=== PATIENT | male | born 1945 | race African-American/Black ===

== ENCOUNTER → 2016-08-13 | Outpatient (CLI) | payer OTHER, MEDICARE ==
[2016-08-13 12:10] LABS: HEMATOCRIT 42.8 % (37.9-51.0); HEMOGLOBIN 14.2 g/dL (13.5-17.0); HGB HCT DIFFERENCE -0.2; MEAN CORPUSCULAR HEMOGLOBIN 29.3 pg (27.0-33.4); MEAN CORPUSCULAR HGB CONC 33.2 g/dL (32.0-36.0); MEAN CORPUSCULAR VOLUME 88 fl (80-97); RED BLOOD COUNT 4.85 10^6/uL (4.35-5.55); RED CELL DISTRIBUTION WIDTH 14.3 % (11.5-14.0); WHITE BLOOD COUNT 7.8 10^3/uL (4.0-10.5)
[2016-08-13 12:21] LABS: APPEARANCE,URINE SLIGHTLY-CLOUDY; BILIRUBIN,URINE NEGATIVE (NEGATIVE); GLUCOSE, URINE NEGATIVE (NEGATIVE); KETONES,URINE NEGATIVE (NEGATIVE); LEUKOCYTE ESTERASE,URINE NEGATIVE (NEGATIVE); NITRITE,URINE NEGATIVE (NEGATIVE); PROTEIN,URINE NEGATIVE (NEGATIVE); URINE SPECIFIC GRAVITY 1.019; UROBILINOGEN,URINE NEGATIVE mg/dL (<2.0)
[2016-08-13 12:32] LABS: ANION GAP 13 (5-19); BLOOD UREA NITROGEN 16 mg/dL (7-20); CALCIUM 9.7 mg/dL (8.4-10.2); CARBON DIOXIDE 22 mmol/L (22-30); CHLORIDE 104 mmol/L (98-107); CREATININE RESULT 0.92 mg/dL (0.52-1.25); GLUCOSE 109 mg/dL (75-110); POTASSIUM 4.4 mmol/L (3.6-5.0); SODIUM 138.5 mmol/L (137-145)
--- NOTE | 2016-08-13 20:33 | EKG REPORT ---
SEVERITY:- ABNORMAL ECG - A-FLUTTER W/ VARIED AV BLOCK, A-RATE 283 : Confirmed by: Neal Sue MD 13-Aug-2016 20:32:18
== END ==
LOC: OD 10:31
PROVIDERS: ATTEND Orthopaedic Surgery
DX: Z01.810 Encounter for preprocedural cardiovascular examination (principal); Z01.811 Encounter for preprocedural respiratory examination; Z01.818 Encounter for other preprocedural examination; Z79.899 Other long term (current) drug therapy; E11.9 Type 2 diabetes mellitus without complications
CPT/HCPCS: 36415; 71020; 80048; 81001; 83036; 85027; 93005; 93010

== ENCOUNTER 2016-09-22 07:30 | Inpatient (IN) | payer OTHER, MEDICARE ==
[2016-09-09 09:13] LABS: HEMATOCRIT 41.7 % (37.9-51.0); HEMOGLOBIN 13.7 g/dL (13.5-17.0); HGB HCT DIFFERENCE -0.6; MEAN CORPUSCULAR HEMOGLOBIN 29.2 pg (27.0-33.4); MEAN CORPUSCULAR VOLUME 89 fl (80-97); RED BLOOD COUNT 4.71 10^6/uL (4.35-5.55); RED CELL DISTRIBUTION WIDTH 14.5 % (11.5-14.0); WHITE BLOOD COUNT 8.4 10^3/uL (4.0-10.5)
[2016-09-09 09:16] LABS: APPEARANCE,URINE CLEAR; BILIRUBIN,URINE NEGATIVE (NEGATIVE); GLUCOSE, URINE NEGATIVE (NEGATIVE); KETONES,URINE NEGATIVE (NEGATIVE); LEUKOCYTE ESTERASE,URINE NEGATIVE (NEGATIVE); NITRITE,URINE NEGATIVE (NEGATIVE); PROTEIN,URINE NEGATIVE (NEGATIVE); URINE SPECIFIC GRAVITY 1.024; UROBILINOGEN,URINE NEGATIVE mg/dL (<2.0)
[2016-09-09 09:17] LABS: ANION GAP 14 (5-19); BLOOD UREA NITROGEN 16 mg/dL (7-20); CALCIUM 9.8 mg/dL (8.4-10.2); CARBON DIOXIDE 25 mmol/L (22-30); CHLORIDE 106 mmol/L (98-107); CREATININE RESULT 0.91 mg/dL (0.52-1.25); GLUCOSE 115 mg/dL (75-110); POTASSIUM 4.3 mmol/L (3.6-5.0); SODIUM 144.8 mmol/L (137-145)
[~2016-09-22 07:30] MED LIST: BUPIVACAINE INJ/PF LIPOSOME/PF 266 MG/20 ML SDV IJ PRN; LACTATED RINGERS 1000 ML IV PRN; LANSOPRAZOLE 15 MG TAB.RAP.DR PO PRN; LIDOCAINE 0.5% INJ-PF (5 MG/ML) 50 ML SDV SUBCUT PRN; OXYCODONE HCL SR 10 MG TABLET PO PRN; SCOPOLAMINE HYDROBROMIDE 1.5 MG PATCH.TD72 TOP PRN
[2016-09-22] MEDS ORDERED: VANCOMYCIN HCL 1,000 MG in DEXTROSE 5%-WATER 250 ML IV PRN (07:40)
[2016-09-22] MEDS ORDERED: CEFAZOLIN INJ 1 GM VIAL IV PRN (07:41)
[2016-09-22] MEDS ORDERED: IBUPROFEN 800 MG/NS 250 ML IV PRN ×2 (07:44)
[2016-09-22] MEDS ORDERED: MIDAZOLAM 2 MG/2 ML INJ ONE ×2 (08:59→09:39)
[2016-09-22] MEDS ORDERED: ONDANSETRON HCL INJ/PF 4 MG/2 ML SDV ONE (08:59)
[2016-09-22] MEDS ORDERED: FENTANYL CITRATE INJ/PF 100 MCG/2 ML AMPUL ONE (08:59)
[2016-09-22] MEDS ORDERED: DEXAMETHASONE SOD PHOSPHATE INJ 4 MG/1 ML VIAL ONE (08:59)
[2016-09-22] MEDS ORDERED: MORPHINE SULFATE 10 MG/ML INJ ONE (09:00)
[2016-09-22] MEDS ORDERED: TRANEXAMIC ACID INJ/PF 1,000 MG/10 ML SDV IV ONE ×2 (09:00→13:00)
[2016-09-22] MEDS ORDERED: PROPOFOL INJ 200 MG/20 ML VIAL IV ONE (09:00)
[2016-09-22] MEDS ORDERED: THROMBIN (BOVINE) 5000 UNIT EPITAXIS KIT ONE (09:04)
[2016-09-22] MEDS ORDERED: THROMBIN (BOVINE) TOPICAL 20000 UNIT VIAL ONE (09:04)
[2016-09-22] MEDS ORDERED: BUPIVACAINE INJ/PF LIPOSOME/PF 266 MG/20 ML SDV ONE (09:04)
[2016-09-22] MEDS ORDERED: DIPHENHYDRAMINE HCL 50 MG/ML VIAL IV PRN ×2 (10:18→11:28)
[2016-09-22] MEDS ORDERED: PROMETHAZINE HCL INJ 25 MG/1 ML VIAL IV PRN ×2 (10:18)
[2016-09-22] MEDS ORDERED: MEPERIDINE HCL/PF INJ 25 MG/1 ML DISP.SYRIN IV PRN (10:18)
[2016-09-22] MEDS ORDERED: FENTANYL CITRATE INJ/PF 100 MCG/2 ML AMPUL IV PRN ×3 (10:18)
[2016-09-22] MEDS ORDERED: MORPHINE SULFATE 10 MG/ML INJ IV PRN ×4 (10:18→11:28)
--- NOTE | 2016-09-22 11:25 | Operative Report ---
Operative Report DATE OF SURGERY: 09/22/16 PREOPERATIVE DIAGNOSIS: Left hip arthritis OPERATION: Left hip arthroplasty SURGEON: MAGNUS AVINA ANESTHESIA: Spinal TISSUE REMOVED OR ALTERED: Bone to pathology ESTIMATED BLOOD LOSS: 200 PROCEDURE: Implants used: Femur: Striker accolade to #6 stem Acetabular shell:, 60 mm hemispherical shell Liner:, 36 mm flat cross-link polyethylene liner Head: 6 mm chrome cobalt head -5 The patient is placed in a right lateral decubitus position on the operating table. The. Left lower extremity and hindquarter is prepped and draped in a sterile fashion. A curvilinear incision was made over the greater trochanter a posterior approach the hip was taken. I'm unable to dislocate the femoral head and an in situ femoral neck osteotomy is performed. The existing femoral head which is severely deformed is taken out piecemeal . Attention was next turned to the acetabulum. Soft tissues cleared off the acetabulum using electrocautery. The acetabulum was then prepared using a series of hemispherical reamers until a 59 millimeters reamer is seated. Subsequently a 60 millimeters Adelso titanium hemispherical shell is impacted into position and secured with one screw. A standard flat 36 millimeters cross- link liner is impacted into the shell. Attention was next turned to the femur. Access is gained to the femoral canal using a box osteotome to the piriformis fossa. The femur is then prepared using a series of broaches until a number 6 broach is seated. A trial reduction was now performed using a 36 millimeters head with and minus 5 neck. Preoperative leg length was recreated and is excellent anterior posterior stability. A decision was made to proceed with the above construct. All trial implants were removed. The wound is irrigated with pulsed lavage. A number 6 stem is impacted into the femoral canal. A trial reduction was again performed with a 36 mm head and a -5 neck. Findings as previously. The hip was dislocated one last time and the final chrome-cobalt head is impacted onto the trunnion. The hip was reduced. Wound is copiously irrigated with pulsed lavage. Sent closed in layers using interrupted Vicryl followed by dima. A sterile dressing is applied and the patient's returned to recovery room in satisfactory patient.
[2016-09-22] MEDS ORDERED: AMITRIPTYLINE HCL 10 MG TABLET PO PRN (11:27)
[2016-09-22] MEDS ORDERED: (PENDING PHARMACY ID) (Magnesium Oxide [Magnesium] 400 MG) PO PRN (11:27)
[2016-09-22] MEDS ORDERED: ONDANSETRON HCL INJ/PF 4 MG/2 ML SDV IV PRN (11:28)
[2016-09-22] MEDS ORDERED: ONDANSETRON 4 MG TAB.RAPDIS PO PRN (11:28)
[2016-09-22] MEDS ORDERED: MORPHINE SULFATE 10 MG/ML INJ IM PRN (11:28)
[2016-09-22] MEDS ORDERED: MAG HYDROX/AL HYDROX/SIMETH SUSP 30 ML UDCUP PO PRN (11:28)
[2016-09-22] MEDS ORDERED: ACETAMINOPHEN 325 MG TABLET PO PRN (11:28)
[2016-09-22] MEDS ORDERED: RINGERS SOLUTION,LACTATED 1,000 ML IV PRN (11:28)
[2016-09-22] MEDS ORDERED: OXYCODONE HCL IR 5 MG TABLET PO PRN (11:28)
[2016-09-22] MEDS ORDERED: ZOLPIDEM TARTRATE 5 MG TABLET PO PRN (11:28)
[2016-09-22] MEDS ORDERED: MAGNESIUM OXIDE 400 MG TABLET PO PRN (11:50)
[2016-09-22] MEDS: SENNOSIDES/DOCUSATE 8.6-50 MG 1 EACH TABLET PO SCH (18:05)
[2016-09-22] MEDS: IBUPROFEN 800 MG in NORMAL SALINE 250 ML IV SCH (18:09)
[2016-09-22] MEDS: OXYCODONE HCL SR 10 MG TABLET PO SCH (21:17)
[2016-09-22] MEDS ORDERED: RIVAROXABAN 10 MG TABLET PO SCH (22:00)
[2016-09-22] MEDS ORDERED: VANCOMYCIN HCL 1,000 MG in DEXTROSE 5%-WATER 250 ML IV ONE (23:30)
[2016-09-23] MEDS: IBUPROFEN 800 MG in NORMAL SALINE 250 ML IV SCH ×2 (01:09→09:06)
[2016-09-23 05:50] LABS: HEMATOCRIT 38.4 % (37.9-51.0); HEMOGLOBIN 12.5 g/dL (13.5-17.0); HGB HCT DIFFERENCE -0.9; MEAN CORPUSCULAR HEMOGLOBIN 28.7 pg (27.0-33.4); MEAN CORPUSCULAR HGB CONC 32.6 g/dL (32.0-36.0); MEAN CORPUSCULAR VOLUME 88 fl (80-97); RED BLOOD COUNT 4.36 10^6/uL (4.35-5.55); RED CELL DISTRIBUTION WIDTH 14.3 % (11.5-14.0); WHITE BLOOD COUNT 13.8 10^3/uL (4.0-10.5)
[2016-09-23] MEDS ORDERED: LANSOPRAZOLE 30 MG TAB.RAP.DR PO SCH (06:00)
[2016-09-23 06:10] LABS: ANION GAP 12 (5-19); BLOOD UREA NITROGEN 16 mg/dL (7-20); CALCIUM 9.2 mg/dL (8.4-10.2); CARBON DIOXIDE 22 mmol/L (22-30); CHLORIDE 104 mmol/L (98-107); GLUCOSE 156 mg/dL (75-110); POTASSIUM 4.7 mmol/L (3.6-5.0); SODIUM 137.9 mmol/L (137-145)
--- NOTE | 2016-09-23 06:51 | PDOC DISCHARGE SUMMARY ---
General - Admit/Disc Date/PCP Admission Date/Primary Care Provider: 09/22/16 08:39 Discharge Date: 09/23/16 - Discharge Diagnosis (1) Arthritis of left hip Is this a current diagnosis for this admission?: YesSummary: The patient's a 71-year-old black male who presents with progressive pain and functional disability associated with left hip arthritis. Is admitted for elective left hip arthroplasty. - Additional Information Resuscitation Status: Full Code Discharge Diet: As Tolerated, Regular Discharge Activity: Balance Activity w/Rest, No Driving Home Medications: Amitriptyline HCl [Elavil 10 mg Tablet] 10 mg PO QAM PRN 09/08/16 Aspirin [Aspirin EC] 81 mg PO QAM 09/08/16 Diltiazem HCl 480 mg PO QAM 09/08/16 Ferrous Sulfate 324 mg PO QAM 09/08/16 Hydrochlorothiazide 25 mg PO QAM 09/08/16 Ibuprofen 600 mg PO TID 09/08/16 Lisinopril 40 mg PO QAM 09/08/16 Magnesium Oxide [Magnesium] 400 mg PO QHS PRN 09/08/16 Pravastatin Sodium 40 mg PO QAM 09/08/16 Ranitidine HCl 150 mg PO QAM 09/08/16 Oxycodone HCl [Oxy-Ir 5 mg Tablet] 5 mg PO Q6HP PRN #0 tablet 09/23/16 Rivaroxaban [Xarelto 10 mg Tablet] 10 mg PO QHS #0 tablet 09/23/16 History of Present Illness History of Present Illness: PAULETTE SCALES is a 71 year old male Hospital Course Hospital Course: Patient submitted through the operating room where he undergoes a fairly complicated left hip arthroplasty. He's returned to floor in satisfactory condition. He denies any pain. He makes excellent progress with physical therapy, ambulating 440 feet on the operative day. Hematocrit remains above 38% . Physical Exam Vital Signs: Temp Pulse Resp BP Pulse Ox 36.8 C 116 H 18 112/61 100 09/23/16 03:08 09/23/16 03:08 09/23/16 03:08 09/23/16 03:08 09/23/16 03:08 Intake & Output 09/21/16 09/22/16 09/23/16 06:59 06:59 06:59 Intake Total 6008 Output Total 4540 Balance 1468 Weight 124.7 kg General appearance: PRESENT: no acute distress Head exam: PRESENT: normocephalic Eye exam: PRESENT: EOMI Respiratory exam: PRESENT: unlabored Cardiovascular exam: PRESENT: RRR Pulses: PRESENT: +1 pedal pulses bilateral GI/Abdominal exam: PRESENT: soft Rectal exam: PRESENT: deferred Extremities exam: PRESENT: other - Left lower extremity balaji dressing clean dry and intact. Leg lengths are equal. Distal neurovascular examinations intact. Neurological exam: PRESENT: alert, awake, oriented to person, oriented to place , oriented to time, oriented to situation. ABSENT: motor sensory deficit Psychiatric exam: PRESENT: appropriate affect, normal mood. ABSENT: homicidal ideation, suicidal ideation Skin exam: PRESENT: dry, intact, warm. ABSENT: cyanosis, rash Results Laboratory Results: 09/23/16 05:05 09/23/16 05:05 09/22/16 09/22/16 09/22/16 09:00 09:00 11:49 WBC RBC Hgb Hct MCV MCH MCHC RDW Plt Count Sodium Potassium Cancelled Chloride Carbon Dioxide Anion Gap BUN Creatinine Est GFR ( Amer) Est GFR (Non-Af Amer) Glucose 139 H Calcium Blood Type Cancelled Antibody Screen Cancelled 09/22/16 09/22/16 09/23/16 11:49 11:49 05:05 WBC 13.8 H RBC 4.36 Hgb 12.5 L Hct 38.4 MCV 88 MCH 28.7 MCHC 32.6 RDW 14.3 H Plt Count 148 L Sodium Potassium 4.9 Chloride Carbon Dioxide Anion Gap BUN Creatinine Est GFR ( Amer) Est GFR (Non-Af Amer) Glucose Calcium Blood Type O POSITIVE Antibody Screen NEGATIVE 09/23/16 05:05 WBC RBC Hgb Hct MCV MCH MCHC RDW Plt Count Sodium 137.9 Potassium 4.7 Chloride 104 Carbon Dioxide 22 Anion Gap 12 BUN 16 Creatinine 0.90 Est GFR ( Amer) > 60 Est GFR (Non-Af Amer) > 60 Glucose 156 H Calcium 9.2 Blood Type Antibody Screen Impressions: Pelvis X-Ray 09/22/16 11:29 IMPRESSION: SATISFACTORY POSTOPERATIVE PELVIS. Status: Imported from PACS Plan Discharge Plan: Patient be discharged home with home health nursing, home health physical therapy, we'll Walker, bedside commode. Home health nursing can change the left hip balaji dressing on postop day 7 replace it with an Acticoat dressing. Follow-up will be with Dr. Schulz in the [facility] for surgery in approximately 2 weeks for staple removal. Time Spent: Less than 30 Minutes
[2016-09-23] MEDS ORDERED: DILTIAZEM HCL 60 MG TABLET PO SCH (08:00)
[2016-09-23] MEDS ORDERED: (PENDING PHARMACY ID) (Lisinopril [Lisinopril] 40 MG) PO SCH (08:00)
[2016-09-23] MEDS ORDERED: (PENDING PHARMACY ID) (Ferrous Sulfate [Ferrous Sulfate] 324 MG) PO SCH (08:00)
[2016-09-23] MEDS ORDERED: (PENDING PHARMACY ID) (Ranitidine Hcl [Ranitidine Hcl] 150 MG) PO SCH (08:00)
[2016-09-23] MEDS ORDERED: (PENDING PHARMACY ID) (Pravastatin Sodium [Pravastatin Sodium] 40 MG) PO SCH (08:00)
[2016-09-23 08:26] VITALS: BP 131/74
[2016-09-23] MEDS: OXYCODONE HCL SR 10 MG TABLET PO SCH (09:00)
[2016-09-23] MEDS: SENNOSIDES/DOCUSATE 8.6-50 MG 1 EACH TABLET PO SCH (09:01)
[2016-09-23] MEDS ORDERED: HYDROCHLOROTHIAZIDE 25 MG TABLET PO SCH (10:00)
[2016-09-23] MEDS ORDERED: PRENATAL VITAMIN W-O CA NO5/FE FUMARATE/FA CAPSULE PO SCH (10:00)
[2016-09-23] MEDS ORDERED: LISINOPRIL 10 MG TABLET PO SCH (10:00)
[2016-09-23] MEDS ORDERED: FERROUS SULFATE 325 MG TABLET PO SCH (10:00)
--- NOTE | 2016-09-23 10:46 | EKG REPORT ---
SEVERITY:- ABNORMAL ECG - SINUS TACHYCARDIA NONSPECIFIC T ABNORMALITIES, LATERAL LEADS : Confirmed by: Neal Sue MD 23-Sep-2016 10:45:08
[2016-09-23] MEDS ORDERED: ATORVASTATIN CALCIUM 10 MG TABLET PO SCH (22:00)
== END 2016-09-23 10:49 | disposition home health service (06) | DRG 470 ==
LOC: INOR 08:39 → 4S 12:46
PROVIDERS: ADMIT Orthopaedic Surgery; ATTEND Orthopaedic Surgery
PROC: 0SRB02A Replacement of Left Hip Joint with Metal on Polyethylene Synthetic Substitute, Uncemented, Open Approach (ICD-10-PCS; principal; 2016-09-22 10:00)
DX: M16.12 Unilateral primary osteoarthritis, left hip (principal); I10 Essential (primary) hypertension; E11.9 Type 2 diabetes mellitus without complications; F43.10 Post-traumatic stress disorder, unspecified; K21.9 Gastro-esophageal reflux disease without esophagitis; E66.9 Obesity, unspecified; Z68.39 Body mass index [BMI] 39.0-39.9, adult; Z79.899 Other long term (current) drug therapy; Z83.3 Family history of diabetes mellitus; Z82.49 Family history of ischemic heart disease and other diseases of the circulatory system
CPT/HCPCS: 01214; 36415; 72170; 80048; 81001; 82947; 84132; 85027; 86850; 86900; 86901; 88304; 88311; 93005; 93010; 94799; C1713; C9290; G8978-GP; G8979-GP; G8987-GO; G8988-GO; J0690; J1100; J1741; J2250; J2270; J2405; J2704; J3010; J3370; J3490; J7050; J7060; J7120

== ENCOUNTER 2017-01-20 02:04 | Inpatient (IN) | payer OTHER, MEDICARE ==
[2017-01-20] MEDS ORDERED: METHYLPREDNISOLONE INJ 125 MG/2 ML SDV ONE (02:09)
[2017-01-20] MEDS ORDERED: ALBUTEROL SULFATE 0.083% NEB 2.5 MG/3 ML AMPUL NEB ONE (02:09)
[2017-01-20] MEDS ORDERED: IPRATROPIUM/ALBUTEROL 0.5-2.5 MG/3 ML AMPUL NEB ONE ×3 (02:09→07:46)
[2017-01-20] MEDS: MAGNESIUM SULFATE/D5W 100 ML IV SCH ×2 (02:12→02:20)
[2017-01-20] MEDS ORDERED: MAGNESIUM SULFATE/D5W 2 GM/200 ML RTUPB IV ONE (02:12)
[2017-01-20 02:28] LABS: VENOUS BLOOD BASE EXCESS -5.4 mmol/L; VENOUS BLOOD HCO3 21.1 mmol/L (20-32); VENOUS BLOOD PCO2 44.4 mmHg (35-63); VENOUS BLOOD PH 7.29 (7.30-7.42)
--- NOTE | 2017-01-20 02:36 | ER Document Report ---
ED General - General Chief Complaint: Respiratory Distress Stated Complaint: RESPIRATORY DISTRESS Time Seen by Provider: 01/20/17 02:07 Notes: This 71-year-old male who woke up in respiratory distress. He has no history of asthma. No history of COPD or emphysema. Does not smoke. He feels last night he was having worsening acid reflux symptoms and he woke up with wheezing and difficulty breathing. When paramedics arrived his O2 saturation was 74%. Most recent surgery is hip surgery and September of this year. He denies any leg pain or leg swelling that is new. He denies history of DVT or PE. No chest pain. He never had symptoms like this in the past. Paramedics said when he first arrived his lung wood are extremely tight he was not moving air. Did do give him Solu-Medrol as well as breathing treatments which has allowed him to have some air exchange at this time. TRAVEL OUTSIDE OF THE [place] IN LAST 30 DAYS: No - Related Data Allergies/Adverse Reactions: No Known Allergies Allergy (Verified 01/20/17 02:33) Past Medical History - Social History Smoking Status: Never Smoker Frequency of alcohol use: None Drug Abuse: None Family History: Reviewed & Not Pertinent - Past Medical History Cardiac Medical History: Reports: Hx Atrial Fibrillation, Hx Hypercholesterolemia, Hx Hypertension Denies: Hx Congestive Heart Failure, Hx Coronary Artery Disease, Hx Heart Attack, Hx Peripheral Vascular Disease, Hx Heart Murmur Endocrine Medical History: Denies: Hx Graves' Disease, Hx Hyperthyroidism, Hx Hypothyroidism Malignancy Medical History: Denies Hx Leukemia GI Medical History: Reports: Hx Gastroesophageal Reflux Disease. Denies: Hx Crohn's Disease, Hx Hiatal Hernia, Hx Irritable Bowel, Hx Liver Failure, Hx Ulcer Musculoskeltal Medical History: Reports Hx Arthritis, Denies Hx Fibromyalgia, Denies Hx Muscular Dystrophy Psychiatric Medical History: Reports: Hx Post Traumatic Stress Disorder Denies: Hx Bipolar Disorder, Hx Depression, Hx Schizophrenia Traumatic Medical History: Denies: Hx Fractures Infectious Medical History: Denies: Hx HIV Past Surgical History: Denies: Hx Appendectomy, Hx Bowel Surgery, Hx Cholecystectomy, Hx Colostomy, Hx Coronary Artery Bypass Graft, Hx Gastric Bypass Surgery, Hx Herniorrhaphy, Hx Pacemaker, Hx Tonsillectomy - Immunizations Hx Pneumococcal Vaccination: 03/15/16 Review of Systems - Review of Systems Notes: My Normal Review Basic REVIEW OF SYSTEMS: CONSTITUTIONAL : Denies fever, chills, or sweats. Denies recent illness. EENT: Denies eye, ear, throat, or mouth pain or symptoms. Denies nasal or sinus congestion. CARDIOVASCULAR: Denies chest pain. RESPIRATORY: Difficulty breathing and wheezing. GASTROINTESTINAL: Denies abdominal pain. Denies nausea, vomiting, or diarrhea. MUSCULOSKELETAL: Denies neck or back pain or joint pain or swelling. SKIN: Denies rash or skin lesions. NEUROLOGICAL: Denies altered mental status or loss of consciousness. Denies headache. Denies weakness or paralysis or loss of use of either side. Denies problems with gait or speech. Denies sensory or motor loss. ALL OTHER SYSTEMS REVIEWED AND NEGATIVE. Physical Exam - Vital signs Vitals: Resp Pulse Ox 24 H 97 01/20/17 02:16 01/20/17 02:16 - Notes Notes: General Appearance: Well nourished, alert, cooperative, moderate acute distress , no obvious discomfort. Speaking in 3 word sentences Vitals: reviewed, See vital signs table. Head: no swelling or tenderness to the head Eyes: PERRL, EOMI, Conjuctiva clear Mouth: No decreasd moisture Neck: Supple, no neck tenderness, No thyromegaly Lungs: Diffuse wheezing, No rales, No rhonci, No accessory muscle use, poor air exchange bilaterally. Heart: Normal rate, Regular rythm, No murmur, no rub Abdomen: Normal BS, soft, No rigidity, No abdominal tenderness, No guarding, no rebound, no abdominal masses, no organomegaly Extremities: strength 5/5 in all extremities, good pulses in all extremities, no swelling or tenderness in the extremities, 2+ bilateral lower extremity edema. Skin: warm, dry, appropriate color, no rash Neuro: speech clear, oriented x 3, normal affect, responds appropriately to questions. Course - Re-evaluation Re-evalutation: 01/20/17 02:55 Patient suddenly became much worse. Patient was sweating and had severe respiratory distress despite being on BiPAP and receiving breathing treatments. I discussed with him the option of intubation and told him that I recommended this being that he was only worsening on the BiPAP. Patient agreed to intubation. Patient was intubated. Patient's pulse ox is 100% after being intubated. I will place the patient on a propofol drip. - Vital Signs Vital signs: Temp Pulse Resp BP Pulse Ox 24 H 95 01/20/17 02:16 01/20/17 03:05 - Laboratory Result Diagrams: 01/20/17 02:08 01/20/17 02:08 Laboratory results interpreted by me: 01/20/17 01/20/17 01/20/17 02:08 02:08 02:08 WBC 12.0 H Hgb 13.1 L MCHC 31.9 L RDW 15.6 H VBG pH 7.29 L Chloride 108 H Glucose 174 H Alkaline Phosphatase 189 H NT-Pro-B Natriuret Pep 01/20/17 02:08 WBC Hgb MCHC RDW VBG pH Chloride Glucose Alkaline Phosphatase NT-Pro-B Natriuret Pep 986 H - EKG Interpretation by Me Additional EKG results interpreted by me: 01/20/17 02:34 2 [id number] EKG is performed the same time. First EKG will be discarded. First EKG was performed at 216. I will discard this 1 because of some motion artifact it is difficult to interpret. Second EKG was performed at a.m. This EKG shows sinus tachycardia with a rate of 103 bpm. Patient still some baseline artifact however I do not see evidence of any ST segment elevation or depression. LA interval, QRS duration, QTc intervals are within normal range. No old EKG available for comparison. Procedures - Intubation Orotracheal Airway evaluation: Obese Mallampati Classification: Class 2 Medications: Etomidate, Succinylcholine Intubation method: Orotracheal Blade type: Tran Blade size: 4 Equipment used: Glidescope ETT size: 7.5 ETT secured at: Gums ETT secured at (cm): 25 Breath Sounds after Intubation: Equal Post Intubation Xray: Yes Intubation Complications: No complications Critical Care Note - Critical Care Note Total time excluding time spent on procedures (mins): 50 Comments: Critical Care time for this patient not including time spent on procedures approximately 50 minutes due to frequent re-evaluations, management of respiratory failure, adjustments of the ventilator, adjustment of sedation. Discharge - Discharge Clinical Impression: Respiratory failure Qualifiers: Chronicity: acute Respiratory failure complication: hypoxia Qualified Code(s): J96.01 - Acute respiratory failure with hypoxia Pulmonary edema Qualifiers: Chronicity: acute Qualified Code(s): J81.0 - Acute pulmonary edema Disposition: ADMITTED INPATIENT Admitting Provider: Hospitalist Unit Admitted: ICU
[2017-01-20 02:39] LABS: ALANINE AMINOTRANSFERASE 46 U/L (21-72); ALBUMIN 3.9 g/dL (3.5-5.0); ALKALINE PHOSPHATASE 189 U/L (38-126); ANION GAP 13 (5-19); ASPARTATE AMINO TRANSFERASE 35 U/L (17-59); BILIRUBIN,DIRECT 0.4 mg/dL (0.0-0.4); BILIRUBIN,TOTAL 0.7 mg/dL (0.2-1.3); BLOOD UREA NITROGEN 19 mg/dL (7-20); CALCIUM 9.6 mg/dL (8.4-10.2); CARBON DIOXIDE 22 mmol/L (22-30); CHLORIDE 108 mmol/L (98-107); CREATININE RESULT 1.05 mg/dL (0.52-1.25); GLUCOSE 174 mg/dL (75-110); POTASSIUM 4.1 mmol/L (3.6-5.0); SODIUM 142.7 mmol/L (137-145); TOTAL PROTEIN 6.8 g/dL (6.3-8.2)
[2017-01-20] MEDS ORDERED: SUCCINYLCHOLINE CHLORIDE INJ 200 MG/10 ML VIAL IV ONE (02:39)
[2017-01-20] MEDS ORDERED: ETOMIDATE INJ/PF 20 MG/10 ML SDV IV ONE (02:39)
[2017-01-20 02:40] LABS: ABSOLUTE BASOPHILS # (AUTO) 0.1 10^3/uL (0.0-0.2); ABSOLUTE EOSINOPHILS # (AUTO) 0.2 10^3/uL (0.0-0.6); ABSOLUTE LYMPHOCYTES (AUTO) 3.7 10^3/uL (0.5-4.7); ABSOLUTE MONOCYTES (AUTO) 0.9 10^3/uL (0.1-1.4); ABSOLUTE NEUT (AUTO) 7.2 10^3/uL (1.7-8.2); BASOPHILS % (AUTO) 0.5 % (0-2); EOSINOPHILS % (AUTO) 1.6 % (0-6); HEMOGLOBIN 13.1 g/dL (13.5-17.0); HGB HCT DIFFERENCE -1.7; LYMPHOCYTES % (AUTO) 30.6 % (13-45); MEAN CORPUSCULAR HEMOGLOBIN 28.6 pg (27.0-33.4); MEAN CORPUSCULAR HGB CONC 31.9 g/dL (32.0-36.0); MEAN CORPUSCULAR VOLUME 89 fl (80-97); MONOCYTES % (AUTO) 7.6 % (3-13); RED BLOOD COUNT 4.59 10^6/uL (4.35-5.55); RED CELL DISTRIBUTION WIDTH 15.6 % (11.5-14.0); SEGMENTED NEUTROPHILS % (AUTO) 59.7 % (42-78)
--- NOTE | 2017-01-20 02:53 | RADIOLOGY REPORT (SQ) ---
EXAM DESCRIPTION: CHEST SINGLE VIEW COMPLETED DATE/TIME: 01/20/2017 2:39 am REASON FOR STUDY: dyspnea COMPARISON: 08/13/2016. EXAM PARAMETERS: NUMBER OF VIEWS: One view. TECHNIQUE: Single frontal radiographic view of the chest acquired. RADIATION DOSE: NA LIMITATIONS: None. FINDINGS: LUNGS AND PLEURA: Moderate mixed interstitial and airspace opacity worsened bilateral lowe r lung wood. Moderate lung volumes. Small costophrenic haziness -layered effusion bilaterally. MEDIASTINUM AND HILAR STRUCTURES: No masses. Contour normal. HEART AND VASCULAR STRUCTURES: Borderline cardiac silhouette size. BONES: Advanced osteoarthritis of bilateral shoulders. HARDWARE: None in the chest. OTHER: No other significant finding. IMPRESSION: Moderate bilateral pulmonary edema pattern with lower lobe predominance; differential di agnosis includes CHF and multifocal pneumonia. TECHNICAL DOCUMENTATION: JOB ID: [id number]
[2017-01-20] MEDS ORDERED: PROPOFOL 100 ML IV ONE ×3 (02:55→08:08)
[2017-01-20] MEDS ORDERED: PROPOFOL INJ 200 MG/20 ML VIAL IV ONE (02:57)
[2017-01-20] MEDS ORDERED: FUROSEMIDE INJ/PF 40 MG/4 ML SDV IV ONE (02:57)
[2017-01-20] MEDS ORDERED: PROPOFOL 100 ML IV PRN (02:57)
[2017-01-20] MEDS ORDERED: FENTANYL CITRATE INJ/PF 100 MCG/2 ML AMPUL IV ONE (03:05)
[2017-01-20] MEDS ORDERED: FENTANYL CITRATE INJ/PF 100 MCG/2 ML AMPUL ONE (03:08)
[2017-01-20] MEDS ORDERED: MIDAZOLAM 2 MG/2 ML INJ IV ONE (03:09)
[2017-01-20] MEDS ORDERED: MIDAZOLAM HCL 100 ML IV PRN ×2 (03:09→08:53)
[2017-01-20] MEDS ORDERED: MIDAZOLAM 2 MG/2 ML INJ ONE (03:13)
[2017-01-20] MEDS ORDERED: MIDAZOLAM HCL 100 ML IV ONE ×2 (03:14→06:18)
[2017-01-20 03:31] LABS: CREATINE KINASE MB 1.09 ng/mL (<4.55)
[2017-01-20 03:33] LABS: TROPONIN I < 0.012 ng/mL
--- NOTE | 2017-01-20 03:49 | RADIOLOGY REPORT (SQ) ---
EXAM DESCRIPTION: CHEST SINGLE VIEW COMPLETED DATE/TIME: 01/20/2017 3:25 am REASON FOR STUDY: post intubation COMPARISON: 01/20/2017. EXAM PARAMETERS: NUMBER OF VIEWS: One view. TECHNIQUE: Single frontal radiographic view of the chest acquired. RADIATION DOSE: NA LIMITATIONS: None. FINDINGS: LUNGS AND PLEURA: Moderate mixed interstitial and airspace opacities, moderate haziness -l ayered effusion of bilateral lower hemithoraces. Moderate lung volumes. MEDIASTINUM AND HILAR STRUCTURES: No masses. Contour normal. HEART AND VASCULAR STRUCTURES: Heart normal in size. Normal vasculature. BONES: No acute findings. HARDWARE: Adequate appearing endotracheal tube. Likely adequate NG tube obscured distally. OTHER: No other significant finding. IMPRESSION: Moderate pulmonary edema-layered effusion pattern, somewhat worsened. Lines and tubes. TECHNICAL DOCUMENTATION: JOB ID: [id number]
[2017-01-20] MEDS ORDERED: ACETAMINOPHEN 325 MG TABLET NG PRN ×2 (04:09→08:51)
[2017-01-20 04:10] LABS: ARTERIAL BLOOD BASE EXCESS -5.9 mmol/L; ARTERIAL BLOOD O2 SATURATION 94.2 % (94-98)
[2017-01-20] MEDS ORDERED: AMITRIPTYLINE HCL 10 MG TABLET NG PRN ×2 (04:14→08:51)
[2017-01-20 04:28] LABS: URINE BARBITURATES SCREEN NEGATIVE; URINE METHADONE SCREEN NEGATIVE; URINE OPIATES LOW NEGATIVE; URINE PHENCYCLIDINE SCREEN NEGATIVE
--- NOTE | 2017-01-20 05:15 | PDOC H&P ---
History of Present Illness Admission Date/PCP: 01/20/17 04:13 Patient complains of: Shortness of breath History of Present Illness: PAULETTE SCALES is a 71 year old male with a past medical history of hypertension, dyslipidemia, GERD, morbid obesity, anxiety and A. fib on Xarelto who presents after approximately 6 hours of severe shortness of breath nonproductive cough and wheezing. He is found by EMS with an oxygen saturation of 74% on room air. In the emergency room he was given IV Solu-Medrol, albuterol and Atrovent with a trial of BiPAP. He rapidly decompensated with belly breathing diaphoresis requiring emergent intubation. His workup is remarkable for a chest x-ray with marketed pulmonary edema, despite intubation with deep sedation he continues to have copious clear secretions, ventilator asynchrony with elevated peak pressures and belly breathing. He is referred to the hospitalist for admission. Past Medical History Cardiac Medical History: Reports: Atrial Fibrillation, Hyperlipidema, Hypertension Denies: Congestive Heart Failure, Coronary Artery Disease, Myocardial Infarction, Peripheral Vascular Disease, Heart Murmur Endocrine Medical History: Reports: Obesity Denies: Hyperthyroidism, Hypothyroidism Malignancy Medical History: Denies: Leukemia GI Medical History: Reports: Gastroesophageal Reflux Disease Denies: Crohn's Disease, Hiatal Hernia Musculoskeltal Medical History: Reports: Arthritis Denies: Fibromyalgia Psychiatric Medical History: Reports: Post Traumatic Stress Disorder Denies: Bipolar Disorder, Depression Hematology: Reports: Anemia Denies: Hemophilia, Sickle Cell Disease Infectious Medical History: Denies: HIV Past Surgical History Past Surgical History: Denies: Appendectomy, Cholecystectomy, Colostomy, Coronary Artery Bypass Graft, Gastric Bypass Surgery, Herniorrhaphy, Pacemaker, Tonsillectomy Social History Information Source: [facility] Records Smoking Status: Never Smoker Hx Recreational Drug Use: No Hx Prescription Drug Abuse: No - Advance Directive Resuscitation Status: Full Code Family History Family History: Other - Unobtainable Parental Family History Reviewed: Yes - Unobtainable Children Family History Reviewed: Yes - Unobtainable Sibling(s) Family History Reviewed.: Yes - Unobtainable Medication/Allergy Home Medications: Amitriptyline HCl [Elavil 10 mg Tablet] 10 mg PO QAM PRN 09/08/16 Aspirin [Aspirin EC] 81 mg PO QAM 09/08/16 Diltiazem HCl 480 mg PO QAM 09/08/16 Ferrous Sulfate 324 mg PO QAM 09/08/16 Hydrochlorothiazide 25 mg PO QAM 09/08/16 Ibuprofen 600 mg PO TID 09/08/16 Lisinopril 40 mg PO QAM 09/08/16 Magnesium Oxide [Magnesium] 400 mg PO QHS PRN 09/08/16 Pravastatin Sodium 40 mg PO QAM 09/08/16 Ranitidine HCl 150 mg PO QAM 09/08/16 Oxycodone HCl [Oxy-Ir 5 mg Tablet] 5 mg PO Q6HP PRN #0 tablet 09/23/16 Rivaroxaban [Xarelto 10 mg Tablet] 10 mg PO QHS #0 tablet 09/23/16 Allergies/Adverse Reactions: No Known Allergies Allergy (Verified 01/20/17 02:33) Review of Systems ROS unobtainable: Due to mental status - Unobtainable Physical Exam Vital Signs: Temp Pulse Resp BP Pulse Ox 97.6 F 19 114/69 95 01/20/17 04:06 01/20/17 04:06 01/20/17 04:06 01/20/17 04:06 General appearance: PRESENT: obese, severe distress - Ventilator asynchrony, chest wall retraction, peak pressure alarms Head exam: PRESENT: atraumatic, normocephalic Eye exam: PRESENT: conjunctiva pink, EOMI, PERRLA - Pupils 1.5 mm symmetric and sluggishly reactive. ABSENT: scleral icterus Ear exam: PRESENT: normal external ear exam Mouth exam: PRESENT: moist, tongue midline, other - Excessive clear secretions Neck exam: ABSENT: carotid bruit, JVD, lymphadenopathy, thyromegaly Respiratory exam: PRESENT: accessory muscle use, crackles, decreased breath sounds, retraction, tachypnea. ABSENT: chest wall tenderness, rhonchi, wheezes Cardiovascular exam: PRESENT: RRR, tachycardia. ABSENT: diastolic murmur, rubs , systolic murmur Pulses: PRESENT: normal dorsalis pedis pul Vascular exam: PRESENT: normal capillary refill GI/Abdominal exam: PRESENT: normal bowel sounds, soft. ABSENT: distended, guarding, mass, organolmegaly, rebound, tenderness Rectal exam: PRESENT: deferred Extremities exam: PRESENT: +1 edema Neurological exam: PRESENT: other - Intubated and sedated Skin exam: PRESENT: dry, intact, warm. ABSENT: cyanosis, rash Results Impressions: Chest X-Ray 01/20/17 02:55 IMPRESSION: Moderate pulmonary edema-layered effusion pattern, somewhat worsened. Lines and tubes. Assessment & Plan - Diagnosis (1) Respiratory failure Qualifiers: Chronicity: acute Respiratory failure complication: hypoxia Qualified Code(s): J96.01 - Acute respiratory failure with hypoxia Is this a current diagnosis for this admission?: YesPlan: History suggests flash pulmonary edema unclear cause, intubated sedated, pulmonology consultation, albuterol and Atrovent trial diuretic, follow-up ABG for ventilator setting optimization. (2) Pulmonary edema Qualifiers: Chronicity: acute Qualified Code(s): J81.0 - Acute pulmonary edema Is this a current diagnosis for this admission?: YesPlan: Possibly cardiogenic cause serial cardiac enzymes ordered, BNP less than 1000, trial Lasix diuretic, supportive measures (3) Paroxysmal atrial fibrillation Is this a current diagnosis for this admission?: YesPlan: Currently sinus tachycardia continue Xarelto and diltiazem. (4) Chronic pain Is this a current diagnosis for this admission?: YesPlan: History of chronic low back pain, opiate dependent possibly related to pulmonary edema, continue as needed. - Time Time Spent: 50 to 70 Minutes - Inpatient Certification Medical Necessity: Need Close Monitoring Due to Risk of Patient Decompensation
[2017-01-20] MEDS ORDERED: DILTIAZEM HCL 90 MG TABLET PO SCH (06:00)
[2017-01-20 06:47] LABS: ARTERIAL BLOOD BASE EXCESS -1.8 mmol/L; ARTERIAL BLOOD O2 SATURATION 86.1 % (94-98)
[2017-01-20] MEDS: IPRATROPIUM/ALBUTEROL 0.5-2.5 MG/3 ML AMPUL NEB SCH ×3 (07:50→20:03)
[2017-01-20] MEDS ORDERED: (PENDING PHARMACY ID) (Pravastatin Sodium [Pravastatin Sodium] 40 MG) NG SCH (08:00)
[2017-01-20] MEDS ORDERED: ASPIRIN 81 MG TABLET, ENT COATED PO SCH (08:00)
[2017-01-20 08:27] LABS: CREATINE KINASE MB 1.23 ng/mL (<4.55); TROPONIN I 0.041 ng/mL
--- NOTE | 2017-01-20 08:34 | EKG REPORT ---
SEVERITY:- ABNORMAL ECG - SINUS TACHYCARDIA ATRIAL PREMATURE COMPLEX PROBABLE POSTERIOR INFARCT : Confirmed by: Pascual Dallas 20-Jan-2017 08:33:59
--- NOTE | 2017-01-20 08:35 | EKG REPORT ---
SEVERITY:- ABNORMAL ECG - SINUS TACHYCARDIA PROBABLE POSTERIOR INFARCT NONSPECIFIC T ABNORMALITIES, LATERAL LEADS : Confirmed by: Pascual Dallas 20-Jan-2017 08:34:19
[2017-01-20] MEDS ORDERED: LANSOPRAZOLE 15 MG TAB.RAP.DR NG ONE (09:15)
[2017-01-20] MEDS: ASPIRIN 81 MG TABLET, CHEWABLE NG SCH (09:18)
[2017-01-20] MEDS: LANSOPRAZOLE 15 MG TAB.RAP.DR NG SCH (09:19)
[2017-01-20] MEDS ORDERED: DILTIAZEM HCL 90 MG TABLET NG ONE (10:00)
[2017-01-20] MEDS ORDERED: DOCUSATE SODIUM 100 MG/10 ML UDC NG SCH (10:00)
[2017-01-20] MEDS: CEFEPIME 2 GM/D5W RTU 50 ML IV SCH ×2 (10:57→21:03)
[2017-01-20] MEDS: LEVOFLOXACIN 750 MG/D5W RTU 150 ML IV SCH (10:57)
[2017-01-20 11:06] LABS: ARTERIAL BLOOD BASE EXCESS -1.1 mmol/L; ARTERIAL BLOOD O2 SATURATION 98.1 % (94-98)
--- NOTE | 2017-01-20 11:29 | PDOC CONSULTATION ---
Consultation Consult Date: 01/20/17 Attending physician:: LAINEY RIVAS Consult reason:: resp failure History of Present Illness Admission Date/PCP: 01/20/17 05:34 MAGNUS AVINA MD History of Present Illness: PAULETTE SCALES is a 71 year old male with a past medical history of hypertension, dyslipidemia, GERD, morbid obesity, He is found by EMS with an oxygen saturation of 74% on room air. In the emergency room he was given IV Solu-Medrol, albuterol and Atrovent with a trial of BiPAP. He rapidly decompensated with belly breathing diaphoresis requiring emergent intubation. His workup is remarkable for a chest x-ray with marketed pulmonary edema, despite intubation with deep sedation he continues to have copious clear secretions, ventilator asynchrony with elevated peak pressures and belly breathing. Past Medical History Cardiac Medical History: Reports: Atrial Fibrillation, Hyperlipidema, Hypertension Denies: Congestive Heart Failure, Coronary Artery Disease, Myocardial Infarction, Peripheral Vascular Disease, Heart Murmur Endocrine Medical History: Reports: Obesity Denies: Hyperthyroidism, Hypothyroidism Malignancy Medical History: Denies: Leukemia GI Medical History: Reports: Gastroesophageal Reflux Disease Denies: Crohn's Disease, Hiatal Hernia Musculoskeltal Medical History: Reports: Arthritis Denies: Fibromyalgia Psychiatric Medical History: Reports: Post Traumatic Stress Disorder Denies: Bipolar Disorder, Depression Hematology: Reports: Anemia Denies: Hemophilia, Sickle Cell Disease Infectious Medical History: Denies: HIV Past Surgical History Past Surgical History: Denies: Appendectomy, Cholecystectomy, Colostomy, Coronary Artery Bypass Graft, Gastric Bypass Surgery, Herniorrhaphy, Pacemaker, Tonsillectomy Social History Information Source: [facility] Records Smoking Status: Unknown if Ever Smoked Passive smoke exposure as: Both Hx Recreational Drug Use: No Hx Prescription Drug Abuse: No - Advance Directive Resuscitation Status: Full Code Family History Family History: Other - Unobtainable Parental Family History Reviewed: No Children Family History Reviewed: No Sibling(s) Family History Reviewed.: No Medication/Allergy Home Medications: Amitriptyline HCl [Elavil 10 mg Tablet] 10 mg PO QHS 09/08/16 Aspirin [Aspirin EC] 81 mg PO QAM 09/08/16 Ferrous Sulfate 324 mg PO QAM 09/08/16 Hydrochlorothiazide 25 mg PO QAM 09/08/16 Ibuprofen 600 mg PO Q8HP PRN 09/08/16 Magnesium Oxide [Magnesium] 400 mg PO QHS 09/08/16 Pravastatin Sodium 40 mg PO QHS 09/08/16 Ranitidine HCl 150 mg PO QAMP PRN 09/08/16 Diltiazem HCl [Diltiazem ER] 480 mg PO DAILY 01/20/17 Ergocalciferol (Vitamin D2) [Drisdol 50,000 unit (1.25MG) Capsule] 50,000 unit PO Q7D 01/20/17 Lisinopril [Prinivil] 20 mg PO DAILY 01/20/17 Methyl Salicylate/Menthol [Icy Hot Cream] 1 applic TOP BIDP PRN 01/20/17 Sildenafil Citrate [Viagra] 100 mg PO ASDIR PRN 01/20/17 Allergies/Adverse Reactions: No Known Allergies Allergy (Verified 01/20/17 02:33) Review of Systems ROS unobtainable: Due to endotracheal tube Physical Exam Vital Signs: Temp Pulse Resp BP Pulse Ox 97.7 F 82 22 H 104/63 98 01/20/17 07:32 01/20/17 10:22 01/20/17 10:00 01/20/17 09:33 01/20/17 10:00 Intake & Output 01/19/17 01/20/17 01/21/17 06:59 06:59 06:59 Output Total 1000 Balance -1000 Weight 122.7 kg General appearance: PRESENT: no acute distress, disheveled, morbidly obese, well -developed Head exam: PRESENT: atraumatic, normocephalic Eye exam: PRESENT: conjunctiva pale Mouth exam: PRESENT: dry mucosa, neck supple, tongue midline, other - ET tube in place Neck exam: ABSENT: carotid bruit, JVD, lymphadenopathy, thyromegaly Respiratory exam: PRESENT: decreased breath sounds, prolonged expiratory phas, tachypnea, unlabored Cardiovascular exam: PRESENT: RRR, +S1, +S2 Pulses: PRESENT: normal radial pulses GI/Abdominal exam: PRESENT: normal bowel sounds, soft. ABSENT: distended, guarding, mass, organolmegaly, rebound, tenderness Rectal exam: PRESENT: deferred Gentrourinary exam: PRESENT: indwelling catheter Musculoskeletal exam: PRESENT: normal inspection Skin exam: PRESENT: dry, warm Results Laboratory Results: 01/20/17 01/20/17 06:35 10:50 Carbonic Acid 1.41 H 1.01 L HCO3/H2CO3 Ratio 17:1 22:1 ABG pH 7.33 L 7.44 ABG pCO2 46.7 H 33.4 L ABG pO2 54.4 L 106.1 H ABG HCO3 24.3 22.3 ABG O2 Saturation 86.1 L 98.1 H ABG Base Excess -1.8 -1.1 FiO2 60% 45% 01/20/17 01/20/17 07:46 07:46 Creatine Kinase 160 CK-MB (CK-2) 1.23 Troponin I 0.041 Impressions: Chest X-Ray 01/20/17 02:55 IMPRESSION: Moderate pulmonary edema-layered effusion pattern, somewhat worsened. Lines and tubes. Assessment & Plan - Diagnosis (1) Paroxysmal atrial fibrillation Is this a current diagnosis for this admission?: Yes (2) Pulmonary edema Qualifiers: Chronicity: acute Qualified Code(s): J81.0 - Acute pulmonary edema Is this a current diagnosis for this admission?: Yes (3) Respiratory failure Qualifiers: Chronicity: acute Respiratory failure complication: hypoxia and hypercapnia Qualified Code(s): J96.01 - Acute respiratory failure with hypoxia; J96.02 - Acute respiratory failure with hypercapnia Is this a current diagnosis for this admission?: YesPlan: Support with appropriate ventilation and oxygenation per mechanical ventilator - Time Critical Time spent with patient: 35 or more minutes - 50 minutes discussed withRN,RT,PCP
[2017-01-20] MEDS: PROPOFOL 100 ML IV PRN ×4 (11:57→20:54)
--- NOTE | 2017-01-20 12:27 | XCELERA REPORT ---
[address] [address] Transthoracic Echocardiogram Report Name: PAULETTE SCALES Age: 71 yrs Gender: Male : 1945 Patient Status: Inpatient Patient Location: ICU\S\611\S\A Study Date: 01/20/2017 10:01 AM Height: 70 in Weight: 272 lb BSA: 2.4 m2 Procedure: A two-dimensional transthoracic echocardiogram with color flow and Doppler was performed. Study Quality: Technically suboptimal. The study was technically limited with all images being suboptimal in quality. Reason For Study: plumonary edema Ordering Physician: LAINEY RIVAS Performed By: Sravani Paez Interpretation Summary The left ventricle is grossly normal size. There is borderline asymmetric left ventricular hypertrophy. LV EF is > than 60% Left ventricular systolic function is normal. Probably normal LV diastolic function , and no defenite wall motion abnormality, in spite of being a poor echo. Probaly normal RA size. The left atrium is mildly dilated. There is no evidence of mitral valve prolapse. There is no vegetation seen on the mitral valve. There is no mitral valve stenosis. There is a trace to mild amount of mitral regurgitation There is no aortic valve stenosis There is no LVOT obstruction. No aortic regurgitation is present. There is no tricuspid stenosis. There is a mild amount of tricuspid regurgitation Right ventricular systolic pressure is normal. RVSP is 24 to 29 mm of Hg ,with RA mean of 5 to 10. There is no pericardial effusion. MMode/2D Measurements \T\ Calculations RVDd: 4.2 cm LVIDd: 5.2 cmFS: 33.5 % Ao root diam: 3.3 cm IVSd: 1.2 cm LVIDs: 3.5 cmEDV(Teich): 129.0 ml LVPWd: 1.1 cmESV(Teich): 49.3 ml Ao root area: 8.3 cm2 EF(Teich): 61.8 % LA dimension: 4.6 cm LVOT diam: 2.1 cm LVOT area: 3.4 cm2 Doppler Measurements \T\ Calculations MV E max rashaun: MV P1/2t max rashaun: Ao V2 max: LV V1 max P.7 cm/sec 65.2 cm/sec 111.8 cm/sec 5.4 mmHg MV A max rashaun: MV P1/2t: 96.6 msec Ao max PG: LV V1 max: 60.2 cm/sec MVA(P1/2t): 2.3 cm2 5.0 mmHg 116.0 cm/sec MV E/A: 1.1 MV dec slope: VIVI(V,D): 3.5 cm2 197.6 cm/sec2 PA V2 max: TR max rashaun: 98.7 cm/sec 218.3 cm/sec PA max PG: TR max P.1 mmHg 3.9 mmHg Left Ventricle The left ventricle is grossly normal size. There is borderline asymmetric left ventricular hypertrophy. LV EF is > than 60%. Left ventricular systolic function is normal. Probably normal LV diastolic function , and no defenite wall motion abnormality, in spite of being a poor echo. Right Ventricle The right ventricle is not well visualized secondary to technical limitations. Atria Probaly normal RA size. The left atrium is mildly dilated. The interatrial septum is intact with no evidence for an atrial septal defect. Mitral Valve There is no evidence of mitral valve prolapse. There is no vegetation seen on the mitral valve. There is no mitral valve stenosis. There is a trace to mild amount of mitral regurgitation. Aortic Valve There is no aortic valve stenosis. There is no LVOT obstruction. No aortic regurgitation is present. Tricuspid Valve There is no tricuspid stenosis. There is a mild amount of tricuspid regurgitation. Right ventricular systolic pressure is normal. RVSP is 24 to 29 mm of Hg ,with RA mean of 5 to 10. Pulmonic Valve The pulmonic valve is not well visualized. Great Vessels The aortic root is not well visualized. Effusions There is no pericardial effusion. : LAINEY RIVAS > Azucena Lehman
[2017-01-20] MEDS ORDERED: DILTIAZEM HCL 90 MG TABLET NG SCH ×2 (14:00→22:00)
[2017-01-20 14:22] LABS: ANION GAP 8 (5-19); BLOOD UREA NITROGEN 18 mg/dL (7-20); CALCIUM 8.9 mg/dL (8.4-10.2); CARBON DIOXIDE 21 mmol/L (22-30); CHLORIDE 108 mmol/L (98-107); CREATININE RESULT 0.84 mg/dL (0.52-1.25); GLUCOSE 199 mg/dL (75-110); POTASSIUM 4.2 mmol/L (3.6-5.0); SODIUM 136.8 mmol/L (137-145)
[2017-01-20 14:35] LABS: CREATINE KINASE MB 1.49 ng/mL (<4.55); TROPONIN I 0.051 ng/mL
[2017-01-20] MEDS ORDERED: SUCCINYLCHOLINE CHLORIDE INJ 200 MG/10 ML VIAL ONE (14:38)
[2017-01-20] MEDS: DILTIAZEM HCL/D5W 125 MG/125 ML RTUINJ IV PRN (20:43)
[2017-01-20] MEDS: RIVAROXABAN 10 MG TABLET NG SCH (21:00)
[2017-01-20] MEDS: ATORVASTATIN CALCIUM 10 MG TABLET NG SCH (21:01)
[2017-01-20 21:19] LABS: ANION GAP 9 (5-19); BLOOD UREA NITROGEN 17 mg/dL (7-20); CALCIUM 9.1 mg/dL (8.4-10.2); CARBON DIOXIDE 21 mmol/L (22-30); CHLORIDE 108 mmol/L (98-107); CREATININE RESULT 0.87 mg/dL (0.52-1.25); GLUCOSE 145 mg/dL (75-110); POTASSIUM 4.3 mmol/L (3.6-5.0); SODIUM 138.4 mmol/L (137-145)
[2017-01-20 21:31] LABS: CREATINE KINASE MB 1.55 ng/mL (<4.55); TROPONIN I 0.035 ng/mL
[2017-01-21] MEDS: IPRATROPIUM/ALBUTEROL 0.5-2.5 MG/3 ML AMPUL NEB SCH ×4 (01:40→20:33)
[2017-01-21] MEDS: DILTIAZEM HCL/D5W 125 MG/125 ML RTUINJ IV PRN ×3 (03:05→23:47)
[2017-01-21] MEDS: PROPOFOL 100 ML IV PRN ×6 (03:06→23:16)
[2017-01-21 04:18] LABS: ANION GAP 10 (5-19); BLOOD UREA NITROGEN 17 mg/dL (7-20); CARBON DIOXIDE 20 mmol/L (22-30); CHLORIDE 108 mmol/L (98-107); CREATININE RESULT 0.88 mg/dL (0.52-1.25); GLUCOSE 178 mg/dL (75-110); HEMATOCRIT 38.4 % (37.9-51.0); HEMOGLOBIN 12.4 g/dL (13.5-17.0); HGB HCT DIFFERENCE -1.2; MAGNESIUM 2.2 mg/dL (1.6-2.3); MEAN CORPUSCULAR HEMOGLOBIN 28.3 pg (27.0-33.4); MEAN CORPUSCULAR HGB CONC 32.3 g/dL (32.0-36.0); MEAN CORPUSCULAR VOLUME 88 fl (80-97); POTASSIUM 4.3 mmol/L (3.6-5.0); RED BLOOD COUNT 4.37 10^6/uL (4.35-5.55); RED CELL DISTRIBUTION WIDTH 15.9 % (11.5-14.0); SODIUM 137.8 mmol/L (137-145); WHITE BLOOD COUNT 18.1 10^3/uL (4.0-10.5)
[2017-01-21 04:31] LABS: BAND NEUTROPHILS % (MANUAL) 1 % (3-5); BASOPHILS % (MANUAL) 0 % (0-2); EOSINOPHILS % (MANUAL) 0 % (0-6); LYMPHOCYTES % (MANUAL) 5 % (13-45); TOTAL CELLS COUNTED 100
[2017-01-21 04:34] LABS: ANISOCYTOSIS SLIGHT; BURR CELLS SLIGHT; OVALOCYTES SLIGHT; POIKILOCYTOSIS SLIGHT; ROULEAUX SLIGHT; TEAR DROP CELLS SLIGHT; TOXIC GRANULATION SLIGHT; TOXIC VACUOLATION PRESENT
[2017-01-21] MEDS: LANSOPRAZOLE 15 MG TAB.RAP.DR NG SCH (05:19)
[2017-01-21 05:26] LABS: ARTERIAL BLOOD BASE EXCESS -1.7 mmol/L
--- NOTE | 2017-01-21 07:29 | RADIOLOGY REPORT (SQ) ---
EXAM DESCRIPTION: CHEST SINGLE VIEW COMPLETED DATE/TIME: 01/21/2017 6:45 am REASON FOR STUDY: acute resp failure COMPARISON: 01/20/2017. EXAM PARAMETERS: NUMBER OF VIEWS: One view. TECHNIQUE: Single frontal radiographic view of the chest acquired. RADIATION DOSE: NA LIMITATIONS: None. FINDINGS: LUNGS AND PLEURA: Small to moderate mixed airspace and interstitial opacities -effusion of bilateral lower and mid hemithoraces. Moderate lung volume. MEDIASTINUM AND HILAR STRUCTURES: No masses. Contour normal. HEART AND VASCULAR STRUCTURES: Heart normal in size. Normal vasculature. BONES: No acute findings. HARDWARE: Adequate appearing endotracheal tube and NG tube. OTHER: No other significant finding. IMPRESSION: Moderate mixed airspace and interstitial opacities and/or layered effusion. Some interv al improvement. Lines and tubes. TECHNICAL DOCUMENTATION: JOB ID: [id number]
[2017-01-21] MEDS: ASPIRIN 81 MG TABLET, CHEWABLE NG SCH (08:15)
[2017-01-21] MEDS ORDERED: NORMAL SALINE 1000 ML 1,000 ML IV PRN (09:24)
--- NOTE | 2017-01-21 09:33 | PDOC PROGRESS REPORT ---
Subjective Progress Note for:: 01/21/17 Subjective:: Patient remains on the ventilator. Cardiology thinks pneumonia. Echocardiogram showed a normal ejection fraction. No reported temperature spikes. Patient coming on and off atrial fibrillation as reported. On Cardizem drip. No reported respiratory distress, temperature spikes, nor diarrhea. Patient placed a nasogastric tube. Physical Exam Vital Signs: Temp Pulse Resp BP Pulse Ox 97.2 F 81 22 H 105/64 97 01/21/17 08:00 01/21/17 08:00 01/21/17 08:00 01/21/17 08:00 01/21/17 08:00 Intake & Output 01/20/17 01/21/17 01/22/17 06:59 06:59 06:59 Intake Total 1203 Output Total 2715 250 Balance -1512 -250 Weight 122.7 kg 124.2 kg General appearance: PRESENT: no acute distress, other - Intubated and sedated Head exam: PRESENT: normocephalic Eye exam: PRESENT: conjunctiva pink Mouth exam: PRESENT: moist, neck supple Neck exam: ABSENT: JVD Respiratory exam: PRESENT: clear to auscultation char - Anteriorly. ABSENT: rhonchi, wheezes Cardiovascular exam: PRESENT: irregular rhythm. ABSENT: gallop GI/Abdominal exam: PRESENT: normal bowel sounds, soft. ABSENT: tenderness Extremities exam: PRESENT: other - Trace pretibial edema Psychiatric exam: ABSENT: agitated Focused psych exam: ABSENT: restlessness Skin exam: PRESENT: dry, warm. ABSENT: cyanosis Results Laboratory Results: 01/21/17 03:54 01/21/17 03:54 01/20/17 01/20/17 01/20/17 10:50 13:52 13:52 WBC RBC Hgb Hct MCV MCH MCHC RDW Plt Count Seg Neutrophils % Lymphocytes % Monocytes % Eosinophils % Basophils % Absolute Neutrophils Absolute Lymphocytes Absolute Monocytes Absolute Eosinophils Absolute Basophils Carbonic Acid 1.01 L HCO3/H2CO3 Ratio 22:1 ABG pH 7.44 ABG pCO2 33.4 L ABG pO2 106.1 H ABG HCO3 22.3 ABG O2 Saturation 98.1 H ABG Base Excess -1.1 FiO2 45% Sodium 136.8 L Potassium 4.2 Chloride 108 H Carbon Dioxide 21 L Anion Gap 8 BUN 18 Creatinine 0.84 Est GFR ( Amer) > 60 Est GFR (Non-Af Amer) > 60 Glucose 199 H Calcium 8.9 Magnesium 2.2 01/20/17 01/21/17 01/21/17 20:50 03:54 03:54 WBC 18.1 H RBC 4.37 Hgb 12.4 L Hct 38.4 MCV 88 MCH 28.3 MCHC 32.3 RDW 15.9 H Plt Count 139 L Seg Neutrophils % Not Reportable Lymphocytes % Not Reportable Monocytes % Not Reportable Eosinophils % Not Reportable Basophils % Not Reportable Absolute Neutrophils Not Reportable Absolute Lymphocytes Not Reportable Absolute Monocytes Not Reportable Absolute Eosinophils Not Reportable Absolute Basophils Not Reportable Carbonic Acid HCO3/H2CO3 Ratio ABG pH ABG pCO2 ABG pO2 ABG HCO3 ABG O2 Saturation ABG Base Excess FiO2 Sodium 138.4 137.8 Potassium 4.3 4.3 Chloride 108 H 108 H Carbon Dioxide 21 L 20 L Anion Gap 9 10 BUN 17 17 Creatinine 0.87 0.88 Est GFR ( Amer) > 60 > 60 Est GFR (Non-Af Amer) > 60 > 60 Glucose 145 H 178 H Calcium 9.1 9.0 Magnesium 2.2 01/21/17 05:03 WBC RBC Hgb Hct MCV MCH MCHC RDW Plt Count Seg Neutrophils % Lymphocytes % Monocytes % Eosinophils % Basophils % Absolute Neutrophils Absolute Lymphocytes Absolute Monocytes Absolute Eosinophils Absolute Basophils Carbonic Acid 0.87 L HCO3/H2CO3 Ratio 23:1 ABG pH 7.47 H ABG pCO2 28.9 L ABG pO2 99.4 ABG HCO3 20.8 ABG O2 Saturation 98.0 ABG Base Excess -1.7 FiO2 35% Sodium Potassium Chloride Carbon Dioxide Anion Gap BUN Creatinine Est GFR ( Amer) Est GFR (Non-Af Amer) Glucose Calcium Magnesium 01/20/17 01/20/17 01/20/17 07:46 07:46 13:52 Creatine Kinase 160 191 H CK-MB (CK-2) 1.23 Troponin I 0.041 NT-Pro-B Natriuret Pep 01/20/17 01/20/17 01/20/17 13:52 20:50 20:50 Creatine Kinase 207 H CK-MB (CK-2) 1.49 1.55 Troponin I 0.051 0.035 NT-Pro-B Natriuret Pep 01/21/17 03:54 Creatine Kinase CK-MB (CK-2) Troponin I NT-Pro-B Natriuret Pep 1170 H Impressions: Chest X-Ray 01/21/17 06:00 IMPRESSION: Moderate mixed airspace and interstitial opacities and/or layered effusion. Some interval improvement. Lines and tubes. Assessment & Plan - Diagnosis (1) Respiratory failure Qualifiers: Chronicity: acute Respiratory failure complication: hypoxia and hypercapnia Qualified Code(s): J96.01 - Acute respiratory failure with hypoxia Is this a current diagnosis for this admission?: Yes (2) Community acquired pneumonia Qualifiers: Lung location: unspecified part of lung Is this a current diagnosis for this admission?: Yes (3) Pulmonary edema Qualifiers: Chronicity: acute Qualified Code(s): J81.0 - Acute pulmonary edema Is this a current diagnosis for this admission?: Yes (4) Paroxysmal atrial fibrillation Is this a current diagnosis for this admission?: Yes (5) Essential hypertension Is this a current diagnosis for this admission?: Yes (6) Hyperlipidemia Qualifiers: Hyperlipidemia type: unspecified Qualified Code(s): E78.5 - Hyperlipidemia, unspecified Is this a current diagnosis for this admission?: Yes (7) PTSD (post-traumatic stress disorder) Is this a current diagnosis for this admission?: Yes (8) Morbid obesity Is this a current diagnosis for this admission?: Yes (9) GERD (gastroesophageal reflux disease) Qualifiers: Esophagitis presence: without esophagitis Qualified Code(s): K21.9 - Gastro-esophageal reflux disease without esophagitis Is this a current diagnosis for this admission?: Yes (10) Anemia, chronic disease Is this a current diagnosis for this admission?: Yes (11) Chronic pain syndrome Is this a current diagnosis for this admission?: Yes (12) Anxiety Is this a current diagnosis for this admission?: Yes - Time Time Spent with patient: 25-34 minutes - Plan Summary Plan Summary: Cefepime and Levaquin started. Continue Cardizem drip. We will begin nasogastric tube feedings. Ventilator weaning per pulmonary protocol. Monitor electrolytes and replace accordingly. Continue supportive care. Follow sputum culture. Continue chronic anticoagulation for now.
[2017-01-21] MEDS: LEVOFLOXACIN 750 MG/D5W RTU 150 ML IV SCH (09:52)
[2017-01-21] MEDS: CEFEPIME 2 GM/D5W RTU 50 ML IV SCH ×2 (09:53→21:38)
[2017-01-21] MEDS ORDERED: DIGOXIN INJ 0.5 MG/2 ML AMPULE IV ONE ×3 (10:15→15:15)
--- NOTE | 2017-01-21 10:51 | EKG REPORT ---
SEVERITY:- ABNORMAL ECG - ATRIAL FLUTTER/FIBRILLATION, A-RATE 246 : Confirmed by: Pascual Dallas 21-Jan-2017 10:51:15
--- NOTE | 2017-01-21 10:51 | EKG REPORT ---
SEVERITY:- ABNORMAL ECG - A-FLUTTER W/ PREDOM 3:1 AV BLOCK, A-RATE [address] DEPRESSION, INFERIOR LEADS : Confirmed by: Pascual Dallas 21-Jan-2017 10:51:05
--- NOTE | 2017-01-21 10:52 | EKG REPORT ---
SEVERITY:- ABNORMAL ECG - A-FLUTTER W/ PREDOM 3:1 AV BLOCK, A-RATE [address] DEPRESSION, INFERIOR LEADS BORDERLINE PROLONGED QT INTERVAL : Confirmed by: Pascual Dallas 21-Jan-2017 10:51:47
--- NOTE | 2017-01-21 10:52 | EKG REPORT ---
SEVERITY:- BORDERLINE ECG - ATRIAL FLUTTER : Confirmed by: Pascual Dallas 21-Jan-2017 10:51:39
--- NOTE | 2017-01-21 11:11 | PDOC PROGRESS REPORT ---
Subjective Progress Note for:: 01/21/17 Subjective:: Intubated and sedated Physical Exam Vital Signs: Temp Pulse Resp BP Pulse Ox 97.2 F 98 18 119/81 97 01/21/17 08:00 01/21/17 10:00 01/21/17 10:00 01/21/17 10:00 01/21/17 10:00 Intake & Output 01/20/17 01/21/17 01/22/17 06:59 06:59 06:59 Intake Total 1203 Output Total 2715 525 Balance -1512 -525 Weight 122.7 kg 124.2 kg General appearance: PRESENT: no acute distress, disheveled, morbidly obese, well -developed Head exam: PRESENT: atraumatic, normocephalic Eye exam: PRESENT: conjunctiva pale Mouth exam: PRESENT: dry mucosa, neck supple, tongue midline, other - ET tube in place Neck exam: ABSENT: carotid bruit, JVD, lymphadenopathy, thyromegaly Respiratory exam: PRESENT: decreased breath sounds, prolonged expiratory phas, rhonchi, symmetrical, unlabored Cardiovascular exam: PRESENT: irregular rhythm, +S1, +S2 Pulses: PRESENT: normal radial pulses GI/Abdominal exam: PRESENT: normal bowel sounds, soft. ABSENT: distended, guarding, mass, organolmegaly, rebound, tenderness Rectal exam: PRESENT: deferred Gentrourinary exam: PRESENT: indwelling catheter Extremities exam: PRESENT: +1 edema Skin exam: PRESENT: dry, warm Results Laboratory Results: 01/21/17 03:54 01/21/17 03:54 01/20/17 01/20/17 01/20/17 13:52 13:52 20:50 WBC RBC Hgb Hct MCV MCH MCHC RDW Plt Count Seg Neutrophils % Lymphocytes % Monocytes % Eosinophils % Basophils % Absolute Neutrophils Absolute Lymphocytes Absolute Monocytes Absolute Eosinophils Absolute Basophils Carbonic Acid HCO3/H2CO3 Ratio ABG pH ABG pCO2 ABG pO2 ABG HCO3 ABG O2 Saturation ABG Base Excess FiO2 Sodium 136.8 L 138.4 Potassium 4.2 4.3 Chloride 108 H 108 H Carbon Dioxide 21 L 21 L Anion Gap 8 9 BUN 18 17 Creatinine 0.84 0.87 Est GFR ( Amer) > 60 > 60 Est GFR (Non-Af Amer) > 60 > 60 Glucose 199 H 145 H Calcium 8.9 9.1 Magnesium 2.2 01/21/17 01/21/17 01/21/17 03:54 03:54 05:03 WBC 18.1 H RBC 4.37 Hgb 12.4 L Hct 38.4 MCV 88 MCH 28.3 MCHC 32.3 RDW 15.9 H Plt Count 139 L Seg Neutrophils % Not Reportable Lymphocytes % Not Reportable Monocytes % Not Reportable Eosinophils % Not Reportable Basophils % Not Reportable Absolute Neutrophils Not Reportable Absolute Lymphocytes Not Reportable Absolute Monocytes Not Reportable Absolute Eosinophils Not Reportable Absolute Basophils Not Reportable Carbonic Acid 0.87 L HCO3/H2CO3 Ratio 23:1 ABG pH 7.47 H ABG pCO2 28.9 L ABG pO2 99.4 ABG HCO3 20.8 ABG O2 Saturation 98.0 ABG Base Excess -1.7 FiO2 35% Sodium 137.8 Potassium 4.3 Chloride 108 H Carbon Dioxide 20 L Anion Gap 10 BUN 17 Creatinine 0.88 Est GFR ( Amer) > 60 Est GFR (Non-Af Amer) > 60 Glucose 178 H Calcium 9.0 Magnesium 2.2 01/20/17 01/20/17 01/20/17 07:46 07:46 13:52 Creatine Kinase 160 191 H CK-MB (CK-2) 1.23 Troponin I 0.041 NT-Pro-B Natriuret Pep 01/20/17 01/20/17 01/20/17 13:52 20:50 20:50 Creatine Kinase 207 H CK-MB (CK-2) 1.49 1.55 Troponin I 0.051 0.035 NT-Pro-B Natriuret Pep 01/21/17 03:54 Creatine Kinase CK-MB (CK-2) Troponin I NT-Pro-B Natriuret Pep 1170 H Impressions: Chest X-Ray 01/21/17 06:00 IMPRESSION: Moderate mixed airspace and interstitial opacities and/or layered effusion. Some interval improvement. Lines and tubes. Assessment & Plan - Diagnosis (1) Paroxysmal atrial fibrillation Is this a current diagnosis for this admission?: Yes (2) Pulmonary edema Qualifiers: Chronicity: acute Qualified Code(s): J81.0 - Acute pulmonary edema Is this a current diagnosis for this admission?: Yes (3) Respiratory failure Qualifiers: Chronicity: acute Respiratory failure complication: hypoxia and hypercapnia Qualified Code(s): J96.01 - Acute respiratory failure with hypoxia Is this a current diagnosis for this admission?: YesPlan: Improving - Time Critical Time spent with patient: 25-34 minutes
--- NOTE | 2017-01-21 15:04 | Physician Advisory Note ---
Physician Advisor ProgressNote .: Pursuant to the plan for [facility], I have reviewed the medical record for this patient. Physician Advisor Statement: Attending, please consider documentin. most likely cause of the pneumonia -[ gram + bacteria? gram neg bacteria? ...] Thanks! CK
[2017-01-21 15:55] LABS: ANION GAP 9 (5-19); BLOOD UREA NITROGEN 17 mg/dL (7-20); CALCIUM 9.2 mg/dL (8.4-10.2); CARBON DIOXIDE 23 mmol/L (22-30); CHLORIDE 110 mmol/L (98-107); GLUCOSE 117 mg/dL (75-110); POTASSIUM 4.2 mmol/L (3.6-5.0); SODIUM 142.4 mmol/L (137-145)
[2017-01-21] MEDS: FENTANYL CITRATE INJ/PF 100 MCG/2 ML AMPUL IV PRN (16:05)
[2017-01-21] MEDS: RIVAROXABAN 10 MG TABLET NG SCH (21:37)
[2017-01-21] MEDS: ATORVASTATIN CALCIUM 10 MG TABLET NG SCH (21:38)
--- NOTE | 2017-01-21 23:07 | PROGRESS NOTE E ---
Progress Note NAME: PAULETTE SCALES : 1945 AGE: 71Y DATE: 01/21/2017 ROOM: 611 SUBJECTIVE: Note that the patient last night went into tachycardic rhythm initially. It was felt that the patient had ectopic atrial tachycardia but subsequently it was felt that the patient had atrial flutter. He had to be started on a Cardizem drip and initially he had 5 mg per hour infusion which was overnight increased to 15 mg per hour. The patient still at present is slightly tachycardic with a heart rate of 111 beats per minute. There are no ventricular arrhythmia seen. The patient is intubated and sedated. OBJECTIVE: GENERAL: He is moderately obese. He is not fighting the ventilator since he is well sedated. VITAL SIGNS: He is afebrile with a temperature of 97.5 degrees Fahrenheit. His pulse was 111 beats per minute. Blood pressure is 126/65, respirations 11 per minute. O2 sats are 97% on a mechanical ventilator with an FiO2 of 35%. HEAD: Atraumatic, normocephalic. EYES: Pupils are equal, round, and reactive to light. Extraocular movements could not be tested since the patient is intubated and sedated. ENT: Negative. SKIN: There are no skin rashes. There are no petechiae or ecchymosis. There are no skin lesions. NECK: Supple. There is no JVD. Carotids are equal. There are no bruits. There is no lymphadenopathy. There is no goiter. Trachea is central. LUNGS: There are bibasilar dry crackles. There are no fine rales or CHF. There is no wheezing. There are a few scattered rhonchi. HEART: S1, S2 heard. There is no S3 gallop. There is no S4 gallop. There is a systolic murmur at left sternal border and the apex. There is no rub. ABDOMEN: Soft. Bowel sounds are well heard. There is no hepatosplenomegaly. EXTREMITIES: Femorals are slightly diminished. There are no femoral bruits. Leg pulses are well felt. There is no DVT or cellulitis. There is no pedal edema. CENTRAL NERVOUS SYSTEM: Not tested. PSYCHIATRIC: Not tested. The patient's 24-hour intake is 1203 mL. Output is 2750 mL. The patient's chest x-ray shows moderate mixed air space and interstitial opacities and/or air effusion, some improvement. The patient's EKG shows atrial flutter with a heart rate of 83 beats per minute. There is nonspecific ST-T changes related to the patient's atrial flutter. The patient's white count is 8100, hemoglobin is 12.4, hematocrit 38.4. The platelet count is 139,000. The patient's sodium is 142.4, potassium 4.2, chloride 110, CO2 is 23. The patient's BUN is 17, creatinine is 0.90. The patient's GFR is greater than 60. Glucose is 117. The patient's calcium is 9.2. The patient's NT-proBNP is 1170. The patient's ABG shows a pH of 7.47, pCO2 is 28.9, pO2 is 99.4 and O2 sats are 98% on an FiO2 of 35%. IMPRESSION: 1. ATRIAL FLUTTER WITH A SLIGHTLY FAST VENTRICULAR RESPONSE. 2. MOST LIKELY THE PATIENT HAS CHEMICAL PNEUMONITIS SECONDARY TO SEVERE GERD BUT CANNOT EXCLUDE ASPIRATION PNEUMONITIS/ARDS. THERE IS SOME IMPROVEMENT IN THE CHEST X-RAY FINDINGS. 3. CONGESTIVE HEART FAILURE MOST LIKELY SECONDARY TO ACUTE SYSTOLIC HEART FAILURE DUE TO MYOCARDIAL DEPRESSION DUE TO PATIENT'S O2 SATURATION GOING DOWN TO 74% NOW SEEMS TO HAVE RESOLVED. 4. HISTORY OF HYPERTENSION. BLOOD PRESSURE STABLE. 5. HISTORY OF GERD. 6. PAST HISTORY OF ATRIAL FIBRILLATION. 7. PTSD. RECOMMENDATIONS: Continue ventilatory support and oxygen therapy. Continue antibiotics and respiratory treatments. Continue Proton pump inhibitor. Would not give any more Lasix. Continue the patient on Cardizem IV at 15 mg/hour. Continue Xarelto at 10 mg by NG tube daily. Will use this lower dose as as the patient is on Cardizem. Also will give the patient a dose of digoxin 0.25 mg IV push. If the patient's heart rate goes up, will give a low dose of digoxin. Note is it mentioned in the chart in the history that the patient was on Xarelto at home but review of his home medications list shows that he is not on Xarelto. Also, it is not clear and we cannot confirm whether the patient had paroxysmal atrial fibrillation. In view of this, would not like to cardiovert the patient clinically with sotalol or amiodarone. I would not use amiodarone in view of the patient's lung condition. Will follow with you. Note 30 minutes spent on this patient with more than 50% of the time spent on direct patient care. I discussed the patient's care and the patient's medications have been reviewed. Discussed with other physicians on the case. If the patient's heart rate continues to be up, will try the patient on IV beta erma or a beta erma by the NG tube. Discussed with other caregiving providers on the case. Note, still continues to be a high complexity decision making. In view of the patient's new onset of atrial flutter and the patient's slow improvement in fact not much history is obtained because of the patient's condition. Will follow with you. DICTATING PHYSICIAN: LINH MIKE M.D. [id number] MERRITT#: [id number] ID: [id number] JOB#: [id number] ACCT: [id number] cc: >
[2017-01-22] MEDS: PROPOFOL 100 ML IV PRN ×9 (01:51→22:53)
[2017-01-22] MEDS: IPRATROPIUM/ALBUTEROL 0.5-2.5 MG/3 ML AMPUL NEB SCH ×4 (02:14→20:34)
[2017-01-22 04:20] LABS: ABSOLUTE BASOPHILS # (AUTO) 0.1 10^3/uL (0.0-0.2); ABSOLUTE EOSINOPHILS # (AUTO) 0.1 10^3/uL (0.0-0.6); ABSOLUTE LYMPHOCYTES (AUTO) 1.5 10^3/uL (0.5-4.7); ABSOLUTE MONOCYTES (AUTO) 0.8 10^3/uL (0.1-1.4); BASOPHILS % (AUTO) 0.7 % (0-2); EOSINOPHILS % (AUTO) 0.6 % (0-6); HEMATOCRIT 35.1 % (37.9-51.0); HEMOGLOBIN 11.5 g/dL (13.5-17.0); HGB HCT DIFFERENCE -0.6; MEAN CORPUSCULAR HEMOGLOBIN 28.2 pg (27.0-33.4); MEAN CORPUSCULAR HGB CONC 32.8 g/dL (32.0-36.0); MEAN CORPUSCULAR VOLUME 86 fl (80-97); MONOCYTES % (AUTO) 6.3 % (3-13); RED BLOOD COUNT 4.09 10^6/uL (4.35-5.55); RED CELL DISTRIBUTION WIDTH 15.5 % (11.5-14.0); SEGMENTED NEUTROPHILS % (AUTO) 80.4 % (42-78); WHITE BLOOD COUNT 12.4 10^3/uL (4.0-10.5)
[2017-01-22 04:36] LABS: ANION GAP 5 (5-19); BLOOD UREA NITROGEN 17 mg/dL (7-20); CALCIUM 8.3 mg/dL (8.4-10.2); CARBON DIOXIDE 24 mmol/L (22-30); CHLORIDE 111 mmol/L (98-107); CREATININE RESULT 0.87 mg/dL (0.52-1.25); GLUCOSE 119 mg/dL (75-110); MAGNESIUM 2.4 mg/dL (1.6-2.3); PHOSPHORUS 4.1 mg/dL (2.5-4.5); POTASSIUM 4.2 mmol/L (3.6-5.0); SODIUM 140.4 mmol/L (137-145)
[2017-01-22] MEDS: LANSOPRAZOLE 15 MG TAB.RAP.DR NG SCH (05:42)
--- NOTE | 2017-01-22 07:12 | RADIOLOGY REPORT (SQ) ---
EXAM DESCRIPTION: CHEST SINGLE VIEW COMPLETED DATE/TIME: 01/22/2017 6:37 am REASON FOR STUDY: resp failure COMPARISON: 01/21/2017. EXAM PARAMETERS: NUMBER OF VIEWS: One view. TECHNIQUE: Single frontal radiographic view of the chest acquired. RADIATION DOSE: NA LIMITATIONS: None. FINDINGS: LUNGS AND PLEURA: Moderate opacity -layered effusion of bilateral lower hemithoraces. Mod erate bilateral lung volumes. MEDIASTINUM AND HILAR STRUCTURES: No masses. Contour normal. HEART AND VASCULAR STRUCTURES: Moderate enlargement of the cardiac silhouette. BONES: No acute findings. Advanced bilateral glenohumeral osteoarthritis. HARDWARE: Adequate appearing endotracheal tube and likely adequate NG tube not imaged distally. OTHER: No other significant finding. IMPRESSION: No significant interval change. TECHNICAL DOCUMENTATION: JOB ID: [id number]
[2017-01-22] MEDS: ASPIRIN 81 MG TABLET, CHEWABLE NG SCH (08:29)
--- NOTE | 2017-01-22 09:22 | PDOC PROGRESS REPORT ---
Subjective Progress Note for:: 01/22/17 Subjective:: Patient remained on the ventilator, being weaned by pulmonary service. On Cardizem drip for rapid atrial fibrillation. Patient gets digoxin intermittently. No further diuretics recommended by cardiology service. Cultures so far remain negative. No reported temperature spikes respiratory distress or diarrhea. Patient started on tube feedings seems to be tolerating. Remains to have negative urine output balance. Physical Exam Vital Signs: Temp Pulse Resp BP Pulse Ox 98.1 F 91 15 126/80 H 98 01/22/17 08:00 01/22/17 08:36 01/22/17 08:36 01/22/17 08:00 01/22/17 08:36 Intake & Output 01/21/17 01/22/17 01/23/17 06:59 06:59 06:59 Intake Total 1203 1979 Output Total 2715 3825 225 Balance -1512 -1846 -225 Weight 124.2 kg 119.4 kg General appearance: PRESENT: no acute distress, morbidly obese Head exam: PRESENT: normocephalic Eye exam: PRESENT: conjunctiva pink Mouth exam: PRESENT: moist, neck supple Neck exam: ABSENT: JVD Respiratory exam: PRESENT: clear to auscultation char, decreased breath sounds. ABSENT: rhonchi, wheezes Cardiovascular exam: PRESENT: irregular rhythm. ABSENT: gallop GI/Abdominal exam: PRESENT: distended - Mildly with slight tympany, normal bowel sounds, soft Extremities exam: PRESENT: other - Trace to +1 edema Neurological exam: PRESENT: altered - Sedated on diprivan Skin exam: PRESENT: dry, warm. ABSENT: cyanosis Results Laboratory Results: 01/22/17 04:06 01/22/17 04:06 01/21/17 01/22/17 01/22/17 15:29 04:06 04:06 WBC 12.4 H RBC 4.09 L Hgb 11.5 L Hct 35.1 L MCV 86 MCH 28.2 MCHC 32.8 RDW 15.5 H Plt Count 142 L Seg Neutrophils % 80.4 H Lymphocytes % 12.0 L Monocytes % 6.3 Eosinophils % 0.6 Basophils % 0.7 Absolute Neutrophils 10.0 H Absolute Lymphocytes 1.5 Absolute Monocytes 0.8 Absolute Eosinophils 0.1 Absolute Basophils 0.1 Sodium 142.4 140.4 Potassium 4.2 4.2 Chloride 110 H 111 H Carbon Dioxide 23 24 Anion Gap 9 5 BUN 17 Creatinine 0.90 0.87 Est GFR ( Amer) > 60 > 60 Est GFR (Non-Af Amer) > 60 > 60 Glucose 117 H 119 H Calcium 9.2 8.3 L Phosphorus 4.1 Magnesium 2.4 H 01/20/17 08:20 Tracheal Aspirate Gram Stain - Final 01/20/17 08:20 Tracheal Aspirate Sputum Culture - Final NORMAL MAXI 01/20/17 01/20/17 01/20/17 07:46 07:46 13:52 Creatine Kinase 160 191 H CK-MB (CK-2) 1.23 Troponin I 0.041 NT-Pro-B Natriuret Pep 01/20/17 01/20/17 01/20/17 13:52 20:50 20:50 Creatine Kinase 207 H CK-MB (CK-2) 1.49 1.55 Troponin I 0.051 0.035 NT-Pro-B Natriuret Pep 01/21/17 01/22/17 03:54 04:06 Creatine Kinase CK-MB (CK-2) Troponin I NT-Pro-B Natriuret Pep 1170 H 1270 H Impressions: Chest X-Ray 01/22/17 06:00 IMPRESSION: No significant interval change. Assessment & Plan - Diagnosis (1) Respiratory failure Qualifiers: Chronicity: acute Respiratory failure complication: hypoxia and hypercapnia Qualified Code(s): J96.01 - Acute respiratory failure with hypoxia Is this a current diagnosis for this admission?: Yes (2) Community acquired pneumonia Qualifiers: Lung location: unspecified part of lung Is this a current diagnosis for this admission?: Yes (3) Pulmonary edema Qualifiers: Chronicity: acute Qualified Code(s): J81.0 - Acute pulmonary edema Is this a current diagnosis for this admission?: Yes (4) Paroxysmal atrial fibrillation Is this a current diagnosis for this admission?: Yes (5) Essential hypertension Is this a current diagnosis for this admission?: Yes (6) Hyperlipidemia Qualifiers: Hyperlipidemia type: unspecified Qualified Code(s): E78.5 - Hyperlipidemia, unspecified Is this a current diagnosis for this admission?: Yes (7) PTSD (post-traumatic stress disorder) Is this a current diagnosis for this admission?: Yes (8) Morbid obesity Is this a current diagnosis for this admission?: Yes (9) GERD (gastroesophageal reflux disease) Qualifiers: Esophagitis presence: without esophagitis Qualified Code(s): K21.9 - Gastro-esophageal reflux disease without esophagitis Is this a current diagnosis for this admission?: Yes (10) Anemia, chronic disease Is this a current diagnosis for this admission?: Yes (11) Chronic pain syndrome Is this a current diagnosis for this admission?: Yes (12) Anxiety Is this a current diagnosis for this admission?: Yes - Time Time Spent with patient: 25-34 minutes - Plan Summary Plan Summary: Change tube feedings as per dietary recommendation. Goal is at 45 mL/h. Continue to monitor electrolytes. Continue current antibiotic at this time. Ventilator weaning as per pulmonary protocol. Follow-up serial x-rays for maintenance of endotracheal tube position. Continue supportive care.
[2017-01-22] MEDS ORDERED: NORMAL SALINE 1000 ML 1,000 ML IV PRN (09:32)
[2017-01-22] MEDS ORDERED: FUROSEMIDE INJ/PF 20 MG/2 ML SDV IV ONE (09:50)
[2017-01-22] MEDS: NORMAL SALINE 250 ML with FUROSEMIDE 250 MG IV PRN ×2 (10:57)
[2017-01-22] MEDS: CEFEPIME 2 GM/D5W RTU 50 ML IV SCH ×2 (10:58→21:11)
[2017-01-22] MEDS: LEVOFLOXACIN 750 MG/D5W RTU 150 ML IV SCH (10:58)
--- NOTE | 2017-01-22 11:00 | PDOC PROGRESS REPORT ---
Subjective Progress Note for:: 01/22/17 Subjective:: Intubated and sedated Physical Exam Vital Signs: Temp Pulse Resp BP Pulse Ox 98.1 F 87 18 126/80 H 97 01/22/17 08:00 01/22/17 08:00 01/22/17 08:00 01/22/17 08:00 01/22/17 08:00 Intake & Output 01/21/17 01/22/17 01/23/17 06:59 06:59 06:59 Intake Total 1203 1979 Output Total 0342 9130 225 Balance -1512 -1846 -225 Weight 124.2 kg 119.4 kg General appearance: ABSENT: no acute distress, disheveled, morbidly obese, well- developed Head exam: ABSENT: atraumatic, normocephalic Eye exam: ABSENT: conjunctiva pale Mouth exam: PRESENT: dry mucosa, neck supple, tongue midline, other - ET tube in place Neck exam: ABSENT: carotid bruit, JVD, lymphadenopathy, thyromegaly Respiratory exam: PRESENT: decreased breath sounds, prolonged expiratory phas, rhonchi, symmetrical, unlabored, wheezes Cardiovascular exam: PRESENT: irregular rhythm Pulses: PRESENT: normal radial pulses GI/Abdominal exam: PRESENT: normal bowel sounds, soft. ABSENT: distended, guarding, mass, organolmegaly, rebound, tenderness Rectal exam: PRESENT: deferred Gentrourinary exam: PRESENT: indwelling catheter Extremities exam: PRESENT: +1 edema Skin exam: PRESENT: dry, warm Results Laboratory Results: 01/22/17 04:06 01/22/17 04:06 01/21/17 01/22/17 01/22/17 15:29 04:06 04:06 WBC 12.4 H RBC 4.09 L Hgb 11.5 L Hct 35.1 L MCV 86 MCH 28.2 MCHC 32.8 RDW 15.5 H Plt Count 142 L Seg Neutrophils % 80.4 H Lymphocytes % 12.0 L Monocytes % 6.3 Eosinophils % 0.6 Basophils % 0.7 Absolute Neutrophils 10.0 H Absolute Lymphocytes 1.5 Absolute Monocytes 0.8 Absolute Eosinophils 0.1 Absolute Basophils 0.1 Sodium 142.4 140.4 Potassium 4.2 4.2 Chloride 110 H 111 H Carbon Dioxide 23 24 Anion Gap 9 5 BUN 17 17 Creatinine 0.90 0.87 Est GFR ( Amer) > 60 > 60 Est GFR (Non-Af Amer) > 60 > 60 Glucose 117 H 119 H Calcium 9.2 8.3 L Phosphorus 4.1 Magnesium 2.4 H 01/20/17 01/20/17 01/20/17 07:46 07:46 13:52 Creatine Kinase 160 191 H CK-MB (CK-2) 1.23 Troponin I 0.041 NT-Pro-B Natriuret Pep 01/20/17 01/20/17 01/20/17 13:52 20:50 20:50 Creatine Kinase 207 H CK-MB (CK-2) 1.49 1.55 Troponin I 0.051 0.035 NT-Pro-B Natriuret Pep 01/21/17 01/22/17 03:54 04:06 Creatine Kinase CK-MB (CK-2) Troponin I NT-Pro-B Natriuret Pep 1170 H 1270 H Impressions: Chest X-Ray 01/22/17 06:00 IMPRESSION: No significant interval change. Assessment & Plan - Diagnosis (1) Paroxysmal atrial fibrillation Is this a current diagnosis for this admission?: Yes (2) Pulmonary edema Qualifiers: Chronicity: acute Qualified Code(s): J81.0 - Acute pulmonary edema Is this a current diagnosis for this admission?: Yes (3) Respiratory failure Qualifiers: Chronicity: acute Respiratory failure complication: hypoxia and hypercapnia Qualified Code(s): J96.01 - Acute respiratory failure with hypoxia Is this a current diagnosis for this admission?: YesPlan: Labs- All tests 24 hr 01/21/17 01/21/17 01/22/17 03:54 05:03 04:06 WBC 12.4 H Seg Neutrophils % 80.4 H Band Neutrophils % 1 L ABG pH 7.47 H ABG pCO2 28.9 L ABG pO2 99.4 ABG O2 Saturation 98.0 FiO2 35% Carbon Dioxide 01/22/17 04:06 WBC Seg Neutrophils % Band Neutrophils % ABG pH ABG pCO2 ABG pO2 ABG O2 Saturation FiO2 Carbon Dioxide 24 Decreased respiratory rate initiate trials of pressure support and CPAP - Time Critical Time spent with patient: 35 or more minutes - With RN RT 45 minutes
[2017-01-22] MEDS: FENTANYL CITRATE INJ/PF 100 MCG/2 ML AMPUL IV PRN ×2 (12:20→21:12)
--- NOTE | 2017-01-22 12:29 | CONSULTATION REPORT E ---
Consultation Report NAME: PAULETTE SCALES : 1945 AGE: 71Y DATE: 01/20/2017 ROOM: 611 A TO: LINH MIKE M.D. FROM: LAINEY RIVAS M.D. Requesting Physician TIME OF VISIT: The patient was seen at 11:00 a.m. REASON FOR CONSULTATION: Assess for atrial fibrillation and congestive heart failure. HISTORY OF PRESENT ILLNESS: Note that the patient is intubated and sedated and hence, no history available from the patient. History obtained from the patient's chart, including the ER physician's note and the admitting physician's note. The patient is a 71-year-old -Citizen Of [place] male who has a history of severe GERD, however, had told the emergency physician that last night he had severe acid reflux and is having symptoms and he woke up with wheezing and difficulty breathing. When the paramedics arrived, his O2 saturation was 74%. He has no history of asthma or COPD, but does have significant GERD. As per the records, the patient was initially treated with BiPAP, but continued to deteriorate and hence, the patient was intubated after sedation. As per the records, reviewed by me, the patient was supposed to have a history of atrial fibrillation, but I am not sure if this is really true since I cannot confirm it with the patient, since the patient is on only Xarelto 10 mg p.o. daily. A review of his old chart showed that the patient had left hip arthroplasty in September and at that time was placed on Xarelto 10 mg p.o. daily, and I am not sure if this was just continued. I am not able to get the records of the patient since he goes to the [place]. His chest x-ray does show a pattern of aspiration pneumonitis/ARDS and also congestive heart failure. Review of his EKGs and rhythm strips show that the patient has had sinus tachycardia and some episodes of multifocal atrial tachycardia. The chest x-ray review also suggests that there might be an element of congestive heart failure. PAST MEDICAL HISTORY: 1. He has a history of hypertension. 2. history of severe GERD. 3. Questionable history of atrial fibrillation, on Xarelto. 4. History of PTSD. He also has a history of hypertension. PAST SURGICAL HISTORY: 1. He has had 3 colonoscopies. 2. A left hip surgery in the form of arthroplasty. SOCIAL HISTORY: The patient does not smoke. FAMILY HISTORY: Not obtainable. REVIEW OF SYSTEMS: CONSTITUTIONAL: Review of symptoms not possible since the patient is intubated and sedated, but as per the chart, there is no fever, chills, sweats. GASTROINTESTINAL/RESPIRATORY: History of severe acid reflux followed by the patient waking up in severe respiratory distress with wheezing and had to be intubated. NEUROLOGIC: He has no history of TIA or CVA. ENDOCRINE: There is no history of diabetes mellitus or thyroid disease. He has a history of hyperlipidemia. PSYCHIATRIC: He has a history of posttraumatic stress disorder. DISPOSITION: The patient is a FULL CODE. As per the chart, Yael Montez, is his surrogate healthcare decision maker. MEDICATIONS: 1. He is on Tylenol 650 mg via the NG tube q. 4 hours p.r.n. 2. He is on albuterol 2.5 mg nebulizer treatment. 3. He is on amitriptyline 10 mg via the NG tube q. morning p.r.n. 4. Aspirin 81 mg via the NG tube q. morning. 5. He is on atorvastatin 10 mg via the NG every bedtime. 6. He is on diltiazem 90 mg x1 and 90 mg via the NG tube q. 8 hours. 7. He did get Amidate and fentanyl prior to being intubated. 8. He got 1 dose of Lasix. 9. Cefepime 2 grams 50 mL IV q. 12 hours. 10. He is on Levaquin 750 mg IV daily. 11. Propofol 100 mL IV continuous. 12. He is on ipratropium/albuterol nebulizer treatments x1 and q. 6 hours. 13. He is on Prilosec 15 mg via the NG tube x1 and 15 mg via the NG tube q. . 14. He is getting magnesium sulfate mL IV. 15. He is on methylprednisolone 125 mg IV. 16. He did get midazolam for sedation and now he is on a midazolam drip. 17. He is also on Diprivan drip. 18. He is on Xarelto 10 mg via the NG tube every bedtime. PHYSICAL EXAMINATION: GENERAL: On examination, the patient is moderately obese. He is intubated and sedated. There is no atrial fibrillation or flutter. There is no ventricular arrhythmia seen on the monitor. VITAL SIGNS: His temperature is 98 degrees Fahrenheit, his pulse is 79 beats per minute, his blood pressure is 106/62, his respirations are 22 on mechanical ventilator with an FIO2 of 45%, O2 sats are 98%. HEAD: Atraumatic, normocephalic. EYES: Pupils are equal, round, and reactive to light. Extraocular movements could not be tested. EARS: Tympanic membranes are intact. There are no lesions on the pinna. NOSE: Not examined. THROAT: Not examined. SKIN: There are no skin rashes. There are no petechiae or ecchymosis. There are no skin lesions. NECK: Supple. There is no JVD at present. Carotids are equal. There is no carotid bruit. There is no lymphadenopathy. There is no goiter. LUNGS: Bibasilar dry crackles and also a few fine bibasilar rales, which are very minimal. At present, there is no wheezing. HEART: S1, S2 heard. There is no S3 gallop. There is no S4 gallop. There is a systolic murmur at left sternal border and the apex. There is no rub. ABDOMEN: Soft. Bowel sounds are well heard. There is no hepatosplenomegaly. EXTREMITIES: Femorals are slightly diminished. There are no femoral bruits. Leg pulses are well felt. There is no DVT or cellulitis. There is no pedal edema. CENTRAL NERVOUS SYSTEM: Not tested. PSYCHIATRIC: Not tested. DIAGNOSTIC DATA: The patient's white count is 12,000; his hemoglobin is 13.1; his hematocrit is 41; and the patient's platelet count is 153,000. The patient's urine opioid screen, urine methadone screen, urine barbiturate screen, urine phencyclidine screen, urine amphetamine screen, urine benzodiazepine screen, urine cocaine screen, urine marijuana screen are all negative. His initial ABG showed a pH of 7.20, a pCO2 of 61, and a PO2 of 86.9, and an FIO2 of 60%. The patient's O2 saturation was 94.2%. Subsequently, his ABG showed a pH of 7.44, pCO2 was 33.4, PO2 was 106.1, O2 sats are 98.1% on an FIO2 of 45%. The patient's CPK-MB and CPK are negative x2. His initial troponin was negative at 0.012. His subsequent Troponin-I was negative/indeterminate at 0.041. His TSH is 3.42. His magnesium was 1.8. His sodium was 142.7, potassium of 4.1, chloride is 108, CO2 is 22. The patient's BUN is 19 with creatinine of 1.05, GFR was greater than 60, glucose is 174, calcium is 9.6. His liver function tests are normal except for alk phos, which is 189. His total protein is 6.8 and his albumin is 3.9. The patient's chest x-ray: The differential diagnosis is confirmed bilateral multifocal pneumonia versus ARDS versus some element of congestive heart failure. The patient's EKG shows sinus tachycardia, and subsequently another EKG showed . in spite of being a poor echo. Probably normal right atrial size. The left atrium is mildly dilated. There is no evidence of mitral valve prolapse. There is no vegetation seen in the mitral valve. There is no mitral valve stenosis. There is trace to mild amount of mitral regurgitation. There is no aortic valve stenosis. There is no LAD obstruction. There is no aortic regurgitation present. There is no tricuspid stenosis with mild amount of tricuspid regurgitation. Right ventricular systolic pressure is normal. There is no pericardial effusion. The right ventricular systolic pressure is 24-29 mmHg with a of 5-10. IMPRESSION: 1. No definite evidence of atrial fibrillation this admission. 2. There is sinus tachycardia. 3. Episodes of multifocal atrial tachycardia. 4. Most likely, the patient has clinical pneumonitis secondary to severe GERD, but cannot exclude aspiration pneumonitis/ARDS. 5. Congestive heart failure, most likely acute systolic heart failure due to myocardial depression due to the patient's O2 saturation going down to 74%. 6. History of hypertension. 7. History of GERD. 8. History of atrial fibrillation or is the patient still on Xarelto status post hip surgery? Will question the patient when he is off the ventilator. 9. PTSD. RECOMMENDATIONS: Continue antibiotics. Continue ventilatory support. Continue respiratory treatments. Would recommend giving the patient intravenous proton-pump inhibitor and would recheck the patient's chest x-ray in the morning to see if the patient needs more Lasix. I would not dry out the patient at present. Note, 40 minutes were spent on this patient with more than 50% of the time spent on direct patient care. His medications on the medication admission record have been reviewed. Note, this is a case that required highly complex medical decision making. Will discuss with the other providers on the case and coordination of care for management needed. Thanking you. DICTATING PHYSICIAN: LINH MIKE M.D. [id number] PHY#: [id number] ID: [id number] JOB#: [id number] ACCT: [id number] cc:LINH MIKE M.D. >
[2017-01-22] MEDS ORDERED: AMIODARONE HCL 150 MG in DEXTROSE 5%-WATER 100 ML IV ONE (16:00)
[2017-01-22] MEDS: DEXTROSE 5%-WATER 500 ML with AMIODARONE HCL 900 MG IV PRN ×2 (16:07)
[2017-01-22] MEDS: PHARMACY COMMUNICATION ORDER MC SCH (17:21)
[2017-01-22] MEDS ORDERED: METOPROLOL TARTRATE PF/INJ 5 MG/5 ML SDV IV ONE ×2 (18:03→18:45)
[2017-01-22] MEDS: ATORVASTATIN CALCIUM 10 MG TABLET NG SCH (21:12)
[2017-01-22] MEDS: RIVAROXABAN 10 MG TABLET NG SCH (21:13)
[2017-01-22] MEDS: METOPROLOL TARTRATE PF/INJ 5 MG/5 ML SDV IV PRN (22:16)
--- NOTE | 2017-01-22 23:37 | PROGRESS NOTE E ---
Progress Note NAME: PAULETTE SCALES : 1945 AGE: 71Y DATE: 01/22/2017 ROOM: 611 SUBJECTIVE: The patient continues to be in atrial flutter in spite of the patient being on a Cardizem drip. He continues to be on the ventilator and he is fully sedated after intubation. The patient is developing a temperature but at present is low grade. There is no ventricular arrhythmia seen on the monitor, there is no AV blocks. The patient is still heart rate is fast at 118 beats per minute. Note it is still under 48 hours *------* decision was made to start the patient on amiodarone drip. The patient is moderately obese. He is not fighting the ventilator since he is well-sedated. OBJECTIVE: VITAL SIGNS: His temperature is 99.1 degrees Fahrenheit, pulse is 118 beats per minute, blood pressure is 152/90, respirations are 13 per minute on the mechanical ventilator with an oxygen saturation of 97% on FiO2 of 30%. HEENT: Head is atraumatic, normocephalic. EYES: Pupils are equal, round, and reactive to light. ENT is negative. SKIN: There are no skin rashes, petechiae, or ecchymosis. NECK: Supple. There is no JVD. Carotids are equal. There are no bruits. There is no lymphadenopathy. There is no goiter. Trachea is central. LUNGS: Show bibasilar dry crackles. There are no fine rales of CHF. There is no wheezing. There are a few scattered rhonchi. HEART: S1, S2 is heard. There is no S3 gallop. There is no S4 gallop. S1 is of variable intensity. There is a systolic murmur in the left sternal border and the apex. There is no rub. ABDOMEN: Soft. Bowel sounds are well-heard. There is no tender areas or masses. EXTREMITIES: Femorals are slightly diminished. There are no femoral bruits. Leg pulses are well felt. There is no DVT or cellulitis. There is no pedal edema. CENTRAL NERVOUS SYSTEM: Not tested. PSYCHIATRIC: Not tested. INTAKE/OUTPUT: The patient's intake is 1979 mL, output is 3825 mL. DIAGNOSTIC STUDIES: The patient's white count has come down to 12,400; hemoglobin is 11.5, hematocrit is 35.1, platelet count is 142,000. The patient's sodium is 140.4, potassium 4.2, chloride is 111, CO2 is 24. The patient's BUN is 17, creatinine 0.87, GFR is greater than 60. His glucose is 119, calcium is 8.3, and magnesium is 2.4. His NT-proBNP is 1270. The patient's chest x-ray shows moderate opacity, layering effusion bilateral lower hemithoraces, moderate bilateral lung volumes. There is no evidence of congestive heart failure. IMPRESSION: 1. ATRIAL FLUTTER WITH A SLIGHTLY FAST VENTRICULAR RESPONSE. STILL PATIENT UNDER 72 HOURS. Hence will start the patient on IV amiodarone, we will stop the patient's IV Cardizem. Continue antibiotics. Continue ventilator support and oxygen supplementation. Would also increase the patient's Xarelto to 20 mg via NG tube. 2. MOST LIKELY THE PATIENT HAS CHEMICAL PNEUMONITIS SECONDARY TO SEVERE GERD BUT CANNOT EXCLUDE ASPIRATION PNEUMONITIS/ARDS. NOW THERE ARE BILATERAL PLEURAL EFFUSIONS. 3. CONGESTIVE HEART FAILURE MOST LIKELY SECONDARY TO ACUTE SYSTOLIC HEART FAILURE DUE TO MYOCARDIAL DEPRESSION DUE TO PATIENT'S O2 SATURATION. 4. BILATERAL PLEURAL EFFUSIONS ? ETIOLOGY. 5. HISTORY OF HYPERTENSION. BLOOD PRESSURE IS STABLE. 6. HISTORY OF GERD. 7. QUESTIONABLE PAST HISTORY OF ATRIAL FIBRILLATION, BUT NOTE THAT THE PATIENT WAS NOT ON XARELTO PER HIS HOME MEDICATION LIST. 8. PTSD. 9. ACUTE ON CHRONIC RESPIRATORY FAILURE. RECOMMENDATIONS: As mentioned, continue the current medications. We will switch the patient to IV amiodarone since it is still just about 48 hours since the patient's onset of atrial flutter. We will check the patient's dig level in the a.m. and also check labs in the a.m. TIME SPENT: Note 35 minutes spent on the patient, more than 50% of the time spent on direct patient care and also reviewing the medication and adjustment of the medications. Also discussed with other care giving providers on the case. We will follow with you. Still unable to reach any relatives to get permission to cardiovert the patient since the patient is hemodynamically stable and it is not an emergency. We will follow with you, thanking you. DICTATING PHYSICIAN: LINH MIKE M.D. [id number] PHY#: [id number] ID: [id number] JOB#: [id number] ACCT: [id number] cc: >
[2017-01-23] MEDS: PROPOFOL 100 ML IV PRN ×6 (00:57→22:39)
[2017-01-23] MEDS: IPRATROPIUM/ALBUTEROL 0.5-2.5 MG/3 ML AMPUL NEB SCH ×4 (02:26→19:56)
[2017-01-23 04:06] LABS: ABSOLUTE BASOPHILS # (AUTO) 0.1 10^3/uL (0.0-0.2); ABSOLUTE LYMPHOCYTES (AUTO) 1.4 10^3/uL (0.5-4.7); ABSOLUTE MONOCYTES (AUTO) 1.2 10^3/uL (0.1-1.4); ABSOLUTE NEUT (AUTO) 8.4 10^3/uL (1.7-8.2); BASOPHILS % (AUTO) 0.8 % (0-2); EOSINOPHILS % (AUTO) 0.4 % (0-6); HEMATOCRIT 40.7 % (37.9-51.0); HEMOGLOBIN 13.2 g/dL (13.5-17.0); HGB HCT DIFFERENCE -1.1; LYMPHOCYTES % (AUTO) 12.3 % (13-45); MEAN CORPUSCULAR HEMOGLOBIN 28.4 pg (27.0-33.4); MEAN CORPUSCULAR HGB CONC 32.5 g/dL (32.0-36.0); MEAN CORPUSCULAR VOLUME 87 fl (80-97); MONOCYTES % (AUTO) 11.2 % (3-13); RED BLOOD COUNT 4.67 10^6/uL (4.35-5.55); RED CELL DISTRIBUTION WIDTH 15.4 % (11.5-14.0); SEGMENTED NEUTROPHILS % (AUTO) 75.3 % (42-78); WHITE BLOOD COUNT 11.1 10^3/uL (4.0-10.5)
[2017-01-23 04:22] LABS: ALANINE AMINOTRANSFERASE 61 U/L (21-72); ALBUMIN 3.5 g/dL (3.5-5.0); ALKALINE PHOSPHATASE 129 U/L (38-126); ANION GAP 10 (5-19); ASPARTATE AMINO TRANSFERASE 38 U/L (17-59); BILIRUBIN,DIRECT 0.5 mg/dL (0.0-0.4); BILIRUBIN,TOTAL 0.7 mg/dL (0.2-1.3); BLOOD UREA NITROGEN 19 mg/dL (7-20); CALCIUM 8.7 mg/dL (8.4-10.2); CARBON DIOXIDE 28 mmol/L (22-30); CHLORIDE 102 mmol/L (98-107); CREATININE RESULT 0.92 mg/dL (0.52-1.25); GLUCOSE 142 mg/dL (75-110); MAGNESIUM 2.1 mg/dL (1.6-2.3); POTASSIUM 3.9 mmol/L (3.6-5.0); SODIUM 140.3 mmol/L (137-145); TOTAL PROTEIN 6.3 g/dL (6.3-8.2)
[2017-01-23 04:37] LABS: FREE T3 3.13 pg/mL (2.77-5.27)
[2017-01-23 04:50] LABS: THYROID STIMULATING HORMONE 1.53 uIU/mL (0.47-4.68)
[2017-01-23 05:05] LABS: ARTERIAL BLOOD BASE EXCESS 3.1 mmol/L; ARTERIAL BLOOD O2 SATURATION 97.1 % (94-98)
[2017-01-23] MEDS: LANSOPRAZOLE 15 MG TAB.RAP.DR NG SCH (05:25)
[2017-01-23] MEDS: METOPROLOL TARTRATE PF/INJ 5 MG/5 ML SDV IV PRN (05:25)
--- NOTE | 2017-01-23 08:02 | RADIOLOGY REPORT (SQ) ---
EXAM DESCRIPTION: CHEST SINGLE VIEW COMPLETED DATE/TIME: 01/23/2017 6:28 am REASON FOR STUDY: resp failure COMPARISON: 01/22/2017. EXAM PARAMETERS: NUMBER OF VIEWS: One view. TECHNIQUE: Single frontal radiographic view of the chest acquired. RADIATION DOSE: NA LIMITATIONS: None. FINDINGS: LUNGS AND PLEURA: Moderate haziness -layered effusion of bilateral lower lung wood, mode rate lung volumes. MEDIASTINUM AND HILAR STRUCTURES: No masses. Contour normal. HEART AND VASCULAR STRUCTURES: Mild enlargement of the cardiac silhouette. BONES: No acute findings. HARDWARE: Adequate appearing endotracheal tube. Likely adequate NG tube obscured distally. OTHER: No other significant finding. IMPRESSION: No significant interval change. TECHNICAL DOCUMENTATION: JOB ID: [id number]
[2017-01-23] MEDS ORDERED: DIGOXIN INJ 0.5 MG/2 ML AMPULE IV ONE (08:15)
[2017-01-23] MEDS: ASPIRIN 81 MG TABLET, CHEWABLE NG SCH (08:17)
--- NOTE | 2017-01-23 08:31 | PDOC PROGRESS REPORT ---
Subjective Progress Note for:: 01/23/17 Subjective:: The patient is placed on amiodarone drip. Patient started on Lasix drip as well. Patient remains with negative urine output balance. Sputum culture was negative. No bowel movement at this time as reported. No temperature spikes no respiratory distress. Intermittently will remain tachycardic. Physical Exam Vital Signs: Temp Pulse Resp BP Pulse Ox 101.3 F H 98 18 123/71 99 01/22/17 18:00 01/23/17 02:30 01/23/17 02:30 01/23/17 06:06 01/23/17 06:06 Intake & Output 01/22/17 01/23/17 01/24/17 06:59 06:59 06:59 Intake Total 1979 2370 Output Total 3822 7808 Balance -3626 -5383 Weight 119.4 kg 114.7 kg General appearance: PRESENT: no acute distress, morbidly obese, other - Intubated and sedated Head exam: PRESENT: normocephalic Mouth exam: PRESENT: moist, neck supple Neck exam: ABSENT: JVD Respiratory exam: PRESENT: rhonchi - Few scattered bilateral, unlabored. ABSENT : wheezes Cardiovascular exam: PRESENT: irregular rhythm. ABSENT: gallop GI/Abdominal exam: PRESENT: hypoactive bowel sounds, soft. ABSENT: distended, tenderness Extremities exam: PRESENT: other - Trace lower extremity edema Neurological exam: PRESENT: altered Skin exam: PRESENT: dry, warm. ABSENT: cyanosis Results Laboratory Results: 01/23/17 03:57 01/23/17 03:57 01/23/17 01/23/17 01/23/17 03:57 03:57 03:57 WBC 11.1 H RBC 4.67 Hgb 13.2 L Hct 40.7 MCV 87 MCH 28.4 MCHC 32.5 RDW 15.4 H Plt Count 143 L Seg Neutrophils % 75.3 Lymphocytes % 12.3 L Monocytes % 11.2 Eosinophils % 0.4 Basophils % 0.8 Absolute Neutrophils 8.4 H Absolute Lymphocytes 1.4 Absolute Monocytes 1.2 Absolute Eosinophils 0.0 Absolute Basophils 0.1 Carbonic Acid HCO3/H2CO3 Ratio ABG pH ABG pCO2 ABG pO2 ABG HCO3 ABG O2 Saturation ABG Base Excess FiO2 Sodium 140.3 Potassium 3.9 Chloride 102 Carbon Dioxide 28 Anion Gap 10 BUN 19 Creatinine 0.92 Est GFR ( Amer) > 60 Est GFR (Non-Af Amer) > 60 Glucose 142 H Calcium 8.7 Magnesium 2.1 Total Bilirubin 0.7 AST 38 ALT 61 Alkaline Phosphatase 129 H Total Protein 6.3 Albumin 3.5 TSH 1.53 Free T4 1.39 Free T3 pg/mL 3.13 01/23/17 05:00 WBC RBC Hgb Hct MCV MCH MCHC RDW Plt Count Seg Neutrophils % Lymphocytes % Monocytes % Eosinophils % Basophils % Absolute Neutrophils Absolute Lymphocytes Absolute Monocytes Absolute Eosinophils Absolute Basophils Carbonic Acid 1.16 HCO3/H2CO3 Ratio 23:1 ABG pH 7.46 H ABG pCO2 38.6 ABG pO2 87.1 ABG HCO3 27.0 H ABG O2 Saturation 97.1 ABG Base Excess 3.1 FiO2 30% Sodium Potassium Chloride Carbon Dioxide Anion Gap BUN Creatinine Est GFR ( Amer) Est GFR (Non-Af Amer) Glucose Calcium Magnesium Total Bilirubin AST ALT Alkaline Phosphatase Total Protein Albumin TSH Free T4 Free T3 pg/mL 01/20/17 08:20 Tracheal Aspirate Gram Stain - Final 01/20/17 08:20 Tracheal Aspirate Sputum Culture - Final NORMAL MAXI 01/20/17 01/20/17 01/20/17 07:46 07:46 13:52 Creatine Kinase 160 191 H CK-MB (CK-2) 1.23 Troponin I 0.041 NT-Pro-B Natriuret Pep 01/20/17 01/20/17 01/20/17 13:52 20:50 20:50 Creatine Kinase 207 H CK-MB (CK-2) 1.49 1.55 Troponin I 0.051 0.035 NT-Pro-B Natriuret Pep 01/21/17 01/22/17 03:54 04:06 Creatine Kinase CK-MB (CK-2) Troponin I NT-Pro-B Natriuret Pep 1170 H 1270 H Impressions: Chest X-Ray 01/23/17 06:00 IMPRESSION: No significant interval change. Assessment & Plan - Diagnosis (1) Respiratory failure Qualifiers: Chronicity: acute Respiratory failure complication: hypoxia and hypercapnia Qualified Code(s): J96.01 - Acute respiratory failure with hypoxia Is this a current diagnosis for this admission?: Yes (2) Community acquired pneumonia Qualifiers: Lung location: unspecified part of lung Is this a current diagnosis for this admission?: Yes (3) Pulmonary edema Qualifiers: Chronicity: acute Qualified Code(s): J81.0 - Acute pulmonary edema Is this a current diagnosis for this admission?: Yes (4) Paroxysmal atrial fibrillation Is this a current diagnosis for this admission?: Yes (5) Essential hypertension Is this a current diagnosis for this admission?: Yes (6) Hyperlipidemia Qualifiers: Hyperlipidemia type: unspecified Qualified Code(s): E78.5 - Hyperlipidemia, unspecified Is this a current diagnosis for this admission?: Yes (7) PTSD (post-traumatic stress disorder) Is this a current diagnosis for this admission?: Yes (8) Morbid obesity Is this a current diagnosis for this admission?: Yes (9) GERD (gastroesophageal reflux disease) Qualifiers: Esophagitis presence: without esophagitis Qualified Code(s): K21.9 - Gastro-esophageal reflux disease without esophagitis Is this a current diagnosis for this admission?: Yes (10) Anemia, chronic disease Is this a current diagnosis for this admission?: Yes (11) Chronic pain syndrome Is this a current diagnosis for this admission?: Yes (12) Anxiety Is this a current diagnosis for this admission?: Yes - Time Time Spent with patient: 25-34 minutes - Plan Summary Plan Summary: Patient sputum culture has been negative. I will discontinue the Levaquin but keep the cefepime. Renew her restraints. Follow-up chest x-ray in the morning. Monitor electrolytes and WBC. Seems to be trending down. Ventilator weaning per pulmonary service. Continue supportive care and tube feedings.
[2017-01-23] MEDS ORDERED: BISACODYL 10 MG SUPP.RECT PR ONE (09:30)
[2017-01-23] MEDS ORDERED: DEXAMETHASONE SOD PHOSPHATE INJ 4 MG/1 ML VIAL IV ONE (09:45)
[2017-01-23] MEDS ORDERED: METOPROLOL TARTRATE PF/INJ 5 MG/5 ML SDV IV ONE (11:00)
[2017-01-23] MEDS: CEFEPIME 2 GM/D5W RTU 50 ML IV SCH ×2 (11:51→22:16)
--- NOTE | 2017-01-23 12:56 | EKG REPORT ---
SEVERITY:- ABNORMAL ECG - SINUS OR ECTOPIC ATRIAL RHYTHM BORDERLINE LEFT AXIS DEVIATION NONSPECIFIC REPOL ABNORMALITY, DIFFUSE LEADS BORDERLINE PROLONGED QT INTERVAL : Confirmed by: Pascual Dallas 23-Jan-2017 12:55:18
[2017-01-23] MEDS ORDERED: MIDAZOLAM 2 MG/2 ML INJ IV PRN (14:00)
[2017-01-23] MEDS: FENTANYL CITRATE INJ/PF 100 MCG/2 ML AMPUL IV PRN (14:34)
[2017-01-23] MEDS: NORMAL SALINE 250 ML with FUROSEMIDE 250 MG IV PRN ×2 (16:02)
[2017-01-23] MEDS: PHARMACY COMMUNICATION ORDER MC SCH (16:03)
[2017-01-23] MEDS: DILTIAZEM HCL/D5W 125 MG/125 ML RTUINJ IV PRN ×2 (16:03→22:44)
[2017-01-23] MEDS: DEXTROSE 5%-WATER 500 ML with AMIODARONE HCL 900 MG IV PRN ×2 (16:06)
[2017-01-23] MEDS: RIVAROXABAN 10 MG TABLET NG SCH (22:17)
[2017-01-23] MEDS: ATORVASTATIN CALCIUM 10 MG TABLET NG SCH (22:17)
--- NOTE | 2017-01-24 00:17 | PROGRESS NOTE E ---
Progress Note NAME: PAULETTE SCALES : 1945 AGE: 71Y DATE: 01/23/2017 ROOM: 611 SUBJECTIVE: The patient continues to be intubated and sedated and if the patient is taken off the ventilator he becomes apneic but every now and then wakes up for pain medication as per the nurses. The patient continues to be in atrial flutter with fast ventricular response. He continues to be on amiodarone. There is no ventricular arrhythmia seen. Unfortunately, there is no healthcare surrogate power of litigation attorney associate to get permission for electrocardioversion. Hence, we will continue the patient on amiodarone. The patient is on a Lasix drip with good dialysis. OBJECTIVE: GENERAL: On examination, the patient is moderately obese. He is not fighting the ventilator. He is well sedated. VITAL SIGNS: His temperature is 100 degrees Fahrenheit. Pulse is 115 beats per minute. Blood pressure is 132/88, respirations are 10 per minute. O2 sats are 99% on a mechanical ventilator with an FiO2 of 30%. HEAD: Atraumatic, normocephalic. EYES: Pupils are equal, round, and reactive to light. ENT: Negative. NECK: Supple. There is no JVD. Carotids are equal. There are no bruits. There is no lymphadenopathy. There is no goiter. Trachea is central. LUNGS: Show bibasilar dry crackles. There are no fine rales of CHF. There is no wheezing. There are a few scattered rhonchi. HEART: S1, S2 heard. There is no S3 gallop. There is no S4 gallop. S1 is of variable intensity. There is a systolic murmur at left sternal border and the apex. There is no rub. ABDOMEN: Soft. Bowel sounds are well heard. There are no masses. There is no hepatosplenomegaly. EXTREMITIES: Femorals are slightly diminished. There are no femoral bruits. Leg pulses are well felt. There is no DVT or cellulitis. There is no pedal edema. CENTRAL NERVOUS SYSTEM: Not examined. PSYCHIATRIC: Not examined. The patient's 24-hour intake is 2370 mL. Output is 7805 mL. LABORATORY DATA: The patient's white count is 11,100; hemoglobin is 30.2, hematocrit is 40.7. The platelet count is 143,000. The patient's sodium is 140.3, potassium 3.9, chloride is 102, CO2 is 28. The patient's BUN is 19, creatinine is 0.92, GFR is greater than 60. Glucose is 142. His calcium is 8.7. His liver function tests normal except for slightly elevated direct bilirubin of 0.5 and a mildly elevated alkaline phosphatase of 129. The patient's TSH is normal at 1.53, free T4 is 1.39, free T3 is 3.13. The ABG shows pH of 7.46, pCO2 of 38.6, pO2 is 87.1 and his O2 saturation is 97.1% on FiO2 of 30%. ASSESSMENT: 1. ATRIAL FLUTTER WITH SLIGHTLY FAST VENTRICULAR RESPONSE. PATIENT IS STILL ON IV AMIODARONE. IF THE PATIENT CONTINUES TO BE TACHYCARDIC IN ATRIAL FLUTTER OR IF THE HEART RATE GOES UP THEN WILL ADD CARDIZEM ALONG WITH IV METOPROLOL AND STOP AMIODARONE OR CONTINUE THE AMIODARONE DEPENDING ON SCENARIO. CONTINUE THE PATIENT'S XARELTO. 2. NOTE MOST LIKELY THE PATIENT HAS CHEMICAL PNEUMONITIS SECONDARY TO SEVERE GERD BUT CANNOT EXCLUDE ASPIRATION PNEUMONITIS. THE PATIENT'S CHEST X-RAY CONTINUES TO SHOW MODERATE ILLNESS. THERE IS PLEURAL EFFUSION OF BILATERAL LOWER LUNG ROBLES, MODERATE LUNG VOLUMES. The patient's EKG shows atrial flutter with a ventricular response of 89, borderline left axis deviation, nonspecific repolarization abnormalities, diffuse *------*, borderline prolonged QT interval. PLAN: Continue ventilator support. Continue antibiotics. Continue IV Lasix. Continue the patient on amiodarone for now. Note that the thyroid function tests and the liver function tests are normal. Note 30 minutes spent on the patient. More than 50% of the time spent on direct patient care. As mentioned earlier, this is a highly complicated decision making case for the reason that the patient continues to be in atrial flutter with a rapid ventricular response and unable to get any healthcare surrogate decision maker to give us permission to electrically cardiovert the patient. Since this is not an emergency, will continue the patient on Xarelto. Note, unable to get a CT scan of his chest since the patient would not fit into the CT scan machine as per the emergency medicine specialist. Discussed with other caregiving providers. His medications have been reviewed. Thirty minutes spent on this patient with more than 50% of the time spent on direct patient care. Will follow with you. DICTATING PHYSICIAN: LINH MIKE M.D. [id number] Y#: [id number] ID: [id number] JOB#: [id number] ACCT: [id number] cc: >
[2017-01-24] MEDS: IPRATROPIUM/ALBUTEROL 0.5-2.5 MG/3 ML AMPUL NEB SCH ×4 (02:19→20:19)
[2017-01-24 04:07] LABS: HEMOGLOBIN 13.4 g/dL (13.5-17.0); HGB HCT DIFFERENCE -0.8; MEAN CORPUSCULAR HEMOGLOBIN 28.3 pg (27.0-33.4); MEAN CORPUSCULAR HGB CONC 32.7 g/dL (32.0-36.0); MEAN CORPUSCULAR VOLUME 87 fl (80-97); RED BLOOD COUNT 4.73 10^6/uL (4.35-5.55); RED CELL DISTRIBUTION WIDTH 15.6 % (11.5-14.0); WHITE BLOOD COUNT 16.4 10^3/uL (4.0-10.5)
[2017-01-24 04:47] LABS: ANION GAP 12 (5-19); BLOOD UREA NITROGEN 33 mg/dL (7-20); CALCIUM 8.8 mg/dL (8.4-10.2); CARBON DIOXIDE 25 mmol/L (22-30); CHLORIDE 102 mmol/L (98-107); CREATININE RESULT 0.99 mg/dL (0.52-1.25); GLUCOSE 189 mg/dL (75-110); MAGNESIUM 2.6 mg/dL (1.6-2.3); POTASSIUM 4.1 mmol/L (3.6-5.0); SODIUM 138.9 mmol/L (137-145)
[2017-01-24 05:22] LABS: ARTERIAL BLOOD BASE EXCESS 4.8 mmol/L; ARTERIAL BLOOD O2 SATURATION 95.1 % (94-98)
[2017-01-24] MEDS: LANSOPRAZOLE 15 MG TAB.RAP.DR NG SCH (06:25)
[2017-01-24] MEDS: DILTIAZEM HCL/D5W 125 MG/125 ML RTUINJ IV PRN (06:51)
[2017-01-24] MEDS: PROPOFOL 100 ML IV PRN (06:52)
--- NOTE | 2017-01-24 07:45 | RADIOLOGY REPORT (SQ) ---
EXAM DESCRIPTION: CHEST SINGLE VIEW COMPLETED DATE/TIME: 01/24/2017 7:11 am REASON FOR STUDY: Resp failure COMPARISON: 01/23/2017. EXAM PARAMETERS: NUMBER OF VIEWS: One view. TECHNIQUE: Single frontal radiographic view of the chest acquired. RADIATION DOSE: NA LIMITATIONS: None. FINDINGS: LUNGS AND PLEURA: Moderate lung volumes. Pulmonary vascular congestion. Mild bibasilar o pacity-effusion. MEDIASTINUM AND HILAR STRUCTURES: No masses. Contour normal. HEART AND VASCULAR STRUCTURES: Heart normal in size. Normal vasculature. BONES: No acute findings. HARDWARE: Adequate appearing endotracheal tube and likely adequate NG tube obscured distally. OTHER: No other significant finding. IMPRESSION: No significant interval change. TECHNICAL DOCUMENTATION: JOB ID: [id number]
[2017-01-24] MEDS: ASPIRIN 81 MG TABLET, CHEWABLE NG SCH (08:25)
[2017-01-24] MEDS: CEFEPIME 2 GM/D5W RTU 50 ML IV SCH ×2 (09:20→21:51)
--- NOTE | 2017-01-24 10:09 | PDOC PROGRESS REPORT ---
Subjective Progress Note for:: 01/24/17 Subjective:: Patient remains intubated on ventilator. Reported apneic episodes when off sedation. Patient remains on amiodarone drip as well as Lasix drip and Cardizem drip. No reported temperature spikes, nausea or vomiting, nor diarrhea. Cardiology wants to perform elective cardioversion but family unavailable at this time. Physical Exam Vital Signs: Temp Pulse Resp BP Pulse Ox 99.0 F 84 18 115/61 96 01/24/17 08:00 01/24/17 08:00 01/24/17 08:00 01/24/17 08:00 01/24/17 08:00 Intake & Output 01/23/17 01/24/17 01/25/17 06:59 06:59 06:59 Intake Total 2370 2070 Output Total 780 3310 350 Balance -5435 -1240 -350 Weight 114.7 kg 113.2 kg General appearance: PRESENT: no acute distress, morbidly obese Head exam: PRESENT: normocephalic Eye exam: PRESENT: conjunctiva pale Mouth exam: PRESENT: moist, neck supple Neck exam: ABSENT: JVD Respiratory exam: PRESENT: rhonchi - minimal B/L Cardiovascular exam: PRESENT: irregular rhythm, RRR. ABSENT: gallop GI/Abdominal exam: PRESENT: hypoactive bowel sounds. ABSENT: distended - Obese Extremities exam: PRESENT: other - Trace lower extremity edema Skin exam: PRESENT: dry, warm. ABSENT: cyanosis Results Laboratory Results: 01/24/17 03:54 01/24/17 03:54 01/24/17 01/24/17 01/24/17 03:54 03:54 05:10 WBC 16.4 H RBC 4.73 Hgb 13.4 L Hct 41.0 MCV 87 MCH 28.3 MCHC 32.7 RDW 15.6 H Plt Count 160 Carbonic Acid 1.25 HCO3/H2CO3 Ratio 23:1 ABG pH 7.46 H ABG pCO2 41.4 ABG pO2 71.3 L ABG HCO3 29.0 H ABG O2 Saturation 95.1 ABG Base Excess 4.8 FiO2 21% Sodium 138.9 Potassium 4.1 Chloride 102 Carbon Dioxide 25 Anion Gap 12 BUN 33 H Creatinine 0.99 Est GFR ( Amer) > 60 Est GFR (Non-Af Amer) > 60 Glucose 189 H Calcium 8.8 Magnesium 2.6 H 01/20/17 01/20/17 01/20/17 07:46 07:46 13:52 Creatine Kinase 160 191 H CK-MB (CK-2) 1.23 Troponin I 0.041 NT-Pro-B Natriuret Pep 01/20/17 01/20/17 01/20/17 13:52 20:50 20:50 Creatine Kinase 207 H CK-MB (CK-2) 1.49 1.55 Troponin I 0.051 0.035 NT-Pro-B Natriuret Pep 01/21/17 01/22/17 03:54 04:06 Creatine Kinase CK-MB (CK-2) Troponin I NT-Pro-B Natriuret Pep 1170 H 1270 H Impressions: Chest X-Ray 01/24/17 06:00 IMPRESSION: No significant interval change. Assessment & Plan - Diagnosis (1) Respiratory failure Qualifiers: Chronicity: acute Respiratory failure complication: hypoxia and hypercapnia Qualified Code(s): J96.01 - Acute respiratory failure with hypoxia Is this a current diagnosis for this admission?: Yes (2) Community acquired pneumonia Qualifiers: Lung location: unspecified part of lung Is this a current diagnosis for this admission?: Yes (3) Pulmonary edema Qualifiers: Chronicity: acute Qualified Code(s): J81.0 - Acute pulmonary edema Is this a current diagnosis for this admission?: Yes (4) Paroxysmal atrial fibrillation Is this a current diagnosis for this admission?: Yes (5) Essential hypertension Is this a current diagnosis for this admission?: Yes (6) Hyperlipidemia Qualifiers: Hyperlipidemia type: unspecified Qualified Code(s): E78.5 - Hyperlipidemia, unspecified Is this a current diagnosis for this admission?: Yes (7) PTSD (post-traumatic stress disorder) Is this a current diagnosis for this admission?: Yes (8) Morbid obesity Is this a current diagnosis for this admission?: Yes (9) GERD (gastroesophageal reflux disease) Qualifiers: Esophagitis presence: without esophagitis Qualified Code(s): K21.9 - Gastro-esophageal reflux disease without esophagitis Is this a current diagnosis for this admission?: Yes (10) Anemia, chronic disease Is this a current diagnosis for this admission?: Yes (11) Chronic pain syndrome Is this a current diagnosis for this admission?: Yes (12) Anxiety Is this a current diagnosis for this admission?: Yes - Time Time Spent with patient: 25-34 minutes - Plan Summary Plan Summary: Patient's heart rate improved. Transition to oral Cardizem. Wean IV Cardizem. Ventilator management per pulmonary service. Amiodarone to continue, continue supportive care as well. Monitor electrolytes and replace accordingly. Patient remained on negative balance. Culture was negative on the sputum. Continue current antibiotic.
[2017-01-24] MEDS ORDERED: DEXAMETHASONE SOD PHOSPHATE INJ 4 MG/1 ML VIAL ONE (10:17)
[2017-01-24] MEDS ORDERED: ESMOLOL HCL/SOD CL 250 ML IV PRN (10:29)
[2017-01-24] MEDS ORDERED: DEXAMETHASONE SOD PHOSPHATE INJ 4 MG/1 ML VIAL IV ONE (11:00)
[2017-01-24] MEDS ORDERED: DILTIAZEM HCL 30 MG TABLET NG SCH (12:00)
--- NOTE | 2017-01-24 14:46 | PDOC PROGRESS REPORT ---
Subjective Progress Note for:: 01/23/17 Subjective:: Intubated and sedated Physical Exam Vital Signs: Temp Pulse Resp BP Pulse Ox 101.3 F H 98 18 123/71 99 01/22/17 18:00 01/23/17 02:30 01/23/17 02:30 01/23/17 06:06 01/23/17 06:06 Intake & Output 01/22/17 01/23/17 01/24/17 06:59 06:59 06:59 Intake Total 1979 2370 Output Total 1314 1175 Balance -8522 -3902 Weight 119.4 kg 114.7 kg General appearance: PRESENT: no acute distress, disheveled, morbidly obese Head exam: PRESENT: atraumatic, normocephalic Eye exam: PRESENT: conjunctiva pale Mouth exam: PRESENT: dry mucosa, neck supple, tongue midline, other - ET tube Neck exam: ABSENT: carotid bruit, JVD, lymphadenopathy, thyromegaly Respiratory exam: PRESENT: decreased breath sounds, prolonged expiratory phas, rales, rhonchi, symmetrical Cardiovascular exam: PRESENT: irregular rhythm Pulses: PRESENT: normal radial pulses GI/Abdominal exam: PRESENT: normal bowel sounds, soft. ABSENT: distended, guarding, mass, organolmegaly, rebound, tenderness Rectal exam: PRESENT: deferred Gentrourinary exam: PRESENT: indwelling catheter Extremities exam: PRESENT: +1 edema Neurological exam: PRESENT: awake Psychiatric exam: PRESENT: flat affect Results Laboratory Results: 01/23/17 03:57 01/23/17 03:57 01/23/17 01/23/17 01/23/17 03:57 03:57 03:57 WBC 11.1 H RBC 4.67 Hgb 13.2 L Hct 40.7 MCV 87 MCH 28.4 MCHC 32.5 RDW 15.4 H Plt Count 143 L Seg Neutrophils % 75.3 Lymphocytes % 12.3 L Monocytes % 11.2 Eosinophils % 0.4 Basophils % 0.8 Absolute Neutrophils 8.4 H Absolute Lymphocytes 1.4 Absolute Monocytes 1.2 Absolute Eosinophils 0.0 Absolute Basophils 0.1 Carbonic Acid HCO3/H2CO3 Ratio ABG pH ABG pCO2 ABG pO2 ABG HCO3 ABG O2 Saturation ABG Base Excess FiO2 Sodium 140.3 Potassium 3.9 Chloride 102 Carbon Dioxide 28 Anion Gap 10 BUN 19 Creatinine 0.92 Est GFR ( Amer) > 60 Est GFR (Non-Af Amer) > 60 Glucose 142 H Calcium 8.7 Magnesium 2.1 Total Bilirubin 0.7 AST 38 ALT 61 Alkaline Phosphatase 129 H Total Protein 6.3 Albumin 3.5 TSH 1.53 Free T4 1.39 Free T3 pg/mL 3.13 01/23/17 05:00 WBC RBC Hgb Hct MCV MCH MCHC RDW Plt Count Seg Neutrophils % Lymphocytes % Monocytes % Eosinophils % Basophils % Absolute Neutrophils Absolute Lymphocytes Absolute Monocytes Absolute Eosinophils Absolute Basophils Carbonic Acid 1.16 HCO3/H2CO3 Ratio 23:1 ABG pH 7.46 H ABG pCO2 38.6 ABG pO2 87.1 ABG HCO3 27.0 H ABG O2 Saturation 97.1 ABG Base Excess 3.1 FiO2 30% Sodium Potassium Chloride Carbon Dioxide Anion Gap BUN Creatinine Est GFR ( Amer) Est GFR (Non-Af Amer) Glucose Calcium Magnesium Total Bilirubin AST ALT Alkaline Phosphatase Total Protein Albumin TSH Free T4 Free T3 pg/mL 01/20/17 08:20 Tracheal Aspirate Gram Stain - Final 01/20/17 08:20 Tracheal Aspirate Sputum Culture - Final NORMAL MAXI 01/20/17 01/20/17 01/20/17 07:46 07:46 13:52 Creatine Kinase 160 191 H CK-MB (CK-2) 1.23 Troponin I 0.041 NT-Pro-B Natriuret Pep 01/20/17 01/20/17 01/20/17 13:52 20:50 20:50 Creatine Kinase 207 H CK-MB (CK-2) 1.49 1.55 Troponin I 0.051 0.035 NT-Pro-B Natriuret Pep 01/21/17 01/22/17 03:54 04:06 Creatine Kinase CK-MB (CK-2) Troponin I NT-Pro-B Natriuret Pep 1170 H 1270 H Impressions: Chest X-Ray 01/23/17 06:00 IMPRESSION: No significant interval change. Assessment & Plan - Diagnosis (1) Paroxysmal atrial fibrillation Is this a current diagnosis for this admission?: Yes (2) Pulmonary edema Qualifiers: Chronicity: acute Qualified Code(s): J81.0 - Acute pulmonary edema Is this a current diagnosis for this admission?: Yes (3) Respiratory failure Qualifiers: Chronicity: acute Respiratory failure complication: hypoxia and hypercapnia Qualified Code(s): J96.01 - Acute respiratory failure with hypoxia Is this a current diagnosis for this admission?: YesPlan: Labs- All tests 24 hr 01/21/17 01/21/17 01/22/17 03:54 05:03 04:06 WBC 12.4 H Seg Neutrophils % 80.4 H Band Neutrophils % 1 L ABG pH 7.47 H ABG pCO2 28.9 L ABG pO2 99.4 ABG O2 Saturation 98.0 FiO2 35% Carbon Dioxide 01/22/17 04:06 WBC Seg Neutrophils % Band Neutrophils % ABG pH ABG pCO2 ABG pO2 ABG O2 Saturation FiO2 Carbon Dioxide 24 slowly improving - Time Critical Time spent with patient: 25-34 minutes
--- NOTE | 2017-01-24 14:51 | PDOC PROGRESS REPORT ---
Subjective Progress Note for:: 01/24/17 Subjective:: Intubated and responsive to commands Physical Exam Vital Signs: Temp Pulse Resp BP Pulse Ox 99.0 F 84 18 115/61 96 01/24/17 08:00 01/24/17 08:00 01/24/17 08:00 01/24/17 08:00 01/24/17 08:00 Intake & Output 01/23/17 01/24/17 01/25/17 06:59 06:59 06:59 Intake Total 2370 2070 Output Total 7805 3310 350 Balance -5435 -1240 -350 Weight 114.7 kg 113.2 kg General appearance: PRESENT: no acute distress, cooperative, disheveled, morbidly obese Head exam: PRESENT: atraumatic, normocephalic Eye exam: PRESENT: conjunctiva pale, EOMI Mouth exam: PRESENT: dry mucosa, neck supple, tongue midline. ABSENT: other - ET tube Neck exam: ABSENT: carotid bruit, JVD, lymphadenopathy, thyromegaly Respiratory exam: PRESENT: decreased breath sounds, prolonged expiratory phas, rhonchi, symmetrical, unlabored Cardiovascular exam: PRESENT: irregular rhythm Pulses: PRESENT: normal radial pulses GI/Abdominal exam: PRESENT: normal bowel sounds, soft. ABSENT: distended, guarding, mass, organolmegaly, rebound, tenderness Rectal exam: PRESENT: deferred Neurological exam: PRESENT: alert, awake Skin exam: PRESENT: dry, warm Results Laboratory Results: 01/24/17 03:54 01/24/17 03:54 01/24/17 01/24/17 01/24/17 03:54 03:54 05:10 WBC 16.4 H RBC 4.73 Hgb 13.4 L Hct 41.0 MCV 87 MCH 28.3 MCHC 32.7 RDW 15.6 H Plt Count 160 Carbonic Acid 1.25 HCO3/H2CO3 Ratio 23:1 ABG pH 7.46 H ABG pCO2 41.4 ABG pO2 71.3 L ABG HCO3 29.0 H ABG O2 Saturation 95.1 ABG Base Excess 4.8 FiO2 21% Sodium 138.9 Potassium 4.1 Chloride 102 Carbon Dioxide 25 Anion Gap 12 BUN 33 H Creatinine 0.99 Est GFR ( Amer) > 60 Est GFR (Non-Af Amer) > 60 Glucose 189 H Calcium 8.8 Magnesium 2.6 H 08/08/17 08/08/17 08/08/17 07:46 07:46 13:52 Creatine Kinase 160 191 H CK-MB (CK-2) 1.23 Troponin I 0.041 NT-Pro-B Natriuret Pep 01/20/17 01/20/17 01/20/17 13:52 20:50 20:50 Creatine Kinase 207 H CK-MB (CK-2) 1.49 1.55 Troponin I 0.051 0.035 NT-Pro-B Natriuret Pep 01/21/17 01/22/17 03:54 04:06 Creatine Kinase CK-MB (CK-2) Troponin I NT-Pro-B Natriuret Pep 1170 H 1270 H Impressions: Chest X-Ray 01/24/17 06:00 IMPRESSION: No significant interval change. Assessment & Plan - Diagnosis (1) Paroxysmal atrial fibrillation Is this a current diagnosis for this admission?: Yes (2) Pulmonary edema Qualifiers: Chronicity: acute Qualified Code(s): J81.0 - Acute pulmonary edema Is this a current diagnosis for this admission?: Yes (3) Respiratory failure Qualifiers: Chronicity: acute Respiratory failure complication: hypoxia and hypercapnia Qualified Code(s): J96.01 - Acute respiratory failure with hypoxia Is this a current diagnosis for this admission?: YesPlan: rr,min vent ,fio2 airway pressures mental status suggest sucessful extubation will extubate - Time Critical Time spent with patient: 35 or more minutes - patient,rn,rt extubate 55 min
[2017-01-24] MEDS ORDERED: ACETAMINOPHEN 325 MG TABLET PO PRN (16:09)
[2017-01-24] MEDS ORDERED: DOCUSATE SODIUM 100 MG CAPSULE ONE (17:21)
[2017-01-24] MEDS: NORMAL SALINE 250 ML with FUROSEMIDE 250 MG IV PRN ×2 (17:31)
[2017-01-24] MEDS: PHARMACY COMMUNICATION ORDER MC SCH (17:32)
[2017-01-24] MEDS ORDERED: DOCUSATE SODIUM 100 MG/10 ML UDC PO SCH (18:00)
[2017-01-24] MEDS: ESMOLOL HCL/SOD CL 2,500 MG/250 ML RTUINJ IV PRN (20:21)
[2017-01-24] MEDS: RIVAROXABAN 10 MG TABLET PO SCH (21:51)
[2017-01-24] MEDS: ATORVASTATIN CALCIUM 10 MG TABLET PO SCH (21:52)
[2017-01-25] MEDS: ESMOLOL HCL/SOD CL 2,500 MG/250 ML RTUINJ IV PRN ×3 (00:45→08:35)
[2017-01-25] MEDS: IPRATROPIUM/ALBUTEROL 0.5-2.5 MG/3 ML AMPUL NEB SCH (02:20)
[2017-01-25 03:53] LABS: ABSOLUTE BASOPHILS # (AUTO) 0.1 10^3/uL (0.0-0.2); ABSOLUTE EOSINOPHILS # (AUTO) 0.1 10^3/uL (0.0-0.6); ABSOLUTE LYMPHOCYTES (AUTO) 1.2 10^3/uL (0.5-4.7); ABSOLUTE NEUT (AUTO) 13.4 10^3/uL (1.7-8.2); BASOPHILS % (AUTO) 0.5 % (0-2); EOSINOPHILS % (AUTO) 0.5 % (0-6); HEMATOCRIT 40.5 % (37.9-51.0); HEMOGLOBIN 13.3 g/dL (13.5-17.0); HGB HCT DIFFERENCE -0.6; LYMPHOCYTES % (AUTO) 7.5 % (13-45); MEAN CORPUSCULAR HEMOGLOBIN 28.6 pg (27.0-33.4); MEAN CORPUSCULAR HGB CONC 32.8 g/dL (32.0-36.0); MEAN CORPUSCULAR VOLUME 87 fl (80-97); MONOCYTES % (AUTO) 6.4 % (3-13); RED BLOOD COUNT 4.64 10^6/uL (4.35-5.55); RED CELL DISTRIBUTION WIDTH 15.8 % (11.5-14.0); SEGMENTED NEUTROPHILS % (AUTO) 85.1 % (42-78); WHITE BLOOD COUNT 15.8 10^3/uL (4.0-10.5)
[2017-01-25 04:10] LABS: ALANINE AMINOTRANSFERASE 93 U/L (21-72); ALBUMIN 3.3 g/dL (3.5-5.0); ALKALINE PHOSPHATASE 120 U/L (38-126); ANION GAP 10 (5-19); ASPARTATE AMINO TRANSFERASE 48 U/L (17-59); BILIRUBIN,DIRECT 0.4 mg/dL (0.0-0.4); BILIRUBIN,TOTAL 0.8 mg/dL (0.2-1.3); BLOOD UREA NITROGEN 31 mg/dL (7-20); CALCIUM 8.8 mg/dL (8.4-10.2); CARBON DIOXIDE 26 mmol/L (22-30); CHLORIDE 104 mmol/L (98-107); CREATININE RESULT 0.88 mg/dL (0.52-1.25); GLUCOSE 156 mg/dL (75-110); MAGNESIUM 2.5 mg/dL (1.6-2.3); POTASSIUM 4.2 mmol/L (3.6-5.0); SODIUM 140.2 mmol/L (137-145); TOTAL PROTEIN 6.2 g/dL (6.3-8.2)
[2017-01-25 05:01] LABS: ARTERIAL BLOOD O2 SATURATION 94.8 % (94-98)
--- NOTE | 2017-01-25 05:32 | PROGRESS NOTE E ---
Progress Note NAME: PAULETTE SCALES : 1945 AGE: 71Y DATE: 01/24/2017 ROOM: 611 SUBJECTIVE: The patient continues to be in atrial flutter with a ventricular response in the 80s. The patient is awake and alert and has been extubated and is on a bare stent. He denies any chest pain or discomfort. There is no shortness of breath. There is no PND, orthopnea or leg edema. There are no TIA or CVA symptoms. OBJECTIVE: GENERAL: The patient is awake, alert and oriented x3 with no focal deficit. The patient is moderately obese. VITAL SIGNS: His temperature is 99.1 degrees Fahrenheit. Pulse is 84 beats per minute. Blood pressure is 129/77, 02 sats are 100% on a bare stent with FiO2 of 30%. HEENT: Head is atraumatic, normocephalic. EYES: Pupils are equal, round, regular, and reactive to light and accommodation. ENT is negative. NECK: Supple. There is no JVD. Carotids are equal. There are no bruits. There is no lymphadenopathy. There is no goiter. Trachea is central. LUNGS: Show few dry crackles in the bases and a few scattered rhonchi. There are no rales of CHF. HEART: S1, S2 heard. There is no S3 gallop. There is no S4 gallop. There is a systolic murmur at left sternal border and the apex. There is no rub. S1 is of variable intensity. ABDOMEN: Soft. There are no masses. There is no hepatosplenomegaly. Bowel sounds are well heard. EXTREMITIES: Femorals are slightly diminished. There are no femoral bruits. Leg pulses are well felt. There is no DVT or cellulitis. There is no pedal edema. CENTRAL NERVOUS SYSTEM: The patient is conscious, awake, alert and oriented x3 with no focal deficits. PSYCHIATRIC: The patient's judgment and insight are intact. His affect is normal. The patient recognizes his friends. The patient's 24-hour intake is 2070 mL. Output is 3310 mL. LABORATORY DATA: The patient's white count is 16,400, hemoglobin is 30.4, hematocrit is 41, platelet count is 160,000. The patient's sodium is 138.9, potassium 4.1, chloride is 102, CO2 is 25. The patient's BUN is 33, creatinine is 0.99, GFR is greater than 60. Glucose is 189. His calcium is 8.8. His magnesium is 2.6. The patient's ABG shows pH of 7.46, pCO2 41.4, pO2 is 71.3, 02 sats are 95.1% on FiO2 of 21%. The patient's chest x-ray shows there is bibasilar opacity/effusion, no definite evidence of congestive heart failure. IMPRESSION: 1. ATRIAL FLUTTER WITH VENTRICULAR RESPONSE NOW CONTROLLED. Note, patient is outside the window of cardioversion chemically or electrically, even though now the patient is awake, alert and oriented and can give consent. In view of this we will stop the patient's amiodarone and start the patient on Brevibloc infusion. Will continue the patient's Cardizem. 2. CHEMICAL PNEUMONITIS VERSUS *------* SEVERE GERD VERSUS ASPIRATION PNEUMONITIS. There is no definite evidence of ARDS. 3. BILATERAL PLEURAL EFFUSIONS. 4. CONGESTIVE HEART FAILURE ON ADMISSION SECONDARY TO ACUTE SYSTOLIC HEART FAILURE DUE TO MYOCARDIAL DEPRESSION DUE TO THE PATIENT'S O2 SATURATIONS BEING LOW. At present no evidence of congestive heart failure. 5. HISTORY OF HYPERTENSION. 6. HISTORY OF GERD. 7. THE PATIENT STATES NOW THAT HE HAS A HISTORY OF ATRIAL FLUTTER/FIBRILLATION AND WAS ON XARELTO EVEN THOUGH IT IS NOT LISTED IN HIS HOME MEDICATIONS. 8. PTSD. RECOMMENDATIONS: As mentioned earlier, in view of the patient being in atrial flutter for more than 72 hours and also the patient being on Xarelto 10 mg which is subtherapeutic, would stop the patient's amiodarone and switch to Brevibloc as mentioned earlier. We will continue the Cardizem. Later we will start the patient on p.o. beta-erma. Continue the patient's Xarelto at 20 mg p.o. at bedtime. Continue antibiotics. Continue to watch the patient's respiratory status. Tomorrow we will stop the patient's Lasix drip. Continue respiratory treatments. The patient did receive dexamethasone 80 mg IV x1 today. Note: Thirty minutes spent on the patient with more than 50% of the time spent on direct patient care and also taking history from the patient since now the patient is awake and alert and oriented x3 and extubated. His medications have been reviewed and adjusted as mentioned earlier. Note, continues to be a highly complicated decision need for this case. Later we will see once the patient stabilizes if the patient can be sent out as an outpatient for either a SOLO guided cardioversion or SOLO guided ablation. Discussed with the other caregiving providers on the case including the tool machine set up operator and the hospitalist who is the attending physician. Thanking you. DICTATING PHYSICIAN: LINH MIKE M.D. [id number] PHY#: [id number] ID: [id number] JOB#: [id number] ACCT: [id number] cc: >
[2017-01-25] MEDS: LANSOPRAZOLE 15 MG TAB.RAP.DR PO SCH (06:14)
[2017-01-25] MEDS: ASPIRIN 81 MG TABLET, CHEWABLE PO SCH (08:14)
[2017-01-25] MEDS ORDERED: IPRATROPIUM/ALBUTEROL 0.5-2.5 MG/3 ML AMPUL NEB PRN (08:20)
--- NOTE | 2017-01-25 08:26 | PDOC PROGRESS REPORT ---
Subjective Progress Note for:: 01/25/17 Subjective:: Patient denies any shortness of breath, PND orthopnea, chest pain, chills or fever, nor diarrhea. Patient successfully extubated and passed the swallowing screen. Denies any choking sensation. However patient remained tachycardic and now started on esmolol drip. Patient has been off Cardizem drip. Patient was on Lasix drip and urine output has been negative balance for the last several days of about 10 L. No reported diarrhea. Physical Exam Vital Signs: Temp Pulse Resp BP Pulse Ox 98.2 F 88 12 109/72 96 01/25/17 06:00 01/25/17 04:00 01/25/17 06:07 01/25/17 06:07 01/25/17 06:07 Intake & Output 01/24/17 01/25/17 01/26/17 06:59 06:59 06:59 Intake Total 2070 2282 Output Total 3310 3645 Balance -1240 -1363 Weight 113.2 kg 112.9 kg General appearance: PRESENT: no acute distress, morbidly obese Head exam: PRESENT: normocephalic Eye exam: PRESENT: EOMI Mouth exam: PRESENT: moist, neck supple Neck exam: ABSENT: JVD Respiratory exam: PRESENT: clear to auscultation char. ABSENT: rhonchi, wheezes Cardiovascular exam: PRESENT: irregular rhythm. ABSENT: gallop GI/Abdominal exam: PRESENT: soft. ABSENT: distended - Obese, tenderness Extremities exam: ABSENT: pedal edema Neurological exam: PRESENT: alert, awake, oriented to situation Skin exam: PRESENT: dry, warm. ABSENT: cyanosis Results Laboratory Results: 01/25/17 03:44 01/25/17 03:44 01/25/17 01/25/17 01/25/17 03:44 03:44 04:50 WBC 15.8 H RBC 4.64 Hgb 13.3 L Hct 40.5 MCV 87 MCH 28.6 MCHC 32.8 RDW 15.8 H Plt Count 187 Seg Neutrophils % 85.1 H Lymphocytes % 7.5 L Monocytes % 6.4 Eosinophils % 0.5 Basophils % 0.5 Absolute Neutrophils 13.4 H Absolute Lymphocytes 1.2 Absolute Monocytes 1.0 Absolute Eosinophils 0.1 Absolute Basophils 0.1 Carbonic Acid 1.26 HCO3/H2CO3 Ratio 22:1 ABG pH 7.45 ABG pCO2 41.9 ABG pO2 70.5 L ABG HCO3 28.4 H ABG O2 Saturation 94.8 ABG Base Excess 4.0 FiO2 ROOM AIR Sodium 140.2 Potassium 4.2 Chloride 104 Carbon Dioxide 26 Anion Gap 10 BUN 31 H Creatinine 0.88 Est GFR ( Amer) > 60 Est GFR (Non-Af Amer) > 60 Glucose 156 H Calcium 8.8 Magnesium 2.5 H Total Bilirubin 0.8 AST 48 ALT 93 H Alkaline Phosphatase 120 Total Protein 6.2 L Albumin 3.3 L 01/20/17 01/20/17 01/20/17 07:46 07:46 13:52 Creatine Kinase 160 191 H CK-MB (CK-2) 1.23 Troponin I 0.041 NT-Pro-B Natriuret Pep 01/20/17 01/20/17 01/20/17 13:52 20:50 20:50 Creatine Kinase 207 H CK-MB (CK-2) 1.49 1.55 Troponin I 0.051 0.035 NT-Pro-B Natriuret Pep 01/21/17 01/22/17 03:54 04:06 Creatine Kinase CK-MB (CK-2) Troponin I NT-Pro-B Natriuret Pep 1170 H 1270 H Assessment & Plan - Diagnosis (1) Respiratory failure Qualifiers: Chronicity: acute Respiratory failure complication: hypoxia and hypercapnia Qualified Code(s): J96.01 - Acute respiratory failure with hypoxia Is this a current diagnosis for this admission?: Yes (2) Community acquired pneumonia Qualifiers: Lung location: unspecified part of lung Is this a current diagnosis for this admission?: Yes (3) Pulmonary edema Qualifiers: Chronicity: acute Qualified Code(s): J81.0 - Acute pulmonary edema Is this a current diagnosis for this admission?: Yes (4) Paroxysmal atrial fibrillation Is this a current diagnosis for this admission?: Yes (5) Essential hypertension Is this a current diagnosis for this admission?: Yes (6) Hyperlipidemia Qualifiers: Hyperlipidemia type: unspecified Qualified Code(s): E78.5 - Hyperlipidemia, unspecified Is this a current diagnosis for this admission?: Yes (7) PTSD (post-traumatic stress disorder) Is this a current diagnosis for this admission?: Yes (8) Morbid obesity Is this a current diagnosis for this admission?: Yes (9) GERD (gastroesophageal reflux disease) Qualifiers: Esophagitis presence: without esophagitis Qualified Code(s): K21.9 - Gastro-esophageal reflux disease without esophagitis Is this a current diagnosis for this admission?: Yes (10) Anemia, chronic disease Is this a current diagnosis for this admission?: Yes (11) Chronic pain syndrome Is this a current diagnosis for this admission?: Yes (12) Anxiety Is this a current diagnosis for this admission?: Yes - Time Time Spent with patient: 25-34 minutes - Plan Summary Plan Summary: Patient's ejection fraction is normal, we will therefore discontinue Lasix drip. We will transition to oral antibiotics. Continue supportive care. Trial of soft diet. Discontinue Cardizem drip on MAR as well as Versed. We will transfer to [facility] and begin therapy when off the esmolol drip.
--- NOTE | 2017-01-25 08:42 | RADIOLOGY REPORT (SQ) ---
EXAM DESCRIPTION: CHEST SINGLE VIEW COMPLETED DATE/TIME: 01/25/2017 6:38 am REASON FOR STUDY: resp fail COMPARISON: 01/24/2017 EXAM PARAMETERS: NUMBER OF VIEWS: One view. TECHNIQUE: Single frontal radiographic view of the chest acquired. RADIATION DOSE: NA LIMITATIONS: Patient has made a shallow inspiration. FINDINGS: LUNGS AND PLEURA: The previously described mi basilar densities have almost completely res olved. Remaining lung wood are clear. MEDIASTINUM AND HILAR STRUCTURES: No masses. Contour normal. HEART AND VASCULAR STRUCTURES: The configuration of the heart and mediastinal structures is unchanged . BONES: No acute findings. HARDWARE: None in the chest. OTHER: No other significant finding. IMPRESSION: Interval improvement as noted above. TECHNICAL DOCUMENTATION: JOB ID: [id number]
[2017-01-25] MEDS: DOCUSATE SODIUM 100 MG CAPSULE PO SCH ×2 (10:37→22:34)
[2017-01-25] MEDS: LEVOFLOXACIN 750 MG TABLET PO SCH (10:37)
[2017-01-25] MEDS: METOPROLOL TARTRATE 50 MG TABLET PO SCH ×2 (10:37→22:34)
[2017-01-25] MEDS ORDERED: FAMOTIDINE 20 MG TABLET PO PRN (13:19)
--- NOTE | 2017-01-25 17:07 | PDOC PROGRESS REPORT ---
Subjective Progress Note for:: 01/25/17 Subjective:: 24 h s/p extubation awake and alert Physical Exam Vital Signs: Temp Pulse Resp BP Pulse Ox 98.4 F 88 10 L 100/85 97 01/25/17 08:00 01/25/17 08:00 01/25/17 08:00 01/25/17 08:00 01/25/17 08:00 Intake & Output 01/24/17 01/25/17 01/26/17 06:59 06:59 06:59 Intake Total 2070 2282 237 Output Total 3313 3645 275 Balance -1240 -1363 -38 Weight 113.2 kg 112.9 kg General appearance: PRESENT: no acute distress, cooperative, disheveled, morbidly obese, well-developed Head exam: PRESENT: atraumatic, normocephalic Eye exam: PRESENT: conjunctiva pale, EOMI Mouth exam: PRESENT: neck supple, tongue midline Neck exam: ABSENT: carotid bruit, JVD, lymphadenopathy, thyromegaly Respiratory exam: PRESENT: decreased breath sounds, prolonged expiratory phas, rhonchi, symmetrical, unlabored Cardiovascular exam: PRESENT: irregular rhythm Pulses: PRESENT: normal radial pulses GI/Abdominal exam: PRESENT: normal bowel sounds, soft. ABSENT: distended, guarding, mass, organolmegaly, rebound, tenderness Rectal exam: PRESENT: deferred Gentrourinary exam: PRESENT: indwelling catheter Neurological exam: PRESENT: alert, awake Psychiatric exam: PRESENT: normal mood Skin exam: PRESENT: dry, warm Results Laboratory Results: 01/25/17 03:44 01/25/17 03:44 01/25/17 01/25/17 01/25/17 03:44 03:44 04:50 WBC 15.8 H RBC 4.64 Hgb 13.3 L Hct 40.5 MCV 87 MCH 28.6 MCHC 32.8 RDW 15.8 H Plt Count 187 Seg Neutrophils % 85.1 H Lymphocytes % 7.5 L Monocytes % 6.4 Eosinophils % 0.5 Basophils % 0.5 Absolute Neutrophils 13.4 H Absolute Lymphocytes 1.2 Absolute Monocytes 1.0 Absolute Eosinophils 0.1 Absolute Basophils 0.1 Carbonic Acid 1.26 HCO3/H2CO3 Ratio 22:1 ABG pH 7.45 ABG pCO2 41.9 ABG pO2 70.5 L ABG HCO3 28.4 H ABG O2 Saturation 94.8 ABG Base Excess 4.0 FiO2 ROOM AIR Sodium 140.2 Potassium 4.2 Chloride 104 Carbon Dioxide 26 Anion Gap 10 BUN 31 H Creatinine 0.88 Est GFR ( Amer) > 60 Est GFR (Non-Af Amer) > 60 Glucose 156 H Calcium 8.8 Magnesium 2.5 H Total Bilirubin 0.8 AST 48 ALT 93 H Alkaline Phosphatase 120 Total Protein 6.2 L Albumin 3.3 L 01/20/17 01/20/17 01/20/17 07:46 07:46 13:52 Creatine Kinase 160 191 H CK-MB (CK-2) 1.23 Troponin I 0.041 NT-Pro-B Natriuret Pep 01/20/17 01/20/17 01/20/17 13:52 20:50 20:50 Creatine Kinase 207 H CK-MB (CK-2) 1.49 1.55 Troponin I 0.051 0.035 NT-Pro-B Natriuret Pep 01/21/17 01/22/17 03:54 04:06 Creatine Kinase CK-MB (CK-2) Troponin I NT-Pro-B Natriuret Pep 1170 H 1270 H Impressions: Chest X-Ray 01/25/17 06:00 IMPRESSION: Interval improvement as noted above. Assessment & Plan - Diagnosis (1) Paroxysmal atrial fibrillation Is this a current diagnosis for this admission?: Yes (2) Pulmonary edema Qualifiers: Chronicity: acute Qualified Code(s): J81.0 - Acute pulmonary edema Is this a current diagnosis for this admission?: No (3) Respiratory failure Qualifiers: Chronicity: acute Respiratory failure complication: hypoxia and hypercapnia Qualified Code(s): J96.01 - Acute respiratory failure with hypoxia Is this a current diagnosis for this admission?: YesPlan: needs a sleep study post discharge - Time Critical Time spent with patient: 25-34 minutes
[2017-01-25] MEDS: PHARMACY COMMUNICATION ORDER MC SCH (18:27)
--- NOTE | 2017-01-25 19:52 | PROGRESS NOTE E ---
Progress Note NAME: PAULETTE SCALES : 1945 AGE: 71Y DATE: 01/25/2017 ROOM: 611 SUBJECTIVE: The patient is intubated and denies any chest pain or discomfort. The patient continues to be in atrial flutter with a controlled ventricular response. Cardizem drip has been shut off. He is still on esmolol. He There is no PND, orthopnea or leg edema. There are no palpitations. There is no chest pain or discomfort. There are no TIA or CVA symptoms. There is no bleeding on Xeralto. OBJECTIVE: GENERAL: The patient is *------* in no acute distress. He is well groomed. VITAL SIGNS: He is afebrile with a temperature is 98.6 degrees Fahrenheit. Pulse is 87 beats per minute. Blood pressure is 112/77, respirations are 18 per minute, 02 sats are 96% on room air. HEENT: Head is atraumatic, normocephalic. EYES: Pupils are equal, round, regular, and reactive to light and accommodation. ENT is negative. NECK: Supple. There is no JVD. Carotids are equal. There are no bruits. There is no lymphadenopathy. There is no goiter. Trachea is central. LUNGS: Clear to auscultation and percussion. There are no rales of CHF. HEART: S1, S2 heard. There is no S3 gallop. There is no S4 gallop. There is a systolic murmur at left sternal border and the apex. There is no rub. S1 is of variable intensity. ABDOMEN: Soft. There are no masses. There is no hepatosplenomegaly. Bowel sounds are well heard. EXTREMITIES: Femorals are slightly diminished. There are no femoral bruits. Leg pulses are well felt. There is no DVT or cellulitis. There is no pedal edema. There is no calf tenderness. CENTRAL NERVOUS SYSTEM: The patient is conscious, awake, alert and oriented x3 with no focal deficits. PSYCHIATRIC: The patient's judgment and insight are intact. His affect is normal. The patient's 24-hour intake is 2285 mL. Output is 3645 mL. LABORATORY DATA: The patient's EKG shows atrial flutter with controlled ventricular response. The chest x-ray shows interval improvement of basilar densities and have almost completely resolved. The patient's white count is 15,800, hemoglobin is 13.3, hematocrit is 45.5, platelet count is 187,000. The sodium is 140.2, potassium 4.2, chloride is 104, CO2 is 26, BUN is 31, creatinine is 0.88, GFR is greater than 60, glucose 156, calcium is 8.8, the patient's magnesium is 2.5. The patient's ALT is slightly elevated at 93, and the rest of the liver function tests are normal. The patient's albumin is 3.3, total protein is 6.2. The patient's ABG shows pH of 7.45, pCO2 41.9, pO2 is 70.5, and his 02 sats are 94.8% on room air. IMPRESSION: 1. ATRIAL FLUTTER WITH CONTROLLED VENTRICULAR RESPONSE. Note that the patient is on Xeralto. He is also on a Cardizem drip. He was on amiodarone which has been stopped yesterday. He is esmolol. We will stop the patient's esmolol and start the patient on metoprolol 50 mg p.o. q.12 h. and increased as tolerated. 2. CHEMICAL PNEUMONITIS VERSUS ASPIRATION PNEUMONITIS. Much improved. 3. BILATERAL PLEURAL EFFUSIONS. Resolved. 4. CONGESTIVE HEART FAILURE ON ADMISSION SECONDARY TO ACUTE SYSTOLIC HEART FAILURE DUE TO MYOCARDIAL DEPRESSION DUE TO THE PATIENT'S O2 SATURATIONS BEING LOW. At present no evidence of congestive heart failure. LV ejection fraction is normal by echocardiogram. 5. HISTORY OF HYPERTENSION. Blood pressure well controlled. 6. HISTORY OF GERD. Would recommend later to get a barium swallow and esophageal follow-through to see the extent of patient's reflux. 7. PTSD. At present the patient is stable without any symptoms. Note: Thirty minutes spent on the patient with more than 50% of the time spent on direct patient care. The patient's medications have been reviewed and medications adjusted. His IV beta-erma has been stopped and the patient will be started on p.o. beta-erma. Note, later the patient would be referred to a flight engineer instructor for ablation. Note, continues to be a highly complex medical decision making involved in this case in view of the patient still being in atrial flutter and in view of the changes of medications made. Discussed with the other caregiving providers on the case. Will follow with you. Thanking you. DICTATING PHYSICIAN: LINH MIKE M.D. [id number] PHY#: [id number] ID: [id number] JOB#: [id number] ACCT: [id number] cc: >
[2017-01-25] MEDS: RIVAROXABAN 10 MG TABLET PO SCH (22:33)
[2017-01-25] MEDS: ATORVASTATIN CALCIUM 10 MG TABLET PO SCH (22:34)
--- NOTE | 2017-01-25 23:08 | EKG REPORT ---
SEVERITY:- OTHERWISE NORMAL ECG - ATRIAL FLUTTER : Confirmed by: Pascual Dallas 25-Jan-2017 23:08:00
[2017-01-26] MEDS: LANSOPRAZOLE 15 MG TAB.RAP.DR PO SCH (06:33)
[2017-01-26 07:33] LABS: HEMATOCRIT 44.4 % (37.9-51.0); HEMOGLOBIN 14.5 g/dL (13.5-17.0); HGB HCT DIFFERENCE -0.9; MEAN CORPUSCULAR HEMOGLOBIN 28.2 pg (27.0-33.4); MEAN CORPUSCULAR HGB CONC 32.6 g/dL (32.0-36.0); MEAN CORPUSCULAR VOLUME 87 fl (80-97); RED BLOOD COUNT 5.13 10^6/uL (4.35-5.55); RED CELL DISTRIBUTION WIDTH 15.1 % (11.5-14.0); WHITE BLOOD COUNT 11.9 10^3/uL (4.0-10.5)
--- NOTE | 2017-01-26 09:49 | PDOC PROGRESS REPORT ---
Subjective Progress Note for:: 01/26/17 Subjective:: Patient is feeling better. Denies PND orthopnea. No chills or fever. No chest pain or shortness of breath. There is no diarrhea as well. Patient reports able to go to the bathroom but unsteady. Denies any dizziness or syncope. Physical Exam Vital Signs: Temp Pulse Resp BP Pulse Ox 97.2 F 82 16 135/73 H 96 01/26/17 07:03 01/26/17 08:00 01/26/17 08:00 01/26/17 07:03 01/26/17 08:00 Intake & Output 01/25/17 01/26/17 01/27/17 06:59 06:59 06:59 Intake Total 2282 2386 Output Total 3640 1990 Balance -1363 -664 Weight 112.9 kg 113 kg General appearance: PRESENT: no acute distress, cooperative, morbidly obese Head exam: PRESENT: normocephalic Eye exam: PRESENT: EOMI Mouth exam: PRESENT: moist, neck supple Neck exam: ABSENT: JVD Respiratory exam: PRESENT: clear to auscultation char - Anteriorly bilateral, unlabored Cardiovascular exam: PRESENT: irregular rhythm. ABSENT: gallop GI/Abdominal exam: PRESENT: normal bowel sounds, soft. ABSENT: distended - Obese Extremities exam: PRESENT: other - Trace lower extremity edema Neurological exam: PRESENT: alert, awake, oriented to situation Skin exam: PRESENT: dry, warm. ABSENT: cyanosis Results Laboratory Results: 01/26/17 06:57 01/25/17 03:44 01/26/17 01/26/17 06:57 06:57 WBC 11.9 H RBC 5.13 Hgb 14.5 Hct 44.4 MCV 87 MCH 28.2 MCHC 32.6 RDW 15.1 H Plt Count 223 Magnesium 2.5 H 01/20/17 01/20/17 01/20/17 07:46 07:46 13:52 Creatine Kinase 160 191 H CK-MB (CK-2) 1.23 Troponin I 0.041 NT-Pro-B Natriuret Pep 01/20/17 01/20/17 01/20/17 13:52 20:50 20:50 Creatine Kinase 207 H CK-MB (CK-2) 1.49 1.55 Troponin I 0.051 0.035 NT-Pro-B Natriuret Pep 01/21/17 01/22/17 03:54 04:06 Creatine Kinase CK-MB (CK-2) Troponin I NT-Pro-B Natriuret Pep 1170 H 1270 H Impressions: Chest X-Ray 01/25/17 06:00 IMPRESSION: Interval improvement as noted above. Assessment & Plan - Diagnosis (1) Respiratory failure Qualifiers: Chronicity: acute Respiratory failure complication: hypoxia and hypercapnia Qualified Code(s): J96.01 - Acute respiratory failure with hypoxia Is this a current diagnosis for this admission?: Yes (2) Community acquired pneumonia Qualifiers: Lung location: unspecified part of lung Is this a current diagnosis for this admission?: Yes (3) Pulmonary edema Qualifiers: Chronicity: acute Qualified Code(s): J81.0 - Acute pulmonary edema Is this a current diagnosis for this admission?: No (4) Paroxysmal atrial fibrillation Is this a current diagnosis for this admission?: Yes (5) Essential hypertension Is this a current diagnosis for this admission?: Yes (6) Hyperlipidemia Qualifiers: Hyperlipidemia type: unspecified Qualified Code(s): E78.5 - Hyperlipidemia, unspecified Is this a current diagnosis for this admission?: Yes (7) PTSD (post-traumatic stress disorder) Is this a current diagnosis for this admission?: Yes (8) Morbid obesity Is this a current diagnosis for this admission?: Yes (9) GERD (gastroesophageal reflux disease) Qualifiers: Esophagitis presence: without esophagitis Qualified Code(s): K21.9 - Gastro-esophageal reflux disease without esophagitis Is this a current diagnosis for this admission?: Yes (10) Anemia, chronic disease Is this a current diagnosis for this admission?: Yes (11) Chronic pain syndrome Is this a current diagnosis for this admission?: Yes (12) Anxiety Is this a current diagnosis for this admission?: Yes - Time Time Spent with patient: 25-34 minutes - Plan Summary Plan Summary: Patient was extubated this weekend. He is off esmolol drip yesterday and transferred to [facility]. We will continue current medications and oral antibiotic. Discontinue intravenous fluid. Physical therapy and try to increase activity. We will consult raw material planner for subacute rehabilitation. Discussed with the patient and is agreeable with the plan.
--- NOTE | 2017-01-26 10:38 | PDOC PROGRESS REPORT ---
Subjective Progress Note for:: 01/26/17 Subjective:: awake and alert Physical Exam Vital Signs: Temp Pulse Resp BP Pulse Ox 97.2 F 82 16 135/73 H 96 01/26/17 07:03 01/26/17 08:00 01/26/17 08:00 01/26/17 07:03 01/26/17 08:00 Intake & Output 01/25/17 01/26/17 01/27/17 06:59 06:59 06:59 Intake Total 2282 9496 Output Total 0867 7542 Balance -1363 -664 Weight 112.9 kg 113 kg General appearance: PRESENT: no acute distress, cooperative, disheveled, obese, well-developed Head exam: PRESENT: atraumatic, normocephalic Eye exam: PRESENT: conjunctiva pale Mouth exam: PRESENT: moist, neck supple, tongue midline Neck exam: ABSENT: carotid bruit, JVD, lymphadenopathy, thyromegaly Respiratory exam: PRESENT: decreased breath sounds, prolonged expiratory phas, rhonchi, symmetrical, unlabored Cardiovascular exam: PRESENT: RRR, +S1, +S2 Pulses: PRESENT: normal radial pulses GI/Abdominal exam: PRESENT: normal bowel sounds, soft. ABSENT: distended, guarding, mass, organolmegaly, rebound, tenderness Rectal exam: PRESENT: deferred Musculoskeletal exam: PRESENT: normal inspection Neurological exam: PRESENT: alert, awake Psychiatric exam: PRESENT: normal mood Skin exam: PRESENT: dry, warm Results Laboratory Results: 01/26/17 06:57 01/25/17 03:44 01/26/17 01/26/17 06:57 06:57 WBC 11.9 H RBC 5.13 Hgb 14.5 Hct 44.4 MCV 87 MCH 28.2 MCHC 32.6 RDW 15.1 H Plt Count 223 Magnesium 2.5 H 01/20/17 01/20/17 01/20/17 07:46 07:46 13:52 Creatine Kinase 160 191 H CK-MB (CK-2) 1.23 Troponin I 0.041 NT-Pro-B Natriuret Pep 01/20/17 01/20/17 01/20/17 13:52 20:50 20:50 Creatine Kinase 207 H CK-MB (CK-2) 1.49 1.55 Troponin I 0.051 0.035 NT-Pro-B Natriuret Pep 01/21/17 01/22/17 03:54 04:06 Creatine Kinase CK-MB (CK-2) Troponin I NT-Pro-B Natriuret Pep 1170 H 1270 H Impressions: Chest X-Ray 01/25/17 06:00 IMPRESSION: Interval improvement as noted above. Assessment & Plan - Diagnosis (1) Paroxysmal atrial fibrillation Is this a current diagnosis for this admission?: Yes (2) Pulmonary edema Qualifiers: Chronicity: acute Qualified Code(s): J81.0 - Acute pulmonary edema Is this a current diagnosis for this admission?: No (3) Respiratory failure Qualifiers: Chronicity: acute Respiratory failure complication: hypoxia and hypercapnia Qualified Code(s): J96.01 - Acute respiratory failure with hypoxia Is this a current diagnosis for this admission?: No
[2017-01-26] MEDS: LEVOFLOXACIN 750 MG TABLET PO SCH (11:00)
[2017-01-26] MEDS: ASPIRIN 81 MG TABLET, CHEWABLE PO SCH (11:01)
[2017-01-26] MEDS: METOPROLOL TARTRATE 50 MG TABLET PO SCH ×2 (11:01→21:44)
[2017-01-26] MEDS: DOCUSATE SODIUM 100 MG CAPSULE PO SCH ×2 (11:02→21:45)
--- NOTE | 2017-01-26 13:42 | PROGRESS NOTE E ---
Progress Note NAME: PAULETTE SCALES : 1945 AGE: 71Y DATE: 01/26/2017 ROOM: 331 SUBJECTIVE: The patient is awake, alert. He was extubated yesterday. He denies any chest pain or discomfort. He continues to be in atrial flutter with a controlled ventricular response. There are no anginal symptoms. There is no PND, orthopnea, or leg edema. There are no TIA or CVA symptoms. There is no bleeding on Xarelto. OBJECTIVE: GENERAL: On examination, the patient's is mildly obese, in no acute distress. He is well groomed. VITAL SIGNS: He is afebrile with a temperature is 97.2 degrees Fahrenheit, his pulse is 89 beats per minute, blood pressure is 135/73, respirations are 18 per minute, O2 sats are 93% on room air. HEENT: Head is atraumatic, normocephalic. Eyes: Pupils are equal, round, regular, and reactive to light and accommodation. Extraocular movements are normal. NECK: Supple. There is no JVD. Carotids are equal. There are no bruits. There is no lymphadenopathy. There is no goiter. Trachea is central. LUNGS: Clear to auscultation and percussion. There are no rales of CHF. HEART: S1, S2 heard. There is no S3 gallop. There is no S4 gallop. S1 is of variable intensity. There is a systolic murmur at left sternal border and the apex. There is no rub. ABDOMEN: Soft. There are no masses. There is no hepatosplenomegaly. Bowel sounds are well heard. EXTREMITIES: Femorals are slightly diminished. There are no femoral bruits. Leg pulses are well felt. There is no DVT or cellulitis. There is no pedal edema. There is no calf tenderness. CENTRAL NERVOUS SYSTEM: The patient is conscious, awake, alert and oriented x3 with no focal deficits. PSYCHIATRIC: The patient's judgment and insight are intact. His affect is normal. INTAKE/OUTPUT: The patient's 24-hour intake is 2,386 mL; output is 3,050 mL. DIAGNOSTIC DATA: The patient's white count is 11,900; hemoglobin is 14.5; hematocrit is 44.4; platelet count is 223,000. The patient's sodium is 140.2, potassium 4.2, chloride is 104, CO2 is 26. The patient's BUN is 31, creatinine is 0.88, GFR is greater than 60, his is glucose 156, calcium is 8.8, his magnesium is 2.5. His liver function tests are normal with a slightly elevated ALT of 93. His albumin is 3.3 and his total protein is 6.2. His magnesium today is 2.5. The earlier labs were from yesterday. IMPRESSION: 1. ATRIAL FLUTTER WITH CONTROLLED VENTRICULAR RESPONSE. Note that the patient is on Xarelto. He is also on a metoprolol 50 mg p.o. q. 12 hours. 2. CHEMICAL PNEUMONITIS VERSUS ASPIRATION PNEUMONITIS. MOST LIKELY CLINICALLY RESOLVED. 3. BILATERAL PLEURAL EFFUSIONS. RESOLVED. 4. CONGESTIVE HEART FAILURE ON ADMISSION SECONDARY TO ACUTE HEART FAILURE DUE TO MYOCARDIAL DEPRESSION DUE TO THE PATIENT'S O2 SATURATIONS BEING LOW. AT PRESENT NO EVIDENCE OF CONGESTIVE HEART FAILURE. LV EJECTION FRACTION IS NORMAL BY ECHOCARDIOGRAM AND ALSO NORMAL LEFT VENTRICULAR DIASTOLIC FUNCTION. 5. HISTORY OF HYPERTENSION. BLOOD PRESSURE WELL CONTROLLED. 6. HISTORY OF GERD. Would recommend, later, to get a barium swallow as an outpatient. 7. PTSD. RECOMMENDATION: Continue antibiotics. Continue proton-pump inhibitors. Continue metoprolol and Xarelto. Continue atorvastatin, although the patient denies a history of hyperlipidemia. Note, 25 minutes were spent on this patient with more than 50% of that time spent in direct patient care and his medications have been reviewed and discussed with the patient. Also note that the patient has been given the choice to follow up with one of the 3 cardiologists here, including me. I have given him my cell number. If the patient desires to follow up with me, he can do so. Also, I have told him that he needs to be referred to an EP security director for electrocardioversion versus atrial flutter ablation. Note, moderately complex medical decision making involved with this case. Discussed with the other caregiving providers on the case. Will sign off the case. Thanking you. DICTATING PHYSICIAN: LINH MIKE M.D. [id number] PHY#: [id number] ID: [id number] JOB#: [id number] ACCT: [id number] cc: >
[2017-01-26] MEDS: PHARMACY COMMUNICATION ORDER MC SCH (17:33)
[2017-01-26] MEDS: RIVAROXABAN 10 MG TABLET PO SCH (21:43)
[2017-01-26] MEDS: ATORVASTATIN CALCIUM 10 MG TABLET PO SCH (21:44)
[2017-01-27] MEDS: LANSOPRAZOLE 15 MG TAB.RAP.DR PO SCH (05:10)
--- NOTE | 2017-01-27 07:13 | PDOC PROGRESS REPORT ---
Subjective Progress Note for:: 01/27/17 Physical Exam Vital Signs: Temp Pulse Resp BP Pulse Ox 36.7 C 88 16 121/77 98 01/27/17 03:41 01/27/17 03:41 01/27/17 03:41 01/27/17 03:41 01/27/17 03:41 Intake & Output 01/26/17 01/27/17 01/28/17 06:59 06:59 06:59 Intake Total 2386 145 Output Total 3050 Balance -664 145 Weight 113 kg General appearance: PRESENT: no acute distress Respiratory exam: PRESENT: unlabored Extremities exam: PRESENT: other - The incision is well-healed. Results Laboratory Results: 01/26/17 06:57 01/25/17 03:44 01/26/17 01/26/17 06:57 06:57 WBC 11.9 H RBC 5.13 Hgb 14.5 Hct 44.4 MCV 87 MCH 28.2 MCHC 32.6 RDW 15.1 H Plt Count 223 Magnesium 2.5 H 01/20/17 01/20/17 01/20/17 07:46 07:46 13:52 Creatine Kinase 160 191 H CK-MB (CK-2) 1.23 Troponin I 0.041 NT-Pro-B Natriuret Pep 01/20/17 01/20/17 01/20/17 13:52 20:50 20:50 Creatine Kinase 207 H CK-MB (CK-2) 1.49 1.55 Troponin I 0.051 0.035 NT-Pro-B Natriuret Pep 01/21/17 01/22/17 03:54 04:06 Creatine Kinase CK-MB (CK-2) Troponin I NT-Pro-B Natriuret Pep 1170 H 1270 H Impressions: Chest X-Ray 01/25/17 06:00 IMPRESSION: Interval improvement as noted above. Status: Imported from PACS Assessment & Plan - Diagnosis (1) Arthritis of left hip Is this a current diagnosis for this admission?: YesPlan: 71-year-old black male status post left hip arthroplasty now with readmission secondary to pulmonary issues. Physical therapy is ongoing. - Time Time Spent with patient: 15-24 minutes Anticipated discharge: Other Within: Other
[2017-01-27] MEDS: ASPIRIN 81 MG TABLET, CHEWABLE PO SCH (08:34)
[2017-01-27] MEDS: LEVOFLOXACIN 750 MG TABLET PO SCH (09:54)
[2017-01-27] MEDS: METOPROLOL TARTRATE 50 MG TABLET PO SCH ×2 (09:54→22:14)
[2017-01-27] MEDS: DOCUSATE SODIUM 100 MG CAPSULE PO SCH ×2 (09:54→22:14)
--- NOTE | 2017-01-27 10:44 | PDOC PROGRESS REPORT ---
Subjective Progress Note for:: 01/27/17 Subjective:: Denies any complaints. Physical Exam Vital Signs: Temp Pulse Resp BP Pulse Ox 98.8 F 99 16 133/77 H 94 01/27/17 08:16 01/27/17 09:25 01/27/17 09:25 01/27/17 08:16 01/27/17 09:25 Intake & Output 01/26/17 01/27/17 01/28/17 06:59 06:59 06:59 Intake Total 2386 145 1600 Output Total 3050 Balance -153 510 6855 Weight 113 kg 112 kg General appearance: PRESENT: no acute distress Eye exam: PRESENT: conjunctiva pink. ABSENT: scleral icterus Mouth exam: PRESENT: moist, tongue midline Neck exam: ABSENT: carotid bruit, JVD, lymphadenopathy, thyromegaly Respiratory exam: ABSENT: rales, rhonchi, wheezes Cardiovascular exam: PRESENT: RRR. ABSENT: diastolic murmur, rubs, systolic murmur GI/Abdominal exam: PRESENT: normal bowel sounds, soft. ABSENT: distended, guarding, mass, organolmegaly, rebound, tenderness Extremities exam: ABSENT: calf tenderness, clubbing, pedal edema Neurological exam: PRESENT: alert, awake, oriented to person, oriented to place , oriented to time, oriented to situation, CN II-XII grossly intact. ABSENT: motor sensory deficit Psychiatric exam: PRESENT: appropriate affect Skin exam: PRESENT: dry, intact, warm. ABSENT: cyanosis, rash Results Laboratory Results: 01/26/17 06:57 01/25/17 03:44 01/20/17 01/20/17 01/20/17 07:46 07:46 13:52 Creatine Kinase 160 191 H CK-MB (CK-2) 1.23 Troponin I 0.041 NT-Pro-B Natriuret Pep 01/20/17 01/20/17 01/20/17 13:52 20:50 20:50 Creatine Kinase 207 H CK-MB (CK-2) 1.49 1.55 Troponin I 0.051 0.035 NT-Pro-B Natriuret Pep 01/21/17 01/22/17 03:54 04:06 Creatine Kinase CK-MB (CK-2) Troponin I NT-Pro-B Natriuret Pep 1170 H 1270 H Impressions: Chest X-Ray 01/25/17 06:00 IMPRESSION: Interval improvement as noted above. Assessment & Plan - Diagnosis (1) Respiratory failure Qualifiers: Chronicity: acute Respiratory failure complication: hypoxia and hypercapnia Qualified Code(s): J96.01 - Acute respiratory failure with hypoxia Is this a current diagnosis for this admission?: YesPlan: Secondary to pneumonia. Patient is improving. (2) Community acquired pneumonia Qualifiers: Lung location: unspecified part of lung Is this a current diagnosis for this admission?: YesPlan: Continue with Levaquin. (3) Pulmonary edema Qualifiers: Chronicity: acute Qualified Code(s): J81.0 - Acute pulmonary edema Is this a current diagnosis for this admission?: YesPlan: Patient appears to be euvolemic at this time. (4) Anemia, chronic disease Is this a current diagnosis for this admission?: YesPlan: Stable (5) Anxiety Is this a current diagnosis for this admission?: Yes (6) Chronic pain Is this a current diagnosis for this admission?: Yes (7) Essential hypertension Is this a current diagnosis for this admission?: YesPlan: Stable (8) GERD (gastroesophageal reflux disease) Qualifiers: Esophagitis presence: without esophagitis Qualified Code(s): K21.9 - Gastro-esophageal reflux disease without esophagitis Is this a current diagnosis for this admission?: Yes (9) Hyperlipidemia Qualifiers: Hyperlipidemia type: unspecified Qualified Code(s): E78.5 - Hyperlipidemia, unspecified Is this a current diagnosis for this admission?: YesPlan: Continue with Lipitor. (10) Morbid obesity Is this a current diagnosis for this admission?: Yes (11) Paroxysmal atrial fibrillation Is this a current diagnosis for this admission?: YesPlan: Continue with metoprolol and Xarelto - Time Time Spent with patient: 25-34 minutes - Inpatient Certification Medical Necessity: Need Close Monitoring Due to Risk of Patient Decompensation, Need for IV Antibiotics
--- NOTE | 2017-01-27 10:52 | PDOC PROGRESS REPORT ---
Subjective Progress Note for:: 01/27/17 Subjective:: Good mood awaiting discharge Physical Exam Vital Signs: Temp Pulse Resp BP Pulse Ox 98.8 F 99 16 133/77 H 94 01/27/17 08:16 01/27/17 09:25 01/27/17 09:25 01/27/17 08:16 01/27/17 09:25 Intake & Output 01/26/17 01/27/17 01/28/17 06:59 06:59 06:59 Intake Total 2386 145 1600 Output Total 3050 Balance -011 143 1376 Weight 113 kg 112 kg General appearance: PRESENT: no acute distress, cooperative, disheveled, morbidly obese Head exam: PRESENT: atraumatic, normocephalic Eye exam: PRESENT: conjunctiva pale, EOMI Mouth exam: PRESENT: moist, neck supple, tongue midline Neck exam: ABSENT: carotid bruit, JVD, lymphadenopathy, thyromegaly Respiratory exam: PRESENT: decreased breath sounds, prolonged expiratory phas, rhonchi, symmetrical, tachypnea, unlabored. ABSENT: accessory muscle use, chest wall tenderness, crackles, retraction, stridor Cardiovascular exam: PRESENT: irregular rhythm Pulses: PRESENT: normal radial pulses GI/Abdominal exam: PRESENT: normal bowel sounds, soft. ABSENT: distended, guarding, mass, organolmegaly, rebound, tenderness Rectal exam: PRESENT: deferred Musculoskeletal exam: PRESENT: normal inspection Neurological exam: PRESENT: alert, awake Psychiatric exam: PRESENT: normal mood Skin exam: PRESENT: dry, warm Results Laboratory Results: 01/26/17 06:57 01/25/17 03:44 01/20/17 01/20/17 01/20/17 07:46 07:46 13:52 Creatine Kinase 160 191 H CK-MB (CK-2) 1.23 Troponin I 0.041 NT-Pro-B Natriuret Pep 01/20/17 01/20/17 01/20/17 13:52 20:50 20:50 Creatine Kinase 207 H CK-MB (CK-2) 1.49 1.55 Troponin I 0.051 0.035 NT-Pro-B Natriuret Pep 01/21/17 01/22/17 03:54 04:06 Creatine Kinase CK-MB (CK-2) Troponin I NT-Pro-B Natriuret Pep 1170 H 1270 H Impressions: Chest X-Ray 01/25/17 06:00 IMPRESSION: Interval improvement as noted above. Assessment & Plan - Diagnosis (1) Paroxysmal atrial fibrillation Is this a current diagnosis for this admission?: Yes (2) Pulmonary edema Qualifiers: Chronicity: acute Qualified Code(s): J81.0 - Acute pulmonary edema Is this a current diagnosis for this admission?: Yes (3) Respiratory failure Qualifiers: Chronicity: acute Respiratory failure complication: hypoxia and hypercapnia Qualified Code(s): J96.01 - Acute respiratory failure with hypoxia Is this a current diagnosis for this admission?: YesPlan: Resolved we will sign off for now schedule patient for sleep study after discharge thank you very much for allowing me to see Mr. Dao and help participate in his care - Time Critical Time spent with patient: 15-24 minutes
[2017-01-27] MEDS: PHARMACY COMMUNICATION ORDER MC SCH (19:38)
[2017-01-27] MEDS: RIVAROXABAN 10 MG TABLET PO SCH (22:14)
[2017-01-27] MEDS: ATORVASTATIN CALCIUM 10 MG TABLET PO SCH (22:15)
[2017-01-28] MEDS: LANSOPRAZOLE 15 MG TAB.RAP.DR PO SCH (05:46)
[2017-01-28 07:49] LABS: ABSOLUTE BASOPHILS # (AUTO) 0.1 10^3/uL (0.0-0.2); ABSOLUTE EOSINOPHILS # (AUTO) 0.1 10^3/uL (0.0-0.6); ABSOLUTE LYMPHOCYTES (AUTO) 1.9 10^3/uL (0.5-4.7); ABSOLUTE MONOCYTES (AUTO) 0.8 10^3/uL (0.1-1.4); ABSOLUTE NEUT (AUTO) 7.2 10^3/uL (1.7-8.2); BASOPHILS % (AUTO) 1.2 % (0-2); EOSINOPHILS % (AUTO) 1.1 % (0-6); HEMATOCRIT 42.1 % (37.9-51.0); HEMOGLOBIN 13.8 g/dL (13.5-17.0); HGB HCT DIFFERENCE -0.7; LYMPHOCYTES % (AUTO) 18.9 % (13-45); MEAN CORPUSCULAR HEMOGLOBIN 28.5 pg (27.0-33.4); MEAN CORPUSCULAR HGB CONC 32.7 g/dL (32.0-36.0); MEAN CORPUSCULAR VOLUME 87 fl (80-97); MONOCYTES % (AUTO) 8.2 % (3-13); RED BLOOD COUNT 4.82 10^6/uL (4.35-5.55); RED CELL DISTRIBUTION WIDTH 15.4 % (11.5-14.0); SEGMENTED NEUTROPHILS % (AUTO) 70.6 % (42-78); WHITE BLOOD COUNT 10.2 10^3/uL (4.0-10.5)
[2017-01-28 07:55] LABS: ANION GAP 7 (5-19); BLOOD UREA NITROGEN 27 mg/dL (7-20); CALCIUM 9.7 mg/dL (8.4-10.2); CARBON DIOXIDE 25 mmol/L (22-30); CHLORIDE 106 mmol/L (98-107); CREATININE RESULT 0.88 mg/dL (0.52-1.25); GLUCOSE 126 mg/dL (75-110)
[2017-01-28] MEDS: LEVOFLOXACIN 750 MG TABLET PO SCH (09:28)
[2017-01-28] MEDS: DOCUSATE SODIUM 100 MG CAPSULE PO SCH (09:28)
[2017-01-28] MEDS: METOPROLOL TARTRATE 50 MG TABLET PO SCH (09:29)
[2017-01-28] MEDS: ASPIRIN 81 MG TABLET, CHEWABLE PO SCH (09:29)
[2017-01-28 10:49] VITALS: BP 126/73
== END 2017-01-28 11:47 | disposition home or self-care (01) | DRG 208 ==
LOC: ER 02:04 → UNDOADMIN 04:10 → EH 04:10 → UNDOADMIN 04:13 → EH 05:34 → ICU 05:50 → 3S 01-25 23:48 → 3W 01-26 17:55
PROVIDERS: ADMIT Internal Medicine; ATTEND Internal Medicine
PROC: 0BH17EZ Insertion of Endotracheal Airway into Trachea, Via Natural or Artificial Opening (ICD-10-PCS; principal; 2017-01-20)
PROC: 5A1945Z Respiratory Ventilation, 24-96 Consecutive Hours (ICD-10-PCS; 2017-01-20)
DX: J96.01 Acute respiratory failure with hypoxia (principal); J18.9 Pneumonia, unspecified organism; I50.21 Acute systolic (congestive) heart failure; I48.92 Unspecified atrial flutter; I11.0 Hypertensive heart disease with heart failure; I48.0 Paroxysmal atrial fibrillation; E78.5 Hyperlipidemia, unspecified; K21.9 Gastro-esophageal reflux disease without esophagitis; F41.9 Anxiety disorder, unspecified; Z79.82 Long term (current) use of aspirin; Z79.02 Long term (current) use of antithrombotics/antiplatelets; Z79.899 Other long term (current) drug therapy; E66.01 Morbid (severe) obesity due to excess calories; Z68.35 Body mass index [BMI] 35.0-35.9, adult; F43.10 Post-traumatic stress disorder, unspecified; M54.5 Low back pain; G89.29 Other chronic pain
CPT/HCPCS: 36415; 51702; 71010; 80048; 80053; 80076; 80307; 82550; 82553; 82803; 83735; 83880; 84100; 84439; 84443; 84481; 84484; 85025; 85027; 87070; 87205; 93005; 93010; 93306; 94002; 94003; 94640; 94660; 94799; 96365; 96375; 99291; G8978-GP; G8979-GP; J0282; J0330; J0692; J1100; J1160; J1940; J1956; J2250; J2704; J3010; J3475; J3490; J7050; J7060; J7620

== ENCOUNTER 2017-02-24 22:58 | Emergency (ER) | payer OTHER ==
[2017-02-24] MEDS ORDERED: ASPIRIN 81 MG TABLET, CHEWABLE PO ONE (23:17)
[2017-02-25 00:18] LABS: ABSOLUTE EOSINOPHILS # (AUTO) 0.1 10^3/uL (0.0-0.6); ABSOLUTE LYMPHOCYTES (AUTO) 1.4 10^3/uL (0.5-4.7); ABSOLUTE MONOCYTES (AUTO) 0.5 10^3/uL (0.1-1.4); BASOPHILS % (AUTO) 0.3 % (0-2); EOSINOPHILS % (AUTO) 1.1 % (0-6); HEMATOCRIT 42.2 % (37.9-51.0); HEMOGLOBIN 13.8 g/dL (13.5-17.0); HGB HCT DIFFERENCE -0.8; MEAN CORPUSCULAR HEMOGLOBIN 28.8 pg (27.0-33.4); MEAN CORPUSCULAR HGB CONC 32.7 g/dL (32.0-36.0); MEAN CORPUSCULAR VOLUME 88 fl (80-97); MONOCYTES % (AUTO) 7.1 % (3-13); RED BLOOD COUNT 4.79 10^6/uL (4.35-5.55); RED CELL DISTRIBUTION WIDTH 15.8 % (11.5-14.0); SEGMENTED NEUTROPHILS % (AUTO) 71.5 % (42-78); WHITE BLOOD COUNT 7.1 10^3/uL (4.0-10.5)
--- NOTE | 2017-02-25 00:38 | ER Document Report ---
ED General - General Chief Complaint: Chest Congestion Stated Complaint: COUGH Time Seen by Provider: 02/25/17 00:24 Mode of Arrival: Ambulatory Information source: Patient Notes: 71-year-old man with a history of atrial fibrillation (rivaroxaban), CHF (Lasix) , GERD who presents to the emergency room with cough and congestion. Patient denies any chest pain or shortness of breath. TRAVEL OUTSIDE OF THE [place] IN LAST 30 DAYS: No - HPI Onset: Last week Onset/Duration: Gradual Quality of pain: No pain Severity: None Pain Level: Denies Associated symptoms: Other - Cough and congestion. denies: Fever Exacerbated by: Denies Relieved by: Denies Similar symptoms previously: No Recently seen / treated by doctor: No - Related Data Allergies/Adverse Reactions: No Known Allergies Allergy (Verified 02/24/17 23:15) Past Medical History - General Information source: Patient - Social History Smoking Status: Never Smoker Cigarette use (# per day): No Chew tobacco use (# tins/day): No Frequency of alcohol use: None Drug Abuse: None Lives with: Family Family History: Reviewed & Not Pertinent, Other - Unobtainable Patient has suicidal ideation: No Patient has homicidal ideation: No - Past Medical History Cardiac Medical History: Reports: Hx Atrial Fibrillation, Hx Congestive Heart Failure, Hx Hypercholesterolemia, Hx Hypertension Denies: Hx Coronary Artery Disease, Hx Heart Attack, Hx Peripheral Vascular Disease, Hx Heart Murmur Endocrine Medical History: Denies: Hx Graves' Disease, Hx Hyperthyroidism, Hx Hypothyroidism Renal/ Medical History: Denies: Hx Peritoneal Dialysis Malignancy Medical History: Denies Hx Leukemia GI Medical History: Reports: Hx Gastroesophageal Reflux Disease. Denies: Hx Crohn's Disease, Hx Hiatal Hernia, Hx Irritable Bowel, Hx Liver Failure, Hx Ulcer Musculoskeltal Medical History: Reports Hx Arthritis, Denies Hx Fibromyalgia, Denies Hx Muscular Dystrophy Psychiatric Medical History: Reports: Hx Post Traumatic Stress Disorder Denies: Hx Bipolar Disorder, Hx Depression, Hx Schizophrenia Traumatic Medical History: Denies: Hx Fractures Infectious Medical History: Denies: Hx HIV Past Surgical History: Reports: Hx Orthopedic Surgery - L hip replacement. Denies: Hx Appendectomy, Hx Bowel Surgery, Hx Cholecystectomy, Hx Colostomy, Hx Coronary Artery Bypass Graft, Hx Gastric Bypass Surgery, Hx Herniorrhaphy, Hx Pacemaker, Hx Tonsillectomy - Immunizations Hx Diphtheria, Pertussis, Tetanus Vaccination: Yes Hx Pneumococcal Vaccination: 03/15/16 Review of Systems - Review of Systems Constitutional: denies: Chills, Fever EENT: No symptoms reported Cardiovascular: See HPI Respiratory: See HPI Gastrointestinal: No symptoms reported Genitourinary: No symptoms reported Male Genitourinary: No symptoms reported Musculoskeletal: No symptoms reported Skin: No symptoms reported Hematologic/Lymphatic: No symptoms reported Neurological/Psychological: No symptoms reported Physical Exam - Vital signs Notes: Physical exam: GENERAL: 71-year-old man, alert and oriented 3, no acute distress HEAD: Atraumatic, normocephalic. EYES: Pupils equal round and reactive to light, extraocular movements intact, sclera anicteric, conjunctiva are normal. ENT: TMs normal, nares patent, oropharynx clear without exudates. Moist mucous membranes. NECK: Normal range of motion, supple without obvious mass or JVD. LUNGS: Breath sounds clear to auscultation bilaterally and equal. No wheezes rales or rhonchi. HEART: Regular rate and rhythm without murmurs, rubs or gallops. ABDOMEN: Soft, normoactive bowel sounds. No tenderness to palpation. No guarding, no rebound. No masses appreciated. EXTREMITIES: Normal range of motion, no pitting or edema. No clubbing or cyanosis. NEUROLOGICAL: Cranial nerves II through XII grossly intact. Normal speech, moving all extremities. PSYCH: Normal mood, normal affect. SKIN: Warm, Dry, normal turgor, no rashes or lesions noted. Course - Laboratory Result Diagrams: 02/24/17 23:58 02/25/17 00:31 Laboratory results interpreted by me: 02/24/17 02/25/17 02/25/17 23:58 00:31 00:31 RDW 15.8 H Chloride 108 H Glucose 118 H Direct Bilirubin 0.5 H Alkaline Phosphatase 187 H NT-Pro-B Natriuret Pep 1330 H Total Protein 6.2 L - Diagnostic Test Radiology reviewed: Image reviewed, Reports reviewed - Cardiomegaly, mild pulmonary congestion - EKG Interpretation by Me Rate: Normal Rhythm: NSR - EKG shows normal sinus rhythm with a ventricle rate of 80, no acute ST-T wave changes Discharge - Discharge Clinical Impression: Mild CHF, Bronchitis Condition: Stable Disposition: HOME, SELF-CARE Instructions: Bronchitis ([facility]), Congestive Heart Failure ([facility]) Additional Instructions: Thank you for choosing [facility] for your care. The examination and treatment you have received in the Emergency Department today has been rendered on an emergency basis only and is not intended to be a substitute for complete medical care. You should contact your follow-up physician as it is important that he or she examine you for any new or remaining problems. If given a copy of any lab tests or radiology reports, please bring them with you when you see your physician. If your problem worsens or new symptoms appear and you are unable to arrange prompt follow-up care, return to the Emergency Department. Specific signs to look out for: Worsening shortness of breath, chest pain or any concerns or getting worse. Any other instructions: Take the antibiotics as prescribed. Increase your Lasix to twice daily: You can take 1 pill in the morning, 1 pill in the afternoon. Do this for the next week. Follow-up with your primary care doctor. Bring a copy of today's labs with you when you go. Primary Care Doctor's affiliated with [facility]: If you do not have a primary care doctor or you are unable to get an apointment during that time, you can try one of the doctor's below. These are internal medicine doctor's that have admitting priveledges to the hospital ( they will see you both in the office as well as in this hospital if you are ever hospitalized here). Dr. Jacob Gil [address], [place] [address] [phone] Dr Diop Address: [address] [facility] [place] [address] Dr Rawls Address: [address] [facility] [place] [address] Prescriptions: Azithromycin [Zithromax 250 mg Tablet] 250 mg PO ASDIR PRN #6 tablet PRN Reason:
--- NOTE | 2017-02-25 00:50 | RADIOLOGY REPORT (SQ) ---
EXAM DESCRIPTION: CHEST SINGLE VIEW COMPLETED DATE/TIME: 02/25/2017 12:26 am REASON FOR STUDY: chest congestion COMPARISON: 02/13/2017. EXAM PARAMETERS: NUMBER OF VIEWS: One view. TECHNIQUE: Single frontal radiographic view of the chest acquired. RADIATION DOSE: NA LIMITATIONS: None. FINDINGS: LUNGS AND PLEURA: Moderate lung volume. Pulmonary vascular congestion. MEDIASTINUM AND HILAR STRUCTURES: No masses. Contour normal. HEART AND VASCULAR STRUCTURES: Heart normal in size. Normal vasculature. BONES: Moderate osteoarthritis of bilateral shoulders. Moderate chronic deformity of bilateral a hum eral heads. HARDWARE: None in the chest. OTHER: No other significant finding. IMPRESSION: Pulmonary vascular congestion. TECHNICAL DOCUMENTATION: JOB ID: [id number]
[2017-02-25 00:51] LABS: ALANINE AMINOTRANSFERASE 32 U/L (21-72); ALBUMIN 3.7 g/dL (3.5-5.0); ALKALINE PHOSPHATASE 187 U/L (38-126); ANION GAP 9 (5-19); ASPARTATE AMINO TRANSFERASE 30 U/L (17-59); BILIRUBIN,DIRECT 0.5 mg/dL (0.0-0.4); BILIRUBIN,TOTAL 0.8 mg/dL (0.2-1.3); BLOOD UREA NITROGEN 17 mg/dL (7-20); CALCIUM 9.5 mg/dL (8.4-10.2); CARBON DIOXIDE 25 mmol/L (22-30); CHLORIDE 108 mmol/L (98-107); CREATINE KINASE 74 U/L (55-170); CREATININE RESULT 0.95 mg/dL (0.52-1.25); GLUCOSE 118 mg/dL (75-110); POTASSIUM 4.1 mmol/L (3.6-5.0); SODIUM 141.6 mmol/L (137-145); TOTAL PROTEIN 6.2 g/dL (6.3-8.2)
[2017-02-25 01:03] LABS: CREATINE KINASE MB 0.64 ng/mL (<4.55)
[2017-02-25 01:04] LABS: TROPONIN I < 0.012 ng/mL
[2017-02-25] MEDS ORDERED: FUROSEMIDE INJ/PF 40 MG/4 ML SDV IV ONE (01:49)
[2017-02-25] MEDS ORDERED: AZITHROMYCIN 250 MG TABLET PO ONE (02:24)
[2017-02-25 02:51] VITALS: BP 133/78
--- NOTE | 2017-02-25 08:35 | EKG REPORT ---
SEVERITY:- BORDERLINE ECG - SINUS RHYTHM PROBABLE LEFT ATRIAL ABNORMALITY BORDERLINE PROLONGED QT INTERVAL : Confirmed by: Pascual Dallas 25-Feb-2017 08:34:37
== END 2017-02-25 02:49 | disposition home or self-care (01) ==
LOC: ER 22:58
DX: J40 Bronchitis, not specified as acute or chronic (principal); I50.9 Heart failure, unspecified; I48.91 Unspecified atrial fibrillation; K21.9 Gastro-esophageal reflux disease without esophagitis; E78.00 Pure hypercholesterolemia, unspecified; I11.0 Hypertensive heart disease with heart failure; F43.10 Post-traumatic stress disorder, unspecified; Z96.642 Presence of left artificial hip joint
CPT/HCPCS: 93005; 99284; 96374; 36415; 82553; 82550; 85025; 80053; 84484; 83880; 71010; 93010; J1940

== ENCOUNTER 2020-02-05 03:23 | Emergency (ER) | payer OTHER, MEDICARE ==
--- NOTE | 2020-02-05 08:28 | RADIOLOGY REPORT (SQ) ---
EXAM DESCRIPTION: ACUTE ABDOMEN SERIES IMAGES COMPLETED DATE/TIME: 02/05/2020 7:03 am REASON FOR STUDY: nausea/vomiting/constipation COMPARISON: Chest radiograph, 02/13/2017 NUMBER OF VIEWS: Three views. TECHNIQUE: Frontal chest, supine abdomen and upright/decubitus abdomen radiographic images acquired. LIMITATIONS: None. FINDINGS: CHEST: Lungs clear of infiltrates. FREE AIR: None. No abnormal gas collections. BOWEL GAS PATTERN: Nonobstructive pattern. No dilated loops or air fluid levels. CALCIFICATIONS: No suspicious calcifications. HARDWARE: None in the abdomen. SOFT TISSUES: No gross mass or suggestion of organomegaly. BONES: No acute fracture. No worrisome bone lesions. OTHER: No other significant finding. IMPRESSION: No acute cardiopulmonary disease. Nonobstructive bowel-gas 5. TECHNICAL DOCUMENTATION: JOB ID: [id number] 2010 [email or web address]- All Rights Reserved Reading location - IP/workstation name: [email or web address]
[2020-02-05 09:14] LABS: ALBUMIN 3.5 g/dL (3.5-5.0); ALKALINE PHOSPHATASE 148 U/L (38-126); ANION GAP 11 (5-19); ASPARTATE AMINO TRANSFERASE 34 U/L (17-59); BILIRUBIN,DIRECT 0.4 mg/dL (0.0-0.4); BLOOD UREA NITROGEN 38 mg/dL (7-20); CALCIUM 9.1 mg/dL (8.4-10.2); CARBON DIOXIDE 24 mmol/L (22-30); CHLORIDE 97 mmol/L (98-107); GLUCOSE 126 mg/dL (75-110); POTASSIUM 4.4 mmol/L (3.6-5.0); TOTAL PROTEIN 6.9 g/dL (6.3-8.2)
[2020-02-05 09:18] LABS: HEMATOCRIT 46.9 % (37.9-51.0); HEMOGLOBIN 15.6 g/dL (13.5-17.0); MEAN CORPUSCULAR HEMOGLOBIN 30.1 pg (27.0-33.4); MEAN CORPUSCULAR HGB CONC 33.3 g/dL (32.0-36.0); MEAN CORPUSCULAR VOLUME 91 fl (80-97); PLATELET COUNT 193 10^3/uL (150-450); RED BLOOD COUNT 5.18 10^6/uL (4.35-5.55); RED CELL DISTRIBUTION WIDTH 15.6 % (11.5-14.0); WHITE BLOOD COUNT 8.1 10^3/uL (4.0-10.5)
[2020-02-05 09:40] LABS: ABSOLUTE LYMPHOCYTES# (MANUAL) 0.1 10^3/uL (0.5-4.7); ABSOLUTE MONOCYTES # (MANUAL) 0.4 10^3/uL (0.1-1.4); BASOPHILS % (MANUAL) 0 % (0-2); EOSINOPHILS % (MANUAL) 0 % (0-6); LYMPHOCYTES % (MANUAL) 1 % (13-45); MONOCYTES % (MANUAL) 5 % (3-13); SEGMENTED NEUTROPHILS % (MAN) 94 % (42-78); TOTAL CELLS COUNTED 100
[2020-02-05 09:42] LABS: ANISOCYTOSIS SLIGHT; OVALOCYTES SLIGHT; PLATELET COMMENT ADEQUATE
[2020-02-05 10:14] LABS: APPEARANCE,URINE CLOUDY; BILIRUBIN,URINE NEGATIVE (NEGATIVE); COLOR,URINE YELLOW; GLUCOSE, URINE NEGATIVE (NEGATIVE); KETONES,URINE NEGATIVE (NEGATIVE); LEUKOCYTE ESTERASE,URINE NEGATIVE (NEGATIVE); NITRITE,URINE NEGATIVE (NEGATIVE); PROTEIN,URINE NEGATIVE (NEGATIVE); URINE SPECIFIC GRAVITY 1.017
[2020-02-05 12:01] VITALS: BP 122/63
--- NOTE | 2020-02-05 12:01 | ER Document Report ---
Entered by COOPER VARELA SCRIBE 02/05/20 0753 Acting as scribe for:GLADIS SCHMITT MD ED General - General Chief Complaint: Skin Problem Stated Complaint: UNABLE TO VOID, LEG PAIN Time Seen by Provider: 02/05/20 07:04 Primary Care Provider: EDVIN TANG DO [Primary Care Provider] - Follow up as needed Information source: Patient Notes: This 74 year old male patient presents to the emergency department today with complaints of constipation for the past x5 days. Patient states his last bowel movement was x5 days ago and has not been able to drink water the past x1 week. Patient states whenever he drinks water it comes back up. Patient states he is not able to eat and has lost weight the past x2 weeks. Denies any fever. Patient reports sores on bilateral lower extremities for the past x1.5 months and is visiting the wound clinic next week. TRAVEL OUTSIDE OF THE [place] IN LAST 30 DAYS: No - Related Data Allergies/Adverse Reactions: No Known Allergies Allergy (Verified 02/24/17 23:15) Home Medications: eliquis, antibiotic, lasix, amilodipine, carvediol, iron, vit d, ceterzine, colace, atorvastatin, Past Medical History - General Information source: Patient - Social History Smoking Status: Never Smoker Cigarette use (# per day): No Frequency of alcohol use: None Drug Abuse: None Family History: Reviewed & Not Pertinent, Other - Unobtainable Patient has homicidal ideation: No - Past Medical History Cardiac Medical History: Reports: Hx Atrial Fibrillation, Hx Congestive Heart Failure, Hx Hypercholesterolemia, Hx Hypertension GI Medical History: Reports: Hx Gastroesophageal Reflux Disease Musculoskeletal Medical History: Reports Hx Arthritis Psychiatric Medical History: Reports: Hx Post Traumatic Stress Disorder Past Surgical History: Reports: Hx Orthopedic Surgery - L hip replacement - Immunizations Hx Diphtheria, Pertussis, Tetanus Vaccination: Yes Hx Pneumococcal Vaccination: 03/15/16 Review of Systems - Review of Systems Constitutional: See HPI. denies: Fever EENT: No symptoms reported Cardiovascular: No symptoms reported Respiratory: No symptoms reported Gastrointestinal: See HPI, Poor appetite, Poor fluid intake, Last bowel movement - x5 days ago Genitourinary: No symptoms reported Male Genitourinary: No symptoms reported Musculoskeletal: No symptoms reported Skin: See HPI, Other - Sores bilateral LE Hematologic/Lymphatic: No symptoms reported Neurological/Psychological: No symptoms reported -: Yes All other systems reviewed and negative Physical Exam - Vital signs Vitals: Temp Pulse Resp BP Pulse Ox 98.7 F 94 16 120/71 97 02/05/20 03:33 02/05/20 03:33 02/05/20 03:33 02/05/20 03:33 02/05/20 03:33 - General General appearance: Appears well, Alert - HEENT Head: Normocephalic, Atraumatic Eyes: Normal Pupils: PERRL Mucous membranes: Moist Pharynx: Normal Notes: Gag reflex present - Respiratory Respiratory status: No respiratory distress Chest status: Nontender Breath sounds: Normal Chest palpation: Normal - Cardiovascular Rhythm: Regular Heart sounds: Normal auscultation, S1 appreciated, S2 appreciated Murmur: No - Abdominal Inspection: Normal, Other - Soft Distension: No distension Bowel sounds: Normal Tenderness: Nontender. No: Rebound - Extremities General upper extremity: Normal inspection. No: Edema Notes: Multiple chronic open sores on bilateral lower extremities with weeping. - Neurological Neuro grossly intact: Yes Cognition: Normal Orientation: AAOx4 Speech: Normal - Psychological Associated symptoms: Normal affect, Normal mood - Skin Skin Temperature: Warm Skin Moisture: Dry Skin Color: Normal Course - Re-evaluation Re-evalutation: 02/05/20 11:51 Patient resting comfortably tolerating p.o. water without any nausea or vomiting. Patient states he feels better in his abdomen and has no trouble or difficulty swallowing and maintaining intake of p.o. fluids at this time. - Vital Signs Vital signs: Temp Pulse Resp BP Pulse Ox 98.3 F 100 20 77/43 L 95 02/05/20 04:37 02/05/20 04:37 02/05/20 04:37 02/05/20 04:37 02/05/20 04:37 02/05/20 12:01 Patient's vital signs currently are stable see notation of recent vital signs in chart patient's blood pressure is 122 systolic. - Laboratory Result Diagrams: 02/05/20 08:44 02/05/20 08:44 Laboratory results interpreted by me: 02/05/20 02/05/20 02/05/20 08:44 08:44 09:50 RDW 15.6 H Seg Neuts % (Manual) 94 H Lymphocytes % (Manual) 1 L Abs Lymphs (Manual) 0.1 L Sodium 132.1 L Chloride 97 L BUN 38 H Creatinine 1.71 H Est GFR ( Amer) 48 L Est GFR (MDRD) Non-Af 39 L Glucose 126 H Alkaline Phosphatase 148 H Urine Urobilinogen 4.0 H Laboratories show that there is increased BUN 38 and creatinine 1.7 due to dehydration. Patient is now taking p.o. fluids well and is able to be discharged home on p.o. fluids I expect an improvement in his BUN and creatinine. - Diagnostic Test Radiology reviewed: Image reviewed, Reports reviewed Radiology results interpreted by me: 02/05/20 11:54 Acute abdominal series shows no cardiopulmonary disease and abdominal series did not show any obstruction pattern. No other acute process. Discharge - Discharge Clinical Impression: Nausea & vomiting, Dehydration, Constipation by delayed colonic transit, GERD (gastroesophageal reflux disease), Bilateral leg ulcer Condition: Stable Disposition: HOME, SELF-CARE Instructions: Antinausea Medication ([facility]) Additional Instructions: Constipation Constipation is a common problem. It is especially likely as you get older. Constipation is a common cause of abdominal pain, but sometimes causes no symptoms at all. Causes of constipation include certain medications, dehydration, diets, inactivity, and low-fiber intake. Rarely, it can be a sympt om of underlying disease. The physician has evaluated you for this. Avoid constipation by eating a diet high in fiber, fruits, and vegetables. Drink plenty of liquids. Get regular exercise. If possible, avoid constipating medicines like narcotic pain medication. Some vitamin tablets can cause constipation. Stool softeners may be needed for difficult cases. An excellent stool softener is Konsyl which is available at [employer], and [employer]. Just add a teaspoon to a glass of pineapple or orange juice daily or twice a day if needed. Laxatives are useful for occasional constipation. You should use them only when necessary. Too-frequent use can make your bowels dependent on them. Some over the counter laxatives available without prescription are: Milk of Magnesia, 1-2 tablespoons twice a day Dulcolax, 5 mg pill or 10 mg suppository. Citrate of Magnesia, 4-5 ounces a day for a day or two For acute constipation, Fleet's Enemas and Dulcolax suppositories are helpful. Chronic, long chain beamer use of laxatives or enemas is not a good idea. Your bowel may become dependant on them. You do not need to have a bowel movement every day. Many people do fine with a bowel movement every three or four days. You should call your doctor or return for re-evaluation if you pass blood in the stool, or if you develop fever or increasing abdominal pain.Dehydration Dehydration can result from vomiting or diarrhea, fever, or decreased intake of fluids. If severe, hospitalization and intravenous fluids may be required. Most cases are treated at home with fluids by mouth. For the next 24 hours, drink lots of clear fluids. In mild cases, this can be soda pop or sports drinks. For more severe dehydration, the doctor may recommend special fluids such as Pedialyte or Lytren. Try to get three liters (3 quarts) of fluid per day. If vomiting occurs, continue to drink the fluids frequently (every 15 to 20 minutes), but in small amounts (one or two ounces). Depending on the type of dehydration, the doctor may prescribe antinausea medicine or potassium replacements. Call the doctor or return for re-examination if you become progressively weak, vomit repeatedly, or have other new symptoms. Reflux Disease (GERD) Gastro-Esophageal Reflux Disease (GERD) is caused by stomach acid refluxing back up into the esophagus. The valve at the end of the esophagus may be weak. This is common in persons with a hiatal hernia. GERD symptoms can include indigestion, chest pain, heartburn, or food "sticking." Certain foods, alcohol, and aspirin can make GERD worse. Treatment depends on the severity. Usually, antacids or acid-suppressing medicines are used. When the esophagus is acutely inflamed, the physician will often prescribe membrane-protective drugs such as Carafate. Some patients benefit from medication such as Reglan that tightens the valve at the top of the stomach. Avoid those foods that bring on your symptoms. For many people, these foods are coffee, chocolate, onions, garlic, and carbonated drinks. Don't use alcohol, aspirin, caffeine, or tobacco. Don't eat late at night -- within 4 hours of bedtime. Don't over-eat. If necessary, elevate the head of your bed about 4 inches so that stomach acid will not roll up into your esophagus. Call the doctor if you develop severe chest pain, inability to swallow fluids, fever, or worsening symptoms. Dehydration Dehydration can result from vomiting or diarrhea, fever, or decreased intake of fluids. If severe, hospitalization and intravenous fluids may be required. Most cases are treated at home with fluids by mouth. For the next 24 hours, drink lots of clear fluids. In mild cases, this can be soda pop or sports drinks. For more severe dehydration, the doctor may recommend special fluids such as Pedialyte or Lytren. Try to get three liters (3 quarts) of fluid per day. If vomiting occurs, continue to drink the fluids frequently (every 15 to 20 minutes), but in small amounts (one or two ounces). Depending on the type of dehydration, the doctor may prescribe antinausea medicine or potassium replacements. Call the doctor or return for re-examination if you become progressively weak, vomit repeatedly, or have other new symptoms. You have leg ulcers on both lower extremities and you report that you have been on antibiotics and treatment through the [facility] you just run out of antibiotics and you have an appointment with your wound clinic on Thursday my plan is for you to continue dressings of your wound sites until you are seen again on the wound clinic on Thursday 2 days from now. Prescriptions: Omeprazole 40 mg PO DAILY #30 capsule. Metoclopramide HCl [Reglan] 10 mg PO QID PRN #40 tablet PRN Reason: prn nausea/vomiting Referrals: EDVIN TANG DO [Primary Care Provider] - Follow up as needed I personally performed the services described in the documentation, reviewed and edited the documentation which was dictated to the scribe in my presence, and it accurately records my words and actions.
--- NOTE | 2020-02-08 12:12 | ER Document Report ---
Doctor's Note Notes: 02/08/20 12:11 Requested by case management to prescribe antibiotics based on recent wound culture and sensitivities. Growing Pseudomonas, Proteus and enterococcus. Pseudomonas and Proteus sensitivities to cephalosporins, have prescribed cefdinir twice a day for 10 days. For the vancomycin-resistant enterococcus, have prescribed linezolid twice a day for 10 days as well. Scripts were printed out and patient will come pick them up today.
== END 2020-02-05 12:17 | disposition home or self-care (01) ==
LOC: ER 03:23
DX: L97.929 Non-pressure chronic ulcer of unspecified part of left lower leg with unspecified severity (principal); L97.919 Non-pressure chronic ulcer of unspecified part of right lower leg with unspecified severity; R11.2 Nausea with vomiting, unspecified; E86.0 Dehydration; K59.01 Slow transit constipation; K21.9 Gastro-esophageal reflux disease without esophagitis; R63.0 Anorexia; R63.4 Abnormal weight loss; I11.0 Hypertensive heart disease with heart failure; I50.9 Heart failure, unspecified; E78.00 Pure hypercholesterolemia, unspecified; I48.91 Unspecified atrial fibrillation; Z79.01 Long term (current) use of anticoagulants; Z79.899 Other long term (current) drug therapy; Z79.2 Long term (current) use of antibiotics
CPT/HCPCS: 36415; 74022; 80053; 81001; 83690; 85025; 87070; 87077; 87186; 87205; 99284

== ENCOUNTER 2020-02-07 09:47 | Emergency (ER) | payer OTHER, MEDICARE ==
[2020-02-07 09:56] VITALS: BP 97/61
--- NOTE | 2020-02-07 10:06 | ER Document Report ---
HPI - HPI Pain Level: Denies - REPRODUCTIVE Reproductive: DENIES: : Past Medical History - Social History Smoking Status: Never Smoker Frequency of alcohol use: None Drug Abuse: None Family History: Reviewed & Not Pertinent, Other - Unobtainable - Past Medical History Cardiac Medical History: Reports: Hx Atrial Fibrillation, Hx Congestive Heart Failure, Hx Hypercholesterolemia, Hx Hypertension Denies: Hx Coronary Artery Disease, Hx Heart Attack, Hx Peripheral Vascular Disease, Hx Heart Murmur Endocrine Medical History: Denies: Hx Graves' Disease, Hx Hyperthyroidism, Hx Hypothyroidism Renal/ Medical History: Denies: Hx Peritoneal Dialysis Malignancy Medical History: Denies Hx Leukemia GI Medical History: Reports: Hx Gastroesophageal Reflux Disease. Denies: Hx Crohn's Disease, Hx Hiatal Hernia, Hx Irritable Bowel, Hx Liver Failure, Hx Pancreatitis, Hx Ulcer Musculoskeletal Medical History: Reports Hx Arthritis, Denies Hx Fibromyalgia, Denies Hx Muscular Dystrophy, Denies Hx Systemic Lupus Erythematosus Psychiatric Medical History: Reports: Hx Post Traumatic Stress Disorder Denies: Hx Bipolar Disorder, Hx Depression, Hx Schizophrenia Traumatic Medical History: Denies: Hx Fractures Infectious Medical History: Denies: Hx HIV Past Surgical History: Reports: Hx Orthopedic Surgery - L hip replacement. Denies: Hx Appendectomy, Hx Bowel Surgery, Hx Cholecystectomy, Hx Colostomy, Hx Coronary Artery Bypass Graft, Hx Gastric Bypass Surgery, Hx Herniorrhaphy, Hx Pacemaker, Hx Tonsillectomy - Immunizations Hx Diphtheria, Pertussis, Tetanus Vaccination: Yes Hx Pneumococcal Vaccination: 03/15/16 Vertical Provider Document - INFECTION CONTROL TRAVEL OUTSIDE OF THE [place] IN LAST 30 DAYS: No Course - Vital Signs Vital signs: Temp Pulse Resp BP Pulse Ox 98.8 F 99 18 97/61 L 98 02/07/20 09:52 02/07/20 09:52 02/07/20 09:52 02/07/20 09:52 02/07/20 09:52 Discharge - Discharge Referrals: EDVIN TANG DO [Primary Care Provider] - Follow up as needed
--- NOTE | 2020-02-07 10:18 | ER Document Report ---
HPI - HPI Patient complains to provider of: Wound recheck Onset: Last week Onset/Duration: Intermittent Quality of pain: No pain Severity: None Pain Level: Denies Context: 74-year-old male presented to ED for wound check for his bilateral lower leg wounds. He states that he went to the wound care and they did not have anybody there today to change his dressings and his dressings are due to be changed. He is alert oriented respirations regular nonlabored speaking in full sentences. He states he has no other complications at this time. He just needs his wounds cleaned and redressed. He states he has had these wounds for about a month and a half. Exacerbated by: Denies Relieved by: Denies Similar symptoms previously: Yes Recently seen / treated by doctor: Yes - CONSTITUTIONAL Constitutional: DENIES: Fever, Chills - EENT EENT: DENIES: Sore Throat, Ear Pain, Nasal Drainage-Clear, Nasal Drainage- Purulent, Congestion, Eye problems - NEURO Neurology: DENIES: Headache, Weakness, Vision blurred, Dizzinesss / Vertigo - CARDIOVASCULAR Cardiovascular: DENIES: Chest pain - RESPIRATORY Respiratory: DENIES: Trouble Breathing, Coughing - GASTROINTESTINAL Gastrointestinal: DENIES: Abdominal Pain, Nausea, Patient vomiting, Diarrhea, Constipation, Black / Bloody Stools - URINARY Urinary: DENIES: Dysuria, Urgency, Frequency - REPRODUCTIVE Reproductive: DENIES: :, Postmenopausal, Abnormal bleeding / discharge - MUSCULOSKELETAL Musculoskeletal: DENIES: Extremity pain, Back Pain, Neck Pain, Swelling - DERM Skin Color: Normal Skin Problems: Stage III Past Medical History - General Information source: Patient - Social History Smoking Status: Never Smoker Frequency of alcohol use: None Drug Abuse: None Family History: Reviewed & Not Pertinent, Other - Unobtainable - Past Medical History Cardiac Medical History: Reports: Hx Atrial Fibrillation, Hx Congestive Heart Failure, Hx Hypercholesterolemia, Hx Hypertension Pulmonary Medical History: Reports: None EENT Medical History: Reports: None Neurological Medical History: Reports: None Endocrine Medical History: Reports: None Renal/ Medical History: Reports: None. Denies: Hx Peritoneal Dialysis Malignancy Medical History: Reports None GI Medical History: Reports: Hx Gastroesophageal Reflux Disease Musculoskeletal Medical History: Reports Hx Arthritis Skin Medical History: Reports None Psychiatric Medical History: Reports: Hx Post Traumatic Stress Disorder Traumatic Medical History: Reports: None Infectious Medical History: Reports: None Past Surgical History: Reports: Hx Orthopedic Surgery - L hip replacement - Immunizations Hx Diphtheria, Pertussis, Tetanus Vaccination: Yes Hx Pneumococcal Vaccination: 03/15/16 Vertical Provider Document - CONSTITUTIONAL Agree With Documented VS: Yes Exam Limitations: No Limitations - INFECTION CONTROL TRAVEL OUTSIDE OF THE [place] IN LAST 30 DAYS: No - HEENT HEENT: Atraumatic, Normal ENT Exam, Normocephalic, PERRLA - NECK Neck: Normal Inspection, Supple - RESPIRATORY Respiratory: Breath Sounds Normal - CARDIOVASCULAR Cardiovascular: Regular Rate, Regular Rhythm - MUSCULOSKELETAL/EXTREMETIES Musculoskeletal/Extremeties: MAEW, FROM, Non-Tender, Tender - NEURO Level of Consciousness: Awake, Alert, Appropriate Motor/Sensory: No Motor Deficit - DERM Integumentary: Warm, Dry Notes: Bilateral lower extremity open weeping sores nontender to patient. These are chronic sores he usually sees the wound clinic but there was no one there to change his dressings today Course - Vital Signs Vital signs: Temp Pulse Resp BP Pulse Ox 98.8 F 99 18 97/61 L 98 02/07/20 09:52 02/07/20 09:52 02/07/20 09:52 02/07/20 09:52 02/07/20 09:52 Discharge - Discharge Clinical Impression: Encounter for wound re-check Condition: Stable Disposition: HOME, SELF-CARE Additional Instructions: Wounds were cleaned with surgical scrub, rinsed with saline, bacitracin Telfa applied then Kerlix and Coban. Please follow-up with the wound care clinic as you are scheduled. These leg ulcers need treatment on a regular basis. FOLLOW-UP CARE: If you have been referred to a physician for follow-up care, call the physicians office for an appointment as you were instructed or within the next two days. If you experience worsening or a significant change in your symptoms, notify the physician immediately or return to the Emergency Department at any time for re-evaluation. Referrals: EDVIN TANG DO [Primary Care Provider] - Follow up as needed [facility] [Provider Group] - Follow up as needed
== END 2020-02-07 10:29 | disposition home or self-care (01) ==
LOC: ER 09:47
DX: S81.802D Unspecified open wound, left lower leg, subsequent encounter (principal); S81.801D Unspecified open wound, right lower leg, subsequent encounter; X58.XXXD Exposure to other specified factors, subsequent encounter
CPT/HCPCS: 99281

== ENCOUNTER → 2020-03-01 | Outpatient (CLI) | payer OTHER | LOC: SP 09:44 | PROVIDERS: ATTEND Nurse Practitioner Family | DX: L97.212 Non-pressure chronic ulcer of right calf with fat layer exposed (principal); L97.222 Non-pressure chronic ulcer of left calf with fat layer exposed | CPT/HCPCS: 93922; 93925 ==

== ENCOUNTER 2020-03-04 07:22 | Inpatient (IN) | payer OTHER, MEDICARE ==
[2020-03-04 09:56] LABS: ABSOLUTE MONOCYTES (AUTO) 1.6 10^3/uL (0.1-1.4); ABSOLUTE NEUT (AUTO) 16.1 10^3/uL (1.7-8.2); HEMATOCRIT 38.3 % (37.9-51.0); HEMOGLOBIN 12.8 g/dL (13.5-17.0); LYMPHOCYTES % (AUTO) 5.3 % (13-45); MEAN CORPUSCULAR HEMOGLOBIN 29.7 pg (27.0-33.4); MEAN CORPUSCULAR HGB CONC 33.4 g/dL (32.0-36.0); MEAN CORPUSCULAR VOLUME 89 fl (80-97); MONOCYTES % (AUTO) 8.3 % (3-13); PLATELET COUNT 217 10^3/uL (150-450); RED BLOOD COUNT 4.31 10^6/uL (4.35-5.55); RED CELL DISTRIBUTION WIDTH 16.7 % (11.5-14.0); SEGMENTED NEUTROPHILS % (AUTO) 86.4 % (42-78); TOTAL CELLS COUNTED % (AUTO) 100 %; WHITE BLOOD COUNT 18.7 10^3/uL (4.0-10.5)
[2020-03-04 10:09] LABS: ALBUMIN 2.9 g/dL (3.5-5.0); ALKALINE PHOSPHATASE 150 U/L (38-126); ANION GAP 7 (5-19); ASPARTATE AMINO TRANSFERASE 24 U/L (17-59); BILIRUBIN,DIRECT 0.6 mg/dL (0.0-0.4); BILIRUBIN,TOTAL 1.7 mg/dL (0.2-1.3); BLOOD UREA NITROGEN 21 mg/dL (7-20); CALCIUM 8.9 mg/dL (8.4-10.2); CARBON DIOXIDE 25 mmol/L (22-30); CHLORIDE 101 mmol/L (98-107); GLUCOSE 141 mg/dL (75-110); TOTAL PROTEIN 5.6 g/dL (6.3-8.2)
--- NOTE | 2020-03-04 10:49 | ER Document Report ---
ED GI/ - General Chief Complaint: Abdominal Pain Stated Complaint: LUMP ON RIGHT SIDE Time Seen by Provider: 03/04/20 10:04 Primary Care Provider: VALERIE BLANCO [employer], [employer] [Primary Care Provider] - Follow up as needed Notes: HPI: 74-year-old male who presents today stating that he felt a "mass" to his right abdomen last evening. He states it is not painful. No falls, trauma, cough, vomiting, or diarrhea. No previous history of abdominal surgery. Past medical history as recorded including atrial fibrillation on Eliquis. Patient denies any real aggravating relieving factors to this mass regarding size or pain. ROS: See HPI All other review of systems reviewed and otherwise negative Reviewed vital signs and nursing note as charted by RN. PHYSICAL EXAM: CONSTITUTIONAL: Alert and oriented and responds appropriately to questions. Well-appearing; well-nourished HEAD: Normocephalic; atraumatic EYES: Sclerae non-icteric ENT: Normal nose; no rhinorrhea; moist mucous membranes; pharynx without lesions noted NECK: Supple without meningismus; non-tender; no cervical lymphadenopathy, no masses CARD: Regular rate and rhythm; no murmurs; symmetric distal pulses RESP: Normal chest excursion without splinting or tachypnea; breath sounds clear and equal bilaterally ABD/GI: Normal bowel sounds; patient has a circular-like distended mass to the right mid abdomen with no fluctuance, induration, or erythema. It is not tender to palpation. Bowel sounds are present to the location BACK: The back appears normal and is non-tender to palpation EXT: Normal ROM in all joints; non-tender to palpation; no edema SKIN: No acute lesions noted NEURO: CN 2-12 intact; 5/5 bilateral upper and lower extremity strength with sensation intact to light touch PSYCH: The patient's mood and manner are appropriate. Grooming and personal hygiene are appropriate. TRAVEL OUTSIDE OF THE [place] IN LAST 30 DAYS: No - Related Data Allergies/Adverse Reactions: No Known Allergies Allergy (Verified 02/24/17 23:15) Home Medications: Lasix, Amiodarone, Carvedilol, Ferrous Sulfate, Cholecalciferol, Cetirizine, Docusate, Eliquis, Atorvastatin, Acetaminophen, Linezod, Meocloprimade, Omeprazole Past Medical History - Social History Smoking Status: Never Smoker Frequency of alcohol use: None Drug Abuse: None Family History: Reviewed & Not Pertinent, Other - Unobtainable - Past Medical History Cardiac Medical History: Reports: Hx Atrial Fibrillation, Hx Congestive Heart Failure, Hx Hypercholesterolemia, Hx Hypertension Denies: Hx Coronary Artery Disease, Hx Heart Attack, Hx Peripheral Vascular Disease, Hx Heart Murmur Endocrine Medical History: Denies: Hx Graves' Disease, Hx Hyperthyroidism, Hx Hypothyroidism Renal/ Medical History: Denies: Hx Peritoneal Dialysis Malignancy Medical History: Denies Hx Leukemia GI Medical History: Reports: Hx Gastroesophageal Reflux Disease. Denies: Hx Crohn's Disease, Hx Hiatal Hernia, Hx Irritable Bowel, Hx Liver Failure, Hx Pancreatitis, Hx Ulcer Musculoskeletal Medical History: Reports Hx Arthritis, Denies Hx Fibromyalgia, Denies Hx Muscular Dystrophy, Denies Hx Systemic Lupus Erythematosus Psychiatric Medical History: Reports: Hx Post Traumatic Stress Disorder Denies: Hx Bipolar Disorder, Hx Depression, Hx Schizophrenia Traumatic Medical History: Denies: Hx Fractures Infectious Medical History: Denies: Hx HIV Past Surgical History: Reports: Hx Orthopedic Surgery - L hip replacement. Denies: Hx Appendectomy, Hx Bowel Surgery, Hx Cholecystectomy, Hx Colostomy, Hx Coronary Artery Bypass Graft, Hx Gastric Bypass Surgery, Hx Herniorrhaphy, Hx Pacemaker, Hx Tonsillectomy - Immunizations Hx Diphtheria, Pertussis, Tetanus Vaccination: Yes Hx Pneumococcal Vaccination: 03/15/16 Physical Exam - Vital signs Vitals: Temp Pulse Resp BP Pulse Ox 97.3 F 102 H 20 115/69 99 03/04/20 07:31 03/04/20 07:31 03/04/20 07:31 03/04/20 07:31 03/04/20 07:31 Course - Re-evaluation Re-evalutation: Given the above history and physical examination I am concerned about the possibility of a incarcerated hernia. I attempted to apply gentle pressure to the location for an extended period of time x2 and I was unable to reduce. Patient has no pain. I will proceed with basic abdominal labs as well as a CT scan of the abdomen and pelvis to evaluate. 03/04/20 12:25 Labs as recorded. Radiologist called me and states that the CT scan shows a very distended gallbladder pushing on the abdominal wall. No obvious calculus present. Normal liver panel other than a slightly elevated bilirubin at 1.6. I did discuss this with a general surgeon. I have provided Zosyn. Patient's INR is recorded. Patient is no longer taking Xarelto but is currently on Eliquis according to the patient. We will order an ultrasound of the gallbladder and most likely admit for cholecystectomy. 03/04/20 14:33 General surgery has seen and accepted the patient for admission. - Vital Signs Vital signs: Temp Pulse Resp BP Pulse Ox 97.3 F 102 H 20 115/69 99 03/04/20 07:31 03/04/20 07:31 03/04/20 07:31 03/04/20 07:31 03/04/20 07:31 - Laboratory Result Diagrams: 03/04/20 09:29 03/04/20 09:29 Laboratory results interpreted by me: 03/04/20 03/04/20 03/04/20 09:29 09:29 09:29 WBC 18.7 H RBC 4.31 L Hgb 12.8 L RDW 16.7 H Lymph % (Auto) 5.3 L Absolute Neuts (auto) 16.1 H Absolute Monos (auto) 1.6 H Seg Neutrophils % 86.4 H PT 26.1 H Sodium 133.4 L BUN 21 H Glucose 141 H Total Bilirubin 1.7 H Direct Bilirubin 0.6 H Alkaline Phosphatase 150 H Total Protein 5.6 L Albumin 2.9 L Urine Urobilinogen 03/04/20 13:15 WBC RBC Hgb RDW Lymph % (Auto) Absolute Neuts (auto) Absolute Monos (auto) Seg Neutrophils % PT Sodium BUN Glucose Total Bilirubin Direct Bilirubin Alkaline Phosphatase Total Protein Albumin Urine Urobilinogen 2.0 H Discharge - Discharge Clinical Impression: DISTENDED GALLBLADDER Leukocytosis Qualifiers: Leukocytosis type: unspecified Qualified Code(s): D72.829 - Elevated white blood cell count, unspecified Condition: Fair Disposition: ADMITTED INPATIENT Admitting Provider: Surgicalist Unit Admitted: Surgical Floor Referrals: VALERIE BLANCO [employer], [employer] [Primary Care Provider] - Follow up as needed
[2020-03-04 11:15] LABS: INTERNATIONAL RATION (INR) 2.39; PROTHROMBIN TIME 26.1 SEC (11.4-15.4)
[2020-03-04] MEDS ORDERED: PIPERACILLIN/TAZOBACTAM 3.375 GM VIAL IV ONE (12:14)
--- NOTE | 2020-03-04 12:21 | RADIOLOGY REPORT (SQ) ---
EXAM DESCRIPTION: CT ABD/PELVIS WITH IV ONLY IMAGES COMPLETED DATE/TIME: 03/04/2020 10:53 am REASON FOR STUDY: 13; right abdominal mass. COMPARISON: None. TECHNIQUE: CT scan of the abdomen and pelvis performed using helical scanning technique with dynamic intravenous contrast injection. No oral contrast. Images reviewed with lung, soft tissue, and bone windows. Reconstructed coronal and sagittal MPR images reviewed. Delayed images for evaluation of the urinary system also acquired. All images stored on PACS. All CT scanners at this facility use dose modulation, iterative reconstruction, and/or weight based d osing when appropriate to reduce radiation dose to as low as reasonably achievable (ALARA). [facility]: Dose Right [facility]: CareDose [facility]: Dose Right [facility]: Teradose 4D [facility]: CAPPTURE CONTRAST TYPE AND DOSE: 100 mL Omnipaque 350- low osmolar. RENAL FUNCTION: GFR > 60. RADIATION DOSE: CT Rad equipment meets quality standard of care and radiation dose reduction techniq ues were employed. CTDIvol: 14.2 - 18.1 mGy. DLP: 1631 mGy-cm.. LIMITATIONS: None. FINDINGS: LOWER CHEST: Small right and trace left effusion. Compressive atelectasis at the right jonh ng base. Moderate cardiomegaly. No pericardial effusion. No focal consolidation. LIVER: The liver is moderately enlarged measuring 22.9 cm craniocaudal at the midclavicular line. It there is mild diffuse hepatic steatosis. No focal hepatic mass. Hepatic and portal veins are paten t. There is reflux of contrast into the hepatic veins. No biliary ductal dilation. SPLEEN: Normal size. No focal lesions. PANCREAS: No masses. No significant calcifications. No adjacent inflammation or peripancreatic fluid collections. Pancreatic duct not dilated. GALLBLADDER: The gallbladder is markedly distended measuring 12.4 by 5.5 cm on axial images. This ex tends to the anterior right abdominal wall with mass effect bowing the abdominal wall outward. No ca lcified gallstones. There is mild pericholecystic fluid. No gallbladder wall thickening. ADRENAL GLANDS: No significant masses or asymmetry. RIGHT KIDNEY AND URETER: No solid masses. No significant calcifications. No hydronephrosis or hyd roureter. LEFT KIDNEY AND URETER: Left renal cortical cysts. No solid mass. No significant calcifications. No hydronephrosis or hydroureter. AORTA AND VESSELS: No aneurysm. No dissection. Renal arteries, SMA, celiac without stenosis. RETROPERITONEUM: No retroperitoneal adenopathy, hemorrhage or masses. BOWEL AND PERITONEAL CAVITY: No masses or inflammatory changes. No free fluid or peritoneal masses. APPENDIX: Not visualized. PELVIS: No mass. No free fluid. Normal bladder. ABDOMINAL WALL: No masses. No hernias. BONES: Spondylosis and degenerative disc disease in the thoracolumbar spine. Left hip arthroplasty w ith dystrophic calcification. No suspicious bone lesions. OTHER: No other significant finding. IMPRESSION: 1. Markedly distended gallbladder with mild pericholecystic fluid. No calcified gallstones or gallbl adder wall thickening. Findings are equivocal for acute cholecystitis. Further evaluation with gall bladder ultrasound is recommended. 2. Small right pleural effusion and trace left effusion. 3. Moderate cardiomegaly. Reflux of contrast into the hepatic veins, which can be seen with right he art failure/elevated right heart pressure. COMMENT: Findings discussed with Dr. Fernandez on 03/04/2020 at 1215 hours. TECHNICAL DOCUMENTATION: JOB ID: [id number] Quality ID # [id number]: Final reports with documentation of one or more dose reduction techniques (e.g., Au tomated exposure control, adjustment of the mA and/or kV according to patient size, use of iterative reconstruction technique) 2010 [employer]- All Rights Reserved Reading location - IP/workstation name: [email or web address]
[2020-03-04 13:42] LABS: APPEARANCE,URINE CLEAR; BILIRUBIN,URINE NEGATIVE (NEGATIVE); COLOR,URINE YELLOW; GLUCOSE, URINE NEGATIVE (NEGATIVE); KETONES,URINE NEGATIVE (NEGATIVE); LEUKOCYTE ESTERASE,URINE NEGATIVE (NEGATIVE); NITRITE,URINE NEGATIVE (NEGATIVE); PROTEIN,URINE NEGATIVE (NEGATIVE); URINE SPECIFIC GRAVITY 1.057
[2020-03-04] MEDS ORDERED: MORPHINE SULFATE 10 MG/ML INJ IV PRN (14:31)
[2020-03-04] MEDS ORDERED: ONDANSETRON HCL INJ/PF 4 MG/2 ML SDV IV PRN (14:31)
--- NOTE | 2020-03-04 15:14 | RADIOLOGY REPORT (SQ) ---
EXAM DESCRIPTION: U/S ABDOMEN LIMITED W/O DOP IMAGES COMPLETED DATE/TIME: 03/04/2020 2:39 pm REASON FOR STUDY: 13; dilated gall bladder COMPARISON: CT abdomen and pelvis 03/04/2020 TECHNIQUE: Dynamic and static grayscale images acquired of the abdomen and recorded on PACS. Additio nal selected color Doppler and spectral images recorded. LIMITATIONS: None. FINDINGS: PANCREAS: No masses. Visualized pancreatic duct normal caliber. LIVER: No masses. Echotexture normal. LIVER VASCULATURE: Normal directional flow of the main portal vein and hepatic veins. GALLBLADDER: Hydropic measuring 13.6 x 6.2 cm. Some layering echogenic sludge is present. Trace per icholecystic fluid. Gallbladder wall measures 3 mm. ULTRASOUND-DETECTED CALZADA'S SIGN: Negative. INTRAHEPATIC DUCTS AND COMMON DUCT: CBD and intrahepatic ducts normal caliber. No filling defects. INFERIOR VENA CAVA: Normal flow. AORTA: No aneurysm. RIGHT KIDNEY: Normal size. Normal echogenicity. No solid or suspicious masses. No hydronephrosis. No calcifications. PERITONEAL AND RIGHT PLEURAL SPACE: Small right pleural effusion. No ascites. OTHER: No other significant findings. IMPRESSION: Hydropic gallbladder with sludge and trace pericholecystic fluid. Negative sonographic Calzada's sign and no gallbladder wall thickening. These findings remain equivocal for acute cholecys titis. Small right pleural effusion. TECHNICAL DOCUMENTATION: JOB ID: [id number] [employer]- All Rights Reserved Reading location - IP/workstation name: [email or web address]
[2020-03-04] MEDS: PIPERACILLIN SODIUM/TAZOBACTAM 3.375 GM in NORMAL SALINE 100 ML IV SCH ×2 (19:21→23:05)
[2020-03-04] MEDS: METOPROLOL TARTRATE 50 MG TABLET PO SCH (22:51)
[2020-03-04] MEDS: NORMAL SALINE 1000 ML 1,000 ML IV PRN (22:54)
[2020-03-05] MEDS: PIPERACILLIN SODIUM/TAZOBACTAM 3.375 GM in NORMAL SALINE 100 ML IV SCH ×3 (05:31→18:13)
[2020-03-05 06:17] LABS: HEMATOCRIT 36.9 % (37.9-51.0); HEMOGLOBIN 12.6 g/dL (13.5-17.0); MEAN CORPUSCULAR HEMOGLOBIN 30.2 pg (27.0-33.4); MEAN CORPUSCULAR VOLUME 89 fl (80-97); PLATELET COUNT 197 10^3/uL (150-450); RED BLOOD COUNT 4.16 10^6/uL (4.35-5.55); RED CELL DISTRIBUTION WIDTH 16.9 % (11.5-14.0); WHITE BLOOD COUNT 22.3 10^3/uL (4.0-10.5)
[2020-03-05 06:20] LABS: ALBUMIN 2.8 g/dL (3.5-5.0); ALKALINE PHOSPHATASE 168 U/L (38-126); ANION GAP 10 (5-19); ASPARTATE AMINO TRANSFERASE 29 U/L (17-59); BLOOD UREA NITROGEN 21 mg/dL (7-20); CALCIUM 8.8 mg/dL (8.4-10.2); CARBON DIOXIDE 25 mmol/L (22-30); CHLORIDE 100 mmol/L (98-107); GLUCOSE 102 mg/dL (75-110); POTASSIUM 4.1 mmol/L (3.6-5.0); TOTAL PROTEIN 5.7 g/dL (6.3-8.2)
--- NOTE | 2020-03-05 06:47 | PDOC H&P ---
History of Present Illness Admission Date/PCP: VALERIE BLANCO NP Patient complains of: Abdominal swelling, nausea, food intolerance, indigestion History of Present Illness: PAULETTE SCALES is a 74 year old male with a one-week history of abdominal swelling, malaise, nausea, and indigestion. The patient was evaluated he was found to have a leukocytosis as well as a markedly distended gallbladder. He denies any specific abdominal pain, but reports that he has difficulty eating. He has early satiety and nausea. This occurs with most foods that he eats. Not jake makes the symptoms better. The patient denies fevers, chills, shortness of breath, chest pain, melena, hematochezia, hematemesis, headache, dizziness, orthostasis, blurry vision. Past Medical History Cardiac Medical History: Reports: Atrial Fibrillation, Hyperlipidema, Hypertension Denies: Coronary Artery Disease, Myocardial Infarction, Peripheral Vascular Disease, Heart Murmur Endocrine Medical History: Denies: Hyperthyroidism, Hypothyroidism Malignancy Medical History: Denies: Leukemia GI Medical History: Reports: Gastroesophageal Reflux Disease Denies: Crohn's Disease, Hiatal Hernia Musculoskeltal Medical History: Reports: Arthritis Denies: Fibromyalgia Psychiatric Medical History: Reports: Post Traumatic Stress Disorder Denies: Bipolar Disorder, Depression Hematology: Reports: Anemia Denies: Hemophilia, Sickle Cell Disease Infectious Medical History: Denies: HIV Past Surgical History Past Surgical History: Reports: Orthopedic Surgery - L hip replacement Denies: Appendectomy, Cholecystectomy, Colostomy, Coronary Artery Bypass Graft, Gastric Bypass Surgery, Herniorrhaphy, Pacemaker, Tonsillectomy Social History Smoking Status: Never Smoker Frequency of Alcohol Use: None Hx Recreational Drug Use: No Hx Prescription Drug Abuse: No Family History Family History: Reviewed & Not Pertinent, Other - Unobtainable Parental Family History Reviewed: Yes Children Family History Reviewed: Yes Sibling(s) Family History Reviewed.: Yes Medication/Allergy Home Medications: Ferrous Sulfate 324 mg PO QAM 09/08/16 Furosemide [Lasix 40 mg Tablet] 40 mg PO BID #8 tablet 02/13/17 Acetaminophen [Acetaminophen Extra Strength] 500 mg PO DAILYP PRN 03/04/20 Amiodarone HCl [Cordarone 200 mg Tablet] 200 mg PO DAILY 03/04/20 Atorvastatin Calcium [Lipitor 40 mg Tablet] 40 mg PO QHS 03/04/20 Carvedilol [Coreg 3.125 mg Tablet] 3.125 mg PO Q12 03/04/20 Cetirizine HCl [Zyrtec 10 mg Tablet] 10 mg PO DAILY 03/04/20 Cholecalciferol (Vitamin D3) [Vitamin D3 1000 Unit Tablet] 1,000 unit PO DAILY 03/04/20 Docusate Calcium 240 mg PO DAILY 03/04/20 Allergies/Adverse Reactions: No Known Allergies Allergy (Verified 02/24/17 23:15) Review of Systems Constitutional: PRESENT: fatigue. ABSENT: chills, fever(s), headache(s) Eyes: ABSENT: visual disturbances Ears: ABSENT: hearing changes Nose, Mouth, and Throat: ABSENT: sore throat Cardiovascular: ABSENT: chest pain, dyspnea on exertion Respiratory: ABSENT: cough, dyspnea Gastrointestinal: PRESENT: bloating, heartburn, nausea, other - "indigestion". ABSENT: abdominal pain, hematemesis, hematochezia, melena Genitourinary: ABSENT: dysuria Musculoskeletal: ABSENT: back pain Integumentary: ABSENT: pruritus, rash Neurological: ABSENT: confusion, convulsions, dizziness Psychiatric: ABSENT: anxiety, depression Endocrine: ABSENT: cold intolerance, heat intolerance Hematologic/Lymphatic: ABSENT: easy bleeding, easy bruising Physical Exam Vital Signs: Temp Pulse Resp BP Pulse Ox 97.3 F 102 H 20 115/69 99 03/04/20 07:31 03/04/20 07:31 03/04/20 07:31 03/04/20 07:31 03/04/20 07:31 Intake & Output 03/03/20 03/04/20 03/05/20 06:59 06:59 06:59 Weight 88.6 kg General appearance: PRESENT: no acute distress, cooperative Head exam: PRESENT: atraumatic, normocephalic Eye exam: PRESENT: EOMI, PERRLA. ABSENT: scleral icterus Mouth exam: PRESENT: moist, neck supple Neck exam: ABSENT: meningismus, tenderness, thyromegaly, tracheal deviation Respiratory exam: PRESENT: unlabored. ABSENT: tachypnea, wheezes Cardiovascular exam: ABSENT: tachycardia Pulses: PRESENT: normal radial pulses GI/Abdominal exam: PRESENT: distended, soft, tenderness - mild RUQ, other - RUQ mass palpable. ABSENT: rebound, rigid Rectal exam: PRESENT: deferred Extremities exam: ABSENT: clubbing Musculoskeletal exam: ABSENT: deformity Neurological exam: PRESENT: alert, awake, oriented to person, oriented to place, oriented to time, oriented to situation Psychiatric exam: ABSENT: agitated, anxious, depressed Focused psych exam: ABSENT: delusional Skin exam: ABSENT: cyanosis, erythema, jaundice Results Laboratory Results: 03/04/20 09:29 03/04/20 09:29 03/04/20 03/04/20 03/04/20 09: 09: 13:15 WBC 18.7 H RBC 4.31 L Hgb 12.8 L Hct 38.3 MCV 89 MCH 29.7 MCHC 33.4 RDW 16.7 H Plt Count 217 Seg Neutrophils % 86.4 H Sodium 133.4 L Potassium 4.0 Chloride 101 Carbon Dioxide 25 Anion Gap 7 BUN 21 H Creatinine 0.76 Est GFR ( Amer) > 60 Glucose 141 H Calcium 8.9 Total Bilirubin 1.7 H AST 24 Alkaline Phosphatase 150 H Total Protein 5.6 L Albumin 2.9 L Lipase 37.1 Urine Color YELLOW Urine Appearance CLEAR Urine pH 6.0 Ur Specific [place] 1.057 Urine Protein NEGATIVE Urine Glucose (UA) NEGATIVE Urine Ketones NEGATIVE Urine Blood NEGATIVE Urine Nitrite NEGATIVE Ur Leukocyte Esterase NEGATIVE Urine WBC (Auto) 0 Urine RBC (Auto) 1 Impressions: Abdomen/Pelvis CT 03/04/20 10:10 IMPRESSION: 1. Markedly distended gallbladder with mild pericholecystic fluid. No calcified gallstones or gallbladder wall thickening. Findings are equivocal for acute cholecystitis. Further evaluation with gallbladder ultrasound is recommended. 2. Small right pleural effusion and trace left effusion. 3. Moderate cardiomegaly. Reflux of contrast into the hepatic veins, which can be seen with right heart failure/elevated right heart pressure. Assessment & Plan - Diagnosis (1) Acute cholecystitis Is this a current diagnosis for this admission?: Yes - Time Anticipated Discharge Disposition: Home, Self Care Anticipated Discharge Timeframe: unknown - Plan Summary Plan Summary: 4-year-old male with a distended gallbladder, palpable through the abdominal wall. He has an elevated bilirubin at 1.5. He has sludge within the gallbladder. I believe he has an acutely obstructed gallbladder, consistent with acute cholecystitis. His common bile duct is normal in diameter. I will admit the patient the hospital, start him on intravenous antibiotics, and plan for cholecystectomy in the near future. The patient takes Eliquis for atrial fibrillation. He took his last dose of Eliquis this morning. The patient should wait 48 hours prior to any surgical intervention. Continue antibiotics. Repeat labs tomorrow. Provide supportive care. Cholecystectomy will be performed as soon as it is safe.
[2020-03-05 06:48] LABS: ABSOLUTE LYMPHOCYTES# (MANUAL) 0.9 10^3/uL (0.5-4.7); ABSOLUTE MONOCYTES # (MANUAL) 1.3 10^3/uL (0.1-1.4); BASOPHILS % (MANUAL) 0 % (0-2); EOSINOPHILS % (MANUAL) 0 % (0-6); LYMPHOCYTES % (MANUAL) 4 % (13-45); MONOCYTES % (MANUAL) 6 % (3-13); SEGMENTED NEUTROPHILS % (MAN) 90 % (42-78); TOTAL CELLS COUNTED 100
[2020-03-05 06:49] LABS: ANISOCYTOSIS 1+; OVALOCYTES SLIGHT; PLATELET COMMENT ADEQUATE; POIKILOCYTOSIS SLIGHT; TOXIC GRANULATION SLIGHT
[2020-03-05] MEDS ORDERED: METOPROLOL TARTRATE 50 MG TABLET PO SCH (10:00)
[2020-03-05] MEDS: PANTOPRAZOLE SODIUM 40 MG TABLET.DR PO SCH (12:25)
[2020-03-05] MEDS: METOPROLOL TARTRATE 50 MG TABLET PO SCH ×2 (12:25→22:46)
--- NOTE | 2020-03-05 14:41 | PDOC PROGRESS REPORT ---
Subjective Progress Note for:: 03/05/20 Reason For Visit: ACUTE CHOLECYSTITIS Patient has no complaints, tolerating clear liquids. No fever today Physical Exam Vital Signs: Temp Pulse Resp BP Pulse Ox 98.3 F 91 19 96/64 L 95 03/05/20 12:00 03/05/20 12:00 03/05/20 12:00 03/05/20 12:00 03/05/20 12:00 Intake & Output 03/04/20 03/05/20 03/06/20 06:59 06:59 06:59 Intake Total 120 Balance 120 Weight 88.6 kg General appearance: PRESENT: no acute distress GI/Abdominal exam: PRESENT: other - Tender right upper quadrant but no rigidity. Results Laboratory Results: 03/05/20 04:42 03/05/20 04:42 03/05/20 03/05/20 04:42 04:42 WBC 22.3 H RBC 4.16 L Hgb 12.6 L Hct 36.9 L MCV 89 MCH 30.2 MCHC 34.0 RDW 16.9 H Plt Count 197 Seg Neutrophils % Not Reportable Sodium 134.9 L Potassium 4.1 Chloride 100 Carbon Dioxide 25 Anion Gap 10 BUN 21 H Creatinine 0.84 Est GFR ( Amer) > 60 Glucose 102 Calcium 8.8 Total Bilirubin 2.0 H AST 29 Alkaline Phosphatase 168 H Total Protein 5.7 L Albumin 2.8 L Impressions: Abdomen/Pelvis CT 03/04/20 10:10 IMPRESSION: 1. Markedly distended gallbladder with mild pericholecystic fluid. No calcified gallstones or gallbladder wall thickening. Findings are equivocal for acute cholecystitis. Further evaluation with gallbladder ultrasound is recommended. 2. Small right pleural effusion and trace left effusion. 3. Moderate cardiomegaly. Reflux of contrast into the hepatic veins, which can be seen with right heart failure/elevated right heart pressure. Abdomen Ultrasound 03/04/20 12:18 IMPRESSION: Hydropic gallbladder with sludge and trace pericholecystic fluid. Negative sonographic Calzada's sign and no gallbladder wall thickening. These findings remain equivocal for acute cholecystitis. Small right pleural effusion. Assessment & Plan - Diagnosis (1) Acute cholecystitis Is this a current diagnosis for this admission?: Yes Plan: Assessment: Acute cholecystitis, cholelithiasis and 74-year-old gentleman with A. fib on 10 a inhibitor, now held, no evidence of sepsis Plan: 1. We will keep n.p.o., check EKG, post for laparoscopic, possible open cholecystectomy tomorrow, March 06, Dr. Buck 2. I spoke with the anesthesiologist today who will evaluate patient, and make any additional recommendations (2) Chronic pain Is this a current diagnosis for this admission?: Yes (3) Essential hypertension Is this a current diagnosis for this admission?: Yes (4) GERD (gastroesophageal reflux disease) Qualifiers: Is this a current diagnosis for this admission?: Yes (5) Hyperlipidemia Qualifiers: Hyperlipidemia type: unspecified Qualified Code(s): E78.5 - Hyperlipidemia, unspecified - Time Time Spent: 30 to 50 Minutes Critical Time spent with patient: 15-24 minutes Smoking Cessation Education: 3 to 10 minutes Medications reviewed and adjusted accordingly: Yes Anticipated Discharge Disposition: Home, Self Care Anticipated Discharge Timeframe: within 72 hours
[2020-03-06] MEDS: PIPERACILLIN SODIUM/TAZOBACTAM 3.375 GM in NORMAL SALINE 100 ML IV SCH ×5 (01:00→23:34)
[2020-03-06] MEDS: NORMAL SALINE 1000 ML 1,000 ML IV PRN (01:16)
[2020-03-06 05:21] LABS: ABSOLUTE LYMPHOCYTES (AUTO) 0.9 10^3/uL (0.5-4.7); ABSOLUTE MONOCYTES (AUTO) 1.3 10^3/uL (0.1-1.4); BASOPHILS % (AUTO) 0.1 % (0-2); HEMATOCRIT 33.3 % (37.9-51.0); HEMOGLOBIN 11.5 g/dL (13.5-17.0); LYMPHOCYTES % (AUTO) 5.4 % (13-45); MEAN CORPUSCULAR HEMOGLOBIN 30.4 pg (27.0-33.4); MEAN CORPUSCULAR HGB CONC 34.6 g/dL (32.0-36.0); MEAN CORPUSCULAR VOLUME 88 fl (80-97); MONOCYTES % (AUTO) 7.8 % (3-13); PLATELET COUNT 196 10^3/uL (150-450); RED BLOOD COUNT 3.78 10^6/uL (4.35-5.55); SEGMENTED NEUTROPHILS % (AUTO) 86.7 % (42-78); TOTAL CELLS COUNTED % (AUTO) 100 %; WHITE BLOOD COUNT 17.3 10^3/uL (4.0-10.5)
[2020-03-06 05:40] LABS: ALBUMIN 2.4 g/dL (3.5-5.0); ALKALINE PHOSPHATASE 158 U/L (38-126); ANION GAP 9 (5-19); ASPARTATE AMINO TRANSFERASE 43 U/L (17-59); BILIRUBIN,DIRECT 0.9 mg/dL (0.0-0.4); BILIRUBIN,TOTAL 1.6 mg/dL (0.2-1.3); BLOOD UREA NITROGEN 29 mg/dL (7-20); CALCIUM 8.2 mg/dL (8.4-10.2); CARBON DIOXIDE 23 mmol/L (22-30); CHLORIDE 102 mmol/L (98-107); GLUCOSE 107 mg/dL (75-110); NEONATAL BILIRUBIN RESULT 0.7 mg/dL (0.1-1.1); POTASSIUM 3.3 mmol/L (3.6-5.0); TOTAL PROTEIN 5.1 g/dL (6.3-8.2)
--- NOTE | 2020-03-06 08:18 | XCELERA REPORT ---
[address] [address] Transthoracic Echocardiogram Report Name: PAULETTE SCALES Age: 74 yrs Gender: Male : 1945 Patient Status: Inpatient Patient Location: [facility]^A Study Date: 03/05/2020 06:15 PM History: CHF Edema Pre-op Height: 69 in Weight: 195 lb BSA: 2.0 m2 Procedure: A complete two-dimensional transthoracic echocardiogram was performed (2D, M-mode, spectral and color flow Doppler). The study was technically difficult with many images being suboptimal in quality. Reason For Study: Pre-op clearance, Dr Henriquez Previous Evaluation: A previous study was performed on 01/20/2017 LVEF was normal. History: CHF. CHF Edema Pre-op. Ordering Physician: KARINE HENRIQUEZ Performed By: Debbie Mack Interpretation Summary The study was technically difficult with many images being suboptimal in quality. Left ventricular systolic function is normal. The Ejection Fraction estimate is 55-60% The right ventricular systolic function is moderately reduced. There is a mild amount of mitral regurgitation There is no aortic valve stenosis There is a trace amount of aortic regurgitation There is a mild amount of tricuspid regurgitation There is moderate pulmonary hypertension by echo There is no pericardial effusion. MMode/2D Measurements & Calculations RVDd: 3.2 cm LVIDd: 4.8 cm FS: 28.8 % Ao root diam: 3.5 cm IVSd: 1.3 cm LVIDs: 3.4 cm EDV(Teich): 107.5 ml Ao root area: 9.8 cm2 LVPWd: 1.0 cm ESV(Teich): 48.0 ml LA dimension: 4.9 cm EF(Teich): 55.4 % Doppler Measurements & Calculations MV E max rashaun: MV P1/2t max rashaun: Ao V2 max: AI max rashaun: 118.0 cm/sec 120.8 cm/sec 109.2 cm/sec 299.7 cm/sec MV A max rashaun: MV P1/2t: 53.2 msec Ao max PG: AI max P.2 cm/sec MVA(P1/2t): 4.1 cm2 4.8 mmHg 35.9 mmHg MV E/A: 2.0 MV dec slope: AI dec slope: 151.3 cm/sec2 665.2 cm/sec2 AI P1/2t: MV dec time: 580.1 msec 0.17 sec LV V1 max PG: PA V2 max: PI end-d rashaun: TR max rashaun: 2.7 mmHg 59.0 cm/sec 179.2 cm/sec 289.3 cm/sec LV V1 max: PA max P.4 mmHg TR max P.1 cm/sec 33.5 mmHg AV P1/2t-pr_phl: MV P1/2t-pr_phl: 580.1 msec 53.2 msec Left Ventricle The left ventricle is normal in size. There is mild concentric left ventricular hypertrophy. Left ventricular systolic function is normal. The Ejection Fraction estimate is 55-60%. LV diastolic function not assessed. Regional wall motion abnormalities cannot be excluded due to limited visualization. Right Ventricle The right ventricle is not well visualized secondary to technical limitations. The right ventricular systolic function is moderately reduced. Atria The right atrium is mildly dilated. The left atrium is moderately dilated. The interatrial septum is intact with no evidence for an atrial septal defect. There is no Doppler evidence for an interatrial shunt. Mitral Valve The mitral valve is grossly normal. There is a mild amount of mitral regurgitation. Aortic Valve The aortic valve opens well. The aortic valve is sclerotic and shows some degree of functional abnormality. The aortic valve is mildly calcified. The aortic valve is not well visualized secondary to technical limitations. There is no aortic valve stenosis. There is a trace amount of aortic regurgitation. Tricuspid Valve The tricuspid valve is not well visualized, but is grossly normal. There is a mild amount of tricuspid regurgitation. Right ventricular systolic pressure is estimated to be elevated at 40-50mmHg. There is moderate pulmonary hypertension by echo. Pulmonic Valve The pulmonic valve is not well visualized. There is a trace amount of pulmonic regurgitation. Great Vessels The aortic root is normal size. The IVC is dilated and has no respiratory collapse suggesting significantly high central venous pressures. Effusions There is no pericardial effusion. : KARINE HENRIQUEZ Anil
--- NOTE | 2020-03-06 08:31 | EKG REPORT ---
SEVERITY:- ABNORMAL ECG - ATRIAL FLUTTER, A-RATE 245 INCOMPLETE RIGHT BUNDLE BRANCH BLOCK PROBABLE INFERIOR INFARCT, OLD : Confirmed by: Azucena Lehman MD 06-Mar-2020 08:30:52
[2020-03-06 08:39] LABS: INTERNATIONAL RATION (INR) 2.12; PROTHROMBIN TIME 23.8 SEC (11.4-15.4)
[2020-03-06 08:40] LABS: PARTIAL THROMBOPLASTIN TIME 60.5 SEC (23.5-35.8)
--- NOTE | 2020-03-06 09:13 | PDOC PROGRESS REPORT ---
Subjective Progress Note for:: 03/06/20 Subjective:: Feels okay some right upper quadrant abdominal discomfort. Patient does note a 30 pound weight loss over the past several weeks with some generalized malaise that he attributes to bilateral leg swelling with associated cellulitis which has been improving. There is no family history of malignancies. Remote history of alcohol abuse but he has quit for about 20 years. No history of hepatitis nor known liver disease. No history of jaundice. Reason For Visit: ACUTE CHOLECYSTITIS Physical Exam Vital Signs: Temp Pulse Resp BP Pulse Ox 97.8 F 91 20 109/45 L 96 03/06/20 07:47 03/06/20 07:47 03/06/20 07:47 03/06/20 07:47 03/06/20 07:47 Intake & Output 03/05/20 03/06/20 03/07/20 06:59 06:59 06:59 Intake Total 1120 Output Total 250 Balance 870 Weight 88.6 kg 90.8 kg General appearance: PRESENT: no acute distress, cooperative Respiratory exam: PRESENT: clear to auscultation char Cardiovascular exam: PRESENT: RRR GI/Abdominal exam: PRESENT: other - Soft, nondistended, mild right upper quadrant abdominal tenderness without peritoneal signs. Extremities exam: PRESENT: +2 edema Results Laboratory Results: 03/06/20 05:10 03/06/20 05:10 03/06/20 03/06/20 05:10 05:10 WBC 17.3 H RBC 3.78 L Hgb 11.5 L Hct 33.3 L MCV 88 MCH 30.4 MCHC 34.6 RDW 17.0 H Plt Count 196 Seg Neutrophils % 86.7 H Sodium 134.3 L Potassium 3.3 L Chloride 102 Carbon Dioxide 23 Anion Gap 9 BUN 29 H Creatinine 0.89 Est GFR ( Amer) > 60 Glucose 107 Calcium 8.2 L Total Bilirubin 1.6 H AST 43 Alkaline Phosphatase 158 H Total Protein 5.1 L Albumin 2.4 L Impressions: Abdomen/Pelvis CT 03/04/20 10:10 IMPRESSION: 1. Markedly distended gallbladder with mild pericholecystic fluid. No calcified gallstones or gallbladder wall thickening. Findings are equivocal for acute cholecystitis. Further evaluation with gallbladder ultrasound is recommended. 2. Small right pleural effusion and trace left effusion. 3. Moderate cardiomegaly. Reflux of contrast into the hepatic veins, which can be seen with right heart failure/elevated right heart pressure. Abdomen Ultrasound 03/04/20 12:18 IMPRESSION: Hydropic gallbladder with sludge and trace pericholecystic fluid. Negative sonographic Calzada's sign and no gallbladder wall thickening. These findings remain equivocal for acute cholecystitis. Small right pleural effusion. Assessment & Plan - Diagnosis (1) Acute cholecystitis Is this a current diagnosis for this admission?: Yes Plan: I have reviewed the CT scan with radiology this morning and see no evidence of bile duct dilatation nor pancreatic mass. I believe he has acute cholecystitis. With his elevations in his liver function studies, I will plan laparoscopic cholecystectomy with intraoperative cholangiogram if it is feasible. I have discussed with the patient the risk and benefits of surgery including risk of bile duct injury, intestinal injury, bleeding, infection, cardiopulmonary complications, conversion to an open procedure, pancreatitis with the intraop erative cholangiogram, mistaken diagnosis. Patient understands and agrees to proceed. Once he has recovered from his cholecystitis, I think it would be prudent for him to undergo upper and lower endoscopy to complete his work-up in light of his weight loss. Cardiology has performed an echocardiogram and discussed their findings with Dr. Andrade this morning and noted pulmonary hypertension but felt that he was fit from a cardiac standpoint for surgery. - Time Time Spent: 30 to 50 Minutes Critical Time spent with patient: Less than 15 minutes Anticipated Discharge Disposition: Home, Self Care Anticipated Discharge Timeframe: within 24 hours
[2020-03-06] MEDS ORDERED: PHYTONADIONE 5 MG TABLET PO ONE (09:31)
[2020-03-06] MEDS ORDERED: NORMAL SALINE 1000 ML 1,000 ML IV PRN ×2 (09:32→09:35)
[2020-03-06] MEDS: POTASSI CL 20 MEQ/50 ML RIDER 20 MEQ/50 ML RTUPB IV SCH ×2 (09:47→11:15)
[2020-03-06] MEDS: PANTOPRAZOLE SODIUM 40 MG TABLET.DR PO SCH (09:49)
[2020-03-06] MEDS: METOPROLOL TARTRATE 50 MG TABLET PO SCH ×2 (11:11→21:33)
[2020-03-06 14:58] LABS: ANION GAP 6 (5-19); BLOOD UREA NITROGEN 26 mg/dL (7-20); CALCIUM 8.3 mg/dL (8.4-10.2); CARBON DIOXIDE 25 mmol/L (22-30); CHLORIDE 104 mmol/L (98-107); GLUCOSE 86 mg/dL (75-110); POTASSIUM 3.8 mmol/L (3.6-5.0)
[2020-03-07 01:05] LABS: INTERNATIONAL RATION (INR) 1.61; PROTHROMBIN TIME 19.3 SEC (11.4-15.4)
[2020-03-07 01:07] LABS: PARTIAL THROMBOPLASTIN TIME 56.8 SEC (23.5-35.8)
--- NOTE | 2020-03-07 03:31 | PDOC PROGRESS REPORT ---
Subjective Reason For Visit: ACUTE CHOLECYSTITIS Physical Exam Vital Signs: Temp Pulse Resp BP Pulse Ox 97.8 F 91 20 109/45 L 96 03/06/20 07:47 03/06/20 07:47 03/06/20 07:47 03/06/20 07:47 03/06/20 07:47 Intake & Output 03/05/20 03/06/20 03/07/20 06:59 06:59 06:59 Intake Total 1120 Output Total 250 Balance 870 Weight 88.6 kg 90.8 kg Results Laboratory Results: 03/06/20 05:10 03/06/20 05:10 03/06/20 03/06/20 05:10 05:10 WBC 17.3 H RBC 3.78 L Hgb 11.5 L Hct 33.3 L MCV 88 MCH 30.4 MCHC 34.6 RDW 17.0 H Plt Count 196 Seg Neutrophils % 86.7 H Sodium 134.3 L Potassium 3.3 L Chloride 102 Carbon Dioxide 23 Anion Gap 9 BUN 29 H Creatinine 0.89 Est GFR ( Amer) > 60 Glucose 107 Calcium 8.2 L Total Bilirubin 1.6 H AST 43 Alkaline Phosphatase 158 H Total Protein 5.1 L Albumin 2.4 L Impressions: Abdomen/Pelvis CT 03/04/20 10:10 IMPRESSION: 1. Markedly distended gallbladder with mild pericholecystic fluid. No calcified gallstones or gallbladder wall thickening. Findings are equivocal for acute cholecystitis. Further evaluation with gallbladder ultrasound is recommended. 2. Small right pleural effusion and trace left effusion. 3. Moderate cardiomegaly. Reflux of contrast into the hepatic veins, which can be seen with right heart failure/elevated right heart pressure. Abdomen Ultrasound 03/04/20 12:18 IMPRESSION: Hydropic gallbladder with sludge and trace pericholecystic fluid. Negative sonographic Calzada's sign and no gallbladder wall thickening. These findings remain equivocal for acute cholecystitis. Small right pleural effusion. Assessment & Plan - Diagnosis (1) Acute cholecystitis Is this a current diagnosis for this admission?: Yes (2) Coagulopathy Is this a current diagnosis for this admission?: Yes Plan: Patient noted with persistent elevation of PT/INR and PTT. I have discussed the this abnormality with Dr. Ramsey (hematology oncology) who does not think these elevations are related with his Eliquis which has been held for 2 days. With the patient's weight loss it may be nutrition related. She recommended vitamin K and FFP to correct his coagulation profile prior to surgery. Will do so. We will hold off surgery till his coagulation has been at least partially corrected. - Time Anticipated Discharge Disposition: Home, Self Care Anticipated Discharge Timeframe: within 72 hours
[2020-03-07] MEDS ORDERED: FUROSEMIDE INJ/PF 20 MG/2 ML SDV IV ONE (03:49)
--- NOTE | 2020-03-07 03:49 | PDOC PROGRESS REPORT ---
Subjective Progress Note for:: 03/07/20 Subjective:: Patient is comfortable. No shortness of breath. Currently receiving additional FFP transfusions. Reason For Visit: ACUTE CHOLECYSTITIS Physical Exam Vital Signs: Temp Pulse Resp BP Pulse Ox 97.9 F 93 18 99/56 L 100 03/06/20 17:45 03/06/20 17:45 03/06/20 17:45 03/06/20 17:45 03/06/20 17:45 Intake & Output 03/05/20 03/06/20 03/07/20 06:59 06:59 06:59 Intake Total 1120 1741 Output Total 250 200 Balance 870 1541 Weight 88.6 kg 90.8 kg General appearance: PRESENT: no acute distress, cooperative Respiratory exam: PRESENT: clear to auscultation char Cardiovascular exam: PRESENT: RRR, other - Jugular venous distention noted. GI/Abdominal exam: PRESENT: other - Soft, nondistended, mild right upper quadrant abdominal tenderness without peritoneal signs. Results Laboratory Results: 03/06/20 05:10 03/06/20 14:18 03/06/20 03/06/20 03/06/20 05:10 05:10 12:04 WBC 17.3 H RBC 3.78 L Hgb 11.5 L Hct 33.3 L MCV 88 MCH 30.4 MCHC 34.6 RDW 17.0 H Plt Count 196 Seg Neutrophils % 86.7 H Sodium 134.3 L Potassium 3.3 L Chloride 102 Carbon Dioxide 23 Anion Gap 9 BUN 29 H Creatinine 0.89 Est GFR ( Amer) > 60 Glucose 107 Calcium 8.2 L Magnesium Total Bilirubin 1.6 H AST 43 Alkaline Phosphatase 158 H Total Protein 5.1 L Albumin 2.4 L Blood Type O POSITIVE 03/06/20 14:18 WBC RBC Hgb Hct MCV MCH MCHC RDW Plt Count Seg Neutrophils % Sodium 135.4 L Potassium 3.8 Chloride 104 Carbon Dioxide 25 Anion Gap 6 BUN 26 H Creatinine 0.89 Est GFR ( Amer) > 60 Glucose 86 Calcium 8.3 L Magnesium 2.4 H Total Bilirubin AST Alkaline Phosphatase Total Protein Albumin Blood Type Impressions: Abdomen/Pelvis CT 03/04/20 10:10 IMPRESSION: 1. Markedly distended gallbladder with mild pericholecystic fluid. No calcified gallstones or gallbladder wall thickening. Findings are equivocal for acute cholecystitis. Further evaluation with gallbladder ultrasound is recommended. 2. Small right pleural effusion and trace left effusion. 3. Moderate cardiomegaly. Reflux of contrast into the hepatic veins, which can be seen with right heart failure/elevated right heart pressure. Abdomen Ultrasound 03/04/20 12:18 IMPRESSION: Hydropic gallbladder with sludge and trace pericholecystic fluid. Negative sonographic Calzada's sign and no gallbladder wall thickening. These findings remain equivocal for acute cholecystitis. Small right pleural effusion. Assessment & Plan - Diagnosis (1) Acute cholecystitis Is this a current diagnosis for this admission?: Yes Plan: Pending laparoscopic cholecystectomy and intraoperative cholangiogram after his coagulation abnormality corrected. (2) Coagulopathy Is this a current diagnosis for this admission?: Yes Plan: Status post 2 units of FFP PT and PTT still significantly elevated, therefore 2 more units FFP being transfused tonight. With the volume he does have jugular venous distention and will give him a dose of Lasix tonight. Will decrease his maintenance IV fluids. I will ask Dr. Roberts to evaluate the patient in the morning prior to his surgery to guide us with his volume management to optimize his perioperative care. - Time Anticipated Discharge Disposition: Home, Self Care Anticipated Discharge Timeframe: within 72 hours
[2020-03-07] MEDS ORDERED: NORMAL SALINE 1000 ML 1,000 ML IV PRN (03:50)
--- NOTE | 2020-03-07 08:24 | PDOC CONSULTATION ---
Consultation Consult Date: 03/07/20 Provider Consulted: JC OLSEN Consult reason:: Hematology/Oncology consultation was requested for patient with cholecyctitis and coagulopathy. History of Present Illness Admission Date/PCP: 03/04/20 14:40 VALERIE BLANCO NP History of Present Illness: PAULETTE SCALES is a 74 year old male who states that he developed a leg infection about 2 months ago. He has a history of DM and was being treated at the [facility]. 4 days ago, he noticed a swelling below his right ribcage. No pain, but was concerned and presented to the ED where he was found to have acute cholecystitis. Gall bladder surgery is planned, but PT/INR/PTT were all significantly elevated. He has been on Eliquis for A-fib, but this was stopped over 24 hours prior to labs. His kidney function was normal. Last He states that over the past few months, he has lost about 40 LBS for unknown reason. He denies abdominal pain, nausea or diarrhea, but has no appetite. Today, he states that his wound is improving and he has been getting Glucerna shakes for protein supplements. Past Medical History Cardiac Medical History: Reports: Atrial Fibrillation, Congestive Heart Failure, Hyperlipidema, Hypertension Denies: Coronary Artery Disease, Myocardial Infarction, Peripheral Vascular Disease, Heart Murmur Endocrine Medical History: Denies: Hyperthyroidism, Hypothyroidism Malignancy Medical History: Denies: Leukemia GI Medical History: Reports: Gastroesophageal Reflux Disease Denies: Crohn's Disease, Hiatal Hernia Musculoskeltal Medical History: Reports: Arthritis Denies: Fibromyalgia Psychiatric Medical History: Reports: Post Traumatic Stress Disorder Denies: Bipolar Disorder, Depression Hematology: Reports: Anemia Denies: Hemophilia, Sickle Cell Disease Infectious Medical History: Denies: HIV Past Surgical History Past Surgical History: Reports: Orthopedic Surgery - L hip replacement Denies: Appendectomy, Cholecystectomy, Colostomy, Coronary Artery Bypass Graft, Gastric Bypass Surgery, Herniorrhaphy, Pacemaker, Tonsillectomy Social History Smoking Status: Never Smoker Frequency of Alcohol Use: None Hx Recreational Drug Use: No Hx Prescription Drug Abuse: No Past Social History Note: He is single with no children. Family History Family History: Other - Unobtainable Parental Family History Reviewed: Yes Children Family History Reviewed: NA Sibling(s) Family History Reviewed.: Yes Medication/Allergy Home Medications: Ferrous Sulfate 324 mg PO QAM 09/08/16 Furosemide [Lasix 40 mg Tablet] 40 mg PO BID #8 tablet 02/13/17 Acetaminophen [Acetaminophen Extra Strength] 500 mg PO DAILYP PRN 03/04/20 Amiodarone HCl [Cordarone 200 mg Tablet] 200 mg PO DAILY 03/04/20 Atorvastatin Calcium [Lipitor 40 mg Tablet] 40 mg PO QHS 03/04/20 Carvedilol [Coreg 3.125 mg Tablet] 3.125 mg PO Q12 03/04/20 Cetirizine HCl [Zyrtec 10 mg Tablet] 10 mg PO DAILY 03/04/20 Cholecalciferol (Vitamin D3) [Vitamin D3 1000 Unit Tablet] 1,000 unit PO DAILY 03/04/20 Docusate Calcium 240 mg PO DAILY 03/04/20 Allergies/Adverse Reactions: No Known Allergies Allergy (Verified 02/24/17 23:15) Review of Systems Constitutional: ABSENT: fever(s), headache(s) Eyes: ABSENT: visual disturbances Ears: ABSENT: hearing changes Nose, Mouth, and Throat: ABSENT: sore throat Cardiovascular: ABSENT: chest pain Respiratory: ABSENT: dyspnea Gastrointestinal: PRESENT: bloating. ABSENT: abdominal pain Genitourinary: ABSENT: dysuria Integumentary: PRESENT: wounds. ABSENT: rash Neurological: PRESENT: weakness Hematologic/Lymphatic: ABSENT: easy bleeding Physical Exam Vital Signs: Temp Pulse Resp BP Pulse Ox 97.5 F 84 18 107/57 L 95 03/07/20 02:47 03/07/20 02:47 03/07/20 02:47 03/07/20 02:47 03/07/20 02:47 Intake & Output 03/06/20 03/07/20 03/08/20 06:59 06:59 06:59 Intake Total 1120 2063 Output Total 250 300 Balance 870 1763 Weight 90.8 kg 90.5 kg General appearance: PRESENT: no acute distress, well-developed Exam: 74 year old Overweight, male. Head exam: PRESENT: atraumatic, normocephalic Eye exam: PRESENT: EOMI Neck exam: ABSENT: lymphadenopathy, tenderness Respiratory exam: PRESENT: clear to auscultation char Cardiovascular exam: PRESENT: RRR GI/Abdominal exam: PRESENT: organolmegaly - Liver 4 cm below costal margin.. ABSENT: tenderness Extremities exam: PRESENT: other - ankles wrapped in Kerlex. Neurological exam: PRESENT: alert, awake Psychiatric exam: PRESENT: appropriate affect Skin exam: PRESENT: normal color Results Laboratory Results: 03/06/20 05:10 03/06/20 14:18 03/06/20 03/06/20 12:04 14:18 Sodium 135.4 L Potassium 3.8 Chloride 104 Carbon Dioxide 25 Anion Gap 6 BUN 26 H Creatinine 0.89 Est GFR ( Amer) > 60 Glucose 86 Calcium 8.3 L Magnesium 2.4 H Blood Type O POSITIVE Impressions: Abdomen/Pelvis CT 03/04/20 10:10 IMPRESSION: 1. Markedly distended gallbladder with mild pericholecystic fluid. No calcified gallstones or gallbladder wall thickening. Findings are equivocal for acute cholecystitis. Further evaluation with gallbladder ultrasound is recommended. 2. Small right pleural effusion and trace left effusion. 3. Moderate cardiomegaly. Reflux of contrast into the hepatic veins, which can be seen with right heart failure/elevated right heart pressure. Abdomen Ultrasound 03/04/20 12:18 IMPRESSION: Hydropic gallbladder with sludge and trace pericholecystic fluid. Negative sonographic Calzada's sign and no gallbladder wall thickening. These findings remain equivocal for acute cholecystitis. Small right pleural effusion. Assessment & Plan - Diagnosis (1) Coagulopathy Is this a current diagnosis for this admission?: Yes Plan: Patient received Vit K and 4 units FFP overnight. Await repeat coag levels this morning, but INR was much improved last night. This may be due to poor nutrition and liver dysfunction. These should improve after surgery. However, I will continue to work toward normalization prior to surgery. I doubt that the Eliquis is causing the abnormal levels. This is currently on hold prior to surgery. (2) Anemia, chronic disease Is this a current diagnosis for this admission?: Yes Plan: Very stable. No indication for transfusion. (3) Leukocytosis Qualifiers: Leukocytosis type: unspecified Qualified Code(s): D72.829 - Elevated white blood cell count, unspecified Is this a current diagnosis for this admission?: Yes Plan: Most likely due to chronic infection/inflammation. Will watch closely. - Plan Summary Plan Summary: Thank you for this consultation. Please call with any questions or concerns. Patient was discussed with Dr. Simental.
--- NOTE | 2020-03-07 09:09 | PDOC CONSULTATION ---
Consultation Consult Date: 03/05/20 Attending physician:: INGRID YORK Provider Consulted: KARINE HENRIQUEZ Consult reason:: Preoperative cardiovascular assessment History of Present Illness Admission Date/PCP: 03/04/20 14:40 VALERIE BLANCO NP Patient complains of: Abdominal pain History of Present Illness: 74-year-old male with the following problems 1. Atrial flutter-paroxysmal 2. Systemic hypertension 3. Dyslipidemia Patient was admitted secondary to complaints of abdominal pain swelling and indigestion. He was found to have surgical gallbladder. There are plans for cholecystectomy. Preoperative cardiovascular assessment is requested. Patient appears to have been on systemic anticoagulation which is been interrupted. Past Medical History Cardiac Medical History: Reports: Atrial Fibrillation, Congestive Heart Failure, Hyperlipidema, Hypertension Denies: Coronary Artery Disease, Myocardial Infarction, Peripheral Vascular Disease, Heart Murmur Endocrine Medical History: Denies: Hyperthyroidism, Hypothyroidism Malignancy Medical History: Denies: Leukemia GI Medical History: Reports: Gastroesophageal Reflux Disease Denies: Crohn's Disease, Hiatal Hernia Musculoskeltal Medical History: Reports: Arthritis Denies: Fibromyalgia Psychiatric Medical History: Reports: Post Traumatic Stress Disorder Denies: Bipolar Disorder, Depression Hematology: Reports: Anemia Denies: Hemophilia, Sickle Cell Disease Infectious Medical History: Denies: HIV Past Surgical History Past Surgical History: Reports: Orthopedic Surgery - L hip replacement Denies: Appendectomy, Cholecystectomy, Colostomy, Coronary Artery Bypass Graft, Gastric Bypass Surgery, Herniorrhaphy, Pacemaker, Tonsillectomy Social History Smoking Status: Never Smoker Frequency of Alcohol Use: None Hx Recreational Drug Use: No Hx Prescription Drug Abuse: No Family History Family History: Reviewed & Not Pertinent, Other - Unobtainable Parental Family History Reviewed: Yes - No familial illnesses Children Family History Reviewed: NA Sibling(s) Family History Reviewed.: NA Medication/Allergy Home Medications: Ferrous Sulfate 324 mg PO QAM 09/08/16 Furosemide [Lasix 40 mg Tablet] 40 mg PO BID #8 tablet 02/13/17 Acetaminophen [Acetaminophen Extra Strength] 500 mg PO DAILYP PRN 03/04/20 Amiodarone HCl [Cordarone 200 mg Tablet] 200 mg PO DAILY 03/04/20 Atorvastatin Calcium [Lipitor 40 mg Tablet] 40 mg PO QHS 03/04/20 Carvedilol [Coreg 3.125 mg Tablet] 3.125 mg PO Q12 03/04/20 Cetirizine HCl [Zyrtec 10 mg Tablet] 10 mg PO DAILY 03/04/20 Cholecalciferol (Vitamin D3) [Vitamin D3 1000 Unit Tablet] 1,000 unit PO DAILY 03/04/20 Docusate Calcium 240 mg PO DAILY 03/04/20 Allergies/Adverse Reactions: No Known Allergies Allergy (Verified 02/24/17 23:15) Review of Systems Constitutional: PRESENT: as per HPI Eyes: PRESENT: as per HPI Ears: PRESENT: as per HPI Nose, Mouth, and Throat: PRESENT: as per HPI Cardiovascular: ABSENT: as per HPI, chest pain, dyspnea on exertion, edema, orthropnea, palpitations, other Respiratory: ABSENT: as per HPI, cough, dyspnea, hemoptysis, sputum, other Gastrointestinal: PRESENT: abdominal pain, bloating, nausea Neurological: ABSENT: as per HPI, abnormal gait, abnormal movements, abnormal speech, confusion, convulsions, dizziness, focal weakness, frequent falls, lack of coordination, memory loss, numbness, paresthesias, restless legs, syncope, tingling, tremor(s), vertigo, weakness, other Physical Exam Vital Signs: Temp Pulse Resp BP Pulse Ox 98.3 F 91 19 96/64 L 95 03/05/20 12:00 03/05/20 12:00 03/05/20 12:00 03/05/20 12:00 03/05/20 12:00 Intake & Output 03/04/20 03/05/20 03/06/20 06:59 06:59 06:59 Intake Total 120 Balance 120 Weight 88.6 kg General appearance: PRESENT: no acute distress, cooperative, well-developed, well-nourished Head exam: PRESENT: atraumatic, normocephalic Eye exam: PRESENT: conjunctiva pink, EOMI Mouth exam: PRESENT: moist Respiratory exam: PRESENT: clear to auscultation char, symmetrical, unlabored Cardiovascular exam: PRESENT: irregular rhythm, +S1, +S2 Pulses: PRESENT: normal radial pulses GI/Abdominal exam: PRESENT: distended, tenderness Rectal exam: PRESENT: deferred Neurological exam: PRESENT: alert, awake, oriented to person, oriented to place, oriented to time, oriented to situation Psychiatric exam: PRESENT: appropriate affect Skin exam: PRESENT: dry, intact, normal color Results Laboratory Results: 03/05/20 04:42 03/05/20 04:42 03/05/20 03/05/20 04:42 04:42 WBC 22.3 H RBC 4.16 L Hgb 12.6 L Hct 36.9 L MCV 89 MCH 30.2 MCHC 34.0 RDW 16.9 H Plt Count 197 Seg Neutrophils % Not Reportable Sodium 134.9 L Potassium 4.1 Chloride 100 Carbon Dioxide 25 Anion Gap 10 BUN 21 H Creatinine 0.84 Est GFR ( Amer) > 60 Glucose 102 Calcium 8.8 Total Bilirubin 2.0 H AST 29 Alkaline Phosphatase 168 H Total Protein 5.7 L Albumin 2.8 L EKG Comments: Transthoracic echocardiogram 01/20/2017 Left ventricular ejection fraction is greater than 60% Left atrium is mildly dilated Trace mitral regurgitation There is no aortic valve stenosis There is mild tricuspid regurgitation No pericardial effusion Twelve-lead EKG 03/05/2020. Independently viewed by me. Probable atrial flutter. Ventricular rate is 91 bpm, incomplete right bundle branch block, inferior infarct Twelve-lead EKG 02/25/2020. Independently viewed by me. Sinus rhythm, 80 bpm, left atrial abnormality, QTC 485 ms Twelve-lead EKG 01/20/2017 Atrial flutter with variable AV conduction, ventricular rate is 88 bpm Impressions: Abdomen/Pelvis CT 03/04/20 10:10 IMPRESSION: 1. Markedly distended gallbladder with mild pericholecystic fluid. No calcified gallstones or gallbladder wall thickening. Findings are equivocal for acute cholecystitis. Further evaluation with gallbladder ultrasound is recommended. 2. Small right pleural effusion and trace left effusion. 3. Moderate cardiomegaly. Reflux of contrast into the hepatic veins, which can be seen with right heart failure/elevated right heart pressure. Abdomen Ultrasound 03/04/20 12:18 IMPRESSION: Hydropic gallbladder with sludge and trace pericholecystic fluid. Negative sonographic Clazada's sign and no gallbladder wall thickening. These findings remain equivocal for acute cholecystitis. Small right pleural effusion. Assessment & Plan - Diagnosis (1) Atrial flutter Is this a current diagnosis for this admission?: Yes Plan: His arrhythmia is longstanding. It is also paroxysmal Presently appears to be in rate controlled atrial flutter Systemic anticoagulation has been interrupted for the surgery but should be resumed as soon as feasible. If his ventricular rate increases he can benefit from additional beta-blockade or calcium channel blockers. Would continue metoprolol tartrate 50 mg twice daily (2) Acute cholecystitis Is this a current diagnosis for this admission?: Yes Plan: plans for surgical intervention tomorrow He is on antibiotic therapy He does not appear to be toxic (3) CHF (congestive heart failure) Qualifiers: Heart failure type: other Qualified Code(s): I50.9 - Heart failure, unspecified Is this a current diagnosis for this admission?: Yes Plan: Patient reports history of congestive heart failure Most recent assessment of ejection fraction was from 2017 and showed that he had normal ejection fraction Given chronic edema most of which which is nonpitting also guarding obtain a transthoracic echocardiogram to reassess his LV function since he is going for surgery. - Notes Notes: Transthoracic echocardiogram performed on 03/05/2020 showed preserved left ventricular ejection fraction The RV systolic function is moderately reduced There is mild mitral regurgitation and mild tricuspid regurgitation There is moderate pulmonary hypertension by echocardiography. There is no pericardial effusion Given the fact that patient has no ischemic symptoms and left ventricular ejection fraction is preserved with no prior history of coronary artery disease he is an acceptable risk for the surgery and anesthesia without further re- stratification or modification in treatment Given finding of right ventricular dysfunction close attention should be paid to fluid status in order to prevent a drop in blood pressure and also not to generate a situation of fluid overload.
[2020-03-07] MEDS: METOPROLOL TARTRATE 50 MG TABLET PO SCH (09:31)
[2020-03-07] MEDS: PIPERACILLIN SODIUM/TAZOBACTAM 3.375 GM in NORMAL SALINE 100 ML IV SCH ×4 (09:31→23:35)
[2020-03-07] MEDS: PANTOPRAZOLE SODIUM 40 MG TABLET.DR PO SCH (09:31)
[2020-03-07 10:03] LABS: ABSOLUTE MONOCYTES (AUTO) 1.2 10^3/uL (0.1-1.4); ABSOLUTE NEUT (AUTO) 10.3 10^3/uL (1.7-8.2); HEMOGLOBIN 10.6 g/dL (13.5-17.0); LYMPHOCYTES % (AUTO) 7.8 % (13-45); MEAN CORPUSCULAR HEMOGLOBIN 29.6 pg (27.0-33.4); MEAN CORPUSCULAR HGB CONC 33.3 g/dL (32.0-36.0); MEAN CORPUSCULAR VOLUME 89 fl (80-97); MONOCYTES % (AUTO) 9.6 % (3-13); PLATELET COUNT 188 10^3/uL (150-450); RED BLOOD COUNT 3.59 10^6/uL (4.35-5.55); RED CELL DISTRIBUTION WIDTH 16.7 % (11.5-14.0); SEGMENTED NEUTROPHILS % (AUTO) 82.6 % (42-78); TOTAL CELLS COUNTED % (AUTO) 100 %; WHITE BLOOD COUNT 12.4 10^3/uL (4.0-10.5)
[2020-03-07] MEDS ORDERED: BUPIVACAINE INJ/PF LIPOSOME/PF 266 MG/20 ML SDV ONE ×2 (10:03→11:08)
[2020-03-07 10:08] LABS: INTERNATIONAL RATION (INR) 1.74; PROTHROMBIN TIME 20.4 SEC (11.4-15.4)
[2020-03-07 10:09] LABS: PARTIAL THROMBOPLASTIN TIME 51.3 SEC (23.5-35.8)
[2020-03-07 10:27] LABS: BLOOD UREA NITROGEN 34 mg/dL (7-20); CALCIUM 8.8 mg/dL (8.4-10.2); CARBON DIOXIDE 23 mmol/L (22-30); CHLORIDE 103 mmol/L (98-107); GLUCOSE 93 mg/dL (75-110); POTASSIUM 3.6 mmol/L (3.6-5.0)
[2020-03-07 10:28] LABS: ALBUMIN 2.8 g/dL (3.5-5.0); ALKALINE PHOSPHATASE 208 U/L (38-126); ANION GAP 11 (5-19); ASPARTATE AMINO TRANSFERASE 72 U/L (17-59); BILIRUBIN,DIRECT 1.4 mg/dL (0.0-0.4); BILIRUBIN,TOTAL 2.3 mg/dL (0.2-1.3); TOTAL PROTEIN 5.6 g/dL (6.3-8.2)
[2020-03-07] MEDS ORDERED: MIDAZOLAM 2 MG/2 ML INJ ONE (11:09)
[2020-03-07] MEDS ORDERED: ONDANSETRON HCL INJ/PF 4 MG/2 ML SDV ONE (11:09)
[2020-03-07] MEDS ORDERED: LIDOCAINE 2% INJ-PF (20 MG/ML) 10 ML AMPUL ONE (11:09)
[2020-03-07] MEDS ORDERED: PROPOFOL INJ 200 MG/20 ML VIAL IV ONE (11:09)
[2020-03-07] MEDS ORDERED: FENTANYL CITRATE INJ/PF 100 MCG/2 ML AMPUL ONE (11:09)
[2020-03-07] MEDS ORDERED: DEXAMETHASONE SOD PHOSPHATE INJ 4 MG/1 ML VIAL ONE (11:09)
[2020-03-07] MEDS ORDERED: HYDROMORPHONE HCL INJ/PF 2 MG/ML AMPULE ONE (11:09)
--- NOTE | 2020-03-07 12:20 | PDOC PROGRESS REPORT ---
Subjective Progress Note for:: 03/06/20 Subjective:: Seen and examined. He is resting comfortably. Anticipated surgery was canceled on account coagulopathy on labs. This is potentially due to the effect of a pixaban as well as possibly passive liver congestion and account of tricuspid regurgitation and pulmonary hypertension with moderate RV dysfunction that was apparent on echocardiogram. He does not report any orthopnea, PND or chest pain. Reason For Visit: ACUTE CHOLECYSTITIS Physical Exam Vital Signs: Temp Pulse Resp BP Pulse Ox 98.6 F 83 18 93/55 L 96 03/07/20 08:20 03/07/20 08:20 03/07/20 08:20 03/07/20 08:20 03/07/20 08:20 Intake & Output 03/06/20 03/07/20 03/08/20 06:59 06:59 06:59 Intake Total 1120 2063 373 Output Total 250 300 Balance 870 1763 373 Weight 90.8 kg 90.5 kg General appearance: PRESENT: no acute distress, cooperative, obese, well- developed, well-nourished Head exam: PRESENT: atraumatic, normocephalic Eye exam: PRESENT: conjunctiva pink Mouth exam: PRESENT: moist Respiratory exam: PRESENT: decreased breath sounds, symmetrical, unlabored Cardiovascular exam: PRESENT: irregular rhythm, +S1, +S2 Pulses: PRESENT: normal radial pulses GI/Abdominal exam: PRESENT: tenderness Rectal exam: PRESENT: deferred Extremities exam: PRESENT: +1 edema Neurological exam: PRESENT: alert, awake, oriented to person, oriented to place, oriented to time, oriented to situation Psychiatric exam: PRESENT: appropriate affect Skin exam: PRESENT: dry, intact Results Laboratory Results: 03/06/20 05:10 03/06/20 14:18 03/06/20 03/06/20 12:04 14:18 Sodium 135.4 L Potassium 3.8 Chloride 104 Carbon Dioxide 25 Anion Gap 6 BUN 26 H Creatinine 0.89 Est GFR ( Amer) > 60 Glucose 86 Calcium 8.3 L Magnesium 2.4 H Blood Type O POSITIVE EKG Comments: Telemetry with nonsustained ventricular tachycardia. Dominant rhythm is atrial flutter with controlled ventricular response. Mild hypokalemia by labs Impressions: Abdomen/Pelvis CT 03/04/20 10:10 IMPRESSION: 1. Markedly distended gallbladder with mild pericholecystic fluid. No calcified gallstones or gallbladder wall thickening. Findings are equivocal for acute cholecystitis. Further evaluation with gallbladder ultrasound is recommended. 2. Small right pleural effusion and trace left effusion. 3. Moderate cardiomegaly. Reflux of contrast into the hepatic veins, which can be seen with right heart failure/elevated right heart pressure. Abdomen Ultrasound 03/04/20 12:18 IMPRESSION: Hydropic gallbladder with sludge and trace pericholecystic fluid. Negative sonographic Calzada's sign and no gallbladder wall thickening. These findings remain equivocal for acute cholecystitis. Small right pleural effusion. Assessment & Plan - Diagnosis (1) Atrial flutter Qualifiers: Atrial flutter type: typical Qualified Code(s): I48.3 - Typical atrial flutter Is this a current diagnosis for this admission?: Yes Plan: Atrial flutter with controlled ventricular response Longstanding atrial arrhythmia with patient having been committed to a rate control strategy Not symptomatic Left ventricular ejection fraction is preserved Continue rate control measures without interruption perioperatively. Systemic anticoagulation has been interrupted for planned surgery and should be resumed as soon as feasible. (2) Acute cholecystitis Is this a current diagnosis for this admission?: Yes Plan: From a perioperative cardiac risk standpoint patient is an acceptable risk without further re-stratification Patient does not report chest pain or angina. No prior coronary artery disease reported. Left ventricular ejection fraction is preserved on echocardiogram We will continue rate control strategy without interruption (3) CHF (congestive heart failure) Qualifiers: Heart failure type: other Qualified Code(s): I50.9 - Heart failure, unspecified Is this a current diagnosis for this admission?: Yes Plan: Patient does have right ventricular dysfunction at least moderate on echocardiogram probably a reflection of longstanding pulmonary hypertension Patient appears fairly euvolemic on exam Perioperatively with close attention has to be paid to loading conditions and to avoid hypotension and volume loss given RV dysfunction on echocardiogram. He appears clinically compensated despite RV dysfunction on echocardiogram. - Notes Notes: Nurse had alerted to me 2 episodes of nonsustained ventricular tachycardia which were asymptomatic. Ventricular ejection fraction is normal Would continue beta-erma Optimize electrolytes with potassium to be maintained between 4 to 5 mEq/L and magnesium at all greater than 2 g/dL
--- NOTE | 2020-03-07 12:21 | PDOC PROGRESS REPORT ---
Subjective Progress Note for:: 03/07/20 Subjective:: Seen and examined. He is resting comfortably. He does not report any orthopnea, PND or chest pain. Reason For Visit: ACUTE CHOLECYSTITIS Physical Exam Vital Signs: Temp Pulse Resp BP Pulse Ox 98.6 F 83 18 93/55 L 96 03/07/20 08:20 03/07/20 08:20 03/07/20 08:20 03/07/20 08:20 03/07/20 08:20 Intake & Output 03/06/20 03/07/20 03/08/20 06:59 06:59 06:59 Intake Total 1120 2063 373 Output Total 250 300 Balance 870 1763 373 Weight 90.8 kg 90.5 kg General appearance: PRESENT: cooperative, obese, well-developed, well-nourished Head exam: PRESENT: atraumatic, normocephalic Eye exam: PRESENT: conjunctiva pink, EOMI Mouth exam: PRESENT: moist Respiratory exam: PRESENT: decreased breath sounds, symmetrical, unlabored Cardiovascular exam: PRESENT: irregular rhythm, +S1, +S2 Pulses: PRESENT: normal radial pulses GI/Abdominal exam: PRESENT: distended, tenderness Rectal exam: PRESENT: deferred Extremities exam: PRESENT: +1 edema Neurological exam: PRESENT: alert, awake, oriented to person, oriented to place, oriented to time, oriented to situation Psychiatric exam: PRESENT: appropriate affect Skin exam: PRESENT: dry, intact Results Laboratory Results: 03/06/20 05:10 03/06/20 14:18 03/06/20 03/06/20 12:04 14:18 Sodium 135.4 L Potassium 3.8 Chloride 104 Carbon Dioxide 25 Anion Gap 6 BUN 26 H Creatinine 0.89 Est GFR ( Amer) > 60 Glucose 86 Calcium 8.3 L Magnesium 2.4 H Blood Type O POSITIVE EKG Comments: Patient was rate controlled atrial flutter. Occasional nonsustained VT episodes. Had premature ventricular contractions are also seen. This could be aberrantly conducted atrial impulses as well. Impressions: Abdomen/Pelvis CT 03/04/20 10:10 IMPRESSION: 1. Markedly distended gallbladder with mild pericholecystic fluid. No calcified gallstones or gallbladder wall thickening. Findings are equivocal for acute cholecystitis. Further evaluation with gallbladder ultrasound is recommended. 2. Small right pleural effusion and trace left effusion. 3. Moderate cardiomegaly. Reflux of contrast into the hepatic veins, which can be seen with right heart failure/elevated right heart pressure. Abdomen Ultrasound 03/04/20 12:18 IMPRESSION: Hydropic gallbladder with sludge and trace pericholecystic fluid. Negative sonographic Calzada's sign and no gallbladder wall thickening. These findings remain equivocal for acute cholecystitis. Small right pleural effusion. Assessment & Plan - Diagnosis (1) Atrial flutter Qualifiers: Atrial flutter type: typical Qualified Code(s): I48.3 - Typical atrial flutter Is this a current diagnosis for this admission?: Yes Plan: Atrial flutter with controlled ventricular response Longstanding atrial arrhythmia with patient having been committed to a rate control strategy Not symptomatic Left ventricular ejection fraction is preserved Continue rate control measures without interruption perioperatively. Systemic anticoagulation has been interrupted for planned surgery and should be resumed as soon as feasible. (2) Acute cholecystitis Is this a current diagnosis for this admission?: Yes Plan: From a perioperative cardiac risk standpoint patient is an acceptable risk without further re-stratification Patient does not report chest pain or angina. No prior coronary artery disease reported. Left ventricular ejection fraction is preserved on echocardiogram We will continue rate control strategy without interruption (3) CHF (congestive heart failure) Qualifiers: Heart failure type: other Qualified Code(s): I50.9 - Heart failure, unspecified Is this a current diagnosis for this admission?: Yes Plan: Patient does have right ventricular dysfunction at least moderate on echocardiogram probably a reflection of longstanding pulmonary hypertension Patient appears fairly euvolemic on exam Perioperatively with close attention has to be paid to loading conditions and to avoid hypotension and volume loss given RV dysfunction on echocardiogram. He appears clinically compensated despite RV dysfunction on echocardiogram.
[2020-03-07] MEDS ORDERED: OXYCODONE-ACETAMINOPHEN 5-325 MG TABLET PO PRN ×2 (12:43)
[2020-03-07] MEDS ORDERED: MEPERIDINE HCL/PF INJ 25 MG/1 ML DISP.SYRIN IV PRN (12:43)
[2020-03-07] MEDS ORDERED: FENTANYL CITRATE INJ/PF 100 MCG/2 ML AMPUL IV PRN ×3 (12:43)
[2020-03-07] MEDS ORDERED: DIPHENHYDRAMINE HCL 50 MG/ML VIAL IV PRN (12:43)
[2020-03-07] MEDS ORDERED: PROMETHAZINE HCL INJ 25 MG/1 ML VIAL IV PRN ×2 (12:43)
[2020-03-07] MEDS ORDERED: MORPHINE SULFATE 10 MG/ML INJ IV PRN (12:43)
[2020-03-07] MEDS ORDERED: SUGAMMADEX SODIUM 200 MG/2 ML SDV IV ONE (13:49)
[2020-03-07] MEDS ORDERED: SUCCINYLCHOLINE CHLORIDE INJ 200 MG/10 ML VIAL ONE (13:55)
[2020-03-07] MEDS ORDERED: ROCURONIUM BROMIDE INJ 50 MG/5 ML VIAL IV ONE (13:55)
--- NOTE | 2020-03-07 14:04 | Operative Report ---
Nonrecallable Operative Report DATE OF SURGERY: 03/07/20 PREOPERATIVE DIAGNOSIS: cholecystitis POSTOPERATIVE DIAGNOSIS: cholecystitis OPERATION: laparoscopic converted open cholecystectomy with cholangiogram SURGEON: MARIJA MENDEZ ANESTHESIA: GA TISSUE REMOVED OR ALTERED: gallbladder COMPLICATIONS: none ESTIMATED BLOOD LOSS: 1000cc INTRAOPERATIVE FINDINGS: see note PROCEDURE: Patient was brought to the operating awake alert in stable condition placed on the upper table supine position induced under general anesthesia and intubated. The abdomen was prepped and draped in usual sterile fashion. After appropriate timeout and site verification the procedure commenced. Infraumbilical 10 mm incision was made with a 15 blade and a intra-abdominal visualization varies needle was placed into the abdominal cavity was insufflated 6 L of CO2 gasafter the 10 mm port was placed revealed no evidence of Veress needle or trocar injury epigastric 5 mm port was placed under direct vision as well as 2 lateral 5 mm ports. Bladder was visualized it was noted to be necrotic with multiple areas of green necrosis and necrotic wall in fact upon gently lifting it with the grasping retractor it tore easily the necrosis extended the entire length of the gallbladder from the fundus all the way to the neck and with mild retraction in the neck avulsed from the vikas hepatis. We identified the cystic artery and doubly ligated with an Endo Clip. The gallbladder avulsed with the neck of the gallbladder remaining attached to the liver bed and to the cystic duct. As we mobilized the gallbladder off the liver bed with Bovie cautery it was quite obvious that it had began to erode into the parenchyma the liver with purulent fluid noted emanating from the pedal liver as we dissected off with the Bovie cautery there was significant bleeding because it the inflammation and the infection. We were able to remove the gallbladder from the bed of the liver placed in Endobag however the bed of the liver bled profusely was controlled somewhat with Bovie cautery. Once we get better control the bleeding in the bed of the liver we turned attention to the vikas hepatis and because of the nature of the avulsion of the neck of the gallbladder from the vikas hepatis and leaving a part of the neck attached to the cystic duct I wanted to obtain a cholangiogram to make sure that there was no common bile duct injury. However could not really identify the anatomy secondary to the inflammation and the bleeding I therefore elected to open. The VY retractor was placed in a curvilinear incision was made in the right upper quadrant dissection was carried down through subtenons tissue with Bovie cautery the rectus fascia was divided with Bovie cautery as was the muscle. We placed the retractor blades underneath the right costal margin retracted cephalad and gained access to the vikas hepatis once. Able do that we irrigated out the right upper quadrant normal saline suctioned dry remove the previously dissected gallbladder and then noted that there was a large fibrinous capsule of omentum that was obscuring our view initially laparoscopically and that is why I could not really never see the neck of the gallbladder where it went down into the cystic duct. Once I manipulated that and finger dissected the omental capsule away from the vikas hepatis I was able to better identify the anatomy. I then saw the neck of the gallbladder and had previously avulsed the remainder of it was attached to the cystic duct I performed a small cystic ductotomy just distal to the connection of the cystic gallbladder neck to the cystic duct and obtain a cholangiogram which showed good flow into the right and left hepatic ducts as well as into the duodenum. Therefore I then ligated the cystic duct stump with a 2-0 silk and remove the remainder of the gallbladder. Once this was accomplished hemostasis of the liver bed was obtained with FloSeal and Surgifoam and pressure. We irrigated the right upper quadrant normal saline suctioned dry placed a Mark Anthony-Zazueta drain in the gallbladder fossa brought out through the 5 mm ports in the right lower quadrant we then closed the posterior rectus sheath with a running 0 Vicryl and the anterior rectus sheath was closed with interrupted #2 Vicryl sutures. Skin incisions were closed with standard skin clips. Estimated blood loss for the procedure was thousand cc sponge needle counts were correct x2 patient was extubated in the operating transferred recovery in stable condition
--- NOTE | 2020-03-07 14:08 | RADIOLOGY REPORT (SQ) ---
EXAM DESCRIPTION: CHOLANGIOGRAM OPERATIVE IMAGES COMPLETED DATE/TIME: 03/07/2020 1:59 pm REASON FOR STUDY: CHOLANGIOGRAM IN OR COMPARISON: None. FLUOROSCOPY TIME: 0.3 minutes Spot images saved to PACS. TECHNIQUE: Intra-operative images acquired during surgical procedure to evaluate progress. NUMBER OF IMAGES: 1 LIMITATIONS: None. FINDINGS: Fluoroscopy was provided for intraoperative procedure. Please refer to the operative repo rt further discussion. IMPRESSION: IMAGE(S) OBTAINED DURING PROCEDURE. COMMENT: Quality ID [id number]: Final reports for procedures using fluoroscopy that document radiation exp osure indices, or exposure time and number of fluorographic images (if radiation exposure indices are not available) Please consult full operative report of the attending physician for description of the procedure. TECHNICAL DOCUMENTATION: JOB ID: [id number] 2010 [employer]- All Rights Reserved Reading location - IP/workstation name: [email or web address]
[2020-03-07] MEDS ORDERED: PHARMACY COMMUNICATION ORDER MC NR (14:15)
--- NOTE | 2020-03-07 15:30 | RADIOLOGY REPORT (SQ) ---
EXAM DESCRIPTION: KUB/ABDOMEN (SINGLE VIEW) IMAGES COMPLETED DATE/TIME: 03/07/2020 3:22 pm REASON FOR STUDY: Check Placement of NG Tube COMPARISON: None. NUMBER OF VIEWS: One view. TECHNIQUE: Supine radiographic image of the abdomen acquired. LIMITATIONS: None. FINDINGS: Single view the abdomen demonstrates NG tube in place. Tip overlies the midline most like ly within the stomach. Surgical clips are seen overlying the right mid abdomen and upper pelvis. Pe rcutaneous drains in place in the right mid abdomen as well. Gas pattern is nonspecific. IMPRESSION: NG tube is in satisfactory position. TECHNICAL DOCUMENTATION: JOB ID: [id number] 2010 [employer]- All Rights Reserved Reading location - IP/workstation name: [email or web address]
[2020-03-07] MEDS ORDERED: GLUCAGON,HUMAN RECOMB 1 MG INJ IM PRN (15:55)
[2020-03-07] MEDS ORDERED: DEXTROSE 50%-WATER 25 GM/50 ML DISP.SYRIN IV PRN ×2 (15:55)
[2020-03-07] MEDS ORDERED: DEXTROSE 40% GEL 15 GM TUBE PO PRN ×2 (15:55)
[2020-03-07] MEDS ORDERED: HYDRALAZINE HCL INJ/PF 20 MG/1 ML SDV IV PRN (15:57)
[2020-03-07] MEDS ORDERED: METOPROLOL TARTRATE PF/INJ 5 MG/5 ML SDV IV PRN (16:00)
--- NOTE | 2020-03-07 16:02 | PDOC CONSULTATION ---
Consultation Consult Date: 03/07/20 Attending physician:: MARIJA MENDEZ Provider Consulted: IONA DIEGO Consult reason:: Medical management History of Present Illness Admission Date/PCP: 03/04/20 14:40 VALERIE BLANCO NP Patient complains of: abd pain History of Present Illness: PAULETTE SCALES is a 74 year old male with a past medical history of CHF, PAF, hypertension, hyperlipidemia, anemia, DM 2, GERD, and PTSD who was admitted 03/04/2020 by the surgical service for acute cholecystitis. Cardiology service, Dr. Roberts, was consulted for surgical clearance. Hematology, Dr. Ramsey, consulted for preoperative correction of coagulopathy. Hospital service is consulted for medical management. Patient underwent Laparoscopic cholecystectomy today by Dr. Mendez; required conversion to open cholecystectomy with cholangiogram due to necrosis of the gallbladder with some erosion into the parenchyma of the liver. Patient was seen on afternoon rounds status post open cholecystectomy and cholangiogram. Patient was found resting in bed, comfortably, on supplemental oxygen by nasal cannula 2 L/min. He is not home O2 dependent. He does admit to being somewhat confused/forgetful; likely related to anesthesia, as our conversation progressed the patient's mentation became clear and he was able to provide more details with regard to his hospital admission. At present, patient says that he is comfortable and has no questions or concerns at this time. He specifically denies fever, chest pain, palpitations, dyspnea, cough, abdominal pain, nausea and vomiting. Nursing reports that patient removed his NG tube shortly prior to arrival to the floor; advised to call surgical service for clarification on whether or not to reinsert tube. No other questions at this time. Past Medical History Cardiac Medical History: Reports: Atrial Fibrillation, Congestive Heart Failure, Hyperlipidema, Hypertension Denies: Coronary Artery Disease, Myocardial Infarction, Peripheral Vascular Disease, Heart Murmur Pulmonary Medical History: Reports: None EENT Medical History: Reports: None Neurological Medical History: Reports: None Endocrine Medical History: Reports: Diabetes Mellitus Type 2 Denies: Hyperthyroidism, Hypothyroidism Malignancy Medical History: Denies: Leukemia GI Medical History: Reports: Gastroesophageal Reflux Disease Denies: Crohn's Disease, Hiatal Hernia Musculoskeltal Medical History: Reports: Arthritis Denies: Fibromyalgia Psychiatric Medical History: Reports: Post Traumatic Stress Disorder Denies: Bipolar Disorder, Depression Hematology: Reports: Anemia Denies: Hemophilia, Sickle Cell Disease Infectious Medical History: Denies: HIV Past Surgical History Past Surgical History: Reports: Orthopedic Surgery - L hip replacement Social History Information Source: [facility] Records Smoking Status: Never Smoker Frequency of Alcohol Use: None Hx Recreational Drug Use: No Hx Prescription Drug Abuse: No - Advance Directive Resuscitation Status: Full Code Family History Family History: Reviewed & Not Pertinent, Other - Unobtainable Parental Family History Reviewed: No Children Family History Reviewed: No Sibling(s) Family History Reviewed.: No Medication/Allergy Home Medications: Ferrous Sulfate 324 mg PO QAM 09/08/16 Furosemide [Lasix 40 mg Tablet] 40 mg PO BID #8 tablet 02/13/17 Acetaminophen [Acetaminophen Extra Strength] 500 mg PO DAILYP PRN 03/04/20 Amiodarone HCl [Cordarone 200 mg Tablet] 200 mg PO DAILY 03/04/20 Atorvastatin Calcium [Lipitor 40 mg Tablet] 40 mg PO QHS 03/04/20 Carvedilol [Coreg 3.125 mg Tablet] 3.125 mg PO Q12 03/04/20 Cetirizine HCl [Zyrtec 10 mg Tablet] 10 mg PO DAILY 03/04/20 Cholecalciferol (Vitamin D3) [Vitamin D3 1000 Unit Tablet] 1,000 unit PO DAILY 03/04/20 Docusate Calcium 240 mg PO DAILY 03/04/20 Allergies/Adverse Reactions: No Known Allergies Allergy (Verified 02/24/17 23:15) Review of Systems Constitutional: PRESENT: anorexia. ABSENT: chills, fever(s), headache(s), weight gain, weight loss Eyes: ABSENT: visual disturbances Ears: ABSENT: hearing changes Cardiovascular: ABSENT: chest pain, dyspnea on exertion, edema, orthropnea, palpitations Respiratory: ABSENT: cough, hemoptysis Gastrointestinal: ABSENT: abdominal pain, constipation, diarrhea, hematemesis, hematochezia, nausea, vomiting Genitourinary: ABSENT: dysuria, hematuria Musculoskeletal: ABSENT: joint swelling Integumentary: ABSENT: rash, wounds Neurological: ABSENT: abnormal gait, abnormal speech, confusion, dizziness, focal weakness, syncope Psychiatric: ABSENT: anxiety, depression, homidical ideation, suicidal ideation Endocrine: ABSENT: cold intolerance, heat intolerance, polydipsia, polyuria Hematologic/Lymphatic: ABSENT: easy bleeding, easy bruising Physical Exam Vital Signs: Temp Pulse Resp BP Pulse Ox 97.5 F 84 16 100/58 L 100 03/07/20 15:04 03/07/20 15:19 03/07/20 15:19 03/07/20 15:19 03/07/20 15:19 Intake & Output 03/06/20 03/07/20 03/08/20 06:59 06:59 06:59 Intake Total 1120 2063 1173 Output Total 325 500 6980 Balance 870 1763 -197 Weight 90.8 kg 90.5 kg 90.5 kg General appearance: PRESENT: no acute distress, cooperative, well-developed, well-nourished Head exam: PRESENT: atraumatic, normocephalic Eye exam: PRESENT: conjunctiva pink, EOMI, PERRLA. ABSENT: scleral icterus Mouth exam: PRESENT: moist, tongue midline Respiratory exam: PRESENT: clear to auscultation char, symmetrical, unlabored, other - Supplemental oxygen by nasal cannula. ABSENT: rales, rhonchi, wheezes Cardiovascular exam: PRESENT: RRR. ABSENT: diastolic murmur, rubs, systolic murmur Pulses: PRESENT: normal dorsalis pedis pul Vascular exam: PRESENT: normal capillary refill GI/Abdominal exam: PRESENT: diminished bowel sounds, soft, other - Surgical dressing in place; incision not visualized. ABSENT: distended, guarding, mass, organolmegaly, rebound, tenderness Rectal exam: PRESENT: deferred Extremities exam: PRESENT: full ROM. ABSENT: calf tenderness, clubbing, pedal edema Neurological exam: PRESENT: alert, awake, oriented to person, oriented to place, oriented to time, oriented to situation, CN II-XII grossly intact. ABSENT: motor sensory deficit Psychiatric exam: PRESENT: appropriate affect, normal mood. ABSENT: homicidal ideation, suicidal ideation Skin exam: PRESENT: dry, warm. ABSENT: cyanosis, rash Results Laboratory Results: 03/07/20 09:40 03/07/20 09:40 03/06/20 03/07/20 03/07/20 12:04 09:40 09:40 WBC 12.4 H RBC 3.59 L Hgb 10.6 L Hct 32.0 L MCV 89 MCH 29.6 MCHC 33.3 RDW 16.7 H Plt Count 188 Seg Neutrophils % 82.6 H Sodium 137.3 Potassium 3.6 Chloride 103 Carbon Dioxide 23 Anion Gap 11 BUN 34 H Creatinine 1.08 Est GFR ( Amer) > 60 Glucose 93 Calcium 8.8 Total Bilirubin 2.3 H AST 72 H Alkaline Phosphatase 208 H Total Protein 5.6 L Albumin 2.8 L Blood Type O POSITIVE Antibody Screen NEGATIVE Impressions: Abdomen/Pelvis CT 03/04/20 10:10 IMPRESSION: 1. Markedly distended gallbladder with mild pericholecystic fluid. No calcified gallstones or gallbladder wall thickening. Findings are equivocal for acute cholecystitis. Further evaluation with gallbladder ultrasound is recommended. 2. Small right pleural effusion and trace left effusion. 3. Moderate cardiomegaly. Reflux of contrast into the hepatic veins, which can be seen with right heart failure/elevated right heart pressure. Abdomen Ultrasound 03/04/20 12:18 IMPRESSION: Hydropic gallbladder with sludge and trace pericholecystic fluid. Negative sonographic Calzada's sign and no gallbladder wall thickening. These findings remain equivocal for acute cholecystitis. Small right pleural effusion. Cholangiogram 03/07/20 00:00 IMPRESSION: IMAGE(S) OBTAINED DURING PROCEDURE. KUB X-Ray 03/07/20 14:07 IMPRESSION: NG tube is in satisfactory position. Assessment and Plan - Diagnosis (1) Acute cholecystitis Is this a current diagnosis for this admission?: Yes Plan: Blood cultures have no growth at 72 hours. Antibiotics per surgical service; currently on Zosyn. Analgesics and antiemetics as needed. Management per surgery service. (2) Atrial flutter Qualifiers: Atrial flutter type: typical Qualified Code(s): I48.3 - Typical atrial flutter Is this a current diagnosis for this admission?: Yes Plan: Atrial flutter with controlled ventricular response. Monitor on telemetry. Resume home medication regiment for rate control once cleared for p.o. intake. IV Lopressor as needed for rate control. Cardiology consulted. (3) CHF (congestive heart failure) Qualifiers: Heart failure type: other Qualified Code(s): I50.9 - Heart failure, unspecified Is this a current diagnosis for this admission?: Yes Plan: Echocardiogram reveals LVEF 55 to 60%. RV systolic function moderately reduced. Moderate pulmonary hypertension. Currently n.p.o. Cardiology service consulted. Resume home dose antihypertensive therapy when appropriate. Daily weights, strict I&O's. (4) Anemia, chronic disease Is this a current diagnosis for this admission?: Yes (5) Essential hypertension Is this a current diagnosis for this admission?: Yes Plan: Currently n.p.o. Provide for adequate pain control. IV hydralazine PRN blood pressure control. Resume home medication regimen when cleared for oral intake. (6) GERD (gastroesophageal reflux disease) Qualifiers: Is this a current diagnosis for this admission?: Yes Plan: Not on home medication for management of GERD. Protonix daily for PUD prophylaxis. (7) Hyperlipidemia Qualifiers: Hyperlipidemia type: unspecified Qualified Code(s): E78.5 - Hyperlipidemia, unspecified Is this a current diagnosis for this admission?: Yes Plan: Currently n.p.o. Resume home dose statin when appropriate. (8) Diabetes Is this a current diagnosis for this admission?: Yes Plan: Does not appear that patient is on home medication regiment. We will check A1c with a.m. lab work. Diet per surgical service; currently n.p.o. Accu-Cheks every 6 hours with Humalog for sliding scale coverage. Hypoglycemia protocol in place. (9) PTSD (post-traumatic stress disorder) Is this a current diagnosis for this admission?: Yes Plan: Supportive care. - Time Time Spent with patient: 35 or more minutes Medications reviewed and adjusted accordingly: Yes Anticipated Discharge Disposition: undetermined Anticipated Discharge Timeframe: undetermined
[2020-03-07] MEDS: INSULIN LISPRO 100 UNIT/ML 3 ML VIAL SUBCUT SCH (17:37)
[2020-03-07 19:22] LABS: HEMATOCRIT 37.7 % (37.9-51.0); HEMOGLOBIN 12.5 g/dL (13.5-17.0); MEAN CORPUSCULAR HGB CONC 33.1 g/dL (32.0-36.0); MEAN CORPUSCULAR VOLUME 88 fl (80-97); PLATELET COUNT 187 10^3/uL (150-450); RED BLOOD COUNT 4.31 10^6/uL (4.35-5.55); WHITE BLOOD COUNT 13.2 10^3/uL (4.0-10.5)
[2020-03-07] MEDS: HALOPERIDOL LACTATE INJ 5 MG/1 ML VIAL IV PRN (20:18)
[2020-03-07] MEDS: METOPROLOL TARTRATE 50 MG TABLET NG SCH (21:54)
[2020-03-08] MEDS: INSULIN LISPRO 100 UNIT/ML 3 ML VIAL SUBCUT SCH ×5 (00:15→23:58)
[2020-03-08] MEDS: HALOPERIDOL LACTATE INJ 5 MG/1 ML VIAL IV PRN ×2 (02:13→08:51)
[2020-03-08] MEDS: PIPERACILLIN SODIUM/TAZOBACTAM 3.375 GM in NORMAL SALINE 100 ML IV SCH ×3 (05:17→17:59)
[2020-03-08 05:27] LABS: HEMATOCRIT 33.5 % (37.9-51.0); HEMOGLOBIN 11.3 g/dL (13.5-17.0); MEAN CORPUSCULAR HEMOGLOBIN 29.2 pg (27.0-33.4); MEAN CORPUSCULAR HGB CONC 33.6 g/dL (32.0-36.0); MEAN CORPUSCULAR VOLUME 87 fl (80-97); PLATELET COUNT 152 10^3/uL (150-450); RED BLOOD COUNT 3.86 10^6/uL (4.35-5.55); RED CELL DISTRIBUTION WIDTH 17.2 % (11.5-14.0); WHITE BLOOD COUNT 12.6 10^3/uL (4.0-10.5)
[2020-03-08 05:50] LABS: ALBUMIN 2.1 g/dL (3.5-5.0); ALKALINE PHOSPHATASE 195 U/L (38-126); ANION GAP 9 (5-19); ASPARTATE AMINO TRANSFERASE 143 U/L (17-59); BILIRUBIN,DIRECT 1.9 mg/dL (0.0-0.4); BILIRUBIN,TOTAL 2.9 mg/dL (0.2-1.3); BLOOD UREA NITROGEN 43 mg/dL (7-20); CALCIUM 7.9 mg/dL (8.4-10.2); CARBON DIOXIDE 22 mmol/L (22-30); CHLORIDE 105 mmol/L (98-107); GLUCOSE 111 mg/dL (75-110); POTASSIUM 3.6 mmol/L (3.6-5.0); TOTAL PROTEIN 4.4 g/dL (6.3-8.2)
[2020-03-08] MEDS: NORMAL SALINE 1000 ML 1,000 ML IV PRN ×2 (08:52→22:31)
--- NOTE | 2020-03-08 09:38 | PDOC PROGRESS REPORT ---
Subjective Progress Note for:: 03/08/20 Subjective:: Patient was irritable this morning stating to the nurses that he wanted to kill himself. Patient is currently very calm and coherent and states that he has no intentions of harming himself. He does want to get up out of bed and ambulate. He states that his abdomen feels much better than prior to surgery. Reason For Visit: CHOLECYSTITIS S/P OPEN CHOLECYSTECTOMY Physical Exam Vital Signs: Temp Pulse Resp BP Pulse Ox 97.3 F 74 18 108/49 L 100 03/08/20 08:21 03/08/20 07:00 03/08/20 04:00 03/08/20 04:00 03/08/20 04:00 Intake & Output 03/07/20 03/08/20 03/09/20 06:59 06:59 06:59 Intake Total 2063 1973 Output Total 300 1640 Balance 1763 333 Weight 90.5 kg 96.9 kg General appearance: PRESENT: no acute distress, cooperative Respiratory exam: PRESENT: clear to auscultation char Cardiovascular exam: PRESENT: RRR GI/Abdominal exam: PRESENT: other - Soft, mildly distended, very mild upper abdominal tenderness that is markedly improved than prior to surgery. Drain output is serosanguineous, nonbilious. Results Laboratory Results: 03/08/20 05:07 03/08/20 05:07 03/06/20 03/07/20 03/07/20 12:04 09:40 09:40 WBC 12.4 H RBC 3.59 L Hgb 10.6 L Hct 32.0 L MCV 89 MCH 29.6 MCHC 33.3 RDW 16.7 H Plt Count 188 Seg Neutrophils % 82.6 H Sodium 137.3 Potassium 3.6 Chloride 103 Carbon Dioxide 23 Anion Gap 11 BUN 34 H Creatinine 1.08 Est GFR ( Amer) > 60 Glucose 93 Calcium 8.8 Total Bilirubin 2.3 H AST 72 H Alkaline Phosphatase 208 H Total Protein 5.6 L Albumin 2.8 L Blood Type O POSITIVE Antibody Screen NEGATIVE 03/07/20 03/08/20 03/08/20 19:13 05:07 05:07 WBC 13.2 H 12.6 H RBC 4.31 L 3.86 L Hgb 12.5 L 11.3 L Hct 37.7 L 33.5 L MCV 88 87 MCH 29.0 29.2 MCHC 33.1 33.6 RDW 17.0 H 17.2 H Plt Count 187 152 Seg Neutrophils % Sodium 135.8 L Potassium 3.6 Chloride 105 Carbon Dioxide 22 Anion Gap 9 BUN 43 H Creatinine 1.21 Est GFR ( Amer) > 60 Glucose 111 H Calcium 7.9 L Total Bilirubin 2.9 H AST 143 H Alkaline Phosphatase 195 H Total Protein 4.4 L Albumin 2.1 L Blood Type Antibody Screen Impressions: Abdomen/Pelvis CT 03/04/20 10:10 IMPRESSION: 1. Markedly distended gallbladder with mild pericholecystic fluid. No calcified gallstones or gallbladder wall thickening. Findings are equivocal for acute cholecystitis. Further evaluation with gallbladder ultrasound is recommended. 2. Small right pleural effusion and trace left effusion. 3. Moderate cardiomegaly. Reflux of contrast into the hepatic veins, which can be seen with right heart failure/elevated right heart pressure. Abdomen Ultrasound 03/04/20 12:18 IMPRESSION: Hydropic gallbladder with sludge and trace pericholecystic fluid. Negative sonographic Calzada's sign and no gallbladder wall thickening. These findings remain equivocal for acute cholecystitis. Small right pleural effusion. Cholangiogram 03/07/20 00:00 IMPRESSION: IMAGE(S) OBTAINED DURING PROCEDURE. KUB X-Ray 03/07/20 14:07 IMPRESSION: NG tube is in satisfactory position. Assessment & Plan - Diagnosis (1) Acute cholecystitis Is this a current diagnosis for this admission?: Yes Plan: Status post laparoscopic cholecystectomy converted to open cholecystectomy. Patient's abdominal exam much improved after surgery however his liver function studies are elevated. Patient did undergo a intraoperative cholangiogram which demonstrated no common bile duct obstruction. Will follow labs for now. C ontinue NG tube until he has better bowel function. We will continue his Bear catheter until he is more ambulatory. Will ask hospitalist to see patient to help us evaluate his mental status. I do not think he is septic. I suspect underlying dementia. (2) Coagulopathy Is this a current diagnosis for this admission?: Yes - Time Anticipated Discharge Disposition: Home, Self Care Anticipated Discharge Timeframe: 1 week
[2020-03-08] MEDS ORDERED: PANTOPRAZOLE SODIUM 40 MG PACKET.DR NG SCH (10:00)
[2020-03-08] MEDS: METOPROLOL TARTRATE 50 MG TABLET NG SCH ×2 (10:00→21:52)
[2020-03-08] MEDS ORDERED: HALOPERIDOL LACTATE INJ 5 MG/1 ML VIAL IV PRN ×2 (13:20→13:32)
[2020-03-08] MEDS ORDERED: DEXTROSE 40% GEL 15 GM TUBE PO PRN (13:38)
--- NOTE | 2020-03-08 13:43 | PDOC PROGRESS REPORT ---
Subjective Progress Note for:: 03/08/20 Subjective:: PAULETTE SCALES is a 74 year old male with a past medical history of CHF, PAF, hypertension, hyperlipidemia, anemia, DM 2, GERD, and PTSD who was admitted 03/04/2020 by the surgical service for acute cholecystitis. Cardiology service, Dr. Roberts, was consulted for surgical clearance. Hematology, Dr. Ramsey, consulted for preoperative correction of coagulopathy. Hospital service is consulted for medical management. Patient underwent Laparoscopic cholecystectomy today by Dr. Ferraro; required conversion to open cholecystectomy with cholangiogram due to necrosis of the gallbladder with some erosion into the parenchyma of the liver. Patient was seen on morning rounds. He was found resting in bed, comfortably, on room air. He was sleeping but woke easily when I said his name. He was oriented to self, place, situation, [employer], and the date 2026. Patient was asked about some of the activity and statements overnight; he replies, unknown know why I said that, I just want to get up and walk. He is noted to be drowsy and does quickly fall back to sleep. He denied fever, chills, chest pain, dyspnea, abdominal pain, nausea and vomiting. He has no questions or concerns at this time. No concerns per nursing. Reason For Visit: CHOLECYSTITIS S/P OPEN CHOLECYSTECTOMY Physical Exam Vital Signs: Temp Pulse Resp BP Pulse Ox 97.4 F 82 18 101/53 L 96 03/08/20 11:50 03/08/20 11:50 03/08/20 11:50 03/08/20 11:50 03/08/20 11:50 Intake & Output 03/07/20 03/08/20 03/09/20 06:59 06:59 06:59 Intake Total 3 1973 Output Total 300 1640 Balance 1763 333 Weight 90.5 kg 96.9 kg General appearance: PRESENT: no acute distress, cooperative, well-developed, well-nourished Head exam: PRESENT: atraumatic, normocephalic Eye exam: PRESENT: conjunctiva pink, EOMI, PERRLA. ABSENT: scleral icterus Mouth exam: PRESENT: moist, tongue midline Respiratory exam: PRESENT: clear to auscultation char, symmetrical, unlabored. ABSENT: rales, rhonchi, wheezes Cardiovascular exam: PRESENT: RRR. ABSENT: diastolic murmur, rubs, systolic murmur Pulses: PRESENT: normal dorsalis pedis pul Vascular exam: PRESENT: normal capillary refill GI/Abdominal exam: PRESENT: normal bowel sounds, soft, other - Surgical dressing in place; CHANO drain noted. Surgical incision not visualized.. ABSENT: distended, guarding, mass, organolmegaly, rebound, tenderness Rectal exam: PRESENT: deferred Extremities exam: PRESENT: full ROM. ABSENT: calf tenderness, clubbing, pedal edema Neurological exam: PRESENT: alert, awake, oriented to person, oriented to place, oriented to situation, CN II-XII grossly intact, other - Intermittent confusion and agitation.. ABSENT: oriented to time, motor sensory deficit Psychiatric exam: PRESENT: appropriate affect, normal mood. ABSENT: homicidal ideation, suicidal ideation Skin exam: PRESENT: dry, warm. ABSENT: cyanosis, rash Results Laboratory Results: 03/08/20 05:07 03/08/20 05:07 03/06/20 03/07/20 03/08/20 12:04 19:13 05:07 WBC 13.2 H 12.6 H RBC 4.31 L 3.86 L Hgb 12.5 L 11.3 L Hct 37.7 L 33.5 L MCV 88 87 MCH 29.0 29.2 MCHC 33.1 33.6 RDW 17.0 H 17.2 H Plt Count 187 152 Sodium Potassium Chloride Carbon Dioxide Anion Gap BUN Creatinine Est GFR ( Amer) Glucose Calcium Total Bilirubin AST Alkaline Phosphatase Total Protein Albumin Blood Type O POSITIVE Antibody Screen NEGATIVE 03/08/20 05:07 WBC RBC Hgb Hct MCV MCH MCHC RDW Plt Count Sodium 135.8 L Potassium 3.6 Chloride 105 Carbon Dioxide 22 Anion Gap 9 BUN 43 H Creatinine 1.21 Est GFR ( Amer) > 60 Glucose 111 H Calcium 7.9 L Total Bilirubin 2.9 H AST 143 H Alkaline Phosphatase 195 H Total Protein 4.4 L Albumin 2.1 L Blood Type Antibody Screen Impressions: Abdomen/Pelvis CT 03/04/20 10:10 IMPRESSION: 1. Markedly distended gallbladder with mild pericholecystic fluid. No calcified gallstones or gallbladder wall thickening. Findings are equivocal for acute ch olecystitis. Further evaluation with gallbladder ultrasound is recommended. 2. Small right pleural effusion and trace left effusion. 3. Moderate cardiomegaly. Reflux of contrast into the hepatic veins, which can be seen with right heart failure/elevated right heart pressure. Abdomen Ultrasound 03/04/20 12:18 IMPRESSION: Hydropic gallbladder with sludge and trace pericholecystic fluid. Negative sonographic Calzada's sign and no gallbladder wall thickening. These findings remain equivocal for acute cholecystitis. Small right pleural effusion. Cholangiogram 03/07/20 00:00 IMPRESSION: IMAGE(S) OBTAINED DURING PROCEDURE. KUB X-Ray 03/07/20 14:07 IMPRESSION: NG tube is in satisfactory position. Assessment and Plan - Diagnosis (1) Acute metabolic encephalopathy Is this a current diagnosis for this admission?: Yes Plan: Multifactorial secondary to elevated LFTs, acute infectious process, general anesthesia, pain, likely underlying dementia, and patient with PTSD. Overnight, patient became agitated, calling out, throwing things, spitting pills, with bizarre statements. Reportedly at some point the patient stated that he wanted to kill himself. I have very low suspicion for suicidal ideation as the patient clearly has acute encephalopathy. LFTs are elevated, he is not jaundiced. However, we will check an ammonia level. Continue antibiotics Continue IV fluids Agree with sitter. Recommend discontinuing restraints. Ambulate. Ensure adequate pain control. IV Haldol as needed for agitation posing safety risk. Otherwise, provide nonpharmacological/nursing interventions. (2) Acute cholecystitis Is this a current diagnosis for this admission?: Yes Plan: Per surgery: Status post laparoscopic cholecystectomy converted to open cholecystectomy. Patient's abdominal exam much improved after surgery however his liver function studies are elevated. Patient did undergo a intraoperative cholangiogram which demonstrated no common bile duct obstruction. Will follow labs for now. Continue NG tube until he has better bowel function. We will continue his Bear catheter until he is more ambulatory. Will ask hospitalist to see patient to help us evaluate his mental status. I do not think he is septic. I suspect underlying dementia. Antibiotics per surgical service. (3) Atrial flutter Qualifiers: Atrial flutter type: typical Qualified Code(s): I48.3 - Typical atrial flutter Is this a current diagnosis for this admission?: Yes Plan: Atrial flutter with controlled ventricular response. Monitor on telemetry. Resume home medication regiment for rate control once cleared for p.o. intake. IV Lopressor as needed for rate control. Cardiology consulted. (4) CHF (congestive heart failure) Qualifiers: Heart failure type: other Qualified Code(s): I50.9 - Heart failure, unspecified Is this a current diagnosis for this admission?: Yes Plan: Echocardiogram reveals LVEF 55 to 60%. RV systolic function moderately reduced. Moderate pulmonary hypertension. Currently n.p.o. Cardiology service consulted. Resume home dose antihypertensive therapy when appropriate. Daily weights, strict I&O's. (5) Anemia, chronic disease Is this a current diagnosis for this admission?: Yes Plan: Hemoglobin 11.3 this morning. Did receive 2 units PRBC yesterday and intraoperative. No evidence of active bleeding. Follow-up CBC (6) Essential hypertension Is this a current diagnosis for this admission?: Yes Plan: Currently n.p.o. Provide for adequate pain control. IV hydralazine PRN blood pressure control. Resume home medication regimen when cleared for oral intake. (7) GERD (gastroesophageal reflux disease) Qualifiers: Is this a current diagnosis for this admission?: Yes Plan: Not on home medication for management of GERD. IV Protonix daily for PUD prophylaxis. (8) Hyperlipidemia Qualifiers: Hyperlipidemia type: unspecified Qualified Code(s): E78.5 - Hyperlipidemia, unspecified Is this a current diagnosis for this admission?: Yes Plan: Currently n.p.o. Resume home dose statin when appropriate. (9) Diabetes Qualifiers: Diabetes mellitus type: type 2 Is this a current diagnosis for this admission?: Yes Plan: Does not appear that patient is on home medication regiment. A1c 6.8%. Diet per surgical service; currently n.p.o. Accu-Cheks every 6 hours with Humalog for sliding scale coverage. Hypoglycemia protocol in place. (10) PTSD (post-traumatic stress disorder) Is this a current diagnosis for this admission?: Yes Plan: Supportive care. - Time Time Spent with patient: 35 or more minutes Medications reviewed and adjusted accordingly: Yes Anticipated Discharge Disposition: Home, Self Care Anticipated Discharge Timeframe: >72 hrs
--- NOTE | 2020-03-08 17:10 | PDOC PROGRESS REPORT ---
Subjective Progress Note for:: 03/08/20 Subjective:: Patient is resting comfortably in bed, but requests something to drink. However, he is NPO and I was not able to honor this request. He recognizes me and remembers that I am with hematology. He states that his surgery went well. No significant pain. No bleeding. He would like to get up out of bed and walk. Reason For Visit: CHOLECYSTITIS S/P OPEN CHOLECYSTECTOMY Physical Exam Vital Signs: Temp Pulse Resp BP Pulse Ox 97.4 F 81 18 101/53 L 96 03/08/20 11:50 03/08/20 14:00 03/08/20 11:50 03/08/20 11:50 03/08/20 11:50 Intake & Output 03/07/20 03/08/20 03/09/20 06:59 06:59 06:59 Intake Total 2063 1973 1260 Output Total 300 1640 Balance 1701 424 2973 Weight 90.5 kg 96.9 kg General appearance: PRESENT: no acute distress Head exam: PRESENT: normocephalic Eye exam: PRESENT: EOMI, PERRLA Respiratory exam: PRESENT: unlabored Neurological exam: PRESENT: alert, awake Psychiatric exam: PRESENT: appropriate affect Skin exam: PRESENT: normal color Results Laboratory Results: 03/08/20 05:07 03/08/20 05:07 03/06/20 03/07/20 03/08/20 12:04 19:13 05:07 WBC 13.2 H 12.6 H RBC 4.31 L 3.86 L Hgb 12.5 L 11.3 L Hct 37.7 L 33.5 L MCV 88 87 MCH 29.0 29.2 MCHC 33.1 33.6 RDW 17.0 H 17.2 H Plt Count 187 152 Sodium Potassium Chloride Carbon Dioxide Anion Gap BUN Creatinine Est GFR ( Amer) Glucose Calcium Total Bilirubin AST Alkaline Phosphatase Ammonia Total Protein Albumin Blood Type O POSITIVE Antibody Screen NEGATIVE 03/08/20 03/08/20 05:07 15:02 WBC RBC Hgb Hct MCV MCH MCHC RDW Plt Count Sodium 135.8 L Potassium 3.6 Chloride 105 Carbon Dioxide 22 Anion Gap 9 BUN 43 H Creatinine 1.21 Est GFR ( Amer) > 60 Glucose 111 H Calcium 7.9 L Total Bilirubin 2.9 H AST 143 H Alkaline Phosphatase 195 H Ammonia < 8.7 L Total Protein 4.4 L Albumin 2.1 L Blood Type Antibody Screen Impressions: Abdomen/Pelvis CT 03/04/20 10:10 IMPRESSION: 1. Markedly distended gallbladder with mild pericholecystic fluid. No calcified gallstones or gallbladder wall thickening. Findings are equivocal for acute cholecystitis. Further evaluation with gallbladder ultrasound is recommended. 2. Small right pleural effusion and trace left effusion. 3. Moderate cardiomegaly. Reflux of contrast into the hepatic veins, which can be seen with right heart failure/elevated right heart pressure. Abdomen Ultrasound 03/04/20 12:18 IMPRESSION: Hydropic gallbladder with sludge and trace pericholecystic fluid. Negative sonographic Calzada's sign and no gallbladder wall thickening. These findings remain equivocal for acute cholecystitis. Small right pleural effusion. Cholangiogram 03/07/20 00:00 IMPRESSION: IMAGE(S) OBTAINED DURING PROCEDURE. KUB X-Ray 03/07/20 14:07 IMPRESSION: NG tube is in satisfactory position. Assessment & Plan - Diagnosis (1) Coagulopathy Is this a current diagnosis for this admission?: Yes Plan: Most likely due to liver dysfunction. No evidence of bleeding. (2) Anemia, chronic disease Is this a current diagnosis for this admission?: Yes Plan: Very stable. No transfusion needed at this time. (3) Leukocytosis Qualifiers: Leukocytosis type: unspecified Qualified Code(s): D72.829 - Elevated white blood cell count, unspecified Is this a current diagnosis for this admission?: Yes Plan: Improving since surgery. - Time Time Spent with patient: Less than 15 minutes - Plan Summary Plan Summary: I will sign off. Please reconsult if needed.
[2020-03-09] MEDS: PIPERACILLIN SODIUM/TAZOBACTAM 3.375 GM in NORMAL SALINE 100 ML IV SCH ×5 (00:10→23:18)
[2020-03-09 05:37] LABS: ABSOLUTE LYMPHOCYTES (AUTO) 0.9 10^3/uL (0.5-4.7); ABSOLUTE MONOCYTES (AUTO) 1.1 10^3/uL (0.1-1.4); BASOPHILS % (AUTO) 0.1 % (0-2); HEMATOCRIT 33.5 % (37.9-51.0); HEMOGLOBIN 11.1 g/dL (13.5-17.0); LYMPHOCYTES % (AUTO) 5.9 % (13-45); MEAN CORPUSCULAR HEMOGLOBIN 28.9 pg (27.0-33.4); MEAN CORPUSCULAR HGB CONC 33.2 g/dL (32.0-36.0); MEAN CORPUSCULAR VOLUME 87 fl (80-97); MONOCYTES % (AUTO) 7.3 % (3-13); PLATELET COUNT 163 10^3/uL (150-450); RED BLOOD COUNT 3.86 10^6/uL (4.35-5.55); RED CELL DISTRIBUTION WIDTH 17.1 % (11.5-14.0); SEGMENTED NEUTROPHILS % (AUTO) 86.7 % (42-78); TOTAL CELLS COUNTED % (AUTO) 100 %
[2020-03-09 05:56] LABS: ALBUMIN 2.1 g/dL (3.5-5.0); ALKALINE PHOSPHATASE 197 U/L (38-126); ANION GAP 8 (5-19); ASPARTATE AMINO TRANSFERASE 68 U/L (17-59); BILIRUBIN,DIRECT 1.2 mg/dL (0.0-0.4); BILIRUBIN,TOTAL 1.7 mg/dL (0.2-1.3); BLOOD UREA NITROGEN 45 mg/dL (7-20); CALCIUM 7.9 mg/dL (8.4-10.2); CARBON DIOXIDE 21 mmol/L (22-30); CHLORIDE 106 mmol/L (98-107); GLUCOSE 91 mg/dL (75-110); POTASSIUM 3.5 mmol/L (3.6-5.0); TOTAL PROTEIN 4.5 g/dL (6.3-8.2)
--- NOTE | 2020-03-09 08:45 | PDOC PROGRESS REPORT ---
Subjective Progress Note for:: 03/09/20 Subjective:: feels well today, wants to eat Reason For Visit: CHOLECYSTITIS S/P OPEN CHOLECYSTECTOMY Physical Exam Vital Signs: Temp Pulse Resp BP Pulse Ox 97.4 F 94 16 115/64 96 03/09/20 08:18 03/09/20 08:18 03/09/20 08:18 03/09/20 08:18 03/09/20 08:18 Intake & Output 03/08/20 03/09/20 03/10/20 06:59 06:59 06:59 Intake Total 1973 2360 Output Total 1640 525 Balance 333 1835 Weight 96.9 kg 101.1 kg General appearance: PRESENT: no acute distress Head exam: PRESENT: normocephalic Eye exam: PRESENT: EOMI Ear exam: PRESENT: normal external ear exam Mouth exam: PRESENT: dry mucosa Teeth exam: PRESENT: poor dentation Neck exam: PRESENT: full ROM Respiratory exam: PRESENT: clear to auscultation char Cardiovascular exam: PRESENT: RRR Pulses: PRESENT: normal femoral pulses, normal dorsalis pedis pul Vascular exam: PRESENT: normal capillary refill Breast: PRESENT: Normal GI/Abdominal exam: PRESENT: soft, other - wes with min op Rectal exam: PRESENT: deferred Gentrourinary exam: PRESENT: indwelling catheter Extremities exam: PRESENT: full ROM Musculoskeletal exam: PRESENT: full ROM Neurological exam: PRESENT: alert, awake, oriented to person Psychiatric exam: PRESENT: appropriate affect Skin exam: PRESENT: dry Results Laboratory Results: 03/09/20 04:48 03/09/20 04:48 03/08/20 03/09/20 03/09/20 15:02 04:48 04:48 WBC 15.0 H RBC 3.86 L Hgb 11.1 L Hct 33.5 L MCV 87 MCH 28.9 MCHC 33.2 RDW 17.1 H Plt Count 163 Seg Neutrophils % 86.7 H Sodium 135.4 L Potassium 3.5 L Chloride 106 Carbon Dioxide 21 L Anion Gap 8 BUN 45 H Creatinine 1.29 H Est GFR ( Amer) > 60 Glucose 91 Calcium 7.9 L Total Bilirubin 1.7 H AST 68 H Alkaline Phosphatase 197 H Ammonia < 8.7 L Total Protein 4.5 L Albumin 2.1 L Impressions: Abdomen/Pelvis CT 03/04/20 10:10 IMPRESSION: 1. Markedly distended gallbladder with mild pericholecystic fluid. No calcified gallstones or gallbladder wall thickening. Findings are equivocal for acute cholecystitis. Further evaluation with gallbladder ultrasound is recommended. 2. Small right pleural effusion and trace left effusion. 3. Moderate cardiomegaly. Reflux of contrast into the hepatic veins, which can be seen with right heart failure/elevated right heart pressure. Abdomen Ultrasound 03/04/20 12:18 IMPRESSION: Hydropic gallbladder with sludge and trace pericholecystic fluid. Negative sonographic Calzada's sign and no gallbladder wall thickening. These findings remain equivocal for acute cholecystitis. Small right pleural effusion. Cholangiogram 03/07/20 00:00 IMPRESSION: IMAGE(S) OBTAINED DURING PROCEDURE. KUB X-Ray 03/07/20 14:07 IMPRESSION: NG tube is in satisfactory position. Assessment & Plan - Time Anticipated Discharge Disposition: Home, Self Care Anticipated Discharge Timeframe: within 48 hours - Plan Summary Plan Summary: doing better wbc sl up to 15k still with carter plan spoke [facility] medicine, will poss start flowmax will cont carter today start clears add fllagyl out of bed.
[2020-03-09] MEDS: INSULIN LISPRO 100 UNIT/ML 3 ML VIAL SUBCUT SCH ×4 (09:14→22:20)
[2020-03-09] MEDS ORDERED: METOPROLOL TARTRATE PF/INJ 5 MG/5 ML SDV IV PRN (09:55)
[2020-03-09] MEDS: NORMAL SALINE 1000 ML 1,000 ML IV PRN ×2 (10:00→21:09)
[2020-03-09] MEDS: METOPROLOL TARTRATE 50 MG TABLET NG SCH ×2 (10:11→21:09)
[2020-03-09] MEDS: PANTOPRAZOLE SODIUM 40 MG VIAL IV SCH (10:57)
[2020-03-09] MEDS: METRONIDAZOLE 500 MG/NS RTU 500 MG/100 ML RTUPB IV SCH ×2 (12:52→17:25)
--- NOTE | 2020-03-09 14:03 | PDOC PROGRESS REPORT ---
Subjective Progress Note for:: 03/09/20 Subjective:: PAULETTE SCALES is a 74 year old male with a past medical history of CHF, PAF, hypertension, hyperlipidemia, anemia, DM 2, GERD, and PTSD who was admitted 03/04/2020 by the surgical service for acute cholecystitis. Cardiology service, Dr. Roberts, was consulted for surgical clearance. Hematology, Dr. Ramsey, consulted for preoperative correction of coagulopathy. Hospital service is consulted for medical management. Patient underwent Laparoscopic cholecystectomy today by Dr. Ferraro; required conversion to open cholecystectomy with cholangiogram due to necrosis of the gallbladder with some erosion into the parenchyma of the liver. Patient was seen on morning rounds. He was found resting in bed, comfortably, on room air. He was sleeping but woke easily when I said his name. He is A&Ox4. Can recall that he had increased confusion over the last few days, but feels "it has passed." Per nursing, he remains somewhat impulsive. He denies fever, chills, chest pain, dyspnea, abdominal pain, nausea and vomiting. Pleased to be allowed clear liquids today. He has no questions or concerns at this time. Nursing reports freqeunt cough after drinking water; concerned about aspiration. Reason For Visit: CHOLECYSTITIS S/P OPEN CHOLECYSTECTOMY Physical Exam Vital Signs: Temp Pulse Resp BP Pulse Ox 97.5 F 88 18 93/72 L 100 03/09/20 11:00 03/09/20 11:00 03/09/20 11:00 03/09/20 11:00 03/09/20 11:00 Intake & Output 03/08/20 03/09/20 03/10/20 06:59 06:59 06:59 Intake Total 1973 2360 1000 Output Total 1640 525 Balance 333 1835 1000 Weight 96.9 kg 101.1 kg General appearance: PRESENT: no acute distress, cooperative, well-developed, well-nourished Head exam: PRESENT: atraumatic, normocephalic Eye exam: PRESENT: conjunctiva pink, EOMI, PERRLA. ABSENT: scleral icterus Mouth exam: PRESENT: moist, tongue midline Respiratory exam: PRESENT: clear to auscultation char, symmetrical, unlabored. ABSENT: rales, rhonchi, wheezes Cardiovascular exam: PRESENT: RRR. ABSENT: diastolic murmur, rubs, systolic murmur Vascular exam: PRESENT: normal capillary refill GI/Abdominal exam: PRESENT: diminished bowel sounds, soft, other - surgical dressing and CHANO drain. ABSENT: distended, guarding, mass, organolmegaly, rebound, tenderness Rectal exam: PRESENT: deferred Gentrourinary exam: PRESENT: indwelling catheter Extremities exam: PRESENT: full ROM. ABSENT: calf tenderness, clubbing, pedal edema Neurological exam: PRESENT: alert, awake, oriented to person, oriented to place, oriented to time, oriented to situation, CN II-XII grossly intact. ABSENT: motor sensory deficit Psychiatric exam: PRESENT: appropriate affect, normal mood. ABSENT: homicidal ideation, suicidal ideation Skin exam: PRESENT: dry, warm. ABSENT: cyanosis, rash Results Laboratory Results: 03/09/20 04:48 03/09/20 04:48 03/08/20 03/09/20 03/09/20 15:02 04:48 04:48 WBC 15.0 H RBC 3.86 L Hgb 11.1 L Hct 33.5 L MCV 87 MCH 28.9 MCHC 33.2 RDW 17.1 H Plt Count 163 Seg Neutrophils % 86.7 H Sodium 135.4 L Potassium 3.5 L Chloride 106 Carbon Dioxide 21 L Anion Gap 8 BUN 45 H Creatinine 1.29 H Est GFR ( Amer) > 60 Glucose 91 Calcium 7.9 L Total Bilirubin 1.7 H AST 68 H Alkaline Phosphatase 197 H Ammonia < 8.7 L Total Protein 4.5 L Albumin 2.1 L 03/04/20 13:15 Blood Blood Culture - Final NO GROWTH IN 5 DAYS Impressions: Abdomen/Pelvis CT 03/04/20 10:10 IMPRESSION: 1. Markedly distended gallbladder with mild pericholecystic fluid. No calcified gallstones or gallbladder wall thickening. Findings are equivocal for acute cholecystitis. Further evaluation with gallbladder ultrasound is recommended. 2. Small right pleural effusion and trace left effusion. 3. Moderate cardiomegaly. Reflux of contrast into the hepatic veins, which can be seen with right heart failure/elevated right heart pressure. Abdomen Ultrasound 03/04/20 12:18 IMPRESSION: Hydropic gallbladder with sludge and trace pericholecystic fluid. Negative sonographic Calzada's sign and no gallbladder wall thickening. These findings remain equivocal for acute cholecystitis. Small right pleural effusion. Cholangiogram 03/07/20 00:00 IMPRESSION: IMAGE(S) OBTAINED DURING PROCEDURE. KUB X-Ray 03/07/20 14:07 IMPRESSION: NG tube is in satisfactory position. Assessment and Plan - Diagnosis (1) Acute metabolic encephalopathy Is this a current diagnosis for this admission?: Yes Plan: Improved; A&Ox4, remains impulsive Multifactorial secondary to elevated LFTs, acute infectious process, general anesthesia, pain, likely underlying dementia, and patient with PTSD. Overnight, patient became agitated, calling out, throwing things, spitting pills, with bizarre statements. Reportedly at some point the patient stated that he wanted to kill himself. I have very low suspicion for suicidal ideation as the patient clearly has acute encephalopathy. LFTs are elevated, though trending down. Ammonia is nml. Continue antibiotics; have escalated. Continue IV fluids Agree with sitter. Recommend discontinuing restraints. Ambulate. Ensure adequate pain control. IV Haldol as needed for agitation posing safety risk. Otherwise, provide nonpharmacological/nursing interventions. (2) Acute cholecystitis Is this a current diagnosis for this admission?: Yes Plan: Per surgery: Status post laparoscopic cholecystectomy converted to open cholecystectomy. Patient's abdominal exam much improved after surgery however his liver function studies are elevated. Patient did undergo a intraoperative cholangiogram which demonstrated no common bile duct obstruction. Will follow labs for now. Continue NG tube until he has better bowel function. We will continue his Bear catheter until he is more ambulatory. Will ask hospitalist to see patient to help us evaluate his mental status. I do not think he is septic. I suspect underlying dementia. Blood cultures have no growth at 4 days. Pathology showed acute cholecystitis w/ hemorrhage and necrosis Discussed with Dr. Ferraro today. WBC trending up. Continue Zosyn, Day #5 Add Flagyl. (3) Atrial flutter Qualifiers: Atrial flutter type: typical Qualified Code(s): I48.3 - Typical atrial flutter Is this a current diagnosis for this admission?: Yes Plan: Atrial flutter with controlled ventricular response. Monitor on telemetry. Resume home medication regiment for rate control once cleared for p.o. intake. IV Lopressor as needed for rate control, frequent PVCs. Cardiology consulted. (4) CHF (congestive heart failure) Qualifiers: Heart failure type: other Qualified Code(s): I50.9 - Heart failure, unspecified Is this a current diagnosis for this admission?: Yes Plan: Echocardiogram reveals LVEF 55 to 60%. RV systolic function moderately reduced. Moderate pulmonary hypertension. Currently n.p.o. Cardiology service consulted. Resume home dose antihypertensive therapy when appropriate. Daily weights, strict I&O's. (5) Anemia, chronic disease Is this a current diagnosis for this admission?: Yes Plan: Hemoglobin 11.3 this morning. Did receive 2 units PRBC yesterday and intraoperative. No evidence of active bleeding. Follow-up CBC (6) Essential hypertension Is this a current diagnosis for this admission?: Yes Plan: Currently n.p.o. Provide for adequate pain control. IV hydralazine PRN blood pressure control. Resume home medication regimen when cleared for oral intake. (7) GERD (gastroesophageal reflux disease) Qualifiers: Is this a current diagnosis for this admission?: Yes Plan: Not on home medication for management of GERD. IV Protonix daily for PUD prophylaxis. (8) Hyperlipidemia Qualifiers: Hyperlipidemia type: unspecified Qualified Code(s): E78.5 - Hyperlipidemia, unspecified Is this a current diagnosis for this admission?: Yes Plan: Currently n.p.o. Resume home dose statin when appropriate. (9) Diabetes Qualifiers: Diabetes mellitus type: type 2 Is this a current diagnosis for this admission?: Yes Plan: Does not appear that patient is on home medication regiment. A1c 6.8%. Diet per surgical service; currently n.p.o. Accu-Cheks every 6 hours with Humalog for sliding scale coverage. Hypoglycemia protocol in place. (10) PTSD (post-traumatic stress disorder) Is this a current diagnosis for this admission?: Yes Plan: Supportive care. (11) TRACY (acute kidney injury) Is this a current diagnosis for this admission?: Yes Plan: Cr 1.29/BUN 45 Baseline 0.76/BUN 21 Likely prerenal r/t NPO status. Increased IVF Avoid nephrotoxic medications. Strict I&Os Follow up chemistry. - Time Time Spent with patient: 25-34 minutes Medications reviewed and adjusted accordingly: Yes Anticipated Discharge Disposition: Home, Self Care Anticipated Discharge Timeframe: >72 hrs
[2020-03-09] MEDS: TAMSULOSIN HCL 0.4 MG CAP.SR.24H PO SCH (17:25)
[2020-03-10] MEDS: METRONIDAZOLE 500 MG/NS RTU 500 MG/100 ML RTUPB IV SCH ×4 (00:15→17:36)
[2020-03-10] MEDS: NORMAL SALINE 1000 ML 1,000 ML IV PRN (03:32)
[2020-03-10] MEDS: PIPERACILLIN SODIUM/TAZOBACTAM 3.375 GM in NORMAL SALINE 100 ML IV SCH ×4 (05:00→23:22)
[2020-03-10 05:24] LABS: HEMATOCRIT 32.6 % (37.9-51.0); HEMOGLOBIN 10.8 g/dL (13.5-17.0); MEAN CORPUSCULAR HEMOGLOBIN 29.1 pg (27.0-33.4); MEAN CORPUSCULAR HGB CONC 33.1 g/dL (32.0-36.0); MEAN CORPUSCULAR VOLUME 88 fl (80-97); PLATELET COUNT 146 10^3/uL (150-450); RED BLOOD COUNT 3.72 10^6/uL (4.35-5.55); WHITE BLOOD COUNT 15.1 10^3/uL (4.0-10.5)
[2020-03-10 05:46] LABS: ALKALINE PHOSPHATASE 190 U/L (38-126); ANION GAP 8 (5-19); ASPARTATE AMINO TRANSFERASE 45 U/L (17-59); BILIRUBIN,DIRECT 0.7 mg/dL (0.0-0.4); BILIRUBIN,TOTAL 1.2 mg/dL (0.2-1.3); BLOOD UREA NITROGEN 39 mg/dL (7-20); CALCIUM 7.7 mg/dL (8.4-10.2); CARBON DIOXIDE 19 mmol/L (22-30); CHLORIDE 108 mmol/L (98-107); GLUCOSE 117 mg/dL (75-110); POTASSIUM 3.2 mmol/L (3.6-5.0); TOTAL PROTEIN 4.2 g/dL (6.3-8.2)
[2020-03-10] MEDS ORDERED: RINGERS SOLUTION,LACTATED 1,000 ML IV PRN (07:56)
[2020-03-10] MEDS ORDERED: POTASSI CL 20 MEQ/50 ML RIDER 20 MEQ/50 ML RTUPB IV SCH (08:00)
[2020-03-10] MEDS ORDERED: ALBUTEROL SULFATE 0.083% NEB 2.5 MG/3 ML AMPUL NEB PRN (09:16)
[2020-03-10] MEDS ORDERED: POTASSIUM CHLORIDE 10 MEQ TABLET.ER PO ONE (09:30)
[2020-03-10] MEDS: INSULIN LISPRO 100 UNIT/ML 3 ML VIAL SUBCUT SCH ×4 (10:28→22:23)
[2020-03-10] MEDS: PANTOPRAZOLE SODIUM 40 MG VIAL IV SCH (10:31)
[2020-03-10] MEDS: APIXABAN 5 MG TABLET PO SCH ×2 (10:31→17:36)
[2020-03-10] MEDS: METOPROLOL TARTRATE 50 MG TABLET NG SCH (10:34)
--- NOTE | 2020-03-10 10:46 | PDOC PROGRESS REPORT ---
Subjective Progress Note for:: 03/10/20 Reason For Visit: CHOLECYSTITIS S/P OPEN CHOLECYSTECTOMY Patient doing reasonably well, tolerating clear liquids; Bear catheter still in, drain still in. Continues on intravenous antibiotics, no fever. Confusion improved Physical Exam Vital Signs: Temp Pulse Resp BP Pulse Ox 97.4 F 83 18 96/61 L 98 03/10/20 07:35 03/10/20 07:35 03/10/20 07:35 03/10/20 07:35 03/10/20 07:35 Intake & Output 03/09/20 03/10/20 03/11/20 06:59 06:59 06:59 Intake Total 2360 4209 100 Output Total 525 800 Balance 1835 3409 100 Weight 101.1 kg 103.3 kg General appearance: PRESENT: no acute distress GI/Abdominal exam: PRESENT: other - All dressings removed; drain with serous fluid no bile; drain removed; dima intact no evidence of infection abdomen soft. Dressings reapplied. Results Laboratory Results: 03/10/20 04:56 03/10/20 04:56 03/10/20 03/10/20 04:56 04:56 WBC 15.1 H RBC 3.72 L Hgb 10.8 L Hct 32.6 L MCV 88 MCH 29.1 MCHC 33.1 RDW 17.0 H Plt Count 146 L Sodium 134.6 L Potassium 3.2 L Chloride 108 H Carbon Dioxide 19 L Anion Gap 8 BUN 39 H Creatinine 1.02 Est GFR ( Amer) > 60 Glucose 117 H Calcium 7.7 L Total Bilirubin 1.2 AST 45 Alkaline Phosphatase 190 H Total Protein 4.2 L Albumin 2.0 L 03/04/20 14:06 Blood Blood Culture - Final NO GROWTH IN 5 DAYS 03/04/20 13:15 Blood Blood Culture - Final NO GROWTH IN 5 DAYS Impressions: Abdomen/Pelvis CT 03/04/20 10:10 IMPRESSION: 1. Markedly distended gallbladder with mild pericholecystic fluid. No calcified gallstones or gallbladder wall thickening. Findings are equivocal for acute cholecystitis. Further evaluation with gallbladder ultrasound is recommended. 2. Small right pleural effusion and trace left effusion. 3. Moderate cardiomegaly. Reflux of contrast into the hepatic veins, which can be seen with right heart failure/elevated right heart pressure. Abdomen Ultrasound 03/04/20 12:18 IMPRESSION: Hydropic gallbladder with sludge and trace pericholecystic fluid. Negative sonographic Calzada's sign and no gallbladder wall thickening. These findings remain equivocal for acute cholecystitis. Small right pleural effusion. Cholangiogram 03/07/20 00:00 IMPRESSION: IMAGE(S) OBTAINED DURING PROCEDURE. KUB X-Ray 03/07/20 14:07 IMPRESSION: NG tube is in satisfactory position. Assessment & Plan - Diagnosis (1) Acute cholecystitis Is this a current diagnosis for this admission?: Yes Plan: Impression: Patient doing well postoperative day 3 following laparoscopic converted to open cholecystectomy for acute cholecystitis, necrosis; no evidence of residual sepsis. Platelets of 146, potassium of 3.2. Confusion resolved Plan: 1. DC Bear catheter-ordered 2. Increase diet to full liquid-ordered 3. May resume 10 a inhibitor-discussed with hospitalist 4. Drain catheter removed at bedside today 5. We will continue to follow patient with you (2) Chronic pain Is this a current diagnosis for this admission?: Yes (3) Essential hypertension Is this a current diagnosis for this admission?: Yes (4) GERD (gastroesophageal reflux disease) Qualifiers: Is this a current diagnosis for this admission?: Yes (5) Hyperlipidemia Qualifiers: Hyperlipidemia type: unspecified Qualified Code(s): E78.5 - Hyperlipidemia, unspecified Is this a current diagnosis for this admission?: Yes - Time Time Spent: 30 to 50 Minutes Critical Time spent with patient: 15-24 minutes Medications reviewed and adjusted accordingly: Yes Anticipated Discharge Disposition: Home with Home Health Anticipated Discharge Timeframe: within 48 hours
--- NOTE | 2020-03-10 17:21 | PDOC PROGRESS REPORT ---
Subjective Progress Note for:: 03/10/20 Subjective:: PAULETTE SCALES is a 74 year old male with a past medical history of CHF, PAF, hypertension, hyperlipidemia, anemia, DM 2, GERD, and PTSD who was admitted 03/04/2020 by the surgical service for acute cholecystitis. Cardiology service, Dr. Roberts, was consulted for surgical clearance. Hematology, Dr. Ramsey, consulted for preoperative correction of coagulopathy. Hospital service is consulted for medical management. Patient underwent Laparoscopic cholecystectomy today by Dr. Ferraro; required conversion to open cholecystectomy with cholangiogram due to necrosis of the gallbladder with some erosion into the parenchyma of the liver. Patient was seen on morning rounds with Dr. Hernandez. A&Ox 4. He was found resting in bed, comfortably, on room air. He states he is feeling well; he is hungry and wants to get out of bed to walk more. Had a bowel movement this morning. He denies fever, chills, chest pain, dyspnea, abdominal pain, nausea and vomiting. He has no questions or concerns at this time. No concerns per nursing. Reason For Visit: CHOLECYSTITIS S/P OPEN CHOLECYSTECTOMY Physical Exam Vital Signs: Temp Pulse Resp BP Pulse Ox 97.4 F 87 15 107/59 L 94 03/10/20 11:58 03/10/20 14:02 03/10/20 14:02 03/10/20 11:58 03/10/20 14:02 Intake & Output 03/09/20 03/10/20 03/11/20 06:59 06:59 06:59 Intake Total 2360 4209 1340 Output Total 525 800 400 Balance 1835 3409 940 Weight 101.1 kg 103.3 kg General appearance: PRESENT: no acute distress, cooperative, well-developed, well-nourished - overweight Head exam: PRESENT: atraumatic, normocephalic Eye exam: PRESENT: conjunctiva pink, EOMI, PERRLA. ABSENT: scleral icterus Mouth exam: PRESENT: moist, tongue midline Respiratory exam: PRESENT: clear to auscultation char, symmetrical, unlabored. ABSENT: rales, rhonchi, wheezes Cardiovascular exam: PRESENT: RRR. ABSENT: diastolic murmur, rubs, systolic murmur Pulses: PRESENT: normal dorsalis pedis pul Vascular exam: PRESENT: normal capillary refill GI/Abdominal exam: PRESENT: normal bowel sounds, soft, other - sugrical incision well approximated with dima; no erythema or drainage present. CHANO drain removed today.. ABSENT: distended, guarding, mass, organolmegaly, rebound, tenderness Gentrourinary exam: PRESENT: indwelling catheter Extremities exam: PRESENT: full ROM. ABSENT: calf tenderness, clubbing, pedal edema Musculoskeletal exam: PRESENT: ambulatory Neurological exam: PRESENT: alert, awake, oriented to person, oriented to place, oriented to time, oriented to situation, CN II-XII grossly intact. ABSENT: motor sensory deficit Psychiatric exam: PRESENT: appropriate affect, normal mood. ABSENT: homicidal ideation, suicidal ideation Skin exam: PRESENT: dry, intact, warm. ABSENT: cyanosis, rash Results Laboratory Results: 03/10/20 04:56 03/10/20 04:56 03/10/20 03/10/20 04:56 04:56 WBC 15.1 H RBC 3.72 L Hgb 10.8 L Hct 32.6 L MCV 88 MCH 29.1 MCHC 33.1 RDW 17.0 H Plt Count 146 L Sodium 134.6 L Potassium 3.2 L Chloride 108 H Carbon Dioxide 19 L Anion Gap 8 BUN 39 H Creatinine 1.02 Est GFR ( Amer) > 60 Glucose 117 H Calcium 7.7 L Total Bilirubin 1.2 AST 45 Alkaline Phosphatase 190 H Total Protein 4.2 L Albumin 2.0 L 03/04/20 14:06 Blood Blood Culture - Final NO GROWTH IN 5 DAYS 03/04/20 13:15 Blood Blood Culture - Final NO GROWTH IN 5 DAYS Impressions: Abdomen/Pelvis CT 03/04/20 10:10 IMPRESSION: 1. Markedly distended gallbladder with mild pericholecystic fluid. No calcified gallstones or gallbladder wall thickening. Findings are equivocal for acute cholecystitis. Further evaluation with gallbladder ultrasound is recommended. 2. Small right pleural effusion and trace left effusion. 3. Moderate cardiomegaly. Reflux of contrast into the hepatic veins, which can be seen with right heart failure/elevated right heart pressure. Abdomen Ultrasound 03/04/20 12:18 IMPRESSION: Hydropic gallbladder with sludge and trace pericholecystic fluid. Negative sonographic Calzada's sign and no gallbladder wall thickening. These findings remain equivocal for acute cholecystitis. Small right pleural effusion. Cholangiogram 03/07/20 00:00 IMPRESSION: IMAGE(S) OBTAINED DURING PROCEDURE. KUB X-Ray 03/07/20 14:07 IMPRESSION: NG tube is in satisfactory position. Assessment and Plan - Diagnosis (1) Acute metabolic encephalopathy Is this a current diagnosis for this admission?: Yes Plan: Improved; A&Ox4 Multifactorial secondary to elevated LFTs, acute infectious process, general anesthesia, pain, likely underlying dementia, and patient with PTSD. Overnight, patient became agitated, calling out, throwing things, spitting pills, with bizarre statements. Reportedly at some point the patient stated that he wanted to kill himself. I have very low suspicion for suicidal ideation as the patient clearly has acute encephalopathy. LFTs are elevated, though trending down. Ammonia is nml. Continue antibiotics Continue IV fluids Ambulate. Ensure adequate pain control. Supportive care. (2) Acute cholecystitis Is this a current diagnosis for this admission?: Yes Plan: Blood cultures have no growth at 5 days. Repeat cultures pending Pathology showed acute cholecystitis w/ hemorrhage and necrosis Continue Zosyn, Day #6 IV Flagyl, Day #2 (3) Atrial flutter Qualifiers: Atrial flutter type: typical Qualified Code(s): I48.3 - Typical atrial flutter Is this a current diagnosis for this admission?: Yes Plan: Atrial flutter with controlled ventricular response. Monitor on telemetry. Resume home medication regimen; carvedilol and amiodarone Eliguis for anticoagulation IV Lopressor as needed for rate control, frequent PVCs. Cardiology consulted. (4) CHF (congestive heart failure) Qualifiers: Heart failure type: other Qualified Code(s): I50.9 - Heart failure, unspeci fied Is this a current diagnosis for this admission?: Yes Plan: Echocardiogram reveals LVEF 55 to 60%. RV systolic function moderately reduced. Moderate pulmonary hypertension. Resume home medication regimen Cardiology service consulted. Daily weights, strict I&O's. (5) Anemia, chronic disease Is this a current diagnosis for this admission?: Yes Plan: Hemoglobin 11.3 this morning. Did receive 2 units PRBC yesterday and intraoperative. No evidence of active bleeding. Follow-up CBC (6) Essential hypertension Is this a current diagnosis for this admission?: Yes Plan: Provide for adequate pain control. IV hydralazine PRN blood pressure control. Resume home medication regimen (7) GERD (gastroesophageal reflux disease) Qualifiers: Is this a current diagnosis for this admission?: Yes Plan: Not on home medication for management of GERD. Protonix daily for PUD prophylaxis. (8) Hyperlipidemia Qualifiers: Hyperlipidemia type: unspecified Qualified Code(s): E78.5 - Hyperlipidemia, unspecified Is this a current diagnosis for this admission?: Yes Plan: Continue to hold statin 2/2 elevated LFTs (9) Diabetes Qualifiers: Diabetes mellitus type: type 2 Is this a current diagnosis for this admission?: Yes Plan: Does not appear that patient is on home medication regiment. A1c 6.8%. Accu-Cheks every 6 hours with Humalog for sliding scale coverage. Hypoglycemia protocol in place. (10) PTSD (post-traumatic stress disorder) Is this a current diagnosis for this admission?: Yes Plan: Supportive care. (11) TRACY (acute kidney injury) Is this a current diagnosis for this admission?: Yes Plan: Cr 1.29/BUN 45 Baseline 0.76/BUN 21 Likely prerenal r/t NPO status. Increased IVF Avoid nephrotoxic medications. Strict I&Os Follow up chemistry. - Time Time Spent with patient: 35 or more minutes Medications reviewed and adjusted accordingly: Yes Anticipated Discharge Disposition: Home, Self Care Anticipated Discharge Timeframe: within 72 hours
[2020-03-10] MEDS: TAMSULOSIN HCL 0.4 MG CAP.SR.24H PO SCH (17:36)
[2020-03-10] MEDS ORDERED: HYDROCODONE/ACETAMINOPHEN 5-325 MG TABLET PO PRN (21:26)
[2020-03-10] MEDS: CARVEDILOL 3.125 MG TABLET PO SCH (22:21)
[2020-03-11] MEDS: METRONIDAZOLE 500 MG/NS RTU 500 MG/100 ML RTUPB IV SCH ×4 (00:04→18:28)
[2020-03-11] MEDS: PIPERACILLIN SODIUM/TAZOBACTAM 3.375 GM in NORMAL SALINE 100 ML IV SCH ×2 (05:21→11:35)
[2020-03-11] MEDS: PANTOPRAZOLE SODIUM 40 MG TABLET.DR PO SCH (06:01)
[2020-03-11 06:26] LABS: HEMATOCRIT 32.6 % (37.9-51.0); HEMOGLOBIN 10.8 g/dL (13.5-17.0); MEAN CORPUSCULAR HEMOGLOBIN 28.9 pg (27.0-33.4); MEAN CORPUSCULAR HGB CONC 33.1 g/dL (32.0-36.0); MEAN CORPUSCULAR VOLUME 87 fl (80-97); PLATELET COUNT 139 10^3/uL (150-450); RED BLOOD COUNT 3.74 10^6/uL (4.35-5.55); RED CELL DISTRIBUTION WIDTH 17.1 % (11.5-14.0); WHITE BLOOD COUNT 14.2 10^3/uL (4.0-10.5)
[2020-03-11 06:54] LABS: ANION GAP 5 (5-19); BLOOD UREA NITROGEN 32 mg/dL (7-20); CARBON DIOXIDE 21 mmol/L (22-30); CHLORIDE 109 mmol/L (98-107); GLUCOSE 119 mg/dL (75-110)
[2020-03-11 06:55] LABS: POTASSIUM 3.3 mmol/L (3.6-5.0)
[2020-03-11] MEDS: POTASSIUM CHLORIDE 10 MEQ TABLET.ER PO SCH ×3 (09:04→18:28)
[2020-03-11] MEDS: CHOLECALCIFEROL (D3) 1,000 UNIT (25 MCG) TABLET PO SCH (09:04)
[2020-03-11] MEDS: CETIRIZINE 10 MG TABLET PO SCH (09:04)
[2020-03-11] MEDS: APIXABAN 5 MG TABLET PO SCH ×2 (09:04→18:28)
[2020-03-11] MEDS: FERROUS SULFATE 325 MG TABLET PO SCH (09:05)
[2020-03-11] MEDS: AMIODARONE HCL 200 MG TABLET PO SCH (09:05)
[2020-03-11] MEDS: CARVEDILOL 3.125 MG TABLET PO SCH ×2 (09:05→21:16)
[2020-03-11] MEDS: INSULIN LISPRO 100 UNIT/ML 3 ML VIAL SUBCUT SCH ×4 (09:05→21:20)
--- NOTE | 2020-03-11 12:09 | PDOC PROGRESS REPORT ---
Subjective Progress Note for:: 03/11/20 Subjective:: PAULETTE SCALES is a 74 year old male with a past medical history of CHF, PAF, hypertension, hyperlipidemia, anemia, DM 2, GERD, and PTSD who was admitted 03/04/2020 by the surgical service for acute cholecystitis. Cardiology service, Dr. Roberts, was consulted for surgical clearance. Hematology, Dr. Ramsey, consulted for preoperative correction of coagulopathy. Hospital service is consulted for medical management. Patient underwent Laparoscopic cholecystectomy today by Dr. Ferraro; required conversion to open cholecystectomy with cholangiogram due to necrosis of the gallbladder with some erosion into the parenchyma of the liver. Patient was seen on morning rounds. He was found resting in bed, comfortably, on room air. A&Ox 4. Reports he is feeling better today. Ambulated yesterday and sat in the chair x2 hours. Feels like he is improving; good appetite and no abdominal pain. Still feels fatigued and weaker than is his nml. Hopeful to go home in a day or two. He denies fever, chills, chest pain, dyspnea, abdominal pain, nausea and vomiting. He has no questions or concerns at this time. No concerns per nursing. Reason For Visit: CHOLECYSTITIS S/P OPEN CHOLECYSTECTOMY Physical Exam Vital Signs: Temp Pulse Resp BP Pulse Ox 97.3 F 84 16 103/64 96 03/11/20 07:55 03/11/20 09:00 03/11/20 09:00 03/11/20 07:55 03/11/20 09:00 Intake & Output 03/10/20 03/11/20 03/12/20 06:59 06:59 06:59 Intake Total 4209 2465 1100 Output Total 800 1250 Balance 3409 1215 1100 Weight 103.3 kg 102.7 kg General appearance: PRESENT: no acute distress, cooperative, well-developed, well-nourished - overweight Head exam: PRESENT: atraumatic, normocephalic Eye exam: PRESENT: conjunctiva pink, EOMI, PERRLA. ABSENT: scleral icterus Mouth exam: PRESENT: moist, tongue midline Respiratory exam: PRESENT: clear to auscultation char, symmetrical, unlabored, other - room air. ABSENT: rales, rhonchi, wheezes Cardiovascular exam: PRESENT: RRR. ABSENT: diastolic murmur, rubs, systolic murmur Pulses: PRESENT: normal dorsalis pedis pul Vascular exam: PRESENT: normal capillary refill GI/Abdominal exam: PRESENT: normal bowel sounds, soft, other - ugrical incision well approximated with dima; no erythema or drainage present. Continued drainage from CHANO site.. ABSENT: distended, guarding, mass, organolmegaly, rebound, tenderness Rectal exam: PRESENT: deferred Gentrourinary exam: ABSENT: indwelling catheter Extremities exam: PRESENT: full ROM. ABSENT: calf tenderness, clubbing, pedal edema Musculoskeletal exam: PRESENT: ambulatory Neurological exam: PRESENT: alert, awake, oriented to person, oriented to place, oriented to time, oriented to situation, CN II-XII grossly intact. ABSENT: motor sensory deficit Psychiatric exam: PRESENT: appropriate affect, normal mood. ABSENT: homicidal ideation, suicidal ideation Skin exam: PRESENT: dry, intact, warm. ABSENT: cyanosis, rash Results Laboratory Results: 03/11/20 05:31 03/11/20 05:31 03/11/20 03/11/20 05:31 05:31 WBC 14.2 H RBC 3.74 L Hgb 10.8 L Hct 32.6 L MCV 87 MCH 28.9 MCHC 33.1 RDW 17.1 H Plt Count 139 L Sodium 135.3 L Potassium 3.3 L Chloride 109 H Carbon Dioxide 21 L Anion Gap 5 BUN 32 H Creatinine 1.05 Est GFR ( Amer) > 60 Glucose 119 H Calcium 8.0 L Impressions: Abdomen/Pelvis CT 03/04/20 10:10 IMPRESSION: 1. Markedly distended gallbladder with mild pericholecystic fluid. No calcified gallstones or gallbladder wall thickening. Findings are equivocal for acute cholecystitis. Further evaluation with gallbladder ultrasound is recommended. 2. Small right pleural effusion and trace left effusion. 3. Moderate cardiomegaly. Reflux of contrast into the hepatic veins, which can be seen with right heart failure/elevated right heart pressure. Abdomen Ultrasound 03/04/20 12:18 IMPRESSION: Hydropic gallbladder with sludge and trace pericholecystic fluid. Negative sonographic Calzada's sign and no gallbladder wall thickening. These findings remain equivocal for acute cholecystitis. Small right pleural effusion. Cholangiogram 03/07/20 00:00 IMPRESSION: IMAGE(S) OBTAINED DURING PROCEDURE. KUB X-Ray 03/07/20 14:07 IMPRESSION: NG tube is in satisfactory position. Assessment and Plan - Diagnosis (1) Acute metabolic encephalopathy Is this a current diagnosis for this admission?: Yes Plan: Resolved; A&Ox4 Multifactorial secondary to elevated LFTs, acute infectious process, general anesthesia, pain, likely underlying dementia, and patient with PTSD. Overnight, patient became agitated, calling out, throwing things, spitting pills, with bizarre statements. Reportedly at some point the patient stated that he wanted to kill himself. I have very low suspicion for suicidal ideation as the patient clearly has acute encephalopathy. LFTs are elevated, though trending down. Ammonia is nml. Continue antibiotics Ambulate. Ensure adequate pain control. Supportive care. (2) Acute cholecystitis Is this a current diagnosis for this admission?: Yes Plan: Blood cultures have no growth at 5 days. Repeat cultures pending Pathology showed acute cholecystitis w/ hemorrhage and necrosis Continue Zosyn, Day #7 IV Flagyl, Day #3 (3) Atrial flutter Qualifiers: Atrial flutter type: typical Qualified Code(s): I48.3 - Typical atrial flutter Is this a current diagnosis for this admission?: Yes Plan: Atrial flutter with controlled ventricular response. Monitor on telemetry. Resume home medication regimen; carvedilol and amiodarone Eliguis for anticoagulation IV Lopressor as needed for rate control, frequent PVCs. Cardiology consulted. (4) CHF (congestive heart failure) Qualifiers: Heart failure type: other Qualified Code(s): I50.9 - Heart failure, unspecified Is this a current diagnosis for this admission?: Yes Plan: Echocardiogram reveals LVEF 55 to 60%. RV systolic function moderately reduced. Moderate pulmonary hypertension. Resume home medication regimen Cardiology service consulted. Daily weights, strict I&O's. (5) Anemia, chronic disease Is this a current diagnosis for this admission?: Yes Plan: Hemoglobin 11.3 this morning. Did receive 2 units PRBC yesterday and intraoperative. No evidence of active bleeding. Follow-up CBC (6) Essential hypertension Is this a current diagnosis for this admission?: Yes Plan: Provide for adequate pain control. IV hydralazine PRN blood pressure control. Resume home medication regimen (7) GERD (gastroesophageal reflux disease) Qualifiers: Is this a current diagnosis for this admission?: Yes Plan: Not on home medication for management of GERD. Protonix daily for PUD prophylaxis. (8) Hyperlipidemia Qualifiers: Hyperlipidemia type: unspecified Qualified Code(s): E78.5 - Hyperlipidemia, unspecified Is this a current diagnosis for this admission?: Yes Plan: Continue to hold statin 2/2 elevated LFTs (9) Diabetes Qualifiers: Diabetes mellitus type: type 2 Is this a current diagnosis for this admission?: Yes Plan: Does not appear that patient is on home medication regiment. A1c 6.8%. Accu-Cheks every 6 hours with Humalog for sliding scale coverage. Hypoglycemia protocol in place. (10) PTSD (post-traumatic stress disorder) Is this a current diagnosis for this admission?: Yes Plan: Supportive care. (11) TRACY (acute kidney injury) Is this a current diagnosis for this admission?: Yes Plan: Improved; Cr 1.29-> 1.05 Baseline 0.76/BUN 21 Likely prerenal r/t NPO status. Avoid nephrotoxic medications. Ecnoruage p.o. fluids Strict I&Os Follow up chemistry. (12) Hypokalemia Is this a current diagnosis for this admission?: Yes Plan: Likely r/t poor p.o. intake; surgery has resumed diet Oral replacement today Follow up chemistry - Time Time Spent with patient: 25-34 minutes Medications reviewed and adjusted accordingly: Yes Anticipated Discharge Disposition: Home, Self Care Anticipated Discharge Timeframe: within 72 hours
--- NOTE | 2020-03-11 15:10 | PDOC PROGRESS REPORT ---
Subjective Progress Note for:: 03/11/20 Reason For Visit: CHOLECYSTITIS S/P OPEN CHOLECYSTECTOMY Patient is sitting in the chair, performing pulmonary toilet on incentive spirometer. Is tolerating regular diet, has voided. Pain is controlled. Back on Eliquis. Physical Exam Vital Signs: Temp Pulse Resp BP Pulse Ox 97.3 F 84 16 103/64 96 03/11/20 10:00 03/11/20 09:00 03/11/20 09:00 03/11/20 07:55 03/11/20 09:00 Intake & Output 03/10/20 03/11/20 03/12/20 06:59 06:59 06:59 Intake Total 4209 2465 1100 Output Total 800 1250 Balance 3409 1215 1100 Weight 103.3 kg 102.7 kg General appearance: PRESENT: no acute distress GI/Abdominal exam: PRESENT: other - Some serous discharge from the right upper quadrant drain site. No peritoneal signs; remainder of dima in position. Results Laboratory Results: 03/11/20 05:31 03/11/20 05:31 03/11/20 03/11/20 05:31 05:31 WBC 14.2 H RBC 3.74 L Hgb 10.8 L Hct 32.6 L MCV 87 MCH 28.9 MCHC 33.1 RDW 17.1 H Plt Count 139 L Sodium 135.3 L Potassium 3.3 L Chloride 109 H Carbon Dioxide 21 L Anion Gap 5 BUN 32 H Creatinine 1.05 Est GFR ( Amer) > 60 Glucose 119 H Calcium 8.0 L Impressions: Abdomen/Pelvis CT 03/04/20 10:10 IMPRESSION: 1. Markedly distended gallbladder with mild pericholecystic fluid. No calcified gallstones or gallbladder wall thickening. Findings are equivocal for acute cholecystitis. Further evaluation with gallbladder ultrasound is recommended. 2. Small right pleural effusion and trace left effusion. 3. Moderate cardiomegaly. Reflux of contrast into the hepatic veins, which can be seen with right heart failure/elevated right heart pressure. Abdomen Ultrasound 03/04/20 12:18 IMPRESSION: Hydropic gallbladder with sludge and trace pericholecystic fluid. Negative sonographic Calzada's sign and no gallbladder wall thickening. These findings remain equivocal for acute cholecystitis. Small right pleural effusion. Cholangiogram 03/07/20 00:00 IMPRESSION: IMAGE(S) OBTAINED DURING PROCEDURE. KUB X-Ray 03/07/20 14:07 IMPRESSION: NG tube is in satisfactory position. Assessment & Plan - Diagnosis (1) Acute cholecystitis Is this a current diagnosis for this admission?: Yes Plan: Impression: Patient is 4 days status post open cholecystectomy, doing well, no evidence of sepsis tolerating a diet, and voiding; drain remains out. Patient still on IV Zosyn with mild, residual leukocytosis; hypokalemia noted Plan: 1. Potassium replaced by medicine service 2. Can Hep-Lock IV once p.o. adequate 3. Anticipate discharge tomorrow possibly requiring home health for assistance with activities of daily living (2) Chronic pain Is this a current diagnosis for this admission?: Yes (3) Essential hypertension Is this a current diagnosis for this admission?: Yes (4) GERD (gastroesophageal reflux disease) Qualifiers: Is this a current diagnosis for this admission?: Yes (5) Hyperlipidemia Qualifiers: Hyperlipidemia type: unspecified Qualified Code(s): E78.5 - Hyperlipidemia, unspecified Is this a current diagnosis for this admission?: Yes - Time Time Spent: 30 to 50 Minutes Critical Time spent with patient: 15-24 minutes Anticipated Discharge Disposition: Home with Home Health Anticipated Discharge Timeframe: within 24 hours
[2020-03-11] MEDS ORDERED: POTASSIUM CHLORIDE 10 MEQ TABLET.ER PO ONE (18:27)
[2020-03-11] MEDS: TAMSULOSIN HCL 0.4 MG CAP.SR.24H PO SCH (18:28)
[2020-03-12] MEDS: METRONIDAZOLE 500 MG/NS RTU 500 MG/100 ML RTUPB IV SCH ×2 (00:05→05:36)
[2020-03-12] MEDS: PANTOPRAZOLE SODIUM 40 MG TABLET.DR PO SCH (05:36)
[2020-03-12 06:14] LABS: HEMATOCRIT 34.1 % (37.9-51.0); HEMOGLOBIN 11.1 g/dL (13.5-17.0); MEAN CORPUSCULAR HEMOGLOBIN 28.8 pg (27.0-33.4); MEAN CORPUSCULAR HGB CONC 32.7 g/dL (32.0-36.0); MEAN CORPUSCULAR VOLUME 88 fl (80-97); PLATELET COUNT 142 10^3/uL (150-450); RED BLOOD COUNT 3.86 10^6/uL (4.35-5.55); RED CELL DISTRIBUTION WIDTH 17.2 % (11.5-14.0); WHITE BLOOD COUNT 14.5 10^3/uL (4.0-10.5)
[2020-03-12 06:43] LABS: ALKALINE PHOSPHATASE 163 U/L (38-126); ANION GAP 5 (5-19); ASPARTATE AMINO TRANSFERASE 24 U/L (17-59); BILIRUBIN,DIRECT 0.7 mg/dL (0.0-0.4); BILIRUBIN,TOTAL 0.9 mg/dL (0.2-1.3); BLOOD UREA NITROGEN 24 mg/dL (7-20); CALCIUM 8.1 mg/dL (8.4-10.2); CARBON DIOXIDE 20 mmol/L (22-30); CHLORIDE 112 mmol/L (98-107); GLUCOSE 106 mg/dL (75-110); POTASSIUM 3.7 mmol/L (3.6-5.0); TOTAL PROTEIN 4.3 g/dL (6.3-8.2)
[2020-03-12] MEDS: CETIRIZINE 10 MG TABLET PO SCH (09:15)
[2020-03-12] MEDS: FERROUS SULFATE 325 MG TABLET PO SCH (09:15)
[2020-03-12] MEDS: APIXABAN 5 MG TABLET PO SCH ×2 (09:15→17:08)
[2020-03-12] MEDS: CHOLECALCIFEROL (D3) 1,000 UNIT (25 MCG) TABLET PO SCH (09:15)
[2020-03-12] MEDS: CARVEDILOL 3.125 MG TABLET PO SCH ×2 (09:15→22:11)
[2020-03-12] MEDS: AMIODARONE HCL 200 MG TABLET PO SCH (09:15)
[2020-03-12] MEDS: INSULIN LISPRO 100 UNIT/ML 3 ML VIAL SUBCUT SCH ×4 (09:54→21:58)
[2020-03-12] MEDS: METRONIDAZOLE 500 MG TABLET PO SCH ×2 (13:38→22:11)
--- NOTE | 2020-03-12 15:52 | PDOC PROGRESS REPORT ---
Subjective Progress Note for:: 03/12/20 Reason For Visit: CHOLECYSTITIS S/P OPEN CHOLECYSTECTOMY Physical Exam Vital Signs: Temp Pulse Resp BP Pulse Ox 97.7 F 98 19 104/57 L 97 03/12/20 12:06 03/12/20 12:06 03/12/20 12:06 03/12/20 12:06 03/12/20 12:06 Intake & Output 03/11/20 03/12/20 03/13/20 06:59 06:59 06:59 Intake Total 2465 3250 Output Total 1250 553 Balance 1215 2697 Weight 102.7 kg 102.7 kg Results Laboratory Results: 03/12/20 05:19 03/12/20 05:19 03/12/20 03/12/20 05:19 05:19 WBC 14.5 H RBC 3.86 L Hgb 11.1 L Hct 34.1 L MCV 88 MCH 28.8 MCHC 32.7 RDW 17.2 H Plt Count 142 L Sodium 137.3 Potassium 3.7 Chloride 112 H Carbon Dioxide 20 L Anion Gap 5 BUN 24 H Creatinine 0.97 Est GFR ( Amer) > 60 Glucose 106 Calcium 8.1 L Total Bilirubin 0.9 AST 24 Alkaline Phosphatase 163 H Total Protein 4.3 L Albumin 2.0 L Impressions: Abdomen/Pelvis CT 03/04/20 10:10 IMPRESSION: 1. Markedly distended gallbladder with mild pericholecystic fluid. No calcified gallstones or gallbladder wall thickening. Findings are equivocal for acute cholecystitis. Further evaluation with gallbladder ultrasound is recommended. 2. Small right pleural effusion and trace left effusion. 3. Moderate cardiomegaly. Reflux of contrast into the hepatic veins, which can be seen with right heart failure/elevated right heart pressure. Abdomen Ultrasound 03/04/20 12:18 IMPRESSION: Hydropic gallbladder with sludge and trace pericholecystic fluid. Negative sonographic Calzada's sign and no gallbladder wall thickening. These findings remain equivocal for acute cholecystitis. Small right pleural effusion. Cholangiogram 03/07/20 00:00 IMPRESSION: IMAGE(S) OBTAINED DURING PROCEDURE. KUB X-Ray 03/07/20 14:07 IMPRESSION: NG tube is in satisfactory position. Assessment & Plan - Diagnosis (1) Acute cholecystitis Is this a current diagnosis for this admission?: Yes - Time Anticipated Discharge Disposition: Detention Facility Anticipated Discharge Timeframe: within 48 hours - Plan Summary Plan Summary: 74-year-old male status post open cholecystectomy for severe cholecystitis. The patient reports weakness today and "cannot walk". Overall, he is doing well. He is eating without difficulty and stooling. His pain is controlled with oral pain medications. In light of his newfound weakness, I have consulted physical therapy. rehabilitation services director consult for SNF placement. Plan for discharge as soon as placement can be arranged (likely 24 to 48 hours).
--- NOTE | 2020-03-12 16:25 | PDOC PROGRESS REPORT ---
Subjective Progress Note for:: 03/12/20 Subjective:: PAULETTE SCALES is a 74 year old male with a past medical history of CHF, PAF, hypertension, hyperlipidemia, anemia, DM 2, GERD, and PTSD who was admitted 03/04/2020 by the surgical service for acute cholecystitis. Cardiology service, Dr. Roberts, was consulted for surgical clearance. Hematology, Dr. Ramsey, consulted for preoperative correction of coagulopathy. Hospital service is consulted for medical management. Patient underwent Laparoscopic cholecystectomy today by Dr. Ferraro; required conversion to open cholecystectomy with cholangiogram due to necrosis of the gallbladder with some erosion into the parenchyma of the liver. Patient was seen on morning rounds. He was found resting in bed, comfortably, on room air. A&Ox 4. Reports he is feeling better today. Feels like he is improving; good appetite and no abdominal pain. Still feels fatigued and weaker than is his nml; admits that it took assistance to get out of bed and does not feels ready to go home. Nursing confirms max assist for transfers. Patient is interested in short term rehab. Otherwise, he has no questions or concerns at this time. He denies fever, chills, chest pain, dyspnea, abdominal pain, nausea and vomiting. No concerns per nursing. Reason For Visit: CHOLECYSTITIS S/P OPEN CHOLECYSTECTOMY Physical Exam Vital Signs: Temp Pulse Resp BP Pulse Ox 97.7 F 98 19 104/57 L 97 03/12/20 12:06 03/12/20 12:06 03/12/20 12:06 03/12/20 12:06 03/12/20 12:06 Intake & Output 03/11/20 03/12/20 03/13/20 06:59 06:59 06:59 Intake Total 2465 3250 Output Total 1250 553 Balance 1215 2697 Weight 102.7 kg 102.7 kg General appearance: PRESENT: no acute distress, cooperative, well-developed, well-nourished - overweight Head exam: PRESENT: atraumatic, normocephalic Eye exam: PRESENT: conjunctiva pink, EOMI, PERRLA. ABSENT: scleral icterus Mouth exam: PRESENT: moist, tongue midline Respiratory exam: PRESENT: clear to auscultation char, symmetrical, unlabored, other - room air. ABSENT: rales, rhonchi, wheezes Cardiovascular exam: PRESENT: RRR. ABSENT: diastolic murmur, rubs, systolic murmur Pulses: PRESENT: normal dorsalis pedis pul Vascular exam: PRESENT: normal capillary refill GI/Abdominal exam: PRESENT: normal bowel sounds, soft, other - sugrical incision well approximated with dima; no erythema or drainage present. Continued drainage from CHANO site. ABSENT: distended, guarding, mass, organolmegaly, rebo und, tenderness Rectal exam: PRESENT: deferred Extremities exam: PRESENT: full ROM. ABSENT: calf tenderness, clubbing, pedal edema Musculoskeletal exam: PRESENT: ambulatory - max assist w/ transfers; ambulatory 25' w/ FWW Neurological exam: PRESENT: alert, awake, oriented to person, oriented to place, oriented to time, oriented to situation, CN II-XII grossly intact. ABSENT: motor sensory deficit Psychiatric exam: PRESENT: appropriate affect, normal mood. ABSENT: homicidal ideation, suicidal ideation Skin exam: PRESENT: dry, intact, warm. ABSENT: cyanosis, rash Results Laboratory Results: 03/12/20 05:19 03/12/20 05:19 03/12/20 03/12/20 05:19 05:19 WBC 14.5 H RBC 3.86 L Hgb 11.1 L Hct 34.1 L MCV 88 MCH 28.8 MCHC 32.7 RDW 17.2 H Plt Count 142 L Sodium 137.3 Potassium 3.7 Chloride 112 H Carbon Dioxide 20 L Anion Gap 5 BUN 24 H Creatinine 0.97 Est GFR ( Amer) > 60 Glucose 106 Calcium 8.1 L Total Bilirubin 0.9 AST 24 Alkaline Phosphatase 163 H Total Protein 4.3 L Albumin 2.0 L Impressions: Abdomen/Pelvis CT 03/04/20 10:10 IMPRESSION: 1. Markedly distended gallbladder with mild pericholecystic fluid. No calcified gallstones or gallbladder wall thickening. Findings are equivocal for acute cholecystitis. Further evaluation with gallbladder ultrasound is recommended. 2. Small right pleural effusion and trace left effusion. 3. Moderate cardiomegaly. Reflux of contrast into the hepatic veins, which can be seen with right heart failure/elevated right heart pressure. Abdomen Ultrasound 03/04/20 12:18 IMPRESSION: Hydropic gallbladder with sludge and trace pericholecystic fluid. Negative sonographic Calzada's sign and no gallbladder wall thickening. These findings remain equivocal for acute cholecystitis. Small right pleural effusion. Cholangiogram 03/07/20 00:00 IMPRESSION: IMAGE(S) OBTAINED DURING PROCEDURE. KUB X-Ray 03/07/20 14:07 IMPRESSION: NG tube is in satisfactory position. Assessment and Plan - Diagnosis (1) Acute metabolic encephalopathy Is this a current diagnosis for this admission?: Yes Plan: Resolved; A&Ox4 LFTs are trending down. Ammonia is nml. Continue antibiotics Ambulate. Ensure adequate pain control. Supportive care. (2) Acute cholecystitis Is this a current diagnosis for this admission?: Yes Plan: Blood cultures have no growth at 5 days. Repeat cultures negative at 48 Pathology showed acute cholecystitis w/ hemorrhage and necrosis Received Zosyn x7 days; transition to p.o Augmentin x 3 days for total 10 day course. Transition to p.o Flagyl x6 days for total 10 day course. (3) Atrial flutter Qualifiers: Atrial flutter type: typical Qualified Code(s): I48.3 - Typical atrial flutter Is this a current diagnosis for this admission?: Yes Plan: Atrial flutter with controlled ventricular response. Continue home medication regimen; carvedilol and amiodarone Eliguis for anticoagulation IV Lopressor as needed for rate control, frequent PVCs. Cardiology consulted. (4) CHF (congestive heart failure) Qualifiers: Heart failure type: other Qualified Code(s): I50.9 - Heart failure, unspecified Is this a current diagnosis for this admission?: Yes Plan: Echocardiogram reveals LVEF 55 to 60%. RV systolic function moderately reduced. Moderate pulmonary hypertension. Continue home medication regimen Cardiology service consulted. Daily weights, strict I&O's. (5) Anemia, chronic disease Is this a current diagnosis for this admission?: Yes Plan: Hemoglobin stable; 11.1 this morning. s/p 2 units PRBC yesterday and intraoperative. No evidence of active bleeding. (6) Essential hypertension Is this a current diagnosis for this admission?: Yes Plan: Adequate control Provide for adequate pain control. Cotninue home medication regimen (7) GERD (gastroesophageal reflux disease) Qualifiers: Is this a current diagnosis for this admission?: Yes Plan: Not on home medication for management of GERD. Protonix daily for PUD prophylaxis. (8) Hyperlipidemia Qualifiers: Hyperlipidemia type: unspecified Qualified Code(s): E78.5 - Hyperlipidemia, unspecified Is this a current diagnosis for this admission?: Yes Plan: Continue to hold statin 2/2 elevated LFTs Recommend patient resume stat in 1 week. (9) Diabetes Qualifiers: Diabetes mellitus type: type 2 Is this a current diagnosis for this admission?: Yes Plan: Does not appear that patient is on home medication regiment. A1c 6.8%. Accu-Cheks every 6 hours with Humalog for sliding scale coverage. Hypoglycemia protocol in place. (10) PTSD (post-traumatic stress disorder) Is this a current diagnosis for this admission?: Yes Plan: Supportive care. (11) TRACY (acute kidney injury) Is this a current diagnosis for this admission?: Yes Plan: Resolved; Cr 1.29-> 1.05-> 0.97 Baseline 0.76/BUN 21 Likely prerenal r/t NPO status. Avoid nephrotoxic medications. Ecnoruage p.o. fluids (12) Hypokalemia Is this a current diagnosis for this admission?: Yes Plan: Replete - Plan Summary Summary: Patient is medically stable for discharge. Recommend continued physical therapy services; agree with plan to d/c to SNF for short term rehab. Will sign off. Please re-consult if we can be of additional service. - Time Time Spent with patient: 25-34 minutes Medications reviewed and adjusted accordingly: Yes Anticipated Discharge Disposition: Longterm Facility Anticipated Discharge Timeframe: per Surgery's discretion
[2020-03-12] MEDS: TAMSULOSIN HCL 0.4 MG CAP.SR.24H PO SCH (17:08)
[2020-03-12] MEDS: AMOXICILLIN TR/POT CLAVULANATE 875-125 MG TAB PO SCH (22:11)
[2020-03-13] MEDS: PANTOPRAZOLE SODIUM 40 MG TABLET.DR PO SCH (05:18)
[2020-03-13] MEDS: METRONIDAZOLE 500 MG TABLET PO SCH ×3 (05:18→21:42)
[2020-03-13] MEDS: INSULIN LISPRO 100 UNIT/ML 3 ML VIAL SUBCUT SCH ×4 (07:38→22:27)
--- NOTE | 2020-03-13 08:50 | PDOC PROGRESS REPORT ---
Subjective Progress Note for:: 03/13/20 Subjective:: feels better still difficulty walking Reason For Visit: CHOLECYSTITIS S/P OPEN CHOLECYSTECTOMY Physical Exam Vital Signs: Temp Pulse Resp BP Pulse Ox 97.7 F 82 18 111/58 L 97 03/13/20 00:17 03/13/20 00:17 03/13/20 00:17 03/13/20 00:17 03/13/20 00:17 Intake & Output 03/12/20 03/13/20 03/14/20 06:59 06:59 06:59 Intake Total 3250 1190 Output Total 553 900 Balance 2697 290 Weight 102.7 kg 101.8 kg General appearance: PRESENT: no acute distress Head exam: PRESENT: normocephalic Eye exam: PRESENT: EOMI Ear exam: PRESENT: normal external ear exam Mouth exam: PRESENT: moist Neck exam: PRESENT: full ROM Respiratory exam: PRESENT: clear to auscultation char Cardiovascular exam: PRESENT: RRR Pulses: PRESENT: normal radial pulses, normal femoral pulses Vascular exam: PRESENT: normal capillary refill Breast: PRESENT: Normal GI/Abdominal exam: PRESENT: soft Rectal exam: PRESENT: deferred Extremities exam: PRESENT: full ROM Musculoskeletal exam: PRESENT: ambulatory Neurological exam: PRESENT: alert Psychiatric exam: PRESENT: appropriate affect Skin exam: PRESENT: dry Results Laboratory Results: 03/12/20 05:19 03/12/20 05:19 Impressions: Abdomen/Pelvis CT 03/04/20 10:10 IMPRESSION: 1. Markedly distended gallbladder with mild pericholecystic fluid. No calcified gallstones or gallbladder wall thickening. Findings are equivocal for acute cholecystitis. Further evaluation with gallbladder ultrasound is recommended. 2. Small right pleural effusion and trace left effusion. 3. Moderate cardiomegaly. Reflux of contrast into the hepatic veins, which can be seen with right heart failure/elevated right heart pressure. Abdomen Ultrasound 03/04/20 12:18 IMPRESSION: Hydropic gallbladder with sludge and trace pericholecystic fluid. Negative sonographic Calzada's sign and no gallbladder wall thickening. These findings remain equivocal for acute cholecystitis. Small right pleural effusion. Cholangiogram 03/07/20 00:00 IMPRESSION: IMAGE(S) OBTAINED DURING PROCEDURE. KUB X-Ray 03/07/20 14:07 IMPRESSION: NG tube is in satisfactory position. Assessment & Plan - Time Anticipated Discharge Disposition: Shelter Facility Anticipated Discharge Timeframe: unk - Plan Summary Plan Summary: s/p open daly for gangrenous cholecystitis still weak, but improving taking a few steps working with pt discharge planning to eval for rehab.
[2020-03-13] MEDS: FERROUS SULFATE 325 MG TABLET PO SCH (09:29)
[2020-03-13] MEDS: AMOXICILLIN TR/POT CLAVULANATE 875-125 MG TAB PO SCH ×2 (09:29→21:42)
[2020-03-13] MEDS: AMIODARONE HCL 200 MG TABLET PO SCH (09:29)
[2020-03-13] MEDS: CETIRIZINE 10 MG TABLET PO SCH (09:29)
[2020-03-13] MEDS: CHOLECALCIFEROL (D3) 1,000 UNIT (25 MCG) TABLET PO SCH (09:30)
[2020-03-13] MEDS: APIXABAN 5 MG TABLET PO SCH ×2 (09:30→17:33)
[2020-03-13] MEDS: CARVEDILOL 3.125 MG TABLET PO SCH ×2 (09:30→21:42)
[2020-03-13] MEDS: TAMSULOSIN HCL 0.4 MG CAP.SR.24H PO SCH (17:33)
[2020-03-14] MEDS: PANTOPRAZOLE SODIUM 40 MG TABLET.DR PO SCH (05:26)
[2020-03-14] MEDS: METRONIDAZOLE 500 MG TABLET PO SCH ×2 (05:26→13:07)
[2020-03-14] MEDS: INSULIN LISPRO 100 UNIT/ML 3 ML VIAL SUBCUT SCH ×3 (07:15→16:09)
[2020-03-14] MEDS: CETIRIZINE 10 MG TABLET PO SCH (09:03)
[2020-03-14] MEDS: AMIODARONE HCL 200 MG TABLET PO SCH (09:03)
[2020-03-14] MEDS: CARVEDILOL 3.125 MG TABLET PO SCH (09:03)
[2020-03-14] MEDS: FERROUS SULFATE 325 MG TABLET PO SCH (09:03)
[2020-03-14] MEDS: APIXABAN 5 MG TABLET PO SCH ×2 (09:03→17:13)
[2020-03-14] MEDS: AMOXICILLIN TR/POT CLAVULANATE 875-125 MG TAB PO SCH (09:03)
[2020-03-14] MEDS: CHOLECALCIFEROL (D3) 1,000 UNIT (25 MCG) TABLET PO SCH (09:03)
--- NOTE | 2020-03-14 12:50 | PDOC DISCHARGE SUMMARY ---
General - Admit/Disc Date/PCP Admission Date/Primary Care Provider: 03/07/20 14:00 VALERIE BLANCO NP Discharge Date: 03/14/20 - Discharge Diagnosis Final Diagnosis: Acute cholecystitis - Assessment Summary: 74-year-old male admitted with acute cholecystitis. The patient was admitted the hospital, and his blood thinners were stopped. The patient received medical and cardiac clearance for surgery. Several days after admission, the patient underwent laparoscopic converted to open cholecystectomy. He was taken to the floor in stable condition. The patient began to tolerate a diet and passed flatus. He is stooling normally, and his pain is controlled with oral pain medications. Unfortunately, the patient lives alone and cannot care for himself. He has difficulty walking and performing activities of daily living. jail facility was consulted, and admission was arranged. By 03/14/2020, the patient has reached maximal hospital benefit and is fit for discharge to nursing facility. - Additional Information Resuscitation Status: Full Code Discharge Diet: As Tolerated Discharge Activity: No Lifting Over 10 Pounds, No Lifting/Push/Pulling Referrals: [facility] [Outside] MARIJA MENDEZ MD [ACTIVE STAFF] - Home Medications: Ferrous Sulfate 324 mg PO QAM 09/08/16 Furosemide [Lasix 40 mg Tablet] 40 mg PO BID #8 tablet 02/13/17 Acetaminophen [Acetaminophen Extra Strength] 500 mg PO DAILYP PRN 03/04/20 Amiodarone HCl [Cordarone 200 mg Tablet] 200 mg PO DAILY 03/04/20 Atorvastatin Calcium [Lipitor 40 mg Tablet] 40 mg PO QHS 03/04/20 Carvedilol [Coreg 3.125 mg Tablet] 3.125 mg PO Q12 03/04/20 Cetirizine HCl [Zyrtec 10 mg Tablet] 10 mg PO DAILY 03/04/20 Cholecalciferol (Vitamin D3) [Vitamin D3 1000 Unit Tablet] 1,000 unit PO DAILY 03/04/20 Docusate Calcium 240 mg PO DAILY 03/04/20 Additional Information: Discharge to nursing facility. Diet as tolerated. Activity: No lifting greater than 10 pounds in 6 weeks. Okay to shower. Follow-up at [facility] in 7 to 10 days for suture removal. Baxter 325 mg p.o. every 6 hours PRN for pain. Resume home medications as previously prescribed. History of Present Illiness History of Present Illness: PAULETTE SCALES is a 74 year old male with a one-week history of abdominal swelling, malaise, nausea, and indigestion. The patient was evaluated he was found to have a leukocytosis as well as a markedly distended gallbladder. He denies any specific abdominal pain, but reports that he has difficulty eating. He has early satiety and nausea. This occurs with most foods that he eats. Nothing makes the symptoms better. The patient denies fevers, chills, shortness of breath, chest pain, melena, hematochezia, hematemesis, headache, dizziness, orthostasis, blurry vision. Physical Exam Vital Signs: Temp Pulse Resp BP Pulse Ox 97.7 F 97 19 103/54 L 96 03/14/20 10:00 03/14/20 07:54 03/14/20 07:54 03/14/20 07:54 03/14/20 07:54 Intake & Output 03/13/20 03/14/20 03/15/20 06:59 06:59 06:59 Intake Total 1190 1090 150 Output Total 900 700 Balance 290 390 150 Weight 101.8 kg 102.7 kg Results Laboratory Results: WBC 14.5 10^3/uL (4.0-10.5) H 03/12/20 05:19 RBC 3.86 10^6/uL (4.35-5.55) L 03/12/20 05:19 Hgb 11.1 g/dL (13.5-17.0) L 03/12/20 05:19 Hct 34.1 % (37.9-51.0) L 03/12/20 05:19 MCV 88 fl (80-97) 03/12/20 05:19 MCH 28.8 pg (27.0-33.4) 03/12/20 05:19 MCHC 32.7 g/dL (32.0-36.0) 03/12/20 05:19 RDW 17.2 % (11.5-14.0) H 03/12/20 05:19 Plt Count 142 10^3/uL (150-450) L 03/12/20 05:19 Lymph % (Auto) 5.9 % (13-45) L 03/09/20 04:48 [place] % (Auto) 7.3 % (3-13) 03/09/20 04:48 Eos % (Auto) 0.0 % (0-6) 03/09/20 04:48 Baso % (Auto) 0.1 % (0-2) 03/09/20 04:48 Absolute Neuts (auto) 13.0 10^3/uL (1.7-8.2) H 03/09/20 04:48 Absolute Lymphs (auto) 0.9 10^3/uL (0.5-4.7) 03/09/20 04:48 Absolute Monos (auto) 1.1 10^3/uL (0.1-1.4) 03/09/20 04:48 Absolute Eos (auto) 0.0 10^3/uL (0.0-0.6) 03/09/20 04:48 Absolute Basos (auto) 0.0 10^3/uL (0.0-0.2) 03/09/20 04:48 Total Counted 100 03/05/20 04:42 Seg Neutrophils % 86.7 % (42-78) H 03/09/20 04:48 Seg Neuts % (Manual) 90 % (42-78) H 03/05/20 04:42 Lymphocytes % (Manual) 4 % (13-45) L 03/05/20 04:42 Monocytes % (Manual) 6 % (3-13) 03/05/20 04:42 Eosinophils % (Manual) 0 % (0-6) 03/05/20 04:42 Basophils % (Manual) 0 % (0-2) 03/05/20 04:42 Abs Neuts (Manual) 20.1 10^3/uL (1.7-8.2) H 03/05/20 04:42 Abs Lymphs (Manual) 0.9 10^3/uL (0.5-4.7) 03/05/20 04:42 Abs Monocytes (Manual) 1.3 10^3/uL (0.1-1.4) 03/05/20 04:42 Absolute Eos (Manual) 0.0 10^3/uL (0.0-0.6) 03/05/20 04:42 Abs Basophils (Manual) 0.0 10^3/uL (0.0-0.2) 03/05/20 04:42 Toxic Granulation SLIGHT 03/05/20 04:42 Platelet Comment ADEQUATE 03/05/20 04:42 Poikilocytosis SLIGHT 03/05/20 04:42 Anisocytosis 1+ 03/05/20 04:42 Ovalocytes SLIGHT 03/05/20 04:42 PT 20.4 SEC (11.4-15.4) H 03/07/20 09:40 INR 1.74 03/07/20 09:40 APTT 51.3 SEC (23.5-35.8) H 03/07/20 09:40 Sodium 137.3 mmol/L (137-145) 03/12/20 05:19 Potassium 3.7 mmol/L (3.6-5.0) 03/12/20 05:19 Chloride 112 mmol/L (98-107) H 03/12/20 05:19 Carbon Dioxide 20 mmol/L (22-30) L 03/12/20 05:19 Anion Gap 5 (5-19) 03/12/20 05:19 BUN 24 mg/dL (7-20) H 03/12/20 05:19 Creatinine 0.97 mg/dL (0.52-1.25) 03/12/20 05:19 Est GFR ( Amer) > 60 (>60) 03/12/20 05:19 Est GFR (MDRD) Non-Af > 60 (>60) 03/12/20 05:19 Glucose 106 mg/dL (75-110) 03/12/20 05:19 POC Glucose 146 mg/dL (70-110) H 03/14/20 11:18 Hemoglobin A1c % 6.8 % (4.7-6.0) H 03/08/20 05:07 Calcium 8.1 mg/dL (8.4-10.2) L 03/12/20 05:19 Magnesium 2.4 mg/dL (1.6-2.3) H 03/06/20 14:18 Total Bilirubin 0.9 mg/dL (0.2-1.3) 03/12/20 05:19 Direct Bilirubin 0.7 mg/dL (0.0-0.4) H 03/12/20 05:19 Neonat Total Bilirubin Not Reportable 03/12/20 05:19 Neonat Direct Bilirubin Not Reportable 03/12/20 05:19 Neonat Indirect Bili Not Reportable 03/12/20 05:19 AST 24 U/L (17-59) 03/12/20 05:19 ALT 48 U/L (<50) 03/12/20 05:19 Alkaline Phosphatase 163 U/L (38-126) H 03/12/20 05:19 Ammonia < 8.7 umol/L (9-33) L 03/08/20 15:02 Total Protein 4.3 g/dL (6.3-8.2) L 03/12/20 05:19 Albumin 2.0 g/dL (3.5-5.0) L 03/12/20 05:19 Lipase 37.1 U/L (23-300) 03/04/20 09:29 Urine Color YELLOW 03/04/20 13:15 Urine Appearance CLEAR 03/04/20 13:15 Urine pH 6.0 (5.0-9.0) 03/04/20 13:15 Ur Specific [place] 1.057 03/04/20 13:15 Urine Protein NEGATIVE mg/dL (NEGATIVE) 03/04/20 13:15 Urine Glucose (UA) NEGATIVE mg/dL (NEGATIVE) 03/04/20 13:15 Urine Ketones NEGATIVE mg/dL (NEGATIVE) 03/04/20 13:15 Urine Blood NEGATIVE (NEGATIVE) 03/04/20 13:15 Urine Nitrite NEGATIVE (NEGATIVE) 03/04/20 13:15 Urine Bilirubin NEGATIVE (NEGATIVE) 03/04/20 13:15 Urine Urobilinogen 2.0 mg/dL (<2.0) H 03/04/20 13:15 Ur Leukocyte Esterase NEGATIVE (NEGATIVE) 03/04/20 13:15 Urine WBC (Auto) 0 /HPF 03/04/20 13:15 Urine RBC (Auto) 1 /HPF 03/04/20 13:15 Squamous Epi Cells Auto <1 /HPF 03/04/20 13:15 Urine Mucus (Auto) RARE /LPF 03/04/20 13:15 Urine Ascorbic Acid NEGATIVE (NEGATIVE) 03/04/20 13:15 SARS-CoV-2 (PCR) NEGATIVE (NEGATIVE) 03/07/20 09:40 Blood Type O POSITIVE 03/06/20 12:04 Blood Type Confirm O POSITIVE 03/06/20 12:04 Antibody Screen NEGATIVE 03/06/20 12:04 Crossmatch See Detail 03/06/20 12:04 Impressions: Abdomen/Pelvis CT 03/04/20 10:10 IMPRESSION: 1. Markedly distended gallbladder with mild pericholecystic fluid. No calcified gallstones or gallbladder wall thickening. Findings are equivocal for acute cholecystitis. Further evaluation with gallbladder ultrasound is recommended. 2. Small right pleural effusion and trace left effusion. 3. Moderate cardiomegaly. Reflux of contrast into the hepatic veins, which can be seen with right heart failure/elevated right heart pressure. Abdomen Ultrasound 03/04/20 12:18 IMPRESSION: Hydropic gallbladder with sludge and trace pericholecystic fluid. Negative sonographic Calzada's sign and no gallbladder wall thickening. These findings remain equivocal for acute cholecystitis. Small right pleural effusion. Cholangiogram 03/07/20 00:00 IMPRESSION: IMAGE(S) OBTAINED DURING PROCEDURE. KUB X-Ray 03/07/20 14:07 IMPRESSION: NG tube is in satisfactory position.
[2020-03-14] MEDS: TAMSULOSIN HCL 0.4 MG CAP.SR.24H PO SCH (17:13)
[2020-03-14 17:29] VITALS: BP 104/59
== END 2020-03-14 17:48 | DRG 414 ==
LOC: ER 07:22 → EH 14:40 → 4N 22:30 → OBSVTOIN 03-07 14:00 → 3W 03-07 17:00 → 4S 03-11 21:30
PROVIDERS: ATTEND Surgery
PROC: 30233K1 Transfusion of Nonautologous Frozen Plasma into Peripheral Vein, Percutaneous Approach (ICD-10-PCS; 2020-03-06)
PROC: 0W3P0ZZ Control Bleeding in Gastrointestinal Tract, Open Approach (ICD-10-PCS; 2020-03-07)
PROC: 0FJ44ZZ Inspection of Gallbladder, Percutaneous Endoscopic Approach (ICD-10-PCS; 2020-03-07)
PROC: 30233N1 Transfusion of Nonautologous Red Blood Cells into Peripheral Vein, Percutaneous Approach (ICD-10-PCS; 2020-03-07)
PROC: BF131ZZ Fluoroscopy of Gallbladder and Bile Ducts using Low Osmolar Contrast (ICD-10-PCS; 2020-03-07)
PROC: 0FT40ZZ Resection of Gallbladder, Open Approach (ICD-10-PCS; principal; 2020-03-07 11:30)
DX: K81.0 Acute cholecystitis (principal); G93.41 Metabolic encephalopathy; K91.62 Intraoperative hemorrhage and hematoma of a digestive system organ or structure complicating other procedure; N17.9 Acute kidney failure, unspecified; I48.3 Typical atrial flutter; D68.9 Coagulation defect, unspecified; K82.A1 Gangrene of gallbladder in cholecystitis; E78.5 Hyperlipidemia, unspecified; I11.0 Hypertensive heart disease with heart failure; E11.9 Type 2 diabetes mellitus without complications; D64.89 Other specified anemias; I48.91 Unspecified atrial fibrillation; K21.9 Gastro-esophageal reflux disease without esophagitis; I50.9 Heart failure, unspecified; M19.90 Unspecified osteoarthritis, unspecified site; F43.10 Post-traumatic stress disorder, unspecified; Z96.642 Presence of left artificial hip joint; I27.20 Pulmonary hypertension, unspecified; E87.6 Hypokalemia; Z20.828 Contact with and (suspected) exposure to other viral communicable diseases; Z60.2 Problems related to living alone; Z79.01 Long term (current) use of anticoagulants; Z78.1 Physical restraint status; Z79.899 Other long term (current) drug therapy; Z53.31 Laparoscopic surgical procedure converted to open procedure
CPT/HCPCS: 00790; 36415; 36430; 74018; 74177; 74300; 76705; 80048; 80053; 80076; 81001; 82140; 82962; 83036; 83690; 83735; 85025; 85027; 85610; 85730; 86850; 86900; 86901; 86920; 87040; 87635; 88304; 93005; 93010; 93306; 94667; 94799; 96365; 99285; C9113; C9290; C9803; G0378; J0330; J1100; J1170; J1630; J1815; J1940; J2250; J2270; J2405; J2543; J2704; J3010; J3480; J3490; J7030; J7050; J7120; P9016; P9017

== ENCOUNTER 2020-04-06 13:35 | Emergency (ER) | payer MEDICARE, OTHER ==
--- NOTE | 2020-04-06 14:03 | ER Document Report ---
ED Medical Screen (RME) - General Chief Complaint: Other Stated Complaint: BILATERAL LEG SWELLING Time Seen by Provider: 04/06/20 13:50 Primary Care Provider: VALERIE BLANCO NP, DIRECTOR OF HEALTH EDUCATION [Primary Care Provider] - Follow up as needed Notes: Patient with a history of congestive heart failure presents with bilateral lower extremity swelling. Patient complains of weeping to the leg wounds. Patient was recently discharged after having an open cholecystectomy. Patient had initially been sent to a rehab facility although he checked himself out. Patient had home health helping him at home although when they went to his home they did not feel that he could manage his symptoms at home as he cannot ambulate unassisted. Patient does typically live home alone. Patient denies any chest pain or difficulty breathing. Patient does report some weight gain recently. I have greeted and performed a rapid initial assessment of this patient. A comprehensive ED assessment and evaluation of the patient, analysis of test results and completion of the medical decision making process will be conducted by additional ED providers. TRAVEL OUTSIDE OF THE [place] IN LAST 30 DAYS: No - Related Data Allergies/Adverse Reactions: No Known Allergies Allergy (Verified 02/24/17 23:15) Past Medical History - Past Medical History Cardiac Medical History: Reports: Hx Atrial Fibrillation, Hx Congestive Heart Failure, Hx Hypercholesterolemia, Hx Hypertension Denies: Hx Coronary Artery Disease, Hx Heart Attack, Hx Peripheral Vascular Disease, Hx Heart Murmur Endocrine Medical History: Denies: Hx Graves' Disease, Hx Hyperthyroidism, Hx Hypothyroidism Renal/ Medical History: Denies: Hx Peritoneal Dialysis Malignancy Medical History: Denies Hx Leukemia GI Medical History: Reports: Hx Gastroesophageal Reflux Disease. Denies: Hx Crohn's Disease, Hx Hiatal Hernia, Hx Irritable Bowel, Hx Liver Failure, Hx Pancreatitis, Hx Ulcer Musculoskeltal Medical History: Reports Hx Arthritis, Denies Hx Fibromyalgia, Denies Hx Muscular Dystrophy, Denies Hx Systemic Lupus Erythematosus Psychiatric Medical History: Reports: Hx Post Traumatic Stress Disorder Denies: Hx Bipolar Disorder, Hx Depression, Hx Schizophrenia Traumatic Medical History: Denies: Hx Fractures Infectious Medical History: Denies: Hx HIV Past Surgical History: Reports: Hx Orthopedic Surgery - L hip replacement. Denies: Hx Appendectomy, Hx Bowel Surgery, Hx Cholecystectomy, Hx Colostomy, Hx Coronary Artery Bypass Graft, Hx Gastric Bypass Surgery, Hx Herniorrhaphy, Hx Pacemaker, Hx Tonsillectomy - Immunizations Hx Diphtheria, Pertussis, Tetanus Vaccination: Yes Physical Exam - General General appearance: Alert Notes: Bilateral lower extremity edema with weeping to legs - Respiratory Respiratory status: No respiratory distress Breath sounds: Normal Doctor's Discharge - Discharge Referrals: VALERIE BLANCO DIRECTOR OF HEALTH EDUCATION, DIRECTOR OF HEALTH EDUCATION [Primary Care Provider] - Follow up as needed
--- NOTE | 2020-04-06 14:20 | RADIOLOGY REPORT (SQ) ---
EXAM DESCRIPTION: CHEST SINGLE VIEW IMAGES COMPLETED DATE/TIME: 04/06/2020 2:12 pm REASON FOR STUDY: peripheral edema, hx chf COMPARISON: 02/13/2017 EXAM PARAMETERS: NUMBER OF VIEWS: One view. TECHNIQUE: Single frontal radiographic view of the chest acquired. RADIATION DOSE: NA LIMITATIONS: None. FINDINGS: LUNGS AND PLEURA: Increasing opacification in the right costophrenic angle consistent with effusion. Lung wood otherwise clear. No pneumothorax. MEDIASTINUM AND HILAR STRUCTURES: No masses. Contour normal. HEART AND VASCULAR STRUCTURES: Heart normal in size. Normal vasculature. BONES: Advanced degenerative changes in both shoulders. HARDWARE: None in the chest. OTHER: No other significant finding. IMPRESSION: Increasing right pleural effusion. No other significant findings. TECHNICAL DOCUMENTATION: JOB ID: [id number] 2010 [employer]- All Rights Reserved Reading location - IP/workstation name: [email or web address]
[2020-04-06 14:35] LABS: ABSOLUTE LYMPHOCYTES (AUTO) 1.2 10^3/uL (0.5-4.7); ABSOLUTE MONOCYTES (AUTO) 0.7 10^3/uL (0.1-1.4); ABSOLUTE NEUT (AUTO) 9.2 10^3/uL (1.7-8.2); BASOPHILS % (AUTO) 0.4 % (0-2); EOSINOPHILS % (AUTO) 0.4 % (0-6); HEMATOCRIT 39.8 % (37.9-51.0); HEMOGLOBIN 13.3 g/dL (13.5-17.0); LYMPHOCYTES % (AUTO) 10.6 % (13-45); MEAN CORPUSCULAR HEMOGLOBIN 30.3 pg (27.0-33.4); MEAN CORPUSCULAR HGB CONC 33.4 g/dL (32.0-36.0); MEAN CORPUSCULAR VOLUME 91 fl (80-97); MONOCYTES % (AUTO) 6.3 % (3-13); PLATELET COUNT 135 10^3/uL (150-450); RED BLOOD COUNT 4.38 10^6/uL (4.35-5.55); RED CELL DISTRIBUTION WIDTH 23.3 % (11.5-14.0); SEGMENTED NEUTROPHILS % (AUTO) 82.3 % (42-78); TOTAL CELLS COUNTED % (AUTO) 100 %; WHITE BLOOD COUNT 11.2 10^3/uL (4.0-10.5)
[2020-04-06] MEDS ORDERED: FUROSEMIDE INJ/PF 40 MG/4 ML SDV IV ONE (14:41)
[2020-04-06 14:52] LABS: ALKALINE PHOSPHATASE 173 U/L (38-126); ANION GAP 6 (5-19); ASPARTATE AMINO TRANSFERASE 27 U/L (17-59); BILIRUBIN,DIRECT 0.8 mg/dL (0.0-0.4); BILIRUBIN,TOTAL 2.1 mg/dL (0.2-1.3); BLOOD UREA NITROGEN 20 mg/dL (7-20); CARBON DIOXIDE 29 mmol/L (22-30); CHLORIDE 99 mmol/L (98-107); GLUCOSE 100 mg/dL (75-110); POTASSIUM 3.4 mmol/L (3.6-5.0); TOTAL PROTEIN 5.7 g/dL (6.3-8.2)
--- NOTE | 2020-04-06 14:53 | ER Document Report ---
ED General - General Chief Complaint: Leg Swelling Stated Complaint: BILATERAL LEG SWELLING Time Seen by Provider: 04/06/20 13:50 Primary Care Provider: VALERIE BLANCO OUTSIDE SALES ACCOUNT MANAGER, OUTSIDE SALES ACCOUNT MANAGER [NURSE PRACTITIONER] - Follow up as needed Mode of Arrival: Stretcher Information source: Patient Notes: Patient is a 74-year-old -[place] male coming in today with the swollen bilateral lower extremities and shortness of breath. He denies having any chest pain. He has a history of an open cholecystectomy little under a month ago. He has been receiving at home wound care for his legs. Wound care is expressing concern that he is not a viable candidate for in-home therapy because he can no longer stand up on his own. He states that he lives with somebody but that person is not always around to assist him. Patient denies having a cough. He denies having a fever or chills. TRAVEL OUTSIDE OF THE [place] IN LAST 30 DAYS: No - Related Data Allergies/Adverse Reactions: No Known Allergies Allergy (Verified 02/24/17 23:15) Past Medical History - Social History Smoking Status: Former Smoker Family History: Reviewed & Not Pertinent, Other - Unobtainable - Past Medical History Cardiac Medical History: Reports: Hx Atrial Fibrillation, Hx Congestive Heart Failure, Hx Hypercholesterolemia, Hx Hypertension Denies: Hx Coronary Artery Disease, Hx Heart Attack, Hx Peripheral Vascular Disease, Hx Heart Murmur Endocrine Medical History: Denies: Hx Graves' Disease, Hx Hyperthyroidism, Hx Hypothyroidism Renal/ Medical History: Denies: Hx Peritoneal Dialysis Malignancy Medical History: Denies Hx Leukemia GI Medical History: Reports: Hx Gastroesophageal Reflux Disease. Denies: Hx Crohn's Disease, Hx Hiatal Hernia, Hx Irritable Bowel, Hx Liver Failure, Hx Pancreatitis, Hx Ulcer Musculoskeletal Medical History: Reports Hx Arthritis, Denies Hx Fibromyalgia, Denies Hx Muscular Dystrophy, Denies Hx Systemic Lupus Erythematosus Psychiatric Medical History: Reports: Hx Post Traumatic Stress Disorder Denies: Hx Bipolar Disorder, Hx Depression, Hx Schizophrenia Traumatic Medical History: Denies: Hx Fractures Infectious Medical History: Denies: Hx HIV Past Surgical History: Reports: Hx Orthopedic Surgery - L hip replacement. Denies: Hx Appendectomy, Hx Bowel Surgery, Hx Cholecystectomy, Hx Colostomy, Hx Coronary Artery Bypass Graft, Hx Gastric Bypass Surgery, Hx Herniorrhaphy, Hx Pacemaker, Hx Tonsillectomy - Immunizations Hx Diphtheria, Pertussis, Tetanus Vaccination: Yes Hx Pneumococcal Vaccination: 03/15/16 Review of Systems - Review of Systems Notes: Constitutional: No fevers. No chills. EENT: No eye redness. No eye pain. No ear pain. No sore throat. Cardiovascular: No chest pain. No palpitations. Respiratory: No cough. +shortness of breath. No respiratory distress. Gastrointestinal: No abdominal pain. No nausea, vomiting, or diarrhea. Genitourinary: Atraumatic. No lesions. No pain. No discharge. Musculoskeletal: Atraumatic. No swelling. No deformities. Bilateral lower extremity edema Skin: No rash or lesions. Lymphatic: No swollen lymph nodes. Neurologic: No headache. No syncope. Psychiatric: No suicidal or homicidal ideation. Physical Exam - Vital signs Vitals: Temp Pulse Resp BP Pulse Ox 98.1 F 87 21 H 103/56 L 100 04/06/20 13:35 04/06/20 13:35 04/06/20 13:35 04/06/20 13:35 04/06/20 13:35 - Notes Notes: General: Chronically ill-appearing but nontoxic Cardiac: Well-perfused. Regular rate and rhythm. No murmurs, rubs, or gallops. Pulmonary: Diminished breath sounds bilaterally. Abdominal: Non-distended. Non-rigid. Bowels sounds are present in all four quadrants. No guarding or rebound. HEENT: Head is atraumatic. Conjunctivae not reddened. No tearing. PERRL. EOMI. Orbits atraumatic. No periorbital swelling or erythema. Oropharynx is without erythema, swelling, or exudates. Neck: Supple. No adenopathy. No meningismus. Dermatologic: Warm with good turgor. No rash. Atraumatic. Chest: Atraumatic. No chest wall tenderness to palpation. Musculoskeletal: 2+ Pitting edema bilateral lower extremities Genitourinary: Examination deferred Neurologic: No gross neurologic deficits. Psychiatric: Normal mood. Course - Re-evaluation Re-evalutation: 04/06/20 14:54 Patient is evidently having a social issue in which he is not able to stand up on his own at home. He does not have reliable people there always available to help him. He is in no acute distress today, but he is very clearly and fluid overload. We will diurese him and see how he feels. I have already spoken to the ER wrapper caser and she is on the job. 04/06/20 20:59 Patient was given to different rounds of IV Lasix of 20 mg each. Does of his baseline low blood pressure, it was hard to really bolus him all at once. The nurse notes that he has an output little over 300 cc. The swelling in his legs seems to be improved. He is not short of breath. He is not having chest pain. He has not had chest pain prior to coming in or during his stay here. He has a good support system at home with one of his good friends who will help him. He does have outlets to go to get his wound care done. He will return if he gets worse. 04/06/20 21:02 Also important to note is that I had the nurse connect the patient to a portable pulse oximeter monitor. She states she took him to the bathroom down the desai and back. His oxygenation stayed right at 95% on room air. He did not become tachycardic. Did not come actively short of breath. Did not have chest pain. - Vital Signs Vital signs: Temp Pulse Resp BP Pulse Ox 98.1 F 87 17 86/67 L 95 04/06/20 13:35 04/06/20 13:35 04/06/20 17:20 04/06/20 17:20 04/06/20 17:20 - Laboratory Result Diagrams: 04/06/20 14:23 04/06/20 14:23 Laboratory results interpreted by me: 04/06/20 04/06/20 04/06/20 14:23 14:23 14:23 WBC 11.2 H Hgb 13.3 L RDW 23.3 H Plt Count 135 L Lymph % (Auto) 10.6 L Absolute Neuts (auto) 9.2 H Seg Neutrophils % 82.3 H Sodium 134.4 L Potassium 3.4 L Total Bilirubin 2.1 H Direct Bilirubin 0.8 H Alkaline Phosphatase 173 H NT-Pro-B Natriuret Pep 60706 H Total Protein 5.7 L Albumin 3.0 L Discharge - Discharge Clinical Impression: Peripheral edema, History of CHF (congestive heart failure) Condition: Good Disposition: HOME, SELF-CARE Instructions: Edema, Peripheral ([facility]) Additional Instructions: Be sure to elevate your legs above the level of your heart when you get home. Continue to take your Lasix as instructed. Follow-up with your primary care physician tomorrow. Return at anytime to the emergency department if your sympt oms get worse. Referrals: VALERIE BLANCO NP, OUTSIDE SALES ACCOUNT MANAGER [NURSE PRACTITIONER] - Follow up tomorrow
[2020-04-06] MEDS ORDERED: FUROSEMIDE INJ/PF 20 MG/2 ML SDV IV ONE ×2 (15:43→18:18)
--- NOTE | 2020-04-06 16:06 | EKG REPORT ---
SEVERITY:- ABNORMAL ECG - ATRIAL FIBRILLATION LEFT ANTERIOR FASCICULAR BLOCK NONSPECIFIC T ABNORMALITIES, LATERAL LEADS PROLONGED QT INTERVAL : Confirmed by: Robb Roberts MD 06-Apr-2020 16:05:56
[2020-04-07 00:44] VITALS: BP 112/61
== END 2020-04-06 21:13 | disposition home or self-care (01) ==
LOC: ER 13:35
DX: I11.0 Hypertensive heart disease with heart failure (principal); I50.9 Heart failure, unspecified; R60.0 Localized edema; R06.02 Shortness of breath; Z90.49 Acquired absence of other specified parts of digestive tract; Z87.891 Personal history of nicotine dependence; I48.91 Unspecified atrial fibrillation
CPT/HCPCS: 93005; 99285; 96374; 96375; 36415; 85025; 80053; 83880; 71045; 93010; J1940

== ENCOUNTER 2020-04-23 15:02 | Inpatient (IN) | payer OTHER, MEDICARE ==
[2020-04-23] MEDS ORDERED: NORMAL SALINE 1000 ML 1,000 ML IV ONE ×2 (16:09)
[2020-04-23 17:44] LABS: APPEARANCE,URINE SLIGHTLY-CLOUDY; BILIRUBIN,URINE NEGATIVE (NEGATIVE); COLOR,URINE AMBER; GLUCOSE, URINE NEGATIVE (NEGATIVE); KETONES,URINE NEGATIVE (NEGATIVE); PROTEIN,URINE 30 mg/dL (NEGATIVE); URINE SPECIFIC GRAVITY 1.016
[2020-04-23 17:54] LABS: VENOUS BLOOD BASE EXCESS -3.2 mmol/L; VENOUS BLOOD HCO3 21.6 mmol/L (20-32); VENOUS BLOOD PCO2 37.9 mmHg (35-63); VENOUS BLOOD PH 7.37 (7.30-7.42)
--- NOTE | 2020-04-23 17:59 | ER Document Report ---
ED Dizziness/Weakness - General Chief Complaint: Syncope Stated Complaint: WEAK Primary Care Provider: EDVIN TANG DO [Primary Care Provider] - Follow up as needed Mode of Arrival: Medic Information source: Patient TRAVEL OUTSIDE OF THE [place] IN LAST 30 DAYS: No - HPI Notes: Patient presents with syncope. Patient states that he was at home and went to stand up and became lightheaded and fell to the floor. He states currently he feels slightly weak but otherwise feels essentially "normal". He states he has a normal low blood pressure at baseline. He states he feels it has been low ever since he has been started on carvedilol. He denies any recent vomiting or diarrhea. He states he has had some "sores" on his legs and buttocks area but these have been improving and that he sees wound care once a week. He denies any fever sweats or chills. No cough cold or congestion. He denies any pain anywhere at this time. - Related Data Allergies/Adverse Reactions: No Known Allergies Allergy (Verified 02/24/17 23:15) Home Medications: Coreg 3.125 BID. LAsix 40mg QAMA/PRN PM. Atorvastatin. Ferrous sulfate 324 Past Medical History - General Information source: Patient - Social History Smoking Status: Former Smoker Chew tobacco use (# tins/day): No Frequency of alcohol use: None Drug Abuse: None Family History: Reviewed & Not Pertinent, Other - Unobtainable Patient has homicidal ideation: No - Past Medical History Cardiac Medical History: Reports: Hx Atrial Fibrillation, Hx Congestive Heart Failure, Hx Hypercholesterolemia, Hx Hypertension Denies: Hx Coronary Artery Disease, Hx Heart Attack, Hx Peripheral Vascular Disease, Hx Heart Murmur Endocrine Medical History: Denies: Hx Graves' Disease, Hx Hyperthyroidism, Hx Hypothyroidism Renal/ Medical History: Denies: Hx Peritoneal Dialysis Malignancy Medical History: Denies Hx Leukemia GI Medical History: Reports: Hx Gastroesophageal Reflux Disease. Denies: Hx Crohn's Disease, Hx Hiatal Hernia, Hx Irritable Bowel, Hx Liver Failure, Hx Pa ncreatitis, Hx Ulcer Musculoskeletal Medical History: Reports Hx Arthritis, Denies Hx Fibromyalgia, Denies Hx Muscular Dystrophy, Denies Hx Systemic Lupus Erythematosus Psychiatric Medical History: Reports: Hx Post Traumatic Stress Disorder Denies: Hx Bipolar Disorder, Hx Depression, Hx Schizophrenia Traumatic Medical History: Denies: Hx Fractures Infectious Medical History: Denies: Hx HIV Past Surgical History: Reports: Hx Orthopedic Surgery - L hip replacement. Denies: Hx Appendectomy, Hx Bowel Surgery, Hx Cholecystectomy, Hx Colostomy, Hx Coronary Artery Bypass Graft, Hx Gastric Bypass Surgery, Hx Herniorrhaphy, Hx Pacemaker, Hx Tonsillectomy - Immunizations Hx Diphtheria, Pertussis, Tetanus Vaccination: Yes Hx Pneumococcal Vaccination: 03/15/16 Review of Systems - Review of Systems Constitutional: Weakness. denies: Chills, Fever Cardiovascular: denies: Chest pain, Palpitations Respiratory: denies: Cough, Short of breath -: Yes All other systems reviewed and negative Physical Exam - Vital signs Vitals: Temp 98.3 F 04/23/20 15:02 Interpretation: Hypotensive - General General appearance: Appears well, Alert - HEENT Head: Normocephalic, Atraumatic Eyes: Normal Pupils: PERRL - Respiratory Respiratory status: No respiratory distress Chest status: Nontender Breath sounds: Normal Chest palpation: Normal - Cardiovascular Rhythm: Regular Heart sounds: Normal auscultation Murmur: No - Abdominal Inspection: Healed incision - Right upper quadrant Distension: No distension Bowel sounds: Normal Tenderness: Nontender Organomegaly: No organomegaly - Back Back: Normal, Nontender - Extremities General upper extremity: Normal inspection, Nontender, Normal color, Normal ROM, Normal temperature General lower extremity: Nontender, Normal color, Normal temperature, Other - Bilateral lower extremities have some weeping areas consistent with chronic lymphedema. There is no deep or infected ulcerations.. No: Veronika's sign - Neurological Neuro grossly intact: Yes Cognition: Normal Orientation: AAOx4 [place] Coma Scale Eye Opening: Spontaneous [place] Coma Scale Verbal: Oriented [place] Coma Scale Motor: Obeys Commands [place] Coma Scale Total: 15 Speech: Normal Motor strength normal: LUE, RUE, LLE, RLE Sensory: Normal - Psychological Associated symptoms: Normal affect, Normal mood - Skin Skin Temperature: Warm Skin Moisture: Moist - Bilateral lower extremities Skin Color: Erythema Course - Re-evaluation Re-evalutation: 04/23/20 18:48 pt turned over to Dr[address] Ga at 650pm - Vital Signs Vital signs: Temp Pulse Resp BP Pulse Ox 98.3 F 04/23/20 15:02 - Laboratory Result Diagrams: 04/23/20 17:30 04/23/20 17:30 Laboratory results interpreted by me: 04/23/20 04/23/20 04/23/20 17:05 17:30 17:30 RBC 3.68 L Hgb 11.6 L Hct 34.7 L RDW 22.8 H Plt Count 105 L Lymph % (Auto) 11.5 L Seg Neutrophils % 81.6 H PT 21.2 H Sodium BUN Est GFR (MDRD) Non-Af Lactic Acid Total Bilirubin Direct Bilirubin Total Protein Albumin Urine Protein 30 H Urine Urobilinogen 4.0 H Urine Ascorbic Acid 20 H 04/23/20 04/23/20 17:30 17:30 RBC Hgb Hct RDW Plt Count Lymph % (Auto) Seg Neutrophils % PT Sodium 131.0 L BUN 31 H Est GFR (MDRD) Non-Af 57 L Lactic Acid 2.6 H Total Bilirubin 2.8 H Direct Bilirubin 1.0 H Total Protein 5.3 L Albumin 2.8 L Urine Protein Urine Urobilinogen Urine Ascorbic Acid - Diagnostic Test Radiology reviewed: Image reviewed, Reports reviewed - EKG Interpretation by Me EKG shows normal: Sinus rhythm Rate: Normal - 92 Rhythm: NSR [place]/QRS: RBBB Discharge - Discharge Clinical Impression: Hypotension Qualifiers: Hypotension type: other hypotension type Qualified Code(s): I95.89 - Other hypo tension Condition: Serious Disposition: OTHER Referrals: EDVIN TANG DO [Primary Care Provider] - Follow up as needed
[2020-04-23 18:10] LABS: INTERNATIONAL RATION (INR) 1.82; PROTHROMBIN TIME 21.2 SEC (11.4-15.4)
[2020-04-23 18:11] LABS: ABSOLUTE MONOCYTES (AUTO) 0.5 10^3/uL (0.1-1.4); ABSOLUTE NEUT (AUTO) 6.9 10^3/uL (1.7-8.2); BASOPHILS % (AUTO) 0.2 % (0-2); EOSINOPHILS % (AUTO) 0.3 % (0-6); HEMATOCRIT 34.7 % (37.9-51.0); HEMOGLOBIN 11.6 g/dL (13.5-17.0); LYMPHOCYTES % (AUTO) 11.5 % (13-45); MEAN CORPUSCULAR HEMOGLOBIN 31.5 pg (27.0-33.4); MEAN CORPUSCULAR HGB CONC 33.4 g/dL (32.0-36.0); MEAN CORPUSCULAR VOLUME 94 fl (80-97); MONOCYTES % (AUTO) 6.4 % (3-13); PLATELET COUNT 105 10^3/uL (150-450); RED BLOOD COUNT 3.68 10^6/uL (4.35-5.55); RED CELL DISTRIBUTION WIDTH 22.8 % (11.5-14.0); SEGMENTED NEUTROPHILS % (AUTO) 81.6 % (42-78); TOTAL CELLS COUNTED % (AUTO) 100 %; WHITE BLOOD COUNT 8.5 10^3/uL (4.0-10.5)
[2020-04-23 18:12] LABS: ALBUMIN 2.8 g/dL (3.5-5.0); ALKALINE PHOSPHATASE 118 U/L (38-126); ANION GAP 11 (5-19); ASPARTATE AMINO TRANSFERASE 29 U/L (17-59); BILIRUBIN,TOTAL 2.8 mg/dL (0.2-1.3); BLOOD UREA NITROGEN 31 mg/dL (7-20); CALCIUM 8.6 mg/dL (8.4-10.2); CARBON DIOXIDE 22 mmol/L (22-30); CHLORIDE 98 mmol/L (98-107); GLUCOSE 108 mg/dL (75-110); POTASSIUM 4.1 mmol/L (3.6-5.0); TOTAL PROTEIN 5.3 g/dL (6.3-8.2)
--- NOTE | 2020-04-23 20:19 | RADIOLOGY REPORT (SQ) ---
EXAM DESCRIPTION: CT angiogram of the chest with IV contrast CLINICAL HISTORY: 74 years Male; syncope TECHNIQUE: CT angiogram of the chest using intravenous contrast.. MIP reconstructions were performed. All CT scans at this facility use dose modulation, iterative reconstruction, and/or weight based dosing when appropriate to reduce radiation dose to as low as reasonably achievable. COMPARISON: None. FINDINGS: Chest: Vascular: Exam is of diagnostic quality. There is equalization bilaterally. Thoracic aorta is of normal caliber with scattered calcified plaque. Lungs: Glass opacification is present throughout the lung parenchyma most pronounced in dependent fashion posteriorly. In addition is bilateral pleural effusions right greater than left. Findings are suggestive of pulmonary edema. No obvious pulmonary nodules or masses. No focal consolidation. Mediastinum: There appears to be debris within the distal trachea and right main bronchus suggesting mucus. Heart size is within normal limits. There is reflux of contrast from the right atrium into the hepatic veins and inferior vena cava suggesting elevated right heart pressures. No significant lymphadenopathy. There is engorgement of the perihilar lymphatic' s. Bones and soft tissues: Extensive flowing syndesmophytes are seen in the anterior thoracic spine. No destructive bone changes. 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 Mild diffuse edema of the soft tissues of the chest wall. Upper Abdomen: Diffuse edema is present in the mesentery and retroperitoneum. IMPRESSION: 1. No pulmonary artery embolization. 2. Groundglass opacification seen throughout the lung parenchyma but most pronounced in dependent fashion. There is associated bilateral pleural effusion and evidence of elevated right heart pressures. Overall findings are suggestive of pulmonary edema.
[2020-04-23] MEDS ORDERED: ACETAMINOPHEN 325 MG TABLET PO PRN (22:23)
[2020-04-23] MEDS ORDERED: ASPIRIN 81 MG TABLET, CHEWABLE PO ONE (22:31)
--- NOTE | 2020-04-23 22:53 | EKG REPORT ---
SEVERITY:- ABNORMAL ECG - SINUS OR ECTOPIC ATRIAL RHYTHM FIRST DEGREE AV BLOCK INCOMPLETE RBBB AND LAFB ABNORMAL T, CONSIDER ISCHEMIA, LATERAL LEADS : Confirmed by: Pascual Dallas 23-Apr-2020 22:52:52
--- NOTE | 2020-04-23 23:20 | PDOC H&P ---
History of Present Illness Admission Date/PCP: EDVIN TANG DO Patient complains of: Syncopal episode History of Present Illness: PAULETTE SCALES is a 74 year old male with a history of paroxysmal A. fib on anticoagulation, hypertension, hyperlipidemia, who was discharged recently from hospital after having cholecystectomy now presents after he had an episode of passing out this morning. Patient reports that he went for a physical therapy session this morning and when he tried to get out chair and started to walk he felt lightheaded and passed out. He was told that he passed out for less than 30 seconds after which she immediately regained consciousness and denies any confusion after the episode. He also denies any history of abnormal body movement, weakness of extremities, change in his speech, or confusion. Patient has no chest pain, palpitation, shortness of breath, orthopnea. He also denies any fever, chills, cough, nausea, vomiting or diarrhea. He did not take any of his morning medications today. He states that he usually runs a low blood pressure with a systolic in the 90s when he monitors his BP at home. Past Medical History Cardiac Medical History: Reports: Atrial Fibrillation, Congestive Heart Failure, Hyperlipidema, Hypertension Denies: Coronary Artery Disease, Myocardial Infarction, Peripheral Vascular Disease, Heart Murmur Endocrine Medical History: Denies: Hyperthyroidism, Hypothyroidism Malignancy Medical History: Denies: Leukemia GI Medical History: Reports: Gastroesophageal Reflux Disease Denies: Crohn's Disease, Hiatal Hernia Musculoskeltal Medical History: Reports: Arthritis Denies: Fibromyalgia Psychiatric Medical History: Reports: Post Traumatic Stress Disorder Denies: Bipolar Disorder, Depression Hematology: Reports: Anemia Denies: Hemophilia, Sickle Cell Disease Infectious Medical History: Denies: HIV Past Surgical History Past Surgical History: Reports: Orthopedic Surgery - L hip replacement Denies: Appendectomy, Cholecystectomy, Colostomy, Coronary Artery Bypass Graft, Gastric Bypass Surgery, Herniorrhaphy, Pacemaker, Tonsillectomy Social History Information Source: Patient Smoking Status: Former Smoker Electronic Cigarette use?: No Frequency of Alcohol Use: None Hx Recreational Drug Use: No Hx Prescription Drug Abuse: No - Advance Directive Resuscitation Status: Full Code Family History Family History: Reviewed & Not Pertinent, Other - Unobtainable Parental Family History Reviewed: Yes Children Family History Reviewed: Yes Sibling(s) Family History Reviewed.: Yes Medication/Allergy Home Medications: Ferrous Sulfate 324 mg PO QAM 09/08/16 Acetaminophen [Acetaminophen Extra Strength] 500 mg PO Q6HP PRN 03/04/20 Amiodarone HCl [Cordarone 200 mg Tablet] 200 mg PO QAM 03/04/20 Atorvastatin Calcium [Lipitor 40 mg Tablet] 20 mg PO QHS 03/04/20 Carvedilol [Coreg 3.125 mg Tablet] 3.125 mg PO Q12 03/04/20 Cetirizine HCl [Zyrtec 10 mg Tablet] 10 mg PO DAILYP PRN 03/04/20 Cholecalciferol (Vitamin D3) [Vitamin D3 1000 Unit Tablet] 1,000 unit PO DAILY 0 03/04/20 Docusate Calcium 240 mg PO QPMP PRN 03/04/20 Apixaban [Eliquis 5 mg Tablet] 5 mg PO BID 04/24/20 Ascorbic Acid [Vitamin C 500 mg Tablet] 500 mg PO DAILY 04/24/20 Furosemide [Lasix 40 mg Tablet] 80 mg PO QAMP PRN 04/24/20 Furosemide [Lasix] 40 mg PO PCSUPPER 04/24/20 Magnesium Oxide 400 mg PO QHS 04/24/20 Metoclopramide HCl [Reglan 10 mg Tablet] 10 mg PO QIDP PRN 04/24/20 Multivitamin/Iron/Folic Acid [Cerovite Advanced Form Tab] 1 tab PO DAILY 04/24/20 Omeprazole 20 mg PO DAILY 04/24/20 Allergies/Adverse Reactions: No Known Allergies Allergy (Verified 02/24/17 23:15) Review of Systems Constitutional: PRESENT: as per HPI Eyes: ABSENT: visual disturbances Ears: ABSENT: hearing changes Nose, Mouth, and Throat: ABSENT: as per HPI, headache(s), mouth pain, sore throat, vertigo, other Cardiovascular: PRESENT: as per HPI Respiratory: PRESENT: as per HPI Gastrointestinal: PRESENT: as per HPI Genitourinary: ABSENT: dysuria, hematuria Musculoskeletal: ABSENT: joint swelling Integumentary: PRESENT: lesions Neurological: PRESENT: as per HPI Psychiatric: ABSENT: anxiety, depression, homidical ideation, suicidal ideation Endocrine: ABSENT: cold intolerance, heat intolerance, polydipsia, polyuria Hematologic/Lymphatic: ABSENT: easy bleeding, easy bruising Physical Exam Vital Signs: Temp Pulse Resp BP Pulse Ox 98.3 F 93 83/55 L 04/23/20 15:02 04/23/20 18:46 04/23/20 18:46 Intake & Output 04/22/20 04/23/20 04/24/20 06:59 06:59 06:59 Intake Total 1000 Balance 1000 Weight 85.3 kg Additional comments: GENERAL APPEARANCE: Alert and oriented x3, no acute distress HEENT: Normocephalic and atraumatic. No scleral icterus. Dry oral mucosa NECK: Supple. No lymphadenopathy or tenderness. No carotid bruit. No JVD CHEST: Symmetric. Nontender to palpation. LUNGS: Good air entry bilaterally. No wheezing or crackles appreciated HEART: Regular rate and rhythm. S1 and S2 distantly heard. No murmurs, gallops, or rubs. ABDOMEN: Has a right upper quadrant scar which is well-healed from recent cholecystectomy. Soft, active bowel sounds, no direct or rebound tenderness. No organomegaly detected. No CVA tenderness EXTREMITIES: Has +2 pitting edema below knees. Has 3 x 3 cm stage I ulcer on both lower extremities at anterior mid owen area. There is also a blister on the left lateral malleolus area MUSCULOSKELETAL: No deformity, atrophy or swelling noted PSYCHIATRIC: Recent and remote memory is intact. Appropriate mood and affect. SKIN: Warm, dry, and well perfused. NEUROLOGIC: No focal sensory or motor deficits are noted. Results Laboratory Results: 04/23/20 17:30 04/23/20 17:30 04/23/20 04/23/20 04/23/20 17:05 17:30 17:30 WBC 8.5 RBC 3.68 L Hgb 11.6 L Hct 34.7 L MCV 94 MCH 31.5 MCHC 33.4 RDW 22.8 H Plt Count 105 L Seg Neutrophils % 81.6 H VBG pH VBG pCO2 VBG HCO3 VBG Base Excess Sodium 131.0 L Potassium 4.1 Chloride 98 Carbon Dioxide 22 Anion Gap 11 BUN 31 H Creatinine 1.24 Est GFR ( Amer) > 60 Glucose 108 Lactic Acid Calcium 8.6 Total Bilirubin 2.8 H AST 29 Alkaline Phosphatase 118 Total Protein 5.3 L Albumin 2.8 L Urine Color EYAD Urine Appearance SLIGHTLY-CLOUDY Urine pH 5.0 Ur Specific [place] 1.016 Urine Protein 30 H Urine Glucose (UA) NEGATIVE Urine Ketones NEGATIVE Urine Blood NEGATIVE Urine RBC (Auto) 3 04/23/20 04/23/20 04/23/20 17:30 17:30 20:25 WBC RBC Hgb Hct MCV MCH MCHC RDW Plt Count Seg Neutrophils % VBG pH 7.37 VBG pCO2 37.9 VBG HCO3 21.6 VBG Base Excess -3.2 Sodium Potassium Chloride Carbon Dioxide Anion Gap BUN Creatinine Est GFR ( Amer) Glucose Lactic Acid 2.6 H 1.5 Calcium Total Bilirubin AST Alkaline Phosphatase Total Protein Albumin Urine Color Urine Appearance Urine pH Ur Specific [place] Urine Protein Urine Glucose (UA) Urine Ketones Urine Blood Urine RBC (Auto) 04/23/20 04/23/20 17:30 17:30 Troponin I 0.112 NT-Pro-B Natriuret Pep [id number] H Impressions: Chest/Abdomen CTA 04/23/20 18:31 IMPRESSION: 1. No pulmonary artery embolization. 2. Groundglass opacification seen throughout the lung parenchyma but most pronounced in dependent fashion. There is associated bilateral pleural effusion and evidence of elevated right heart pressures. Overall findings are suggestive of pulmonary edema. Assessment and Plan - Diagnosis (1) Non-STEMI (non-ST elevated myocardial infarction) Is this a current diagnosis for this admission?: Yes Plan: Likely type II non-STEMI due to demand from right-sided heart failure Patient denies any chest pain, epigastric pain or shortness of breath Initial troponin was 0.[address] segment depression on lateral leads Start the patient on aspirin and atorvastatin Continue trending cardiac enzymes and EKG Touched base with cardiology and planning to do echo in the morning Will keep patient n.p.o. for possible stress test (2) Hypotension Qualifiers: Hypotension type: other hypotension type Qualified Code(s): I95.89 - Other hypotension Is this a current diagnosis for this admission?: Yes Plan: Patient's blood pressure has been ranging lower 90s by lower 60s He reports that normally his blood pressure runs low Echocardiogram 2 months ago showed normal ejection fraction of 55 to 60% Patient has no current signs of sepsis Concerning for cardiogenic shock in the setting of non-STEMI Will consider dobutamine if blood pressure drops/patient becomes symptomatic Continue gentle IV hydration Closely monitor vital signs (3) Pulmonary edema Qualifiers: Chronicity: acute Qualified Code(s): J81.0 - Acute pulmonary edema Is this a current diagnosis for this admission?: Yes Plan: Patient denies shortness of breath, orthopnea or PND Chest x-ray shows signs of pulmonary vascular congestion CTA done showed no PE but concerning for pulmonary edema Echo done 2 months back showed normal ejection fraction but diastolic parameter was not assessed Currently saturating well on room air Repeat echo planned for tomorrow morning (4) Syncope Is this a current diagnosis for this admission?: Yes Plan: Patient presented after an episode of syncope while trying to get up. He has had no confusion after the incident and has no weakness of extremities or abnormal body movement Likely due to volume depletion from poor oral intake Continue IV hydration Currently trending cardiac enzymes, EKG and is on telemetry Echocardiogram in the morning (5) Volume depletion Is this a current diagnosis for this admission?: Yes Plan: Likely due to poor oral intake Patient has been hydrated with 2 L of LR ER (6) Paroxysmal atrial fibrillation Is this a current diagnosis for this admission?: Yes Plan: Currently in sinus rhythm Continue apixaban Will hold hypertensive medications for now hypotension (7) Hypertension Is this a current diagnosis for this admission?: No Plan: Currently hypotensive Hold antihypertensives for now - Time Time Spent with patient: 35 or more minutes Total Critical Time (Minutes): 45 Medications reviewed and adjusted accordingly: Yes Anticipated Discharge Disposition: Home with Home Health Anticipated Discharge Timeframe: within 48 hours - Inpatient Certification Based on my medical assessment, after consideration of the patient's comorbidities, presenting symptoms, or acuity I expect that the services needed warrant INPATIENT care.: Yes I certify that my determination is in accordance with my understanding of Medicare's requirements for reasonable and necessary INPATIENT services [42 CFR 412.3e].: Yes Medical Necessity: Significant Comorbidiites Make Outpatient Treatment Too Risky, Need Close Monitoring Due to Risk of Patient Decompensation, Need For IV Fluids, Risk of Complication if Not Cared For in Hospital Post Hospital Care: D/C or Transfer Summary
[2020-04-24] MEDS ORDERED: ASPIRIN 81 MG TABLET, CHEWABLE ONE (03:31)
[2020-04-24] MEDS: ATORVASTATIN CALCIUM 40 MG TABLET PO SCH ×2 (03:35→21:29)
[2020-04-24] MEDS: FAMOTIDINE 20 MG TABLET PO SCH ×3 (03:35→21:29)
[2020-04-24] MEDS: APIXABAN 5 MG TABLET PO SCH ×3 (03:35→21:29)
[2020-04-24 06:51] LABS: ALBUMIN 2.7 g/dL (3.5-5.0); ALKALINE PHOSPHATASE 101 U/L (38-126); ANION GAP 11 (5-19); ASPARTATE AMINO TRANSFERASE 32 U/L (17-59); BILIRUBIN,DIRECT 0.9 mg/dL (0.0-0.4); BILIRUBIN,TOTAL 2.7 mg/dL (0.2-1.3); BLOOD UREA NITROGEN 30 mg/dL (7-20); CALCIUM 8.7 mg/dL (8.4-10.2); CARBON DIOXIDE 21 mmol/L (22-30); CHLORIDE 101 mmol/L (98-107); GLUCOSE 87 mg/dL (75-110); POTASSIUM 3.7 mmol/L (3.6-5.0); TOTAL PROTEIN 5.3 g/dL (6.3-8.2)
[2020-04-24] MEDS: ASPIRIN 81 MG TABLET, CHEWABLE PO SCH (09:19)
[2020-04-24] MEDS: MULTIVITAMIN TABLET PO SCH (09:20)
[2020-04-24] MEDS ORDERED: [UNRECOGNIZED DRUG - OTHER] PO SCH (10:00)
[2020-04-24] MEDS ORDERED: IRON PO SCH (10:00)
[2020-04-24] MEDS ORDERED: FOLIC ACID PO SCH (10:00)
[2020-04-24] MEDS ORDERED: MULTIVITAMIN PO SCH (10:00)
[2020-04-24] MEDS ORDERED: AMIODARONE HCL 200 MG TABLET PO SCH (10:00)
--- NOTE | 2020-04-24 10:27 | PDOC CONSULTATION ---
Consultation Consult Date: 04/24/20 Attending physician:: HARPREET LANDAVERDE Provider Consulted: KARINE HENRIQUEZ Consult reason:: Hypotension History of Present Illness Admission Date/PCP: 04/23/20 23:22 EDVIN TANG DO History of Present Illness: PAULETTE SCALES is a 74 year old male 73-year-old male with the following active problems 1. Paroxysmal atrial flutter 2. Congestive heart failure with preserved ejection fraction 3. Long-term systemic anticoagulation 4. Dyslipidemia 5. Systemic hypertension Patient was admitted to the hospital recently for surgical gallbladder. At that time I had evaluated him. Echocardiogram done at that time showed preserved ejection fraction with moderate RV dysfunction and evidence of pulmonary hypertension. However this should not pose any problems with surgery and the patient proceeded and did well. He had an episode where he had syncope. He was having physical therapy session and when he got up he felt lightheaded and had a brief syncopal episode. No chest pain or prodrome reported. Evaluation in the emergency room showed low normal to mildly hypertensive range blood pressures in the range of 80 to 90mmHg. Based on this patient was admitted to the hospital since admission to the hospital patient's urine output is declined. Since admission patient's diuretics were suspended and beta-erma therapy was also suspended. Patient also received some saline. At the time of my evaluation patient seems comfortable. And did not admit to any chest pain or dyspnea or orthopnea. Past Medical History Cardiac Medical History: Reports: Atrial Fibrillation, Congestive Heart Failure, Hyperlipidema, Hypertension Denies: Coronary Artery Disease, Myocardial Infarction, Peripheral Vascular Disease, Heart Murmur Endocrine Medical History: Denies: Hyperthyroidism, Hypothyroidism Malignancy Medical History: Denies: Leukemia GI Medical History: Reports: Gastroesophageal Reflux Disease Denies: Crohn's Disease, Hiatal Hernia Musculoskeltal Medical History: Reports: Arthritis Denies: Fibromyalgia Psychiatric Medical History: Reports: Post Traumatic Stress Disorder Denies: Bipolar Disorder, Depression Hematology: Reports: Anemia Denies: Hemophilia, Sickle Cell Disease Infectious Medical History: Denies: HIV Past Surgical History Past Surgical History: Reports: Orthopedic Surgery - L hip replacement Denies: Appendectomy, Cholecystectomy, Colostomy, Coronary Artery Bypass Graft, Gastric Bypass Surgery, Herniorrhaphy, Pacemaker, Tonsillectomy Social History Smoking Status: Former Smoker Electronic Cigarette use?: No Frequency of Alcohol Use: None Hx Recreational Drug Use: No Drugs: None Hx Prescription Drug Abuse: No - Advance Directive Resuscitation Status: Full Code Family History Family History: Reviewed & Not Pertinent, Other - Unobtainable Parental Family History Reviewed: Yes - No familial illnesses Children Family History Reviewed: NA Sibling(s) Family History Reviewed.: NA Medication/Allergy Home Medications: Ferrous Sulfate 324 mg PO QAM 09/08/16 Acetaminophen [Acetaminophen Extra Strength] 500 mg PO Q6HP PRN 03/04/20 Amiodarone HCl [Cordarone 200 mg Tablet] 200 mg PO QAM 03/04/20 Atorvastatin Calcium [Lipitor 40 mg Tablet] 20 mg PO QHS 03/04/20 Carvedilol [Coreg 3.125 mg Tablet] 3.125 mg PO Q12 03/04/20 Cetirizine HCl [Zyrtec 10 mg Tablet] 10 mg PO DAILYP PRN 03/04/20 Cholecalciferol (Vitamin D3) [Vitamin D3 1000 Unit Tablet] 1,000 unit PO DAILY 03/04/20 Docusate Calcium 240 mg PO QPMP PRN 03/04/20 Apixaban [Eliquis 5 mg Tablet] 5 mg PO BID 04/24/20 Ascorbic Acid [Vitamin C 500 mg Tablet] 500 mg PO DAILY 04/24/20 Furosemide [Lasix 40 mg Tablet] 80 mg PO QAMP PRN 04/24/20 Furosemide [Lasix] 40 mg PO PCSUPPER 04/24/20 Magnesium Oxide 400 mg PO QHS 04/24/20 Metoclopramide HCl [Reglan 10 mg Tablet] 10 mg PO QIDP PRN 04/24/20 Multivitamin/Iron/Folic Acid [Cerovite Advanced Form Tab] 1 tab PO DAILY 04/24/20 Omeprazole 20 mg PO DAILY 04/24/20 Allergies/Adverse Reactions: No Known Allergies Allergy (Verified 02/24/17 23:15) Review of Systems Ears: PRESENT: as per HPI Nose, Mouth, and Throat: PRESENT: as per HPI Cardiovascular: PRESENT: as per HPI Gastrointestinal: PRESENT: as per HPI. ABSENT: abdominal pain, bloating, coffee ground emesis, constipation, diarrhea, dysphagia, heartburn, hematemesis, hematochezia, melena, nausea, vomiting, other Genitourinary: PRESENT: other. ABSENT: as per HPI, difficulty urinating, dysuria, hematuria, nocturia Integumentary: ABSENT: as per HPI, diaphoresis, erythema, lesions, pruritus, rash, wounds, other Physical Exam Vital Signs: Temp Pulse Resp BP Pulse Ox 97.4 F 95 16 91/51 L 96 04/24/20 08:21 04/24/20 08:21 04/24/20 08:21 04/24/20 08:21 04/24/20 08:21 Intake & Output 04/23/20 04/24/20 04/25/20 06:59 06:59 06:59 Intake Total 1150 Output Total 0 Balance 1150 Weight 85.4 kg General appearance: PRESENT: no acute distress, cooperative, obese, well- developed, well-nourished Head exam: PRESENT: atraumatic, normocephalic Eye exam: PRESENT: conjunctiva pink, EOMI Mouth exam: PRESENT: dry mucosa Respiratory exam: PRESENT: symmetrical, unlabored Cardiovascular exam: PRESENT: RRR, +S1, +S2, systolic murmur, other Pulses: PRESENT: normal radial pulses GI/Abdominal exam: PRESENT: soft Rectal exam: PRESENT: deferred Extremities exam: PRESENT: +1 edema Musculoskeletal exam: PRESENT: normal inspection, other Neurological exam: PRESENT: alert, awake, oriented to person, oriented to place, oriented to time, oriented to situation Skin exam: PRESENT: dry, intact Results Laboratory Results: 04/23/20 17:30 04/24/20 05:10 04/23/20 04/23/20 04/23/20 17:05 17:30 17:30 WBC 8.5 RBC 3.68 L Hgb 11.6 L Hct 34.7 L MCV 94 MCH 31.5 MCHC 33.4 RDW 22.8 H Plt Count 105 L Seg Neutrophils % 81.6 H VBG pH VBG pCO2 VBG HCO3 VBG Base Excess Sodium 131.0 L Potassium 4.1 Chloride 98 Carbon Dioxide 22 Anion Gap 11 BUN 31 H Creatinine 1.24 Est GFR ( Amer) > 60 Glucose 108 Lactic Acid Calcium 8.6 Magnesium Total Bilirubin 2.8 H AST 29 Alkaline Phosphatase 118 Total Protein 5.3 L Albumin 2.8 L Urine Color EYAD Urine Appearance SLIGHTLY-CLOUDY Urine pH 5.0 Ur Specific [place] 1.016 Urine Protein 30 H Urine Glucose (UA) NEGATIVE Urine Ketones NEGATIVE Urine Blood NEGATIVE Urine RBC (Auto) 3 11/03/0404/23/20 04/23/20 17:30 17:30 20:25 WBC RBC Hgb Hct MCV MCH MCHC RDW Plt Count Seg Neutrophils % VBG pH 7.37 VBG pCO2 37.9 VBG HCO3 21.6 VBG Base Excess -3.2 Sodium Potassium Chloride Carbon Dioxide Anion Gap BUN Creatinine Est GFR ( Amer) Glucose Lactic Acid 2.6 H 1.5 Calcium Magnesium Total Bilirubin AST Alkaline Phosphatase Total Protein Albumin Urine Color Urine Appearance Urine pH Ur Specific [place] Urine Protein Urine Glucose (UA) Urine Ketones Urine Blood Urine RBC (Auto) 04/23/20 04/24/20 22:53 05:10 WBC RBC Hgb Hct MCV MCH MCHC RDW Plt Count Seg Neutrophils % VBG pH VBG pCO2 VBG HCO3 VBG Base Excess Sodium 133.2 L Potassium 3.7 Chloride 101 Carbon Dioxide 21 L Anion Gap 11 BUN 30 H Creatinine 1.12 Est GFR ( Amer) > 60 Glucose 87 Lactic Acid 2.1 Calcium 8.7 Magnesium 2.1 Total Bilirubin 2.7 H AST 32 Alkaline Phosphatase 101 Total Protein 5.3 L Albumin 2.7 L Urine Color Urine Appearance Urine pH Ur Specific [place] Urine Protein Urine Glucose (UA) Urine Ketones Urine Blood Urine RBC (Auto) 04/23/20 04/23/20 04/23/20 17:30 17:30 22:53 Troponin I 0.112 0.100 NT-Pro-B Natriuret Pep [id number] H 04/24/20 05:10 Troponin I 0.106 NT-Pro-B Natriuret Pep EKG Comments: Twelve-lead EKG. Independently viewed by me. 04/23/2020 Probable ectopic atrial rhythm. Ventricular rate is 92 bpm, incomplete right bundle branch block T inversion in the lateral leads twelve-lead EKG Twelve-lead EKG 03/05/2020 Ectopic atrial rhythm predominantly 201 conduction 91 bpm, right bundle branch block incomplete Transthoracic echocardiogram 03/05/2020 Left ventricle ejection fraction 55 to 60% RV function is moderately reduced Mild mitral regurgitation Trace aortic regurgitation Mild tricuspid regurgitation Moderate pulmonary hypertension Impressions: Chest/Abdomen CTA 04/23/20 18:31 IMPRESSION: 1. No pulmonary artery embolization. 2. Groundglass opacification seen throughout the lung parenchyma but most pronounced in dependent fashion. There is associated bilateral pleural effusion and evidence of elevated right heart pressures. Overall findings are suggestive of pulmonary edema. Assessment & Plan - Diagnosis (1) Hypotension Qualifiers: Hypotension type: other hypotension type Qualified Code(s): I95.89 - Other hypotension Is this a current diagnosis for this admission?: Yes Plan: We will repeat transthoracic echocardiogram Most recent assessment of LV function in February prior to surgery showed that ejection fraction was preserved at 55 to 60% Moderate RV dysfunction was noted however as well as moderate pulmonary hypertension At the present time with drop in urine output and with clinical findings to suggest volume depletion I would hold off on diuresis. Gentle volume resuscitation and probable nephrology evaluation given drop in urine output. We will hold off on diuretic therapy as well as beta-erma therapy (2) CHF (congestive heart failure) Qualifiers: Heart failure type: right-sided Is this a current diagnosis for this admission?: Yes Plan: Symptoms suggestive of right-sided heart failure with lower extremity edema. Moderate RV dysfunction was apparent on echocardiogram He may need volume resuscitation as his urine output is dropped off and he has also has hypotension probably secondary to volume depletion. (3) Non-STEMI (non-ST elevated myocardial infarction) Is this a current diagnosis for this admission?: Yes Plan: Low level elevated troponin 0 0.106, 0.1 and 0.112 likely due to congestive heart failure and unlikely due to acute coronary syndrome or myocardial ischemia. Serum creatinine 1.12 04/23/2020 21.24 - Notes Notes: Given diminished urine output will hold off on apixaban Hold off on beta-erma given hypotension Hold off on diuretics Will review Echo
--- NOTE | 2020-04-24 13:18 | XCELERA REPORT ---
[address] [address] Transthoracic Echocardiogram Report Name: PAULETTE SCALES Age: 74 yrs Gender: Male : 1945 Patient Status: Inpatient Patient Location: [address] [place] [address] Study Date: 04/24/2020 09:46 AM History: CHF RV dysfunction Height: 69 in Weight: 188 lb BSA: 2.0 m2 Procedure: A complete two-dimensional transthoracic echocardiogram was performed (2D, M-mode, spectral and color flow Doppler). The study was technically difficult with many images being suboptimal in quality. Reason For Study: R heart failure Previous Evaluation: A previous study was performed on 03/05/2020- LVEF was preserved. RV dysfunction moderate. History: CHF. HTN. Ordering Physician: NOE CHEUNG Performed By: Milla Chacon Interpretation Summary The study was technically difficult with many images being suboptimal in quality. Left ventricular systolic function is normal. The Ejection Fraction estimate is 55-60% The right ventricle is mild to moderately dilated. The right ventricular systolic function is moderate to severely reduced. A vegetation on the mitral valve cannot be excluded. There is a mild amount of mitral regurgitation There is no aortic valve stenosis There is a mild amount of tricuspid regurgitation There is moderate pulmonary hypertension by echo There is no pericardial effusion. MMode/2D Measurements & Calculations RVDd: 3.6 cm LVIDd: 4.6 cm FS: 34.3 % Ao root diam: 3.3 cm IVSd: 1.1 cm LVIDs: 3.0 cm EDV(Teich): 96.2 ml Ao root area: 8.6 cm2 LVPWd: 1.1 cm ESV(Teich): 35.2 ml LA dimension: 3.5 cm EF(Teich): 63.4 % Doppler Measurements & Calculations MV E max rashaun: MV P1/2t max rashaun: Ao V2 max: LV V1 max P.7 cm/sec 82.9 cm/sec 133.7 cm/sec 3.2 mmHg MV A max rashaun: MV P1/2t: 47.1 msec Ao max P.2 mmHg LV V1 max: 47.0 cm/sec MVA(P1/2t): 4.7 cm2 89.5 cm/sec MV E/A: 1.8 MV dec slope: 515.9 cm/sec2 MV dec time: 0.16 sec PA V2 max: TR max rashaun: MV P1/2t-pr_phl: 84.1 cm/sec 316.3 cm/sec 47.1 msec PA max PG: TR max P.0 mmHg 2.8 mmHg Left Ventricle The left ventricle is normal in size. There is moderate concentric left ventricular hypertrophy. Left ventricular systolic function is normal. The Ejection Fraction estimate is 55-60%. LV diastolic function not assessed. Regional wall motion abnormalities cannot be excluded due to limited visualization. Right Ventricle The right ventricle is mild to moderately dilated. The right ventricular systolic function is moderate to severely reduced. Atria The right atrium is normal. The left atrial size is normal. The interatrial septum is intact with no evidence for an atrial septal defect. There is no Doppler evidence for an interatrial shunt. Injection of contrast documented no interatrial shunt. Mitral Valve The mitral valve leaflets appear thickened, but open well. A vegetation on the mitral valve cannot be excluded. There is no mitral valve stenosis. There is a mild amount of mitral regurgitation. Aortic Valve The aortic valve is trileaflet. The aortic valve opens well. The aortic valve is sclerotic, but shows no functional abnormality. There is no aortic valve stenosis. There is a trace amount of aortic regurgitation. Tricuspid Valve The tricuspid valve is not well visualized, but is grossly normal. There is a mild amount of tricuspid regurgitation. Right ventricular systolic pressure is estimated to be elevated at 50-60mmHg. There is moderate pulmonary hypertension by echo. Pulmonic Valve The pulmonic valve is normal in structure and function. There is no pulmonic valvular stenosis. Great Vessels The aortic root is normal size. The inferior vena cava appeared dilated and did not change with respiration (RAP > 20 mmHg). Effusions There is no pericardial effusion. : NOE CHEUNG Anil
[2020-04-24] MEDS ORDERED: RINGERS SOLUTION,LACTATED 500 ML IV ONE (14:12)
--- NOTE | 2020-04-24 14:18 | PDOC PROGRESS REPORT ---
Subjective Date:: 04/24/20 Subjective:: PAULETTE SCALES is a 74 year old male with a history of paroxysmal A. fib on an ticoagulation, hypertension, hyperlipidemia, who was discharged recently from hospital after having cholecystectomy now presents after he had an episode of passing out this morning. Patient reports that he went for a physical therapy session this morning and when he tried to get out chair and started to walk he felt lightheaded and passed out. He was told that he passed out for less than 30 seconds after which she immediately regained consciousness and denies any confusion after the episode. He also denies any history of abnormal body movement, weakness of extremities, change in his speech, or confusion. Patient has no chest pain, palpitation, shortness of breath, orthopnea. He also denies any fever, chills, cough, nausea, vomiting or diarrhea. He did not take any of his morning medications today. He states that he usually runs a low blood pressure with a systolic in the 90s when he monitors his BP at home. 04/24/20 D2 hospital stay. Patient was seen and examined at bedside. He denied any chest pain or SOB but does complain of weakness generalized. He was about to have an echo. He has grade 2 pitting edema both lower extremities. BP still low at 80s/40s and we continue to hold his lasix.IV fluids stopped. Reason For Visit: WEAK Physical Exam Vital Signs: Temp Pulse Resp BP Pulse Ox 97.7 F 95 18 88/55 L 98 04/24/20 12:07 04/24/20 12:07 04/24/20 12:07 04/24/20 12:07 04/24/20 12:07 Intake & Output 04/23/20 04/24/20 04/25/20 06:59 06:59 06:59 Intake Total 1150 Output Total 0 Balance 1150 Weight 85.4 kg General appearance: PRESENT: no acute distress, cooperative Head exam: PRESENT: atraumatic, normocephalic Eye exam: PRESENT: EOMI, PERRLA Mouth exam: PRESENT: moist Neck exam: PRESENT: full ROM Respiratory exam: PRESENT: crackles, rales, symmetrical, unlabored Cardiovascular exam: PRESENT: RRR, +S1, +S2 Pulses: PRESENT: normal radial pulses GI/Abdominal exam: PRESENT: normal bowel sounds, soft. ABSENT: rebound, tenderness Extremities exam: PRESENT: full ROM, +2 edema Musculoskeletal exam: PRESENT: full ROM Neurological exam: PRESENT: alert, awake, oriented to person, oriented to place, oriented to time, oriented to situation Psychiatric exam: PRESENT: normal mood Results Laboratory Results: 04/23/20 17:30 04/24/20 05:10 04/23/20 04/23/20 04/23/20 17:05 17:30 17:30 WBC 8.5 RBC 3.68 L Hgb 11.6 L Hct 34.7 L MCV 94 MCH 31.5 MCHC 33.4 RDW 22.8 H Plt Count 105 L Seg Neutrophils % 81.6 H VBG pH VBG pCO2 VBG HCO3 VBG Base Excess Sodium 131.0 L Potassium 4.1 Chloride 98 Carbon Dioxide 22 Anion Gap 11 BUN 31 H Creatinine 1.24 Est GFR ( Amer) > 60 Glucose 108 Lactic Acid Calcium 8.6 Magnesium Total Bilirubin 2.8 H AST 29 Alkaline Phosphatase 118 Total Protein 5.3 L Albumin 2.8 L Urine Color EYAD Urine Appearance SLIGHTLY-CLOUDY Urine pH 5.0 Ur Specific Dumas 1.016 Urine Protein 30 H Urine Glucose (UA) NEGATIVE Urine Ketones NEGATIVE Urine Blood NEGATIVE Urine RBC (Auto) 3 04/23/20 04/23/20 04/23/20 17:30 17:30 20:25 WBC RBC Hgb Hct MCV MCH MCHC RDW Plt Count Seg Neutrophils % VBG pH 7.37 VBG pCO2 37.9 VBG HCO3 21.6 VBG Base Excess -3.2 Sodium Potassium Chloride Carbon Dioxide Anion Gap BUN Creatinine Est GFR ( Amer) Glucose Lactic Acid 2.6 H 1.5 Calcium Magnesium Total Bilirubin AST Alkaline Phosphatase Total Protein Albumin Urine Color Urine Appearance Urine pH Ur Specific Dumas Urine Protein Urine Glucose (UA) Urine Ketones Urine Blood Urine RBC (Auto) 04/23/20 04/24/20 22:53 05:10 WBC RBC Hgb Hct MCV MCH MCHC RDW Plt Count Seg Neutrophils % VBG pH VBG pCO2 VBG HCO3 VBG Base Excess Sodium 133.2 L Potassium 3.7 Chloride 101 Carbon Dioxide 21 L Anion Gap 11 BUN 30 H Creatinine 1.12 Est GFR ( Amer) > 60 Glucose 87 Lactic Acid 2.1 Calcium 8.7 Magnesium 2.1 Total Bilirubin 2.7 H AST 32 Alkaline Phosphatase 101 Total Protein 5.3 L Albumin 2.7 L Urine Color Urine Appearance Urine pH Ur Specific Dumas Urine Protein Urine Glucose (UA) Urine Ketones Urine Blood Urine RBC (Auto) 04/23/20 04/23/20 04/23/20 17:30 17:30 22:53 Troponin I 0.112 0.100 NT-Pro-B Natriuret Pep [id number] H 04/24/20 04/24/20 05:10 11:45 Troponin I 0.106 0.094 NT-Pro-B Natriuret Pep Impressions: Chest/Abdomen CTA 04/23/20 18:31 IMPRESSION: 1. No pulmonary artery embolization. 2. Groundglass opacification seen throughout the lung parenchyma but most pronounced in dependent fashion. There is associated bilateral pleural effusion and evidence of elevated right heart pressures. Overall findings are suggestive of pulmonary edema. Assessment and Plan - Diagnosis (1) CHF (congestive heart failure) Qualifiers: Heart failure type: right-sided Heart failure chronicity: acute on chronic Qualified Code(s): I50.813 - Acute on chronic right heart failure Is this a current diagnosis for this admission?: Yes Plan: -chronic or acute decompensation on top of chronic - BNP 13546 - hypotensive, no prior pulmonary embolism, no previous MD, no COPD - repeat echo showed normal LV systolic function EF 55 to 60%, RV mild to moderately dilated, RV systolic function is moderate to severely reduced. A vegetation on the mitral valve cannot be excluded. -Ultimately he would need a SOLO to assess possible mitral valve vegetation, as well as a right heart cath to determine the cause of RV failure -Will give 500 cc of normal saline for volume resuscitation - will hold off resuming lasix for now and assess his BP and volume status tomorrow. -Cardiology consulted (2) Hypotension Qualifiers: Hypotension type: other hypotension type Qualified Code(s): I95.89 - Other hypotension Is this a current diagnosis for this admission?: Yes Plan: Patient's blood pressure has been ranging lower 90s by lower 60s He reports that normally his blood pressure runs low Echocardiogram 2 months ago showed normal ejection fraction of 55 to 60% Patient has no current signs of sepsis Concerning for cardiogenic shock in the setting of non-STEMI or 2/2 medication BNP 05346 Echo result as above holding off on resuming his lasix because of soft BP. Will await echo result if he will eventually need dobutamine (3) Atrial flutter Qualifiers: Atrial flutter type: typical Qualified Code(s): I48.3 - Typical atrial flutter Is this a current diagnosis for this admission?: Yes Plan: -currently sinus - on eliquis for AC not being given due to poor urine output - amio resumed (4) Vegetation of heart valve Is this a current diagnosis for this admission?: Yes Plan: -Suspected mitral valve vegetation on transthoracic echo -Patient is afebrile, WBC count normal. -Culture pending. Will await culture results before starting antibiotics as the patient is afebrile with normal white count -He would eventually need SOLO to confirm mitral valve vegetation (5) Status post cholecystectomy Is this a current diagnosis for this admission?: Yes - Time Time Spent with patient: 25-34 minutes Anticipated Discharge Disposition: Home, Self Care Anticipated Discharge Timeframe: to be determined
--- NOTE | 2020-04-24 17:48 | EKG REPORT ---
SEVERITY:- ABNORMAL ECG - SINUS OR ECTOPIC ATRIAL RHYTHM LAD, CONSIDER LEFT ANTERIOR FASCICULAR BLOCK NONSPECIFIC ST-T CHANGES : Confirmed by: Pascual Dallas 24-Apr-2020 17:47:29
[2020-04-24] MEDS ORDERED: ATORVASTATIN CALCIUM 40 MG TABLET PO SCH (22:00)
[2020-04-25] MEDS: PANTOPRAZOLE SODIUM 20 MG TABLET.DR PO SCH (05:15)
[2020-04-25] MEDS ORDERED: VANCOMYCIN HCL 0 MG in DEXTROSE 5%-WATER 250 ML IV NR (07:45)
[2020-04-25] MEDS: ASPIRIN 81 MG TABLET, CHEWABLE PO SCH (09:17)
[2020-04-25] MEDS: APIXABAN 5 MG TABLET PO SCH ×2 (09:18→21:06)
[2020-04-25] MEDS: MULTIVITAMIN TABLET PO SCH (09:18)
[2020-04-25] MEDS: FAMOTIDINE 20 MG TABLET PO SCH ×2 (09:18→21:06)
[2020-04-25] MEDS: RINGERS SOLUTION,LACTATED 1,000 ML IV PRN ×2 (09:19→15:46)
[2020-04-25] MEDS ORDERED: VANCOMYCIN HCL 1,500 MG in DEXTROSE 5%-WATER 250 ML IV ONE (10:00)
[2020-04-25 10:12] LABS: ABSOLUTE LYMPHOCYTES (AUTO) 0.8 10^3/uL (0.5-4.7); ABSOLUTE MONOCYTES (AUTO) 0.4 10^3/uL (0.1-1.4); ABSOLUTE NEUT (AUTO) 6.3 10^3/uL (1.7-8.2); BASOPHILS % (AUTO) 0.1 % (0-2); EOSINOPHILS % (AUTO) 0.2 % (0-6); HEMATOCRIT 35.9 % (37.9-51.0); HEMOGLOBIN 11.7 g/dL (13.5-17.0); LYMPHOCYTES % (AUTO) 10.1 % (13-45); MEAN CORPUSCULAR HEMOGLOBIN 30.7 pg (27.0-33.4); MEAN CORPUSCULAR HGB CONC 32.6 g/dL (32.0-36.0); MEAN CORPUSCULAR VOLUME 94 fl (80-97); PLATELET COUNT 116 10^3/uL (150-450); RED BLOOD COUNT 3.82 10^6/uL (4.35-5.55); SEGMENTED NEUTROPHILS % (AUTO) 83.6 % (42-78); TOTAL CELLS COUNTED % (AUTO) 100 %; WHITE BLOOD COUNT 7.5 10^3/uL (4.0-10.5)
[2020-04-25 10:29] LABS: ALBUMIN 2.5 g/dL (3.5-5.0); ALKALINE PHOSPHATASE 131 U/L (38-126); ANION GAP 9 (5-19); ASPARTATE AMINO TRANSFERASE 29 U/L (17-59); BILIRUBIN,DIRECT 1.4 mg/dL (0.0-0.4); BILIRUBIN,TOTAL 3.1 mg/dL (0.2-1.3); BLOOD UREA NITROGEN 29 mg/dL (7-20); CARBON DIOXIDE 23 mmol/L (22-30); CHLORIDE 100 mmol/L (98-107); GLUCOSE 107 mg/dL (75-110); POTASSIUM 3.9 mmol/L (3.6-5.0); TOTAL PROTEIN 4.9 g/dL (6.3-8.2)
[2020-04-25] MEDS ORDERED: GLUCAGON,HUMAN RECOMB 1 MG INJ SUBCUT PRN (12:35)
[2020-04-25] MEDS ORDERED: DEXTROSE 40% GEL 15 GM TUBE PO PRN ×2 (12:35)
[2020-04-25] MEDS ORDERED: DEXTROSE 50%-WATER 25 GM/50 ML DISP.SYRIN IV PRN ×2 (12:35)
--- NOTE | 2020-04-25 13:19 | PDOC PROGRESS REPORT ---
Subjective Date:: 04/25/20 Subjective:: Patient was seen and examined. He feels better. His urine output has increased . There is no reported fever. His blood culture 1 out of 2 is positive Reason For Visit: NON-STEMI(non-ST ELEVATED MYOCARDIAL INFARCTION) Physical Exam Vital Signs: Temp Pulse Resp BP Pulse Ox 98.1 F 86 18 95/55 L 97 04/25/20 11:34 04/25/20 11:34 04/25/20 11:34 04/25/20 11:34 04/25/20 11:34 Intake & Output 04/24/20 04/25/20 04/26/20 06:59 06:59 06:59 Intake Total 1150 1140 Output Total 0 950 Balance 1150 190 Weight 85.4 kg 86.9 kg General appearance: PRESENT: no acute distress, cooperative, obese, well- developed, well-nourished Head exam: PRESENT: atraumatic, normocephalic Eye exam: PRESENT: conjunctiva pink, EOMI Mouth exam: PRESENT: moist Respiratory exam: PRESENT: decreased breath sounds, symmetrical, unlabored Cardiovascular exam: PRESENT: RRR, +S1, +S2 Pulses: PRESENT: normal radial pulses GI/Abdominal exam: PRESENT: soft Rectal exam: PRESENT: deferred Neurological exam: PRESENT: alert, awake, oriented to person, oriented to place, oriented to time, oriented to situation Psychiatric exam: PRESENT: appropriate affect Skin exam: PRESENT: dry, intact, normal color Results Laboratory Results: 04/25/20 09:30 04/25/20 09:30 04/25/20 04/25/20 09:30 09:30 WBC 7.5 RBC 3.82 L Hgb 11.7 L Hct 35.9 L MCV 94 MCH 30.7 MCHC 32.6 RDW 23.0 H Plt Count 116 L Seg Neutrophils % 83.6 H Sodium 131.9 L Potassium 3.9 Chloride 100 Carbon Dioxide 23 Anion Gap 9 BUN 29 H Creatinine 0.99 Est GFR ( Amer) > 60 Glucose 107 Calcium 9.0 Total Bilirubin 3.1 H AST 29 Alkaline Phosphatase 131 H Total Protein 4.9 L Albumin 2.5 L 04/23/20 17:30 Blood Blood Culture (PCR) - Final Staphylococcus Species 04/23/20 04/23/20 04/23/20 17:30 17:30 22:53 Troponin I 0.112 0.100 NT-Pro-B Natriuret Pep [id number] H 04/24/20 04/24/20 05:10 11:45 Troponin I 0.106 0.094 NT-Pro-B Natriuret Pep EKG Comments: Transthoracic echocardiogram is suspicious for mitral valve vegetation Blood culture 04/23/2020 1 out of 2 gram-positive cocci in clusters and staph Impressions: Chest/Abdomen CTA 04/23/20 18:31 IMPRESSION: 1. No pulmonary artery embolization. 2. Groundglass opacification seen throughout the lung parenchyma but most pronounced in dependent fashion. There is associated bilateral pleural effusion and evidence of elevated right heart pressures. Overall findings are suggestive of pulmonary edema. Assessment & Plan - Diagnosis (1) Hypotension Qualifiers: Qualified Code(s): I95.89 - Other hypotension Is this a current diagnosis for this admission?: Yes Plan: Unclear etiology as to hypotension Blood cultures are positive. Although not very toxic he may have low-grade sepsis. He does have RV dysfunction and together with volume depletion this may have resulted in hypotension although asymptomatic My assessment he appears to be volume depleted and he has responded to some volume challenge. I would recommend continue to hold diuretic Renal function is stable. (2) CHF (congestive heart failure) Qualifiers: Qualified Code(s): I50.813 - Acute on chronic right heart failure Is this a current diagnosis for this admission?: Yes Plan: Appears euvolemic Echocardiogram shows preserved LV function and moderate RV dysfunction probably on account of longstanding pulmonary hypertension which is at least moderate. At the present time he appears to be volume depleted Holding off on diuretic therapy especially given hypotension (3) Non-STEMI (non-ST elevated myocardial infarction) Is this a current diagnosis for this admission?: Yes Plan: Unlikely due to acute coronary syndrome Mildly elevated troponins given heart failure - Notes Notes: Given positive blood cultures and hypotension we will plan on pursuing transesophageal echocardiogram especially given abnormal finding on the mitral valve on surface echocardiogram highly suspicious for vegetation. Patient has had recent surgical procedure performed which may have predisposed him to this. Plan on keeping him n.p.o. after midnight. We will plan on performing transesophageal echocardiogram tomorrow afternoon.
--- NOTE | 2020-04-25 13:24 | PDOC PROGRESS REPORT ---
Subjective Date:: 04/25/20 Subjective:: PAULETTE SCALES is a 74 year old male with a history of paroxysmal A. fib on an ticoagulation, hypertension, hyperlipidemia, who was discharged recently from hospital after having cholecystectomy now presents after he had an episode of passing out this morning. Patient reports that he went for a physical therapy session this morning and when he tried to get out chair and started to walk he felt lightheaded and passed out. He was told that he passed out for less than 30 seconds after which she immediately regained consciousness and denies any confusion after the episode. He also denies any history of abnormal body movement, weakness of extremities, change in his speech, or confusion. Patient has no chest pain, palpitation, shortness of breath, orthopnea. He also denies any fever, chills, cough, nausea, vomiting or diarrhea. He did not take any of his morning medications today. He states that he usually runs a low blood pressure with a systolic in the 90s when he monitors his BP at home. 04/24/20 D2 hospital stay. Patient was seen and examined at bedside. He denied any chest pain or SOB but does complain of weakness generalized. He was about to have an echo. He has grade 2 pitting edema both lower extremities. BP still low at 80s/40s and we continue to hold his lasix. IV fluids stopped. 04/25/20 D3 Hospital stay. Patient was seen and examined at bedside. He denied any SOB, orthopnea, chest pain. No dizziness or weakness. Blood pressure still borderline low at 90s over 50s. 1 blood culture bottle growing MSSA. In light of his echo result I have started him on vancomycin for empiric treatment for endocarditis. SOLO ordered. He was started on IV fluids as well for his blood pressure. Ultimately he would still need RHC for his right sided heart failure. Reason For Visit: NON-STEMI(non-ST ELEVATED MYOCARDIAL INFARCTION) Physical Exam Vital Signs: Temp Pulse Resp BP Pulse Ox 97.9 F 96 16 91/54 L 93 04/25/20 07:59 04/25/20 07:59 04/25/20 07:59 04/25/20 07:59 04/25/20 07:59 Intake & Output 04/24/20 04/25/20 04/26/20 06:59 06:59 06:59 Intake Total 1150 1140 Output Total 0 950 Balance 1150 190 Weight 85.4 kg 86.9 kg General appearance: PRESENT: no acute distress, cooperative Head exam: PRESENT: atraumatic, normocephalic Eye exam: PRESENT: EOMI, PERRLA Mouth exam: PRESENT: moist Neck exam: PRESENT: full ROM Respiratory exam: PRESENT: clear to auscultation char, symmetrical. ABSENT: unlabored Cardiovascular exam: PRESENT: RRR, +S1, +S2 GI/Abdominal exam: PRESENT: normal bowel sounds, soft. ABSENT: rebound, tenderness Extremities exam: PRESENT: +2 edema Musculoskeletal exam: PRESENT: full ROM Neurological exam: PRESENT: alert, awake, oriented to person, oriented to place, oriented to time, oriented to situation Psychiatric exam: PRESENT: normal mood Skin exam: PRESENT: normal color Results Laboratory Results: 04/25/20 09:30 04/25/20 09:30 04/25/20 04/25/20 09:30 09:30 WBC 7.5 RBC 3.82 L Hgb 11.7 L Hct 35.9 L MCV 94 MCH 30.7 MCHC 32.6 RDW 23.0 H Plt Count 116 L Seg Neutrophils % 83.6 H Sodium 131.9 L Potassium 3.9 Chloride 100 Carbon Dioxide 23 Anion Gap 9 BUN 29 H Creatinine 0.99 Est GFR ( Amer) > 60 Glucose 107 Calcium 9.0 Total Bilirubin 3.1 H AST 29 Alkaline Phosphatase 131 H Total Protein 4.9 L Albumin 2.5 L 04/23/20 17:30 Blood Blood Culture (PCR) - Final Staphylococcus Species 04/23/20 04/23/20 04/23/20 17:30 17:30 22:53 Troponin I 0.112 0.100 NT-Pro-B Natriuret Pep [id number] H 04/24/20 04/24/20 05:10 11:45 Troponin I 0.106 0.094 NT-Pro-B Natriuret Pep Impressions: Chest/Abdomen CTA 04/23/20 18:31 IMPRESSION: 1. No pulmonary artery embolization. 2. Groundglass opacification seen throughout the lung parenchyma but most pronounced in dependent fashion. There is associated bilateral pleural effusion and evidence of elevated right heart pressures. Overall findings are suggestive of pulmonary edema. Assessment and Plan - Diagnosis (1) Vegetation of heart valve Is this a current diagnosis for this admission?: Yes Plan: -Suspected mitral valve vegetation on transthoracic echo -Patient is afebrile, WBC count normal. -Blood culture 1 bottle growing MSSA, repeat blood culture ordered -Hernandez Criteria Possible IE -SOLO ordered. NPO at midnight -started on Vancomycin (2) CHF (congestive heart failure) Qualifiers: Heart failure type: right-sided Heart failure chronicity: acute on chronic Qualified Code(s): I50.813 - Acute on chronic right heart failure Is this a current diagnosis for this admission?: Yes Plan: -chronic or acute decompensation on top of chronic - BNP 41538 - hypotensive, no prior pulmonary embolism, no previous MN, no COPD - repeat echo showed normal LV systolic function EF 55 to 60%, RV mild to moderately dilated, RV systolic function is moderate to severely reduced. A vegetation on the mitral valve cannot be excluded. -SOLO ordered for the vegitation. Ultimately he would need a right heart cath -started on minimal IV fluids for volume resuscitation -Cardiology consulted (3) Hypotension Qualifiers: Hypotension type: other hypotension type Qualified Code(s): I95.89 - Other hypotension Is this a current diagnosis for this admission?: Yes Plan: -Patient's blood pressure has been ranging lower 90s by lower 60s -He reports that normally his blood pressure runs low -Repeat echo normal LV systolic function, EF 55 to 60%, RV mild to moderately dilated, right ventricular systolic function moderately to severely reduced. A vegetation on the mitral valve cannot be excluded. -started on minimal IV fluids for volume resuscitation - (4) Atrial flutter Qualifiers: Atrial flutter type: typical Qualified Code(s): I48.3 - Typical atrial flutter Is this a current diagnosis for this admission?: Yes Plan: -currently sinus - eliquis resumed - (5) Status post cholecystectomy Is this a current diagnosis for this admission?: Yes (6) Physical deconditioning Is this a current diagnosis for this admission?: Yes Plan: - PT for therapy - Time Time Spent with patient: 25-34 minutes Medications reviewed and adjusted accordingly: Yes Anticipated Discharge Disposition: Home, Self Care Anticipated Discharge Timeframe: to be determined
[2020-04-25] MEDS: ATORVASTATIN CALCIUM 40 MG TABLET PO SCH (21:07)
[2020-04-25] MEDS: VANCOMYCIN HCL 750 MG in DEXTROSE 5%-WATER 250 ML IV SCH (21:08)
[2020-04-26] MEDS: PANTOPRAZOLE SODIUM 20 MG TABLET.DR PO SCH (06:08)
[2020-04-26 06:21] LABS: ABSOLUTE LYMPHOCYTES (AUTO) 0.9 10^3/uL (0.5-4.7); ABSOLUTE MONOCYTES (AUTO) 0.3 10^3/uL (0.1-1.4); ABSOLUTE NEUT (AUTO) 5.3 10^3/uL (1.7-8.2); BASOPHILS % (AUTO) 0.4 % (0-2); EOSINOPHILS % (AUTO) 0.6 % (0-6); HEMATOCRIT 30.8 % (37.9-51.0); HEMOGLOBIN 10.5 g/dL (13.5-17.0); LYMPHOCYTES % (AUTO) 13.8 % (13-45); MEAN CORPUSCULAR HEMOGLOBIN 31.3 pg (27.0-33.4); MEAN CORPUSCULAR VOLUME 92 fl (80-97); MONOCYTES % (AUTO) 4.8 % (3-13); RED BLOOD COUNT 3.34 10^6/uL (4.35-5.55); SEGMENTED NEUTROPHILS % (AUTO) 80.4 % (42-78); TOTAL CELLS COUNTED % (AUTO) 100 %; WHITE BLOOD COUNT 6.6 10^3/uL (4.0-10.5)
[2020-04-26 06:35] LABS: ALBUMIN 2.1 g/dL (3.5-5.0); ALKALINE PHOSPHATASE 107 U/L (38-126); ANION GAP 7 (5-19); ASPARTATE AMINO TRANSFERASE 28 U/L (17-59); BILIRUBIN,DIRECT 0.8 mg/dL (0.0-0.4); BILIRUBIN,TOTAL 2.1 mg/dL (0.2-1.3); BLOOD UREA NITROGEN 27 mg/dL (7-20); CALCIUM 8.5 mg/dL (8.4-10.2); CARBON DIOXIDE 22 mmol/L (22-30); CHLORIDE 102 mmol/L (98-107); GLUCOSE 93 mg/dL (75-110); POTASSIUM 3.7 mmol/L (3.6-5.0); TOTAL PROTEIN 4.2 g/dL (6.3-8.2)
[2020-04-26 06:47] LABS: PLATELET COUNT 97 10^3/uL (150-450)
[2020-04-26] MEDS: VANCOMYCIN HCL 750 MG in DEXTROSE 5%-WATER 250 ML IV SCH ×2 (10:49→21:07)
[2020-04-26] MEDS: ASPIRIN 81 MG TABLET, CHEWABLE PO SCH (11:00)
[2020-04-26] MEDS: APIXABAN 5 MG TABLET PO SCH ×2 (11:01→21:07)
[2020-04-26] MEDS: FAMOTIDINE 20 MG TABLET PO SCH ×2 (11:06→21:07)
[2020-04-26] MEDS: MULTIVITAMIN TABLET PO SCH (11:06)
[2020-04-26] MEDS ORDERED: LIDOCAINE 2% INJ-PF (20 MG/ML) 10 ML AMPUL ONE (13:19)
[2020-04-26] MEDS ORDERED: PROPOFOL INJ 200 MG/20 ML VIAL IV ONE (13:19)
--- NOTE | 2020-04-26 17:08 | XCELERA REPORT ---
Study ID: [id number] [address] [place] [id number] Trans[place] Echocardi[facility] Report Name: PAULETTE SCALES Age: 74 yrs Gender: Male : 1945 Patient Status: Inpatient Patient Location: [address] [place], [place] [address] Study Date: 04/26/2020 01:29 PM History: Bactermeia Hypotension Height: 69 in Weight: 218 lb BSA: 2.1 m2 Reason For Study: endocarditis Ordering Physician: HARPREET LANDAVERDE Performed By: Carlene Eason Interpretation Summary Left ventricular systolic function is normal. Ejection Fraction = >55%. The right ventricular systolic function is moderately reduced. There is a small vegetation or mass on the mitral valve. 0.8 cm X 1.3 cm vegetation on the septal leaflet of the mitral valve, There is moderate mitral regurgitation. There is moderate tricuspid regurgitation. No hemodynamically significant valvular aortic stenosis. There is no pericardial effusion. Left Ventricle The left ventricle is normal in size. There is mild concentric left ventricular hypertrophy. Left ventricular systolic function is normal. Ejection Fraction = >55%. No regional wall motion abnormalities noted. Right Ventricle The right ventricle is mild to moderately dilated. The right ventricular systolic function is moderately reduced. Atria The interatrial septum is intact with no evidence for an atrial septal defect. The left atrium is severely dilated. No left atrial mass or thrombus visualized. The right atrium is moderate to severely dilated. Mitral Valve There is a small vegetation or mass on the mitral valve. 0.8 cm X 1.3 cm vegetation on the septal leaflet of the mitral valve,. There is no mitral valve stenosis. There is moderate mitral regurgitation. Tricuspid Valve Tricuspid leaflets are thickened. There is moderate tricuspid regurgitation. Aortic Valve The aortic valve is trileaflet. The aortic valve opens well. No hemodynamically significant valvular aortic stenosis. Trace aortic regurgitation. Pulmonic Valve The pulmonic valve leaflets are thin and pliable; valve motion is normal. There is no pulmonic valvular stenosis. Trace pulmonic valvular regurgitation. Arteries The aortic root is normal size. Pericardium There is no pericardial effusion. : HARPREET LANDAVERDE Anil
--- NOTE | 2020-04-26 17:18 | PDOC PROGRESS REPORT ---
Subjective Date:: 04/26/20 Subjective:: PAULETTE SCALES is a 74 year old male with a history of paroxysmal A. fib on an ticoagulation, hypertension, hyperlipidemia, who was discharged recently from hospital after having cholecystectomy now presents after he had an episode of passing out this morning. Patient reports that he went for a physical therapy session this morning and when he tried to get out chair and started to walk he felt lightheaded and passed out. He was told that he passed out for less than 30 seconds after which she immediately regained consciousness and denies any confusion after the episode. He also denies any history of abnormal body movement, weakness of extremities, change in his speech, or confusion. Patient has no chest pain, palpitation, shortness of breath, orthopnea. He also denies any fever, chills, cough, nausea, vomiting or diarrhea. He did not take any of his morning medications today. He states that he usually runs a low blood pressure with a systolic in the 90s when he monitors his BP at home. 04/24/20 D2 hospital stay. Patient was seen and examined at bedside. He denied any chest pain or SOB but does complain of weakness generalized. He was about to have an echo. He has grade 2 pitting edema both lower extremities. BP still low at 80s/40s and we continue to hold his lasix. IV fluids stopped. 04/25/20 D3 Hospital stay. Patient was seen and examined at bedside. He denied any SOB, orthopnea, chest pain. No dizziness or weakness. Blood pressure still borderline low at 90s over 50s. 1 blood culture bottle growing MSSA. In light of his echo result I have started him on vancomycin for empiric treatment for endocarditis. SOLO ordered. He was started on IV fluids as well for his blood pressure. Ultimately he would still need RHC for his right sided heart failure. 04/26/20 D4 Hospital stay. He was seen and examined at bedside. denies any chest pain, orthopnea or SOB. SOLO that was done showed small vegetation on the mitral valve. Blood culture growing staph species NOT MRSA. He is currently on Vancomycin. ID was consulted. He remains afebrile. BP still borderline low. Reason For Visit: NON-STEMI(non-ST ELEVATED MYOCARDIAL INFARCTION) Physical Exam Vital Signs: Temp Pulse Resp BP Pulse Ox 97.5 F 98 18 88/50 L 97 04/26/20 13:20 04/26/20 13:20 04/26/20 13:20 04/26/20 13:20 04/26/20 13:20 Intake & Output 04/25/20 04/26/20 04/27/20 06:59 06:59 06:59 Intake Total 1140 1273 Output Total 950 900 275 Balance 190 373 -275 Weight 86.9 kg 88.5 kg General appearance: PRESENT: no acute distress, cooperative Head exam: PRESENT: atraumatic, normocephalic Eye exam: PRESENT: EOMI, PERRLA Mouth exam: PRESENT: moist Neck exam: PRESENT: full ROM Respiratory exam: PRESENT: rales, symmetrical, unlabored Cardiovascular exam: PRESENT: RRR, +S1, +S2 GI/Abdominal exam: PRESENT: normal bowel sounds, soft. ABSENT: rebound, tenderness Extremities exam: PRESENT: +2 edema Musculoskeletal exam: PRESENT: full ROM Neurological exam: PRESENT: alert, awake, oriented to person, oriented to place, oriented to time, oriented to situation Psychiatric exam: PRESENT: normal mood Skin exam: PRESENT: normal color Results Laboratory Results: 04/26/20 05:08 04/26/20 05:08 04/26/20 04/26/20 05:08 05:08 WBC 6.6 RBC 3.34 L Hgb 10.5 L Hct 30.8 L MCV 92 MCH 31.3 MCHC 34.0 RDW 22.0 H Plt Count 97 L Seg Neutrophils % 80.4 H Sodium 130.9 L Potassium 3.7 Chloride 102 Carbon Dioxide 22 Anion Gap 7 BUN 27 H Creatinine 0.81 Est GFR ( Amer) > 60 Glucose 93 Calcium 8.5 Total Bilirubin 2.1 H AST 28 Alkaline Phosphatase 107 Total Protein 4.2 L Albumin 2.1 L 04/23/20 17:30 Blood Blood Culture (PCR) - Final Staphylococcus Species 04/23/20 20:05 Blood Blood Culture (PCR) - Final 04/23/20 20:05 Blood Blood Culture - Final Corynebacterium Striatum Corynebacterium Minutissimum 04/23/20 04/23/20 04/23/20 17:30 17:30 22:53 Troponin I 0.112 0.100 NT-Pro-B Natriuret Pep [id number] H 04/24/20 04/24/20 05:10 11:45 Troponin I 0.106 0.094 NT-Pro-B Natriuret Pep Impressions: Chest/Abdomen CTA 04/23/20 18:31 IMPRESSION: 1. No pulmonary artery embolization. 2. Groundglass opacification seen throughout the lung parenchyma but most pronounced in dependent fashion. There is associated bilateral pleural effusion and evidence of elevated right heart pressures. Overall findings are suggestive of pulmonary edema. 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 -Blood culture 1 bottle growing methicillin sensitive staph species - On vancomycin - ID consulted (2) CHF (congestive heart failure) Qualifiers: Heart failure type: right-sided Heart failure chronicity: acute on chronic Qualified Code(s): I50.813 - Acute on chronic right heart failure Is this a current diagnosis for this admission?: Yes Plan: -chronic or acute decompensation on top of chronic - BNP 82337 - hypotensive, no prior pulmonary embolism, no previous TX, no COPD - repeat echo showed normal LV systolic function EF 55 to 60%, RV mild to moderately dilated, RV systolic function is moderate to severely reduced. A vegetation on the mitral valve cannot be excluded. -BP improved, IV fluids stopped. I will likely be able to restart his lasix if his BP remains stable -Cardiology consulted (3) Hypotension Qualifiers: Hypotension type: other hypotension type Qualified Code(s): I95.89 - Other hypotension Is this a current diagnosis for this admission?: Yes Plan: -Improved -Patient's blood pressure has been ranging lower 90s by lower 60s -Repeat echo normal LV systolic function, EF 55 to 60%, RV mild to moderately dilated, right ventricular systolic function moderately to severely reduced. A vegetation on the mitral valve cannot be excluded. - will continue to monitor.If still stable tomorrow will be able to restart his Lasix - (4) Atrial flutter Qualifiers: Atrial flutter type: typical Qualified Code(s): I48.3 - Typical atrial flutter Is this a current diagnosis for this admission?: Yes Plan: -currently sinus - eliquis resumed - (5) Status post cholecystectomy Is this a current diagnosis for this admission?: Yes (6) Physical deconditioning Is this a current diagnosis for this admission?: Yes Plan: - PT for therapy - Time Time Spent with patient: 25-34 minutes Medications reviewed and adjusted accordingly: Yes Anticipated Discharge Disposition: Home with Home Health Anticipated Discharge Timeframe: to be determined
[2020-04-26] MEDS: ATORVASTATIN CALCIUM 40 MG TABLET PO SCH (21:07)
[2020-04-27] MEDS: PANTOPRAZOLE SODIUM 20 MG TABLET.DR PO SCH (05:29)
[2020-04-27 06:18] LABS: ABSOLUTE EOSINOPHILS # (AUTO) 0.1 10^3/uL (0.0-0.6); ABSOLUTE LYMPHOCYTES (AUTO) 0.8 10^3/uL (0.5-4.7); ABSOLUTE MONOCYTES (AUTO) 0.4 10^3/uL (0.1-1.4); ABSOLUTE NEUT (AUTO) 5.4 10^3/uL (1.7-8.2); BASOPHILS % (AUTO) 0.1 % (0-2); EOSINOPHILS % (AUTO) 0.9 % (0-6); HEMATOCRIT 31.6 % (37.9-51.0); HEMOGLOBIN 10.7 g/dL (13.5-17.0); LYMPHOCYTES % (AUTO) 12.7 % (13-45); MEAN CORPUSCULAR HEMOGLOBIN 31.4 pg (27.0-33.4); MEAN CORPUSCULAR HGB CONC 33.9 g/dL (32.0-36.0); MEAN CORPUSCULAR VOLUME 93 fl (80-97); MONOCYTES % (AUTO) 5.5 % (3-13); RED BLOOD COUNT 3.41 10^6/uL (4.35-5.55); RED CELL DISTRIBUTION WIDTH 22.4 % (11.5-14.0); SEGMENTED NEUTROPHILS % (AUTO) 80.8 % (42-78); TOTAL CELLS COUNTED % (AUTO) 100 %; WHITE BLOOD COUNT 6.7 10^3/uL (4.0-10.5)
[2020-04-27 06:39] LABS: ALBUMIN 2.1 g/dL (3.5-5.0); ALKALINE PHOSPHATASE 111 U/L (38-126); ANION GAP 6 (5-19); ASPARTATE AMINO TRANSFERASE 28 U/L (17-59); BILIRUBIN,DIRECT 0.8 mg/dL (0.0-0.4); BLOOD UREA NITROGEN 23 mg/dL (7-20); CALCIUM 8.5 mg/dL (8.4-10.2); CARBON DIOXIDE 23 mmol/L (22-30); CHLORIDE 101 mmol/L (98-107); GLUCOSE 86 mg/dL (75-110); POTASSIUM 3.8 mmol/L (3.6-5.0); TOTAL PROTEIN 4.3 g/dL (6.3-8.2)
[2020-04-27 06:57] LABS: PLATELET COUNT 99 10^3/uL (150-450)
[2020-04-27] MEDS: VANCOMYCIN HCL 750 MG in DEXTROSE 5%-WATER 250 ML IV SCH (09:31)
[2020-04-27] MEDS: ASPIRIN 81 MG TABLET, CHEWABLE PO SCH (09:33)
[2020-04-27] MEDS: FAMOTIDINE 20 MG TABLET PO SCH ×2 (09:33→21:58)
[2020-04-27] MEDS: MULTIVITAMIN TABLET PO SCH (09:33)
[2020-04-27] MEDS: APIXABAN 5 MG TABLET PO SCH ×2 (09:33→21:58)
--- NOTE | 2020-04-27 11:38 | PDOC PROGRESS REPORT ---
Subjective Date:: 04/27/20 Subjective:: Patient was seen and examined. He reports feeling better. He is conversing wit h somebody on the telephone and hung up as I entered the room. He endorses no chest pain or dyspnea. Transesophageal echocardiogram performed yesterday confirmed the presence of mitral valve endocarditis. His blood cultures are indeed positive. Reason For Visit: NON-STEMI(non-ST ELEVATED MYOCARDIAL INFARCTION) Physical Exam Vital Signs: Temp Pulse Resp BP Pulse Ox 98.0 F 84 17 97/64 L 95 04/27/20 08:05 04/27/20 07:21 04/27/20 07:21 04/27/20 07:21 04/27/20 07:21 Intake & Output 04/26/20 04/27/20 04/28/20 06:59 06:59 06:59 Intake Total 1273 936 Output Total 900 875 Balance 373 61 Weight 88.5 kg 87.4 kg General appearance: PRESENT: no acute distress, cooperative, obese, well- developed, well-nourished Head exam: PRESENT: atraumatic, normocephalic Eye exam: PRESENT: conjunctiva pink, EOMI Mouth exam: PRESENT: moist Respiratory exam: PRESENT: clear to auscultation char, symmetrical, unlabored Cardiovascular exam: PRESENT: RRR, +S1, +S2 Pulses: PRESENT: normal radial pulses GI/Abdominal exam: PRESENT: soft Rectal exam: PRESENT: deferred Neurological exam: PRESENT: alert, awake, oriented to person, oriented to place, oriented to time, oriented to situation Psychiatric exam: PRESENT: appropriate affect Skin exam: PRESENT: dry, intact, normal color Results Laboratory Results: 04/27/20 05:22 04/27/20 05:22 04/27/20 04/27/20 05:22 05:22 WBC 6.7 RBC 3.41 L Hgb 10.7 L Hct 31.6 L MCV 93 MCH 31.4 MCHC 33.9 RDW 22.4 H Plt Count 99 L Seg Neutrophils % 80.8 H Sodium 130.3 L Potassium 3.8 Chloride 101 Carbon Dioxide 23 Anion Gap 6 BUN 23 H Creatinine 0.75 Est GFR ( Amer) > 60 Glucose 86 Calcium 8.5 Total Bilirubin 2.0 H AST 28 Alkaline Phosphatase 111 Total Protein 4.3 L Albumin 2.1 L 04/23/20 17:30 Blood Blood Culture (PCR) - Final Staphylococcus Species 04/23/20 20:05 Blood Blood Culture (PCR) - Final 04/23/20 20:05 Blood Blood Culture - Final Corynebacterium Striatum Corynebacterium Minutissimum 04/23/20 04/23/20 04/23/20 17:30 17:30 22:53 Troponin I 0.112 0.100 NT-Pro-B Natriuret Pep [id number] H 04/24/20 04/24/20 05:10 11:45 Troponin I 0.106 0.094 NT-Pro-B Natriuret Pep EKG Comments: Transesophageal echocardiogram 04/26/2020. Mitral valve endocarditis. Preserved left ventricular ejection fraction, moderate RV dysfunction Blood cultures positive for corynebacterium stratum and Staph aureus. Impressions: Chest/Abdomen CTA 04/23/20 18:31 IMPRESSION: 1. No pulmonary artery embolization. 2. Groundglass opacification seen throughout the lung parenchyma but most pronounced in dependent fashion. There is associated bilateral pleural effusion and evidence of elevated right heart pressures. Overall findings are suggestive of pulmonary edema. Assessment & Plan - Diagnosis (1) Hypotension Qualifiers: Hypotension type: other hypotension type Qualified Code(s): I95.89 - Other hypotension Is this a current diagnosis for this admission?: Yes Plan: Low normal blood pressures presently He has underlying RV failure and together with superimposed infection on account of infective endocarditis this may have resulted in vasodilatation which which led to exaggeration of hypotension. His blood pressures lately have been a bit improved. Ensure volume status is adequate. His renal function continues to be stable. (2) CHF (congestive heart failure) Qualifiers: Heart failure type: right-sided Heart failure chronicity: acute on chronic Qualified Code(s): I50.813 - Acute on chronic right heart failure Is this a current diagnosis for this admission?: Yes Plan: Doing better from a volume standpoint His volume status is technically difficult to assess However I do not appreciate any JVD engorgement and is lower extremity edema appears to be chronic Renal function is normal. This suggest that he is not volume depleted (3) Endocarditis of mitral valve Is this a current diagnosis for this admission?: Yes Plan: Mitral valve infective endocarditis. There is evidence of mitral vegetation by transesophageal echocardiogram with positive blood cultures Broad-spectrum antibiotic treatment together with ID input (4) Atrial flutter Qualifiers: Atrial flutter type: atypical Qualified Code(s): I48.4 - Atypical atrial flutter Is this a current diagnosis for this admission?: Yes Plan: Probable atypical atrial flutter versus atrial tachycardia. I believe this rhythm is quite chronic. He is tolerating this well. Rate control strategy with systemic anticoagulation.
--- NOTE | 2020-04-27 14:34 | Progress Note ---
Provider Note Provider Note: [facility] teleconsultation service. Patient not examined. Chart reviewed. This is a 74-year-old male with a history of A. fib, a recent cholecystectomy in 02/2020 and left hip replacement 2016 who was admitted 04/23 for syncope found to have a NSTEMI, hypotension and pulmonary edema due to a CHF exacerbation with a BNP of 22,000. He has been afebrile throughout and without leukocytosis, however he does have some new thrombocytopenia with most recent platelet count of 99. He had blood cultures drawn on admission with 1 set demonstrating methicillin sensitive coagulase-negative Staphylococcus in 1 bottle only and the other set (drawn from a line) with 1 bottle only positive for 2 species of corynebacterium. He was started on vancomycin and repeat blood cultures were drawn 48 hours later that are demonstrating gram-positive cocci in clusters in 1 set in 1 bottle only. He had a CT chest abdomen without acute findings. He underwent a TTE that could not exclude a mitral valve vegetation and a mild amount of MR. A SOLO was pursued which demonstrated a 0.8 x 1.3 cm vegetation on the mitral valve with associated moderate MR. He has a few venous stasis ulcers that according to wound care do not have signs of infection. Assessment/Recommendations: 1. CoNS bacteremia -oxacillin sensitive, only in 1 bottle but in the context of a mitral valve vegetation and heart failure as well as repeat blood cultures after 48 hours with GPC in clusters yet to be ID'ed. While coag negative staph endocarditis of the [place] valves does occur it is quite rare unless caused by Staphylococcus lugdunensis. I will call the micro lab to ascertain the species of this CoNS to ensure not lugdunensis which has a very high predilection for endovascular infection unlike other coagulase-negative staph. I would also expect the patient to have more prodrome (not acute syncope episode), more blood culture bottles positive, and fever. Is there potentially an alternative explanation for the SOLO findings? Follow-up repeat blood cultures and if consistent with the same oxacillin sensitive CoNS then I suppose [place] mitral valve endocarditis would need to be implied however I am suspicious (unless lugdunensis). Given his heart failure, CT surgery consultation should be sought but would ensure that the repeat blood cultures demonstrate the same organism. Would discontinue vancomycin given oxacillin sensitive strain and transition to cefazolin 2 g IV every 8 hours. Should gram-positive organisms all be different non-lugdunensis staph species would regard these are contaminants despite the mitral valve findings. 2. 2 species of Corynebacterium isolated from a peripheral IV draw off of a peripheral line-this can be considered a contaminant and ignored I will be on-call this weekend - via the regional ID pager [phone] should there be additional clarifications needed.
[2020-04-27] MEDS ORDERED: CEFAZOLIN INJ 1 GM VIAL IV SCH (18:00)
--- NOTE | 2020-04-27 20:35 | PDOC PROGRESS REPORT ---
Subjective Date:: 04/27/20 Subjective:: PAULETTE SCALES is a 74 year old male with a history of paroxysmal A. fib on an ticoagulation, hypertension, hyperlipidemia, who was discharged recently from hospital after having cholecystectomy now presents after he had an episode of passing out this morning. Patient reports that he went for a physical therapy session this morning and when he tried to get out chair and started to walk he felt lightheaded and passed out. He was told that he passed out for less than 30 seconds after which she immediately regained consciousness and denies any confusion after the episode. He also denies any history of abnormal body movement, weakness of extremities, change in his speech, or confusion. Patient has no chest pain, palpitation, shortness of breath, orthopnea. He also denies any fever, chills, cough, nausea, vomiting or diarrhea. He did not take any of his morning medications today. He states that he usually runs a low blood pressure with a systolic in the 90s when he monitors his BP at home. 04/24/20 D2 hospital stay. Patient was seen and examined at bedside. He denied any chest pain or SOB but does complain of weakness generalized. He was about to have an echo. He has grade 2 pitting edema both lower extremities. BP still low at 80s/40s and we continue to hold his lasix. IV fluids stopped. 04/25/20 D3 Hospital stay. Patient was seen and examined at bedside. He denied any SOB, orthopnea, chest pain. No dizziness or weakness. Blood pressure still borderline low at 90s over 50s. 1 blood culture bottle growing MSSA. In light of his echo result I have started him on vancomycin for empiric treatment for endocarditis. SOLO ordered. He was started on IV fluids as well for his blood pressure. Ultimately he would still need RHC for his right sided heart failure. 04/26/20 D4 Hospital stay. He was seen and examined at bedside. denies any chest pain, orthopnea or SOB. SOLO that was done showed small vegetation on the mitral valve. Blood culture growing staph species NOT MRSA. He is currently on Vancomycin. ID was consulted. He remains afebrile. BP still borderline low. 04/27/20 D5 hospital stay. He was seen and examined at bedside. Feels ok o verall, denies any chest pain, SOB, palpitations. Blood pressure still at about 90s over 50s.ID recommendation noted,not convinced that vegetation seen in SOLO and what is growing in her blood culture are related. Awaiting clarification from micro lab as to what species is growing in her blood culture. Reason For Visit: NON-STEMI(non-ST ELEVATED MYOCARDIAL INFARCTION) Physical Exam Vital Signs: Temp Pulse Resp BP Pulse Ox 97.2 F 81 18 94/55 L 92 04/27/20 11:34 04/27/20 14:00 04/27/20 11:34 04/27/20 11:34 04/27/20 11:34 Intake & Output 04/26/20 04/27/20 04/28/20 06:59 06:59 06:59 Intake Total 1273 936 230 Output Total 900 875 300 Balance 373 61 -70 Weight 88.5 kg 87.4 kg General appearance: PRESENT: no acute distress, cooperative Head exam: PRESENT: atraumatic, normocephalic Eye exam: PRESENT: EOMI, PERRLA Mouth exam: PRESENT: moist Neck exam: PRESENT: full ROM Cardiovascular exam: PRESENT: RRR, +S1, +S2 Pulses: PRESENT: normal radial pulses GI/Abdominal exam: PRESENT: normal bowel sounds, soft. ABSENT: rebound, tenderness Extremities exam: PRESENT: full ROM Musculoskeletal exam: PRESENT: full ROM Neurological exam: PRESENT: alert, awake, oriented to person, oriented to place, oriented to time, oriented to situation Psychiatric exam: PRESENT: normal mood Skin exam: PRESENT: normal color Results Laboratory Results: 04/27/20 05:22 04/27/20 05:22 04/27/20 04/27/20 05:22 05:22 WBC 6.7 RBC 3.41 L Hgb 10.7 L Hct 31.6 L MCV 93 MCH 31.4 MCHC 33.9 RDW 22.4 H Plt Count 99 L Seg Neutrophils % 80.8 H Sodium 130.3 L Potassium 3.8 Chloride 101 Carbon Dioxide 23 Anion Gap 6 BUN 23 H Creatinine 0.75 Est GFR ( Amer) > 60 Glucose 86 Calcium 8.5 Total Bilirubin 2.0 H AST 28 Alkaline Phosphatase 111 Total Protein 4.3 L Albumin 2.1 L 04/23/20 17:30 Blood Blood Culture (PCR) - Final Staphylococcus Species 04/23/20 04/23/20 04/23/20 17:30 17:30 22:53 Troponin I 0.112 0.100 NT-Pro-B Natriuret Pep [id number] H 04/24/20 04/24/20 05:10 11:45 Troponin I 0.106 0.094 NT-Pro-B Natriuret Pep Impressions: Chest/Abdomen CTA 04/23/20 18:31 IMPRESSION: 1. No pulmonary artery embolization. 2. Groundglass opacification seen throughout the lung parenchyma but most pronounced in dependent fashion. There is associated bilateral pleural effusion and evidence of elevated right heart pressures. Overall findings are suggestive of pulmonary edema. 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 -Blood culture 04/23/20 bottle 1 methicillin sensitive staph specie, bottle 2 corynebacterium species -Blood culture 04/25/20 bottle 1 gram positive cocci in clusters - ID consulted doubtful that blood culture growths are the cause of his SOLO findings. We will try to speciate the gram-positive cocci. Patient was admitted at the hospital a few weeks prior for cholecystectomy so he may have seeded infection then. -Switch to cefazolin 2 g IV every 8 today (2) CHF (congestive heart failure) Qualifiers: Heart failure type: right-sided Heart failure chronicity: acute on chronic Qualified Code(s): I50.813 - Acute on chronic right heart failure Is this a current diagnosis for this admission?: Yes Plan: -chronic or acute decompensation on top of chronic - BNP 04554 - hypotensive, no prior pulmonary embolism, no previous [place], no COPD - repeat echo showed normal LV systolic function EF 55 to 60%, RV mild to moderately dilated, RV systolic function is moderate to severely reduced. A vegetation on the mitral valve cannot be excluded. -BP improved, IV fluids stopped. I will likely be able to restart his lasix if his BP remains stable -Cardiology consulted (3) Hypotension Qualifiers: Hypotension type: other hypotension type Qualified Code(s): I95.89 - Other hypotension Is this a current diagnosis for this admission?: Yes Plan: -Improved -Patient's blood pressure has been ranging lower 90s by lower 60s -Repeat echo normal LV systolic function, EF 55 to 60%, RV mild to moderately dilated, right ventricular systolic function moderately to severely reduced. A vegetation on the mitral valve cannot be excluded. - will continue to monitor.If still stable tomorrow will be able to restart his Lasix - (4) Atrial flutter Qualifiers: Atrial flutter type: atypical Qualified Code(s): I48.4 - Atypical atrial flutter Is this a current diagnosis for this admission?: Yes Plan: -currently sinus - eliquis resumed - (5) Status post cholecystectomy Is this a current diagnosis for this admission?: Yes (6) Physical deconditioning Is this a current diagnosis for this admission?: Yes Plan: - PT for therapy - Time Time Spent with patient: 25-34 minutes Medications reviewed and adjusted accordingly: Yes Anticipated Discharge Disposition: Home, Self Care Anticipated Discharge Timeframe: To be determined
[2020-04-27] MEDS: CEFAZOLIN SODIUM 2 GM in DEXTROSE 5%-WATER 100 ML IV SCH (21:57)
[2020-04-27] MEDS: ATORVASTATIN CALCIUM 40 MG TABLET PO SCH (21:58)
[2020-04-28] MEDS: PANTOPRAZOLE SODIUM 20 MG TABLET.DR PO SCH (05:14)
[2020-04-28] MEDS: CEFAZOLIN SODIUM 2 GM in DEXTROSE 5%-WATER 100 ML IV SCH ×3 (05:14→21:42)
[2020-04-28] MEDS: MULTIVITAMIN TABLET PO SCH (09:04)
[2020-04-28] MEDS: APIXABAN 5 MG TABLET PO SCH ×2 (09:04→21:41)
[2020-04-28] MEDS: ASPIRIN 81 MG TABLET, CHEWABLE PO SCH (09:04)
[2020-04-28] MEDS: FAMOTIDINE 20 MG TABLET PO SCH ×2 (09:04→21:41)
[2020-04-28 09:18] LABS: ABSOLUTE LYMPHOCYTES (AUTO) 0.5 10^3/uL (0.5-4.7); ABSOLUTE MONOCYTES (AUTO) 0.4 10^3/uL (0.1-1.4); ABSOLUTE NEUT (AUTO) 8.1 10^3/uL (1.7-8.2); BASOPHILS % (AUTO) 0.2 % (0-2); EOSINOPHILS % (AUTO) 0.1 % (0-6); HEMATOCRIT 35.4 % (37.9-51.0); HEMOGLOBIN 11.7 g/dL (13.5-17.0); MEAN CORPUSCULAR HEMOGLOBIN 30.9 pg (27.0-33.4); MEAN CORPUSCULAR VOLUME 94 fl (80-97); MONOCYTES % (AUTO) 4.5 % (3-13); PLATELET COUNT 109 10^3/uL (150-450); RED BLOOD COUNT 3.77 10^6/uL (4.35-5.55); RED CELL DISTRIBUTION WIDTH 22.1 % (11.5-14.0); SEGMENTED NEUTROPHILS % (AUTO) 89.2 % (42-78); TOTAL CELLS COUNTED % (AUTO) 100 %; WHITE BLOOD COUNT 9.1 10^3/uL (4.0-10.5)
[2020-04-28] MEDS ORDERED: PHARMACY COMMUNICATION ORDER MC ONE (09:30)
[2020-04-28 09:43] LABS: ALBUMIN 2.4 g/dL (3.5-5.0); ALKALINE PHOSPHATASE 122 U/L (38-126); ANION GAP 7 (5-19); ASPARTATE AMINO TRANSFERASE 26 U/L (17-59); BILIRUBIN,TOTAL 2.3 mg/dL (0.2-1.3); BLOOD UREA NITROGEN 21 mg/dL (7-20); CARBON DIOXIDE 22 mmol/L (22-30); CHLORIDE 103 mmol/L (98-107); GLUCOSE 101 mg/dL (75-110); TOTAL PROTEIN 4.8 g/dL (6.3-8.2)
[2020-04-28] MEDS ORDERED: (PENDING PHARMACY ID) (Docusate Calcium [Docusate Calcium] 240 MG) PO PRN (10:10)
[2020-04-28] MEDS ORDERED: DOCUSATE SODIUM 100 MG/10 ML UDC PO PRN (10:52)
--- NOTE | 2020-04-28 11:39 | PDOC PROGRESS REPORT ---
Subjective Date:: 04/28/20 Subjective:: Patient seen and examined. Resting comfortably. Reason For Visit: NON-STEMI(non-ST ELEVATED MYOCARDIAL INFARCTION) Physical Exam Vital Signs: Temp Pulse Resp BP Pulse Ox 97.7 F 87 16 106/52 L 96 04/28/20 11:22 04/28/20 11:22 04/28/20 11:22 04/28/20 11:22 04/28/20 11:22 Intake & Output 04/27/20 04/28/20 04/29/20 06:59 06:59 06:59 Intake Total 936 480 Output Total 875 750 Balance 61 -270 Weight 87.4 kg 88.4 kg General appearance: PRESENT: no acute distress, cooperative, obese, well- developed, well-nourished Head exam: PRESENT: atraumatic, normocephalic Eye exam: PRESENT: conjunctiva pink Respiratory exam: PRESENT: clear to auscultation char, symmetrical, unlabored Cardiovascular exam: PRESENT: RRR, +S1, +S2 Pulses: PRESENT: normal radial pulses GI/Abdominal exam: PRESENT: soft Rectal exam: PRESENT: deferred Neurological exam: PRESENT: alert, awake, oriented to person, oriented to place, oriented to time, oriented to situation Psychiatric exam: PRESENT: appropriate affect Skin exam: PRESENT: dry, intact Results Laboratory Results: 04/28/20 09:00 04/28/20 09:00 04/28/20 04/28/20 09:00 09:00 WBC 9.1 RBC 3.77 L Hgb 11.7 L Hct 35.4 L MCV 94 MCH 30.9 MCHC 33.0 RDW 22.1 H Plt Count 109 L Seg Neutrophils % 89.2 H Sodium 132.4 L Potassium 4.0 Chloride 103 Carbon Dioxide 22 Anion Gap 7 BUN 21 H Creatinine 0.79 Est GFR ( Amer) > 60 Glucose 101 Calcium 9.0 Total Bilirubin 2.3 H AST 26 Alkaline Phosphatase 122 Total Protein 4.8 L Albumin 2.4 L 04/23/20 17:30 Blood Blood Culture (PCR) - Final Staphylococcus Species 04/23/20 04/23/20 04/23/20 17:30 17:30 22:53 Troponin I 0.112 0.100 NT-Pro-B Natriuret Pep 21695 H 04/24/20 04/24/20 05:10 11:45 Troponin I 0.106 0.094 NT-Pro-B Natriuret Pep Impressions: Chest/Abdomen CTA 04/23/20 18:31 IMPRESSION: 1. No pulmonary artery embolization. 2. Groundglass opacification seen throughout the lung parenchyma but most pronounced in dependent fashion. There is associated bilateral pleural effusion and evidence of elevated right heart pressures. Overall findings are suggestive of pulmonary edema. Assessment & Plan - Diagnosis (1) Hypotension Qualifiers: Hypotension type: other hypotension type Qualified Code(s): I95.89 - Other hypotension Is this a current diagnosis for this admission?: Yes Plan: Low normal blood pressures presently He has underlying RV failure and together with superimposed infection on account of infective endocarditis this may have resulted in vasodilatation which which led to exaggeration of hypotension. His blood pressures lately have been a bit improved. Ensure volume status is adequate. His renal function continues to be stable. (2) CHF (congestive heart failure) Qualifiers: Heart failure type: right-sided Heart failure chronicity: acute on chronic Qualified Code(s): I50.813 - Acute on chronic right heart failure Is this a current diagnosis for this admission?: Yes Plan: Doing better from a volume standpoint His volume status is technically difficult to assess However I do not appreciate any JVD engorgement and is lower extremity edema appears to be chronic Renal function is normal. This suggest that he is not volume depleted (3) Endocarditis of mitral valve Is this a current diagnosis for this admission?: Yes Plan: Mitral valve infective endocarditis. There is evidence of mitral vegetation by transesophageal echocardiogram with positive blood cultures Broad-spectrum antibiotic treatment together with ID input (4) Atrial flutter Qualifiers: Atrial flutter type: atypical Qualified Code(s): I48.4 - Atypical atrial flutter Is this a current diagnosis for this admission?: Yes Plan: Probable atypical atrial flutter versus atrial tachycardia. I believe this rhythm is quite chronic. He is tolerating this well. Rate control strategy with systemic anticoagulation.
--- NOTE | 2020-04-28 15:53 | PDOC PROGRESS REPORT ---
Subjective Date:: 04/28/20 Subjective:: PAULETTE SCALES is a 74 year old male with a history of paroxysmal A. fib on an ticoagulation, hypertension, hyperlipidemia, who was discharged recently from hospital after having cholecystectomy now presents after he had an episode of passing out this morning. Patient reports that he went for a physical therapy session this morning and when he tried to get out chair and started to walk he felt lightheaded and passed out. He was told that he passed out for less than 30 seconds after which she immediately regained consciousness and denies any confusion after the episode. He also denies any history of abnormal body movement, weakness of extremities, change in his speech, or confusion. Patient has no chest pain, palpitation, shortness of breath, orthopnea. He also denies any fever, chills, cough, nausea, vomiting or diarrhea. He did not take any of his morning medications today. He states that he usually runs a low blood pressure with a systolic in the 90s when he monitors his BP at home. 04/24/20 D2 hospital stay. Patient was seen and examined at bedside. He denied any chest pain or SOB but does complain of weakness generalized. He was about to have an echo. He has grade 2 pitting edema both lower extremities. BP still low at 80s/40s and we continue to hold his lasix. IV fluids stopped. 04/25/20 D3 Hospital stay. Patient was seen and examined at bedside. He denied any SOB, orthopnea, chest pain. No dizziness or weakness. Blood pressure still borderline low at 90s over 50s. 1 blood culture bottle growing MSSA. In light of his echo result I have started him on vancomycin for empiric treatment for endocarditis. SOLO ordered. He was started on IV fluids as well for his blood pressure. Ultimately he would still need RHC for his right sided heart failure. 04/26/20 D4 Hospital stay. He was seen and examined at bedside. denies any chest pain, orthopnea or SOB. SOLO that was done showed small vegetation on the mitral valve. Blood culture growing staph species NOT MRSA. He is currently on Vancomycin. ID was consulted. He remains afebrile. BP still borderline low. 04/27/20 D5 hospital stay. He was seen and examined at bedside. Feels ok o verall, denies any chest pain, SOB, palpitations. Blood pressure still at about 90s over 50s.ID recommendation noted,not convinced that vegetation seen in SOLO and what is growing in her blood culture are related. Awaiting clarification from micro lab as to what species is growing in her blood culture. 04/28/20 D6 hospital stay. He was seen and examined at bedside. He's resting comfortably on the chair denies any chest pain, SOB, palpitations. On cefazolin for endocarditis. Awaiting repeat blood culture. Reason For Visit: NON-STEMI(non-ST ELEVATED MYOCARDIAL INFARCTION) Physical Exam Vital Signs: Temp Pulse Resp BP Pulse Ox 97.7 F 97 16 106/52 L 96 04/28/20 11:22 04/28/20 14:00 04/28/20 11:22 04/28/20 11:22 04/28/20 11:22 Intake & Output 04/27/20 04/28/20 04/29/20 06:59 06:59 06:59 Intake Total 936 480 640 Output Total 875 750 Balance 61 -270 640 Weight 87.4 kg 88.4 kg General appearance: PRESENT: no acute distress, cooperative Head exam: PRESENT: atraumatic, normocephalic Eye exam: PRESENT: EOMI, PERRLA Mouth exam: PRESENT: moist Neck exam: PRESENT: full ROM Respiratory exam: PRESENT: clear to auscultation char, symmetrical, unlabored Cardiovascular exam: PRESENT: RRR, +S1, +S2 Pulses: PRESENT: +2 pedal pulses bilateral GI/Abdominal exam: PRESENT: normal bowel sounds, soft. ABSENT: rebound, tenderness Extremities exam: PRESENT: full ROM Musculoskeletal exam: PRESENT: full ROM Neurological exam: PRESENT: alert, awake, oriented to person, oriented to place, oriented to time, oriented to situation Psychiatric exam: PRESENT: normal mood Skin exam: PRESENT: normal color Results Laboratory Results: 04/28/20 09:00 04/28/20 09:00 04/28/20 04/28/20 09:00 09:00 WBC 9.1 RBC 3.77 L Hgb 11.7 L Hct 35.4 L MCV 94 MCH 30.9 MCHC 33.0 RDW 22.1 H Plt Count 109 L Seg Neutrophils % 89.2 H Sodium 132.4 L Potassium 4.0 Chloride 103 Carbon Dioxide 22 Anion Gap 7 BUN 21 H Creatinine 0.79 Est GFR ( Amer) > 60 Glucose 101 Calcium 9.0 Total Bilirubin 2.3 H AST 26 Alkaline Phosphatase 122 Total Protein 4.8 L Albumin 2.4 L 04/25/20 10:29 Blood Blood Culture - Final Staphylococcus Epidermidis 04/23/20 17:30 Blood Blood Culture (PCR) - Final Staphylococcus Species 04/23/20 17:30 Blood Blood Culture - Final Staphylococcus Capitis 04/23/20 04/23/20 04/23/20 17:30 17:30 22:53 Troponin I 0.112 0.100 NT-Pro-B Natriuret Pep [id number] H 04/24/20 04/24/20 05:10 11:45 Troponin I 0.106 0.094 NT-Pro-B Natriuret Pep Impressions: Chest/Abdomen CTA 04/23/20 18:31 IMPRESSION: 1. No pulmonary artery embolization. 2. Groundglass opacification seen throughout the lung parenchyma but most pronounced in dependent fashion. There is associated bilateral pleural effusion and evidence of elevated right heart pressures. Overall findings are suggestive of pulmonary edema. 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 -Blood culture 04/23/20 bottle 1 staph capitis, bottle 2 corynebacterium species -Blood culture 04/25/20 bottle 1 staph epidermidis in clusters - ID consulted doubtful that blood culture growths are the cause of his SOLO findings. We will try to speciate the gram-positive cocci. Patient was admitted at the hospital a few weeks prior for cholecystectomy so he may have seeded infection then. -Switch to cefazolin 2 g IV every 8 today. He will need a home infusion set up if he will require abx for 6 weeks - will order picc line once he has cleared bacteremia (2) CHF (congestive heart failure) Qualifiers: Heart failure type: right-sided Heart failure chronicity: acute on chronic Qualified Code(s): I50.813 - Acute on chronic right heart failure Is this a current diagnosis for this admission?: Yes Plan: -chronic or acute decompensation on top of chronic - BNP 39148 - hypotensive, no prior pulmonary embolism, no previous SC, no COPD - repeat echo showed normal LV systolic function EF 55 to 60%, RV mild to m oderately dilated, RV systolic function is moderate to severely reduced. A vegetation on the mitral valve cannot be excluded. -BP improved, IV fluids stopped. - lasix resumed - daily weights - strict IO -Cardiology following (3) Hypotension Qualifiers: Hypotension type: other hypotension type Qualified Code(s): I95.89 - Other hypotension Is this a current diagnosis for this admission?: Yes Plan: -Improved -Patient's blood pressure has been ranging lower 90s by lower 60s -Repeat echo normal LV systolic function, EF 55 to 60%, RV mild to moderately dilated, right ventricular systolic function moderately to severely reduced. A vegetation on the mitral valve cannot be excluded. - SOLO result as above - will continue to monitor. - (4) Atrial flutter Qualifiers: Atrial flutter type: atypical Qualified Code(s): I48.4 - Atypical atrial flutter Is this a current diagnosis for this admission?: Yes Plan: -currently sinus - eliquis resumed - (5) Status post cholecystectomy Is this a current diagnosis for this admission?: Yes (6) Physical deconditioning Is this a current diagnosis for this admission?: Yes Plan: - PT for therapy - Time Time Spent with patient: 25-34 minutes Medications reviewed and adjusted accordingly: Yes Anticipated Discharge Disposition: Home, Self Care Anticipated Discharge Timeframe: to be determined
[2020-04-28] MEDS: DRONABINOL 2.5 MG CAPSULE PO SCH (17:30)
[2020-04-28] MEDS ORDERED: FUROSEMIDE 40 MG TABLET PO SCH (18:00)
[2020-04-28] MEDS: MAGNESIUM OXIDE 400 MG TABLET PO SCH (21:41)
[2020-04-28] MEDS: ATORVASTATIN CALCIUM 40 MG TABLET PO SCH (21:42)
[2020-04-28] MEDS ORDERED: (PENDING PHARMACY ID) (Magnesium Oxide [Magnesium Oxide] 400 MG) PO SCH (22:00)
[2020-04-29] MEDS: CEFAZOLIN SODIUM 2 GM in DEXTROSE 5%-WATER 100 ML IV SCH ×3 (05:17→21:43)
[2020-04-29] MEDS: PANTOPRAZOLE SODIUM 20 MG TABLET.DR PO SCH (05:18)
[2020-04-29 05:40] LABS: ABSOLUTE LYMPHOCYTES (AUTO) 0.8 10^3/uL (0.5-4.7); ABSOLUTE MONOCYTES (AUTO) 0.5 10^3/uL (0.1-1.4); ABSOLUTE NEUT (AUTO) 5.3 10^3/uL (1.7-8.2); BASOPHILS % (AUTO) 0.1 % (0-2); EOSINOPHILS % (AUTO) 0.7 % (0-6); HEMATOCRIT 32.6 % (37.9-51.0); HEMOGLOBIN 10.8 g/dL (13.5-17.0); LYMPHOCYTES % (AUTO) 12.1 % (13-45); MEAN CORPUSCULAR HEMOGLOBIN 30.7 pg (27.0-33.4); MEAN CORPUSCULAR HGB CONC 33.1 g/dL (32.0-36.0); MEAN CORPUSCULAR VOLUME 93 fl (80-97); MONOCYTES % (AUTO) 7.5 % (3-13); RED BLOOD COUNT 3.51 10^6/uL (4.35-5.55); SEGMENTED NEUTROPHILS % (AUTO) 79.6 % (42-78); TOTAL CELLS COUNTED % (AUTO) 100 %; WHITE BLOOD COUNT 6.6 10^3/uL (4.0-10.5)
[2020-04-29 06:03] LABS: ALBUMIN 2.1 g/dL (3.5-5.0); ALKALINE PHOSPHATASE 95 U/L (38-126); ANION GAP 7 (5-19); ASPARTATE AMINO TRANSFERASE 25 U/L (17-59); BILIRUBIN,DIRECT 0.8 mg/dL (0.0-0.4); BILIRUBIN,TOTAL 1.7 mg/dL (0.2-1.3); BLOOD UREA NITROGEN 18 mg/dL (7-20); CALCIUM 8.6 mg/dL (8.4-10.2); CARBON DIOXIDE 22 mmol/L (22-30); CHLORIDE 103 mmol/L (98-107); GLUCOSE 87 mg/dL (75-110); POTASSIUM 3.9 mmol/L (3.6-5.0); TOTAL PROTEIN 4.3 g/dL (6.3-8.2)
[2020-04-29 06:16] LABS: PLATELET COUNT 98 10^3/uL (150-450)
[2020-04-29] MEDS: FAMOTIDINE 20 MG TABLET PO SCH ×2 (09:14→21:43)
[2020-04-29] MEDS: MULTIVITAMIN TABLET PO SCH (09:14)
[2020-04-29] MEDS: ASPIRIN 81 MG TABLET, CHEWABLE PO SCH (09:14)
[2020-04-29] MEDS: APIXABAN 5 MG TABLET PO SCH ×2 (09:14→21:44)
[2020-04-29] MEDS: DRONABINOL 2.5 MG CAPSULE PO SCH ×2 (09:14→17:41)
[2020-04-29] MEDS ORDERED: FUROSEMIDE 20 MG TABLET PO ONE (13:49)
--- NOTE | 2020-04-29 17:28 | PDOC PROGRESS REPORT ---
Subjective Date:: 04/29/20 Subjective:: PAULETTE SCALES is a 74 year old male with a history of paroxysmal A. fib on an ticoagulation, hypertension, hyperlipidemia, who was discharged recently from hospital after having cholecystectomy now presents after he had an episode of passing out this morning. Patient reports that he went for a physical therapy session this morning and when he tried to get out chair and started to walk he felt lightheaded and passed out. He was told that he passed out for less than 30 seconds after which she immediately regained consciousness and denies any confusion after the episode. He also denies any history of abnormal body movement, weakness of extremities, change in his speech, or confusion. Patient has no chest pain, palpitation, shortness of breath, orthopnea. He also denies any fever, chills, cough, nausea, vomiting or diarrhea. He did not take any of his morning medications today. He states that he usually runs a low blood pressure with a systolic in the 90s when he monitors his BP at home. 04/24/20 D2 hospital stay. Patient was seen and examined at bedside. He denied any chest pain or SOB but does complain of weakness generalized. He was about to have an echo. He has grade 2 pitting edema both lower extremities. BP still low at 80s/40s and we continue to hold his lasix. IV fluids stopped. 04/25/20 D3 Hospital stay. Patient was seen and examined at bedside. He denied any SOB, orthopnea, chest pain. No dizziness or weakness. Blood pressure still borderline low at 90s over 50s. 1 blood culture bottle growing MSSA. In light of his echo result I have started him on vancomycin for empiric treatment for endocarditis. SOLO ordered. He was started on IV fluids as well for his blood pressure. Ultimately he would still need RHC for his right sided heart failure. 04/26/20 D4 Hospital stay. He was seen and examined at bedside. denies any chest pain, orthopnea or SOB. SOLO that was done showed small vegetation on the mitral valve. Blood culture growing staph species NOT MRSA. He is currently on Vancomycin. ID was consulted. He remains afebrile. BP still borderline low. 04/27/20 D5 hospital stay. He was seen and examined at bedside. Feels ok o verall, denies any chest pain, SOB, palpitations. Blood pressure still at about 90s over 50s.ID recommendation noted,not convinced that vegetation seen in SOLO and what is growing in her blood culture are related. Awaiting clarification from micro lab as to what species is growing in her blood culture. 04/28/20 D6 hospital stay. He was seen and examined at bedside. He's resting comfortably on the chair denies any chest pain, SOB, palpitations. On cefazolin for endocarditis. Awaiting repeat blood culture. 04/29/20 D7 hospital stay. He was seen and examined at bedside. Denies any new complains. Eating and drinking ok. Repeat blood culture 04/28/20 was negative. On cefazolin. Reason For Visit: NON-STEMI(non-ST ELEVATED MYOCARDIAL INFARCTION) Physical Exam Vital Signs: Temp Pulse Resp BP Pulse Ox 97.5 F 86 19 106/60 95 04/29/20 11:09 04/29/20 14:00 04/29/20 11:09 04/29/20 11:09 04/29/20 11:09 Intake & Output 04/28/20 04/29/20 04/30/20 06:59 06:59 06:59 Intake Total 480 740 Output Total 750 710 Balance -270 30 Weight 88.4 kg 87.8 kg General appearance: PRESENT: no acute distress, cooperative Head exam: PRESENT: atraumatic, normocephalic Eye exam: PRESENT: EOMI, PERRLA Mouth exam: PRESENT: moist Neck exam: PRESENT: full ROM Respiratory exam: PRESENT: clear to auscultation chra, symmetrical, unlabored Cardiovascular exam: PRESENT: RRR, +S1, +S2 Pulses: PRESENT: +2 pedal pulses bilateral GI/Abdominal exam: PRESENT: normal bowel sounds, soft. ABSENT: rebound, tenderness Extremities exam: PRESENT: +2 edema Musculoskeletal exam: PRESENT: full ROM Neurological exam: PRESENT: alert, awake, oriented to person, oriented to place, oriented to time, oriented to situation Psychiatric exam: PRESENT: normal mood Skin exam: PRESENT: normal color Results Laboratory Results: 04/29/20 04:50 04/29/20 04:50 04/29/20 04/29/20 04:50 04:50 WBC 6.6 RBC 3.51 L Hgb 10.8 L Hct 32.6 L MCV 93 MCH 30.7 MCHC 33.1 RDW 22.0 H Plt Count 98 L Seg Neutrophils % 79.6 H Sodium 131.5 L Potassium 3.9 Chloride 103 Carbon Dioxide 22 Anion Gap 7 BUN 18 Creatinine 0.74 Est GFR ( Amer) > 60 Glucose 87 Calcium 8.6 Total Bilirubin 1.7 H AST 25 Alkaline Phosphatase 95 Total Protein 4.3 L Albumin 2.1 L 04/25/20 10:29 Blood Blood Culture - Final Staphylococcus Epidermidis 04/23/20 17:30 Blood Blood Culture (PCR) - Final Staphylococcus Species 04/23/20 17:30 Blood Blood Culture - Final Staphylococcus Capitis 04/23/20 04/23/20 04/23/20 17:30 17:30 22:53 Troponin I 0.112 0.100 NT-Pro-B Natriuret Pep [id number] H 04/24/20 04/24/20 05:10 11:45 Troponin I 0.106 0.094 NT-Pro-B Natriuret Pep Impressions: Chest/Abdomen CTA 04/23/20 18:31 IMPRESSION: 1. No pulmonary artery embolization. 2. Groundglass opacification seen throughout the lung parenchyma but most pronounced in dependent fashion. There is associated bilateral pleural effusion and evidence of elevated right heart pressures. Overall findings are suggestive of pulmonary edema. 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 -Blood culture 04/23/20 bottle 1 staph capitis, bottle 2 corynebacterium species -Blood culture 04/25/20 bottle 1 staph epidermidis in clusters - blood culture 04/28/20 bottle negative - ID consulted doubtful that blood culture growths are the cause of his SOLO findings. We will try to speciate the gram-positive cocci. Patient was admitted at the hospital a few weeks prior for cholecystectomy so he may have seeded infection then. -Switch to cefazolin 2 g IV every 8 today. He will need a home infusion set up if he will require abx for 6 weeks - will order picc line once he has cleared bacteremia (2) CHF (congestive heart failure) Qualifiers: Heart failure type: right-sided Heart failure chronicity: acute on chronic Qualified Code(s): I50.813 - Acute on chronic right heart failure Is this a current diagnosis for this admission?: Yes Plan: -chronic or acute decompensation on top of chronic - BNP 69179 - hypotensive, no prior pulmonary embolism, no previous MD, no COPD - repeat echo showed normal LV systolic function EF 55 to 60%, RV mild to moderately dilated, RV systolic function is moderate to severely reduced. A vegetation on the mitral valve cannot be excluded. -BP improved, IV fluids stopped. - lasix resumed - daily weights - strict IO -Cardiology following (3) Hypotension Qualifiers: Hypotension type: other hypotension type Qualified Code(s): I95.89 - Other hypotension Is this a current diagnosis for this admission?: Yes Plan: -Improved -Patient's blood pressure has been ranging lower 90s by lower 60s -Repeat echo normal LV systolic function, EF 55 to 60%, RV mild to moderately dilated, right ventricular systolic function moderately to severely reduced. A vegetation on the mitral valve cannot be excluded. - SOLO result as above - will continue to monitor. - (4) Atrial flutter Qualifiers: Atrial flutter type: atypical Qualified Code(s): I48.4 - Atypical atrial flutter Is this a current diagnosis for this admission?: Yes Plan: -currently sinus - eliquis resumed - (5) Status post cholecystectomy Is this a current diagnosis for this admission?: Yes (6) Physical deconditioning Is this a current diagnosis for this admission?: Yes Plan: - PT for therapy - will likely need rehab - Time Time Spent with patient: 25-34 minutes Medications reviewed and adjusted accordingly: Yes Anticipated Discharge Disposition: to be determined Anticipated Discharge Timeframe: to be determined
[2020-04-29] MEDS: ATORVASTATIN CALCIUM 40 MG TABLET PO SCH (21:44)
[2020-04-29] MEDS: MAGNESIUM OXIDE 400 MG TABLET PO SCH (21:44)
[2020-04-30] MEDS ORDERED: MELATONIN 5 MG TABLET ONE (06:20)
[2020-04-30] MEDS: CEFAZOLIN SODIUM 2 GM in DEXTROSE 5%-WATER 100 ML IV SCH (06:29)
[2020-04-30] MEDS: PANTOPRAZOLE SODIUM 20 MG TABLET.DR PO SCH (06:29)
[2020-04-30] MEDS ORDERED: MELATONIN 3 MG TABLET PO ONE (07:15)
[2020-04-30] MEDS: MULTIVITAMIN TABLET PO SCH (09:20)
[2020-04-30] MEDS: FAMOTIDINE 20 MG TABLET PO SCH ×2 (09:20→21:22)
[2020-04-30] MEDS: DRONABINOL 2.5 MG CAPSULE PO SCH ×2 (09:20→17:11)
[2020-04-30] MEDS: APIXABAN 5 MG TABLET PO SCH ×2 (09:20→21:22)
[2020-04-30] MEDS: ASPIRIN 81 MG TABLET, CHEWABLE PO SCH (09:21)
--- NOTE | 2020-04-30 09:30 | RADIOLOGY REPORT (SQ) ---
EXAM DESCRIPTION: CHEST 2 VIEWS IMAGES COMPLETED DATE/TIME: 04/30/2020 9:07 am REASON FOR STUDY: Heart failure COMPARISON: AP view of the chest from 04/06/2020. EXAM PARAMETERS: NUMBER OF VIEWS: Two views. TECHNIQUE: AP and lateral views of the chest were obtained. RADIATION DOSE: NA LIMITATIONS: None. FINDINGS: LUNGS AND PLEURA: The interstitium is prominent. There are basilar predominant pleural an d parenchymal opacities in the right hemithorax that obscure the contour of the hemidiaphragm and lo nt the lateral costophrenic sulcus. The left lateral costophrenic sulcus is also blunted. There is no pneumothorax. MEDIASTINUM AND HILAR STRUCTURES: No mediastinal or hilar contour abnormality. HEART AND VASCULAR STRUCTURES: Stable enlarged cardiac silhouette. BONES: Severe osteoarthrosis of the glenohumeral joints. HARDWARE: None in the chest. OTHER: No other finding. IMPRESSION: 1. Basal predominant pleural and parenchymal opacities in the right hemithorax that coul d represent a combination of pleural fluid, atelectasis and or in the proper clinical setting pneumon ia. 2. Cardiomegaly and diffuse prominence of the interstitium - correlation with clinical findings is r ecommended to exclude mild CHF/interstitial edema. TECHNICAL DOCUMENTATION: JOB ID: [id number] 2010 [employer]- All Rights Reserved Reading location - IP/workstation name: [email or web address]
--- NOTE | 2020-04-30 11:23 | PDOC PROGRESS REPORT ---
Subjective Date:: 04/30/20 Subjective:: PAULETTE SCALES is a 74 year old male with the following medical history: 1. Paroxysmal atrial flutter 2. Congestive heart failure with preserved ejection fraction 3. Long-term systemic anticoagulation 4. Dyslipidemia 5. Systemic hypertension He had been followed by my partner, Dr. Roberts and I'm taking over his care today. Please see Dr. Roberts's notes for details of his clinical course. In summary, he was admitted on 04/23/20 with a syncopal event in the setting of hyp otension. He was eventually diagnosed with HFpEF and moderate RV dysfunction and PHTN. His troponin was slightly elevated. On TTE he was found to have a suspected lesion on the MV and a subsequent SOLO confirmed the presence of the lesion which was categorized as a vegetation and the patient was diagnosed with MV endocarditis however he has remained afebrile and with only one bottle of blood culture positive. He was consulted to ID who was suspicious of the diagnosis, the patient was begun on antibiotics. A repeat blood culture on 04/28/20 was negative. He had an uneventful night and feels much better this morning although continues to be mildly hypotensive. His telemetry shows NSR. Physical exam on 04/30/20: GA: resting in recliner comfortably and without distress. Alert and Ox3. On Bip ap. HEENT: normocephalic, moist oral mucosa, no JVD. HEART: Regular rate and rhythm, no murmurs, no gallops. LUNGS: CTA bilaterally. LE: 1+ pitting edema bilaterally, no cyanosis, ulcers bilaterally covered with Raulito wrap. NEURO: grossly normal. Reason For Visit: NON-STEMI(non-ST ELEVATED MYOCARDIAL INFARCTION) Physical Exam Vital Signs: Temp Pulse Resp BP Pulse Ox 97.6 F 83 16 102/61 100 04/30/20 04:08 04/30/20 07:00 04/30/20 04:08 04/30/20 04:08 04/30/20 04:08 Intake & Output 04/29/20 04/30/20 05/01/20 06:59 06:59 06:59 Intake Total 740 607 Output Total 710 650 Balance 30 -43 Weight 87.8 kg 89.3 kg Results Laboratory Results: 04/29/20 04:50 04/29/20 04:50 04/23/20 04/23/20 04/23/20 17:30 17:30 22:53 Troponin I 0.112 0.100 NT-Pro-B Natriuret Pep 16452 H 04/24/20 04/24/20 04/29/20 05:10 11:45 04:50 Troponin I 0.106 0.094 NT-Pro-B Natriuret Pep 50602 H Impressions: Chest/Abdomen CTA 04/23/20 18:31 IMPRESSION: 1. No pulmonary artery embolization. 2. Groundglass opacification seen throughout the lung parenchyma but most pronounced in dependent fashion. There is associated bilateral pleural effusion and evidence of elevated right heart pressures. Overall findings are suggestive of pulmonary edema. 04/29/20 04:50 04/29/20 04:50 MCV 93 fl (80-97) 04/29/20 04:50 MCH 30.7 pg (27.0-33.4) 04/29/20 04:50 MCHC 33.1 g/dL (32.0-36.0) 04/29/20 04:50 RDW 22.0 % (11.5-14.0) H 04/29/20 04:50 Seg Neutrophils % 79.6 % (42-78) H 04/29/20 04:50 VBG pH 7.37 (7.30-7.42) 04/23/20 17:30 VBG pCO2 37.9 mmHg (35-63) 04/23/20 17:30 VBG HCO3 21.6 mmol/L (20-32) 04/23/20 17:30 VBG Base Excess -3.2 mmol/L 04/23/20 17:30 Chloride 103 mmol/L (98-107) 04/29/20 04:50 Carbon Dioxide 22 mmol/L (22-30) 04/29/20 04:50 Anion Gap 7 (5-19) 04/29/20 04:50 Est GFR ( Amer) > 60 (>60) 04/29/20 04:50 Glucose 87 mg/dL (75-110) 04/29/20 04:50 Lactic Acid 2.1 mmol/L (0.7-2.1) 04/23/20 22:53 Calcium 8.6 mg/dL (8.4-10.2) 04/29/20 04:50 Magnesium 2.1 mg/dL (1.6-2.3) 04/24/20 05:10 Total Bilirubin 1.7 mg/dL (0.2-1.3) H 04/29/20 04:50 AST 25 U/L (17-59) 04/29/20 04:50 Alkaline Phosphatase 95 U/L (38-126) 04/29/20 04:50 Total Protein 4.3 g/dL (6.3-8.2) L 04/29/20 04:50 Albumin 2.1 g/dL (3.5-5.0) L 04/29/20 04:50 Urine Color EYAD 04/23/20 17:05 Urine Appearance SLIGHTLY-CLOUDY 04/23/20 17:05 Urine pH 5.0 (5.0-9.0) 04/23/20 17:05 Ur Specific Scuddy 1.016 04/23/20 17:05 Urine Protein 30 mg/dL (NEGATIVE) H 04/23/20 17:05 Urine Glucose (UA) NEGATIVE mg/dL (NEGATIVE) 04/23/20 17:05 Urine Ketones NEGATIVE mg/dL (NEGATIVE) 04/23/20 17:05 Urine Blood NEGATIVE (NEGATIVE) 04/23/20 17:05 Urine RBC (Auto) 3 /HPF 04/23/20 17:05 04/25/20 09:30 Blood Blood Culture - Final NO GROWTH IN 5 DAYS 04/23/20 04/23/20 04/23/20 17:30 17:30 22:53 Troponin I 0.112 0.100 NT-Pro-B Natriuret Pep 04238 H 04/24/20 04/24/20 04/29/20 05:10 11:45 04:50 Troponin I 0.106 0.094 NT-Pro-B Natriuret Pep 81178 H Current Medication List Generic Name Dose Route Start Last Admin Trade Name Freq PRN Reason Stop Dose Admin Acetaminophen 650 mg 04/23/20 22:23 Tylenol 325 Mg Tablet PO 05/23/20 22:22 Q6HP PRN FOR HEADACHE OR PAIN Apixaban 5 mg 04/23/20 22:45 04/30/20 09:20 Eliquis 5 Mg Tablet PO 05/23/20 22:44 5 mg Q12 KARIME Administration Aspirin 81 mg 04/24/20 10:00 04/30/20 09:21 Aspirin 81 Mg Chewable Tablet PO 05/24/20 09:59 81 mg DAILY KARIME Administration Atorvastatin Calcium 40 mg 04/23/20 22:45 04/29/20 21:44 Lipitor 40 Mg Tablet PO 05/23/20 22:44 40 mg QHS KARIME Administration Dextrose 12.5 gm 04/25/20 12:35 Dextrose Inj 50% Syringe (25 Gm/50 Ml) IV 05/25/20 12:34 PRN PRN FOR BG 50-69 IN ALERT PATIENT Protocol Dextrose 25 gm 04/25/20 12:35 Dextrose Inj 50% Syringe (25 Gm/50 Ml) IV 05/25/20 12:34 PRN PRN See Label Comments Protocol Docusate Sodium 200 mg 04/28/20 10:52 Colace Udc 100 Mg/10 Ml Oral Soln PO 05/28/20 10:51 QPMP PRN FOR CONSTIPATION Dronabinol 2.5 mg 04/28/20 18:00 04/30/20 09:20 Marinol 2.5 Mg Capsule PO 05/05/20 17:59 2.5 mg BID KARIME Administration Famotidine 20 mg 04/23/20 22:30 04/30/20 09:20 Pepcid 20 Mg Tablet PO 05/23/20 22:29 20 mg Q12 KARIME Administration Glucagon 1 mg 04/25/20 12:35 Glucagen Inj 1 Mg Vial SUBCUT 05/25/20 12:34 PRN PRN Evaluate for BG < 70 Protocol Glucose 15 gm 04/25/20 12:35 Glutose 40% Gel 15 Gm Tube PO 05/25/20 12:34 PRN PRN For BG 50-69 in Alert Patient Protocol Glucose 30 gm 04/25/20 12:35 Glutose 40% Gel 15 Gm Tube PO 05/25/20 12:34 PRN PRN FOR BG < 50 IN ALERT PATIENT Protocol Cefazolin Sodium 2 gm/ 100 mls @ 200 mls/hr 04/27/20 22:00 04/30/20 06:29 Dextrose IV 05/04/20 21:59 200 mls/hr Q8 KARIME Administration Magnesium Oxide 400 mg 04/28/20 22:00 04/29/20 21:44 Mag-Ox 400 Mg Tablet PO 05/28/20 21:59 400 mg QHS KARIME Administration Multivitamins 1 tab 04/24/20 10:00 04/30/20 09:20 Tab-A-Cipriano (Multiple Vitamin) Tablet PO 05/24/20 09:59 1 tab DAILY KARIME Administration Pantoprazole Sodium 20 mg 04/25/20 06:00 04/30/20 06:[address] Tablet PO 05/25/20 05:59 20 mg Q6AM KARIME Administration Discontinued Medications Generic Name Dose Route Start Last Admin Trade Name Marisol PRN Reason Stop Dose Admin Amiodarone HCl 200 mg 04/24/20 10:00 04/24/20 09:20 Cordarone 200 Mg Tablet PO 05/24/20 09:59 200 mg DAILY KARIME Administration Aspirin 162 mg 04/23/20 22:31 04/24/20 03:35 Aspirin 81 Mg Chewable Tablet PO 04/23/20 22:32 162 mg NOW ONE Administration Aspirin Confirm 04/24/20 03:31 04/24/20 06:21 Aspirin 81 Mg Chewable Tablet Administered 04/24/20 03:32 Not Given Dose 81 mg .ROUTE .STK-MED ONE Atorvastatin Calcium 20 mg 04/24/20 22:00 Lipitor 40 Mg Tablet PO 05/24/20 21:59 QHS KARIME Furosemide 20 mg 04/28/20 18:00 04/28/20 17:28 Lasix 40 Mg Tablet PO 05/28/20 17:59 Not Given PCSUPPER KARIME Furosemide 20 mg 04/29/20 13:49 04/29/20 14:16 Lasix 20 Mg Tablet PO 04/29/20 13:50 20 mg NOW ONE Administration Sodium Chloride 1,000 mls @ 0 mls/hr 04/23/20 16:09 04/23/20 17:10 Nacl 0.9% 1000 Ml Iv Soln IV 04/23/20 16:10 Infused BOLUS ONE Infusion Wide Open Sodium Chloride 1,000 mls @ 0 mls/hr 04/23/20 16:09 04/23/20 17:25 Nacl 0.9% 1000 Ml Iv Soln IV 04/23/20 16:10 999 mls/hr BOLUS ONE Administration Wide Open Lactated Ringer's 500 mls @ 0 mls/hr 04/24/20 14:12 04/24/20 19:00 Lactated Ringers 1000 Ml Iv Soln IV 04/24/20 14:13 Infused BOLUS ONE Infusion Wide Open Lactated Ringer's 1,000 mls @ 60 mls/hr 04/25/20 07:44 04/25/20 15:46 Lactated Ringers 1000 Ml Iv Soln IV 05/25/20 07:43 60 mls/hr CONTINUOUS PRN Administration THIS MED IS NOT "PRN" Vancomycin HCl 1,500 mg/ 250 mls @ 166.667 mls/hr 04/25/20 10:00 04/25/20 10:17 Dextrose IV 04/25/20 11:29 166.67 mls/hr NOW ONE 166.67 mls/hr Administration Vancomycin HCl 750 mg/ 250 mls @ 166.667 mls/hr 04/25/20 22:00 04/28/20 00:31 Dextrose IV 05/02/20 21:59 Infused Q12 KARIME Infusion Lidocaine HCl Confirm 04/26/20 13:19 Xylocaine 2% Inj-Pf (20 Mg/Ml) 10 Ml Ampul Administered 04/26/20 13:20 Dose 10 ml .ROUTE .STK-MED ONE Melatonin Confirm 04/30/20 06:20 04/30/20 06:38 Melatonin 5 Mg Tablet Administered 04/30/20 06:21 5 mg Dose Administration 5 mg .ROUTE .STK-MED ONE Melatonin 6 mg 04/30/20 07:15 04/30/20 07:19 Melatonin 3 Mg Tablet PO 04/30/20 07:16 Not Given NOW ONE Pharmacy Profile Note 1 each 04/28/20 09:30 04/28/20 09:09 Medication Communication Order 04/28/20 09:31 Not Given .VANCTROUGH ONE Propofol Confirm 04/26/20 13:19 Diprivan Inj 200 Mg/20 Ml Vial Administered 04/26/20 13:20 Dose 200 mg IV .STK-MED ONE Assessment & Plan - Diagnosis (1) Heart failure with preserved ejection fraction Qualifiers: Heart failure chronicity: acute on chronic Qualified Code(s): I50.33 - Acute on chronic diastolic (congestive) heart failure Is this a current diagnosis for this admission?: Yes Plan: The patient appears to be mildly fluid overloaded. Unfortunately his BP is on the low side which limits our ability to diurese him appropriately. Recommendations: -Continue with current medical management for now. -Avoid unnecessary IV fluids. -Strict intake and output. -Low sodium diet. -Restrict fluid intake to 1500ml daily. (2) Endocarditis of mitral valve Is this a current diagnosis for this admission?: Yes Plan: The patient was found to have a mass on the mitral valve and was diagnosed with endocarditis. If this is truly the case, he has had a very atypical presentation of endocarditis: no fevers, only one positive blood culture. Infectious disease has been consulted. At this point, it is difficult to ascertain whether the mass on the MV is truly a vegetation or not. Recommendations: -Reconsult ID and follow their recommendations regarding potential antibiotic treatment. -Consider further imaging of the valve with cardiac MRI and/or CT surgery consult at a higher echelon of care if patient not responding to treatment.
--- NOTE | 2020-04-30 18:59 | PDOC PROGRESS REPORT ---
Subjective Date:: 04/30/20 Subjective:: PAULETTE SCALES is a 74 year old male with a history of paroxysmal A. fib on an ticoagulation, hypertension, hyperlipidemia, who was discharged recently from hospital after having cholecystectomy now presents after he had an episode of passing out this morning. Patient reports that he went for a physical therapy session this morning and when he tried to get out chair and started to walk he felt lightheaded and passed out. He was told that he passed out for less than 30 seconds after which she immediately regained consciousness and denies any confusion after the episode. He also denies any history of abnormal body movement, weakness of extremities, change in his speech, or confusion. Patient has no chest pain, palpitation, shortness of breath, orthopnea. He also denies any fever, chills, cough, nausea, vomiting or diarrhea. He did not take any of his morning medications today. He states that he usually runs a low blood pressure with a systolic in the 90s when he monitors his BP at home. 04/24/20 D2 hospital stay. Patient was seen and examined at bedside. He denied any chest pain or SOB but does complain of weakness generalized. He was about to have an echo. He has grade 2 pitting edema both lower extremities. BP still low at 80s/40s and we continue to hold his lasix. IV fluids stopped. 04/25/20 D3 Hospital stay. Patient was seen and examined at bedside. He denied any SOB, orthopnea, chest pain. No dizziness or weakness. Blood pressure still borderline low at 90s over 50s. 1 blood culture bottle growing MSSA. In light of his echo result I have started him on vancomycin for empiric treatment for endocarditis. SOLO ordered. He was started on IV fluids as well for his blood pressure. Ultimately he would still need RHC for his right sided heart failure. 04/26/20 D4 Hospital stay. He was seen and examined at bedside. denies any chest pain, orthopnea or SOB. SOLO that was done showed small vegetation on the mitral valve. Blood culture growing staph species NOT MRSA. He is currently on Vancomycin. ID was consulted. He remains afebrile. BP still borderline low. 04/27/20 D5 hospital stay. He was seen and examined at bedside. Feels ok o verall, denies any chest pain, SOB, palpitations. Blood pressure still at about 90s over 50s.ID recommendation noted,not convinced that vegetation seen in SOLO and what is growing in her blood culture are related. Awaiting clarification from micro lab as to what species is growing in her blood culture. 04/28/20 D6 hospital stay. He was seen and examined at bedside. He's resting comfortably on the chair denies any chest pain, SOB, palpitations. On cefazolin for endocarditis. Awaiting repeat blood culture. 04/29/20 D7 hospital stay. He was seen and examined at bedside. Denies any new complains. Eating and drinking ok. Repeat blood culture 04/28/20 was negative. On cefazolin. 04/30/20 D8 hospital stay. He was seen and examined at bedside. He denied any new complains, no chest pain, no SOB. According to his nurse he requires a 2 person assists. I also touched base with ID regarding his positive blood cultures and according to Dr. Young she is doubtful that his blood cultures are causing his mitral valve findings. She suggested to stop the abx and repeat blood cultures in addition to testing for other causes of endocarditis that can be culture negative. Reason For Visit: NON-STEMI(non-ST ELEVATED MYOCARDIAL INFARCTION) Physical Exam Vital Signs: Temp Pulse Resp BP Pulse Ox 97.4 F 83 16 103/57 L 95 04/30/20 16:00 04/30/20 16:00 04/30/20 16:00 04/30/20 16:00 04/30/20 16:00 Intake & Output 04/29/20 04/30/20 05/01/20 06:59 06:59 06:59 Intake Total 740 607 Output Total 710 650 Balance 30 -43 Weight 87.8 kg 89.3 kg General appearance: PRESENT: no acute distress, cooperative Head exam: PRESENT: atraumatic, normocephalic Eye exam: PRESENT: EOMI, PERRLA Mouth exam: PRESENT: moist Neck exam: PRESENT: full ROM Respiratory exam: PRESENT: clear to auscultation char, symmetrical, unlabored Cardiovascular exam: PRESENT: RRR, +S1, +S2 Pulses: PRESENT: +2 pedal pulses bilateral Extremities exam: PRESENT: full ROM, +2 edema Musculoskeletal exam: PRESENT: full ROM Neurological exam: PRESENT: alert, awake, oriented to person, oriented to place, oriented to time, oriented to situation Psychiatric exam: PRESENT: normal mood Skin exam: PRESENT: normal color Results Laboratory Results: 04/29/20 04:50 04/29/20 04:50 04/25/20 09:30 Blood Blood Culture - Final NO GROWTH IN 5 DAYS 04/23/20 04/23/20 04/23/20 17:30 17:30 22:53 Troponin I 0.112 0.100 NT-Pro-B Natriuret Pep [id number] H 04/24/20 04/24/20 04/29/20 05:10 11:45 04:50 Troponin I 0.106 0.094 NT-Pro-B Natriuret Pep 16577 H Impressions: Chest/Abdomen CTA 04/23/20 18:31 IMPRESSION: 1. No pulmonary artery embolization. 2. Groundglass opacification seen throughout the lung parenchyma but most pronounced in dependent fashion. There is associated bilateral pleural effusion and evidence of elevated right heart pressures. Overall findings are suggestive of pulmonary edema. Chest X-Ray 04/30/20 00:01 IMPRESSION: 1. Basal predominant pleural and parenchymal opacities in the right hemithorax that could represent a combination of pleural fluid, atelectasis and or in the proper clinical setting pneumonia. 2. Cardiomegaly and diffuse prominence of the interstitium - correlation with clinical findings is recommended to exclude mild CHF/interstitial edema. 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 -Blood culture 04/23/20 bottle 1 staph capitis, bottle 2 corynebacterium species -Blood culture 04/25/20 bottle 1 staph epidermidis in clusters - blood culture 04/28/20 bottle negative -Spoke to Dr. Young from infectious disease today and she is doubtful as well that the staph species growing in his blood cultures is what is causing the SOLO findings. She suggested to stop the antibiotics and to repeat his blood cultures and to test for other organisms that can cause essentially culture- negative bacterial endocarditis. -Cefazolin stopped today (2) CHF (congestive heart failure) Qualifiers: Heart failure type: right-sided Heart failure chronicity: acute on chronic Qualified Code(s): I50.813 - Acute on chronic right heart failure Is this a current diagnosis for this admission?: Yes Plan: -chronic or acute decompensation on top of chronic - BNP 66668 - hypotensive, no prior pulmonary embolism, no previous PA, no COPD - repeat echo showed normal LV systolic function EF 55 to 60%, RV mild to moderately dilated, RV systolic function is moderate to severely reduced. A vegetation on the mitral valve cannot be excluded. -BP improved, IV fluids stopped. - lasix resumed, carvedilol resumed - daily weights - strict IO -Cardiology following (3) Hypotension Qualifiers: Hypotension type: other hypotension type Qualified Code(s): I95.89 - Other hypotension Is this a current diagnosis for this admission?: Yes Plan: -Improved -Patient's blood pressure has been ranging lower 90s by lower 60s -Repeat echo normal LV systolic function, EF 55 to 60%, RV mild to moderately dilated, right ventricular systolic function moderately to severely reduced. -According to the patient his blood pressure usually runs low so I suspect he is at his baseline. (4) Atrial flutter Qualifiers: Atrial flutter type: atypical Qualified Code(s): I48.4 - Atypical atrial flutter Is this a current diagnosis for this admission?: Yes Plan: -currently sinus - eliquis resumed - (5) Status post cholecystectomy Is this a current diagnosis for this admission?: Yes (6) Physical deconditioning Is this a current diagnosis for this admission?: Yes Plan: - PT for therapy -According to the nurse he requires a two-person assistance. I have spoken to Keira from discharge planning because he will need to go to SNF. - Time Time Spent with patient: 25-34 minutes Medications reviewed and adjusted accordingly: Yes Anticipated Discharge Disposition: Jail Facility Anticipated Discharge Timeframe: tbd
[2020-04-30] MEDS: CARVEDILOL 3.125 MG TABLET PO SCH (21:22)
[2020-04-30] MEDS: MAGNESIUM OXIDE 400 MG TABLET PO SCH (21:22)
[2020-04-30] MEDS: ATORVASTATIN CALCIUM 40 MG TABLET PO SCH (21:23)
[2020-05-01] MEDS: PANTOPRAZOLE SODIUM 20 MG TABLET.DR PO SCH (05:14)
--- NOTE | 2020-05-01 08:48 | PDOC PROGRESS REPORT ---
Subjective Date:: 05/01/20 Subjective:: PAULETTE SCALES is a 74 year old male with the following medical history: 1. Paroxysmal atrial flutter 2. Congestive heart failure with preserved ejection fraction 3. Long-term systemic anticoagulation 4. Dyslipidemia 5. Systemic hypertension He had been followed by my partner, Dr. Roberts and I'm taking over his care today. Please see Dr. Roberts's notes for details of his clinical course. In summary, he was admitted on 04/23/20 with a syncopal event in the setting of hyp otension. He was eventually diagnosed with HFpEF and moderate RV dysfunction and PHTN. His troponin was slightly elevated. On TTE he was found to have a suspected lesion on the MV and a subsequent SOLO confirmed the presence of the lesion which was categorized as a vegetation and the patient was diagnosed with MV endocarditis however he has remained afebrile and with only one bottle of blood culture positive. He was consulted to ID who was suspicious of the diagnosis, the patient was begun on antibiotics. A repeat blood culture on 04/28/20 was negative. He had an uneventful night and denies new cardiac complaints. His blood pressure is slightly improved. His telemetry shows NSR with episodes of paroxysmal atrial fibrillation. 05/01/2020: The patient had an uneventful night. He continues to have a positive fluid balance and his blood pressure is now improved therefore diuresis can be accomplished. He was apparently reconsulted to infectious disease and I agree with their recommendations of working the patient up for culture-negative endocarditis. Physical exam on 05/01/20: GENERAL: Pleasant and conversational. Oriented x3 with normal mood. Not in acute distress. Well groomed and well developed. HEENT: Normocephalic, atraumatic. Pupils equal. Sclerae anicteric. Orop harynx moist. NECK: No JVD. No carotid bruits. LUNGS: Clear to auscultation bilaterally. Normal respiratory effort without the use of accessory muscles or intercostal retractions. CARDIOVASCULAR: Regular rate and rhythm, normal S1 and S2 without murmurs, rubs, or gallops. PMI not displaced. ABDOMEN: No masses or tenderness to palpation. No bruit. No splenomegaly or hepatomegaly. No abdominal aorta bruit noted. EXTREMITIES: 1-2+ pitting edema bilaterally, ulcers bilaterally. SKIN: No lesions or rashes. MUSCULOSKELETAL: No chest tenderness to palpation. NEUROLOGIC: Nonfocal. No gross sensory or motor deficits bilateral upper or lower extremities. Reason For Visit: NON-STEMI(non-ST ELEVATED MYOCARDIAL INFARCTION) Physical Exam Vital Signs: Temp Pulse Resp BP Pulse Ox 97.5 F 79 17 103/57 L 98 05/01/20 04:12 05/01/20 04:12 05/01/20 04:12 05/01/20 04:12 05/01/20 04:12 Intake & Output 04/30/20 05/01/20 05/02/20 06:59 06:59 06:59 Intake Total 607 568 Output Total 650 150 Balance -43 418 Weight 89.3 kg Results Laboratory Results: 04/29/20 04:50 04/29/20 04:50 04/25/20 09:30 Blood Blood Culture - Final NO GROWTH IN 5 DAYS 04/23/20 04/23/20 04/23/20 17:30 17:30 22:53 Troponin I 0.112 0.100 NT-Pro-B Natriuret Pep [id number] H 04/24/20 04/24/20 04/29/20 05:10 11:45 04:50 Troponin I 0.106 0.094 NT-Pro-B Natriuret Pep [id number] H Impressions: Chest/Abdomen CTA 04/23/20 18:31 IMPRESSION: 1. No pulmonary artery embolization. 2. Groundglass opacification seen throughout the lung parenchyma but most pronounced in dependent fashion. There is associated bilateral pleural effusion and evidence of elevated right heart pressures. Overall findings are suggestive of pulmonary edema. Chest X-Ray 04/30/20 00:01 IMPRESSION: 1. Basal predominant pleural and parenchymal opacities in the right hemithorax that could represent a combination of pleural fluid, atelectasis and or in the proper clinical setting pneumonia. 2. Cardiomegaly and diffuse prominence of the interstitium - correlation with clinical findings is recommended to exclude mild CHF/interstitial edema. 04/29/20 04:50 04/29/20 04:50 MCV 93 fl (80-97) 04/29/20 04:50 MCH 30.7 pg (27.0-33.4) 04/29/20 04:50 MCHC 33.1 g/dL (32.0-36.0) 04/29/20 04:50 RDW 22.0 % (11.5-14.0) H 04/29/20 04:50 Seg Neutrophils % 79.6 % (42-78) H 04/29/20 04:50 VBG pH 7.37 (7.30-7.42) 04/23/20 17:30 VBG pCO2 37.9 mmHg (35-63) 04/23/20 17:30 VBG HCO3 21.6 mmol/L (20-32) 04/23/20 17:30 VBG Base Excess -3.2 mmol/L 04/23/20 17:30 Chloride 103 mmol/L (98-107) 04/29/20 04:50 Carbon Dioxide 22 mmol/L (22-30) 04/29/20 04:50 Anion Gap 7 (5-19) 04/29/20 04:50 Est GFR ( Amer) > 60 (>60) 04/29/20 04:50 Glucose 87 mg/dL (75-110) 04/29/20 04:50 Lactic Acid 2.1 mmol/L (0.7-2.1) 04/23/20 22:53 Calcium 8.6 mg/dL (8.4-10.2) 04/29/20 04:50 Magnesium 2.1 mg/dL (1.6-2.3) 04/24/20 05:10 Total Bilirubin 1.7 mg/dL (0.2-1.3) H 04/29/20 04:50 AST 25 U/L (17-59) 04/29/20 04:50 Alkaline Phosphatase 95 U/L (38-126) 04/29/20 04:50 Total Protein 4.3 g/dL (6.3-8.2) L 04/29/20 04:50 Albumin 2.1 g/dL (3.5-5.0) L 04/29/20 04:50 Urine Color EYAD 04/23/20 17:05 Urine Appearance SLIGHTLY-CLOUDY 04/23/20 17:05 Urine pH 5.0 (5.0-9.0) 04/23/20 17:05 Ur Specific [place] 1.016 04/23/20 17:05 Urine Protein 30 mg/dL (NEGATIVE) H 04/23/20 17:05 Urine Glucose (UA) NEGATIVE mg/dL (NEGATIVE) 04/23/20 17:05 Urine Ketones NEGATIVE mg/dL (NEGATIVE) 04/23/20 17:05 Urine Blood NEGATIVE (NEGATIVE) 04/23/20 17:05 Urine RBC (Auto) 3 /HPF 04/23/20 17:05 04/25/20 09:30 Blood Blood Culture - Final NO GROWTH IN 5 DAYS 04/23/20 04/23/20 04/23/20 17:30 17:30 22:53 Troponin I 0.112 0.100 NT-Pro-B Natriuret Pep [id number] H 04/24/20 04/24/20 04/29/20 05:10 11:45 04:50 Troponin I 0.106 0.094 NT-Pro-B Natriuret Pep [id number] H Current Medication List Generic Name Dose Route Start Last Admin Trade Name Freq PRN Reason Stop Dose Admin Acetaminophen 650 mg 04/23/20 22:23 Tylenol 325 Mg Tablet PO 05/23/20 22:22 Q6HP PRN FOR HEADACHE OR PAIN Apixaban 5 mg 04/23/20 22:45 04/30/20 21:22 Eliquis 5 Mg Tablet PO 05/23/20 22:44 5 mg Q12 KARIME Administration Aspirin 81 mg 04/24/20 10:00 04/30/20 09:21 Aspirin 81 Mg Chewable Tablet PO 05/24/20 09:59 81 mg DAILY KARIME Administration Atorvastatin Calcium 40 mg 04/23/20 22:45 04/30/20 21:23 Lipitor 40 Mg Tablet PO 05/23/20 22:44 40 mg QHS KARIME Administration Carvedilol 3.125 mg 04/30/20 22:00 04/30/20 21:22 Carvedilol 3.125 Mg Tablet PO 05/30/20 21:59 3.125 mg Q12 KARIME Administration Dextrose 12.5 gm 04/25/20 12:35 Dextrose Inj 50% Syringe (25 Gm/50 Ml) IV 05/25/20 12:34 PRN PRN FOR BG 50-69 IN ALERT PATIENT Protocol Dextrose 25 gm 04/25/20 12:35 Dextrose Inj 50% Syringe (25 Gm/50 Ml) IV 05/25/20 12:34 PRN PRN See Label Comments Protocol Docusate Sodium 200 mg 04/28/20 10:52 Colace Udc 100 Mg/10 Ml Oral Soln PO 05/28/20 10:51 QPMP PRN FOR CONSTIPATION Dronabinol 2.5 mg 04/28/20 18:00 04/30/20 17:11 Marinol 2.5 Mg Capsule PO 05/05/20 17:59 2.5 mg BID KARIME Administration Famotidine 20 mg 04/23/20 22:30 04/30/20 21:22 Pepcid 20 Mg Tablet PO 05/23/20 22:29 20 mg Q12 KARIME Administration Glucagon 1 mg 04/25/20 12:35 Glucagen Inj 1 Mg Vial SUBCUT 05/25/20 12:34 PRN PRN Evaluate for BG < 70 Protocol Glucose 15 gm 04/25/20 12:35 Glutose 40% Gel 15 Gm Tube PO 05/25/20 12:34 PRN PRN For BG 50-69 in Alert Patient Protocol Glucose 30 gm 04/25/20 12:35 Glutose 40% Gel 15 Gm Tube PO 05/25/20 12:34 PRN PRN FOR BG < 50 IN ALERT PATIENT Protocol Magnesium Oxide 400 mg 04/28/20 22:00 04/30/20 21:22 Mag-Ox 400 Mg Tablet PO 05/28/20 21:59 400 mg QHS KARIME Administration Multivitamins 1 tab 04/24/20 10:00 04/30/20 09:20 Tab-A-Cipriano (Multiple Vitamin) Tablet PO 05/24/20 09:59 1 tab DAILY KARIME Administration Pantoprazole Sodium 20 mg 04/25/20 06:00 05/01/20 05:[address] Tablet PO 05/25/20 05:59 20 mg Q6AM KARIME Administration Discontinued Medications Generic Name Dose Route Start Last Admin Trade Name Freq PRN Reason Stop Dose Admin Amiodarone HCl 200 mg 04/24/20 10:00 04/24/20 09:20 Cordarone 200 Mg Tablet PO 05/24/20 09:59 200 mg DAILY KARIME Administration Aspirin 162 mg 04/23/20 22:31 04/24/20 03:35 Aspirin 81 Mg Chewable Tablet PO 04/23/20 22:32 162 mg NOW ONE Administration Aspirin Confirm 04/24/20 03:31 04/24/20 06:21 Aspirin 81 Mg Chewable Tablet Administered 04/24/20 03:32 Not Given Dose 81 mg .ROUTE .STK-MED ONE Atorvastatin Calcium 20 mg 04/24/20 22:00 Lipitor 40 Mg Tablet PO 05/24/20 21:59 QHS KARIME Furosemide 20 mg 04/28/20 18:00 04/28/20 17:28 Lasix 40 Mg Tablet PO 05/28/20 17:59 Not Given PCSUPPER KARIME Furosemide 20 mg 04/29/20 13:49 04/29/20 14:16 Lasix 20 Mg Tablet PO 04/29/20 13:50 20 mg NOW ONE Administration Sodium Chloride 1,000 mls @ 0 mls/hr 04/23/20 16:09 04/23/20 17:10 Nacl 0.9% 1000 Ml Iv Soln IV 04/23/20 16:10 Infused BOLUS ONE Infusion Wide Open Sodium Chloride 1,000 mls @ 0 mls/hr 04/23/20 16:09 04/23/20 17:25 Nacl 0.9% 1000 Ml Iv Soln IV 04/23/20 16:10 999 mls/hr BOLUS ONE Administration Wide Open Lactated Ringer's 500 mls @ 0 mls/hr 04/24/20 14:12 04/24/20 19:00 Lactated Ringers 1000 Ml Iv Soln IV 04/24/20 14:13 Infused BOLUS ONE Infusion Wide Open Lactated Ringer's 1,000 mls @ 60 mls/hr 04/25/20 07:44 04/25/20 15:46 Lactated Ringers 1000 Ml Iv Soln IV 05/25/20 07:43 60 mls/hr CONTINUOUS PRN Administration THIS MED IS NOT "PRN" Vancomycin HCl 1,500 mg/ 250 mls @ 166.667 mls/hr 04/25/20 10:00 04/25/20 10:17 Dextrose IV 04/25/20 11:29 166.67 mls/hr NOW ONE 166.67 mls/hr Administration Vancomycin HCl 750 mg/ 250 mls @ 166.667 mls/hr 04/25/20 22:00 04/28/20 00:31 Dextrose IV 05/02/20 21:59 Infused Q12 KARIME Infusion Cefazolin Sodium 2 gm/ 100 mls @ 200 mls/hr 04/27/20 22:00 04/30/20 06:29 Dextrose IV 05/04/20 21:59 200 mls/hr Q8 KARIME Administration Lidocaine HCl Confirm 04/26/20 13:19 Xylocaine 2% Inj-Pf (20 Mg/Ml) 10 Ml Ampul Administered 04/26/20 13:20 Dose 10 ml .ROUTE .STK-MED ONE Melatonin Confirm 04/30/20 06:20 04/30/20 06:38 Melatonin 5 Mg Tablet Administered 04/30/20 06:21 5 mg Dose Administration 5 mg .ROUTE .STK-MED ONE Melatonin 6 mg 04/30/20 07:15 04/30/20 07:19 Melatonin 3 Mg Tablet PO 04/30/20 07:16 Not Given NOW ONE Pharmacy Profile Note 1 each 04/28/20 09:30 04/28/20 09:09 Medication Communication Order 04/28/20 09:31 Not Given .VANCTROUGH ONE Propofol Confirm 04/26/20 13:19 Diprivan Inj 200 Mg/20 Ml Vial Administered 04/26/20 13:20 Dose 200 mg IV .STK-MED ONE Assessment & Plan - Diagnosis (1) Heart failure with preserved ejection fraction Qualifiers: Heart failure chronicity: acute on chronic Qualified Code(s): I50.33 - A cute on chronic diastolic (congestive) heart failure Is this a current diagnosis for this admission?: Yes Plan: The patient continues to be mildly fluid overloaded. His blood pressure is now improved therefore diuresis can be accomplished more effectively. May temporarily discontinue carvedilol or switched it to Toprol 25 mg daily in order to avoid hypotension so the diuresis can be accomplished. Recommendations: -Diuresis with Lasix 20 mg IV twice daily. -Restrict fluid intake to 1500 cc daily. -Low sodium diet, less than 1500 mg daily. -Strict intake and output. -Daily weights. -Avoid unnecessary IV fluids. -Strict intake and output. -Low sodium diet. -Restrict fluid intake to 1500ml daily. -Daily BMP, magnesium and replace electrolytes as needed. (2) Endocarditis of mitral valve Is this a current diagnosis for this admission?: Yes Plan: The case was reconsulted ID by the hospitalist service. The patient may have culture-negative endocarditis therefore further work-up is indicated as ID recommended. I will defer further management to the primary team and ID.
--- NOTE | 2020-05-01 08:55 | Progress Note ---
Provider Note Provider Note: [facility] ID Telephone Advice Follow Up Chart reviewed. Patient not seen. This is a 89year-old man who has paroxysmal atrial fibrillation, cholecystectomy in February 2020 who was admitted due to syncope on 04/23. He had a NSTEMI and decompensated CHF with a BNP over 20k. He presented thrombocytopenia and slightly elevated bilirubin. He has been afebrile. ID was consulted due to the possibility of infective endocarditis. He had blood cultures on admission that showed 1 set positive for Staphylococcus capitis. Another set with 2 different species of Corynebacterium. A repeat blood culture grew Staphylococcus epidermidis. TTE and SOLO consistent with vegetation in mitral valve with moderate MR. Patient has been evaluated and followed by cardiology. Patient has been on vancomycin, he was then transitioned to cefazolin. ID reconsulted for recommendations. Allergies: No Known Allergies Allergy (Verified 02/24/17 23:15) Medications: Ferrous Sulfate 324 mg PO QAM 09/08/16 Acetaminophen [Acetaminophen Extra Strength] 500 mg PO Q6HP PRN 03/04/20 Amiodarone HCl [Cordarone 200 mg Tablet] 200 mg PO QAM 03/04/20 Atorvastatin Calcium [Lipitor 40 mg Tablet] 20 mg PO QHS 03/04/20 Carvedilol [Coreg 3.125 mg Tablet] 3.125 mg PO Q12 03/04/20 Cetirizine HCl [Zyrtec 10 mg Tablet] 10 mg PO DAILYP PRN 03/04/20 Cholecalciferol (Vitamin D3) [Vitamin D3 1000 Unit Tablet] 1,000 unit PO DAILY 03/04/20 Docusate Calcium 240 mg PO QPMP PRN 03/04/20 Apixaban [Eliquis 5 mg Tablet] 5 mg PO BID 04/24/20 Ascorbic Acid [Vitamin C 500 mg Tablet] 500 mg PO DAILY 04/24/20 Furosemide [Lasix 40 mg Tablet] 80 mg PO QAMP PRN 04/24/20 Furosemide [Lasix] 40 mg PO PCSUPPER 04/24/20 Magnesium Oxide 400 mg PO QHS 04/24/20 Metoclopramide HCl [Reglan 10 mg Tablet] 10 mg PO QIDP PRN 04/24/20 Multivitamin/Iron/Folic Acid [Cerovite Advanced Form Tab] 1 tab PO DAILY 04/24/20 Omeprazole 20 mg PO DAILY 04/24/20 Vital Signs: Temp Pulse Resp BP Pulse Ox 97.4 F 84 18 97/59 L 98 05/01/20 08:13 05/01/20 08:13 05/01/20 08:13 05/01/20 08:13 05/01/20 08:13 Intake & Output 04/30/20 05/01/20 05/02/20 06:59 06:59 06:59 Intake Total 607 789 Output Total 650 375 Balance -43 414 Weight 89.3 kg 85.8 kg Weight/Height Weight 85.8 kg Height 5 ft 9 in Laboratories: 04/29/20 04:50 04/29/20 04:50 MCV 93 fl (80-97) 04/29/20 04:50 MCH 30.7 pg (27.0-33.4) 04/29/20 04:50 MCHC 33.1 g/dL (32.0-36.0) 04/29/20 04:50 RDW 22.0 % (11.5-14.0) H 04/29/20 04:50 Seg Neutrophils % 79.6 % (42-78) H 04/29/20 04:50 VBG pH 7.37 (7.30-7.42) 04/23/20 17:30 VBG pCO2 37.9 mmHg (35-63) 04/23/20 17:30 VBG HCO3 21.6 mmol/L (20-32) 04/23/20 17:30 VBG Base Excess -3.2 mmol/L 04/23/20 17:30 Chloride 103 mmol/L (98-107) 04/29/20 04:50 Carbon Dioxide 22 mmol/L (22-30) 04/29/20 04:50 Anion Gap 7 (5-19) 04/29/20 04:50 Est GFR ( Amer) > 60 (>60) 04/29/20 04:50 Glucose 87 mg/dL (75-110) 04/29/20 04:50 Lactic Acid 2.1 mmol/L (0.7-2.1) 04/23/20 22:53 Calcium 8.6 mg/dL (8.4-10.2) 04/29/20 04:50 Magnesium 2.1 mg/dL (1.6-2.3) 04/24/20 05:10 Total Bilirubin 1.7 mg/dL (0.2-1.3) H 04/29/20 04:50 AST 25 U/L (17-59) 04/29/20 04:50 Alkaline Phosphatase 95 U/L (38-126) 04/29/20 04:50 Total Protein 4.3 g/dL (6.3-8.2) L 04/29/20 04:50 Albumin 2.1 g/dL (3.5-5.0) L 04/29/20 04:50 Urine Color EYAD 04/23/20 17:05 Urine Appearance SLIGHTLY-CLOUDY 04/23/20 17:05 Urine pH 5.0 (5.0-9.0) 04/23/20 17:05 Ur Specific [place] 1.016 04/23/20 17:05 Urine Protein 30 mg/dL (NEGATIVE) H 04/23/20 17:05 Urine Glucose (UA) NEGATIVE mg/dL (NEGATIVE) 04/23/20 17:05 Urine Ketones NEGATIVE mg/dL (NEGATIVE) 04/23/20 17:05 Urine Blood NEGATIVE (NEGATIVE) 04/23/20 17:05 Urine RBC (Auto) 3 /HPF 04/23/20 17:05 04/23/20 04/23/20 04/23/20 17:30 17:30 22:53 Troponin I 0.112 0.100 NT-Pro-B Natriuret Pep [id number] H 04/24/20 04/24/20 04/29/20 05:10 11:45 04:50 Troponin I 0.106 0.094 NT-Pro-B Natriuret Pep [id number] H Microbiology: Blood cultures: 04/23 Staphylococcus capitis Corynebacterium spp x 2 04/25 Staphylococcus epidermidis 04/28 NGTD Radoiology: Chest/Abdomen CTA 04/23/20 18:31 IMPRESSION: 1. No pulmonary artery embolization. 2. Groundglass opacification seen throughout the lung parenchyma but most pronounced in dependent fashion. There is associated bilateral pleural effusion and evidence of elevated right heart pressures. Overall findings are suggestive of pulmonary edema. Chest X-Ray 04/30/20 00:01 IMPRESSION: 1. Basal predominant pleural and parenchymal opacities in the right hemithorax that could represent a combination of pleural fluid, atelectasis and or in the proper clinical setting pneumonia. 2. Cardiomegaly and diffuse prominence of the interstitium - correlation with clinical findings is recommended to exclude mild CHF/interstitial edema. Assessment and Recommendations: Patient evaluated for the possibility of tan[place] mitral valve infective endocarditis. Patient was found with mitral valve vegetation in the setting of CHF and syncope. Blood cultures are polymicrobial with different skin bacteria on each sample. Clinically, his presentation is not consistent with infective endocarditis and in terms of microbiology, we should be able to isolate the specific organism causing the infection/vegetation and not different bacteria from the skin. These cultures are more consistent with contamination. In terms of ID, can assess for culture negative endocarditis with serologies (IGM and IgG) for Brucella, Coxiella and Bartonella. Unknown if any significant risk factor for these, but will recommend to rule it out. If negative, will recommend to discontinue antibiotics and repeat multiple sets of blood cultures off antibiotics 1 week off therapy or if patient spikes a fever (whatever happens first). If there isn't any other explanation for the vegetation and pa tient is demonstrating signs of infection, then can consider treating empirically with antibiotics after all these have been ruled out. CT surgery evaluation recommended as well due to moderate MR. Please call back if questions or new findings. This has been discussed with primary team. Concepcion Young MD [facility] ID [id number]
[2020-05-01] MEDS: CARVEDILOL 3.125 MG TABLET PO SCH (09:33)
[2020-05-01] MEDS: APIXABAN 5 MG TABLET PO SCH ×2 (09:33→21:30)
[2020-05-01] MEDS: ASPIRIN 81 MG TABLET, CHEWABLE PO SCH (09:33)
[2020-05-01] MEDS: DRONABINOL 2.5 MG CAPSULE PO SCH ×2 (09:33→17:53)
[2020-05-01] MEDS: FAMOTIDINE 20 MG TABLET PO SCH ×2 (09:34→21:30)
[2020-05-01] MEDS: MULTIVITAMIN TABLET PO SCH (09:34)
[2020-05-01 11:24] LABS: ABSOLUTE EOSINOPHILS # (AUTO) 0.1 10^3/uL (0.0-0.6); ABSOLUTE LYMPHOCYTES (AUTO) 0.7 10^3/uL (0.5-4.7); ABSOLUTE MONOCYTES (AUTO) 0.3 10^3/uL (0.1-1.4); ABSOLUTE NEUT (AUTO) 4.9 10^3/uL (1.7-8.2); BASOPHILS % (AUTO) 0.1 % (0-2); EOSINOPHILS % (AUTO) 0.8 % (0-6); HEMATOCRIT 35.1 % (37.9-51.0); HEMOGLOBIN 11.6 g/dL (13.5-17.0); LYMPHOCYTES % (AUTO) 11.6 % (13-45); MEAN CORPUSCULAR HEMOGLOBIN 30.8 pg (27.0-33.4); MEAN CORPUSCULAR VOLUME 94 fl (80-97); MONOCYTES % (AUTO) 5.5 % (3-13); PLATELET COUNT 106 10^3/uL (150-450); RED BLOOD COUNT 3.76 10^6/uL (4.35-5.55); RED CELL DISTRIBUTION WIDTH 21.4 % (11.5-14.0); TOTAL CELLS COUNTED % (AUTO) 100 %
[2020-05-01 11:48] LABS: ALBUMIN 2.5 g/dL (3.5-5.0); ALKALINE PHOSPHATASE 105 U/L (38-126); ANION GAP 6 (5-19); ASPARTATE AMINO TRANSFERASE 26 U/L (17-59); BILIRUBIN,DIRECT 0.8 mg/dL (0.0-0.4); BILIRUBIN,TOTAL 2.3 mg/dL (0.2-1.3); BLOOD UREA NITROGEN 18 mg/dL (7-20); CARBON DIOXIDE 24 mmol/L (22-30); CHLORIDE 101 mmol/L (98-107); GLUCOSE 99 mg/dL (75-110); TOTAL PROTEIN 4.9 g/dL (6.3-8.2)
[2020-05-01] MEDS ORDERED: FUROSEMIDE INJ/PF 20 MG/2 ML SDV IV SCH (14:30)
[2020-05-01] MEDS: MAGNESIUM OXIDE 400 MG TABLET PO SCH (21:29)
[2020-05-01] MEDS: ATORVASTATIN CALCIUM 40 MG TABLET PO SCH (21:30)
--- NOTE | 2020-05-01 22:44 | PDOC PROGRESS REPORT ---
Subjective Date:: 05/01/20 Subjective:: PAULETTE SCALES is a 74 year old male with a history of paroxysmal A. fib on an ticoagulation, hypertension, hyperlipidemia, who was discharged recently from hospital after having cholecystectomy now presents after he had an episode of passing out this morning. Patient reports that he went for a physical therapy session this morning and when he tried to get out chair and started to walk he felt lightheaded and passed out. He was told that he passed out for less than 30 seconds after which she immediately regained consciousness and denies any confusion after the episode. He also denies any history of abnormal body movement, weakness of extremities, change in his speech, or confusion. Patient has no chest pain, palpitation, shortness of breath, orthopnea. He also denies any fever, chills, cough, nausea, vomiting or diarrhea. He did not take any of his morning medications today. He states that he usually runs a low blood pressure with a systolic in the 90s when he monitors his BP at home. 04/24/20 D2 hospital stay. Patient was seen and examined at bedside. He denied any chest pain or SOB but does complain of weakness generalized. He was about to have an echo. He has grade 2 pitting edema both lower extremities. BP still low at 80s/40s and we continue to hold his lasix. IV fluids stopped. 04/25/20 D3 Hospital stay. Patient was seen and examined at bedside. He denied any SOB, orthopnea, chest pain. No dizziness or weakness. Blood pressure still borderline low at 90s over 50s. 1 blood culture bottle growing MSSA. In light of his echo result I have started him on vancomycin for empiric treatment for endocarditis. SOLO ordered. He was started on IV fluids as well for his blood pressure. Ultimately he would still need RHC for his right sided heart failure. 04/26/20 D4 Hospital stay. He was seen and examined at bedside. denies any chest pain, orthopnea or SOB. SOLO that was done showed small vegetation on the mitral valve. Blood culture growing staph species NOT MRSA. He is currently on Vancomycin. ID was consulted. He remains afebrile. BP still borderline low. 04/27/20 D5 hospital stay. He was seen and examined at bedside. Feels ok o verall, denies any chest pain, SOB, palpitations. Blood pressure still at about 90s over 50s.ID recommendation noted,not convinced that vegetation seen in SOLO and what is growing in her blood culture are related. Awaiting clarification from micro lab as to what species is growing in her blood culture. 04/28/20 D6 hospital stay. He was seen and examined at bedside. He's resting comfortably on the chair denies any chest pain, SOB, palpitations. On cefazolin for endocarditis. Awaiting repeat blood culture. 04/29/20 D7 hospital stay. He was seen and examined at bedside. Denies any new complains. Eating and drinking ok. Repeat blood culture 04/28/20 was negative. On cefazolin. 04/30/20 D8 hospital stay. He was seen and examined at bedside. He denied any new complains, no chest pain, no SOB. According to his nurse he requires a 2 person assists. I also touched base with ID regarding his positive blood cultures and according to Dr. Young she is doubtful that his blood cultures are causing his mitral valve findings. She suggested to stop the abx and repeat blood cultures in addition to testing for other causes of endocarditis that can be culture negative. 05/01/20 D9 hospital stay. he was seen and examined at bedside. he was sitting up in the chair. Denied any chest pain or SOB. Dr. Young's recommendation followed and I have ordered Bartonella, Coxiella, brucellosis IgG and IgM. His last blood cord culture on 04/28/2020 was negative. Cefazolin was stopped 04/30/2020. I discussed with him possible transfer to a tertiary care hospital for continued work-up of suspected infective endocarditis as well as right-sided heart failure versus a possible discharge to home or rehab. The patient expressed that he does not feel safe going home and would like to go to [facility]. I have explained to him that currently we have places her fall and this may take days. I called the [facility] and spoke to Iva who kindly connected me to a CT surgeon. SOLO was [facility] to [facility] as well for review. I discussed the case with the CT surgeon, according to him he would need further work-up to determine the cause of his mitral valve vegetation and moderate mitral valve regurgitation. He graciously accepted the patient for transfer under cardiology service. Iva from [facility] informed me at around 5:30 PM that they have him on a waiting list for cardiology bed at [facility] and that a Dr. Teixeira(?) Will be calling me for a doctor to Dr. Gonzalez. I left my personal number to Iva however by the time I have go off service I have not received a call from the farmworker. I followed up with them before going off service and I left him to hospitalist lead number just in case they want to sign out from the current provider. Reason For Visit: NON-STEMI(non-ST ELEVATED MYOCARDIAL INFARCTION) Physical Exam Vital Signs: Temp Pulse Resp BP Pulse Ox 97.4 F 77 18 90/70 L 98 05/01/20 16:22 05/01/20 16:22 05/01/20 16:22 05/01/20 16:22 05/01/20 16:22 Intake & Output 04/30/20 05/01/20 05/02/20 06:59 06:59 06:59 Intake Total 607 789 120 Output Total 650 375 Balance -43 414 120 Weight 89.3 kg 85.8 kg 85.8 kg General appearance: PRESENT: no acute distress, cooperative Head exam: PRESENT: atraumatic, normocephalic Eye exam: PRESENT: EOMI, PERRLA Mouth exam: PRESENT: moist Neck exam: PRESENT: full ROM Respiratory exam: PRESENT: clear to auscultation char, symmetrical, unlabored Cardiovascular exam: PRESENT: RRR, +S1, +S2 Pulses: PRESENT: +2 pedal pulses bilateral GI/Abdominal exam: PRESENT: normal bowel sounds, soft. ABSENT: rebound, tenderness Extremities exam: PRESENT: +2 edema Musculoskeletal exam: PRESENT: full ROM Neurological exam: PRESENT: alert, awake, oriented to person, oriented to place, oriented to time, oriented to situation Psychiatric exam: PRESENT: normal mood Skin exam: PRESENT: normal color Results Laboratory Results: 05/01/20 10:30 05/01/20 10:30 05/01/20 05/01/20 10:30 10:30 WBC 6.0 RBC 3.76 L Hgb 11.6 L Hct 35.1 L MCV 94 MCH 30.8 MCHC 33.0 RDW 21.4 H Plt Count 106 L Seg Neutrophils % 82.0 H Sodium 131.1 L Potassium 4.0 Chloride 101 Carbon Dioxide 24 Anion Gap 6 BUN 18 Creatinine 0.78 Est GFR ( Amer) > 60 Glucose 99 Calcium 9.0 Total Bilirubin 2.3 H AST 26 Alkaline Phosphatase 105 Total Protein 4.9 L Albumin 2.5 L 04/23/20 04/23/20 04/23/20 17:30 17:30 22:53 Troponin I 0.112 0.100 NT-Pro-B Natriuret Pep 57420 H 04/24/20 04/24/20 04/29/20 05:10 11:45 04:50 Troponin I 0.106 0.094 NT-Pro-B Natriuret Pep [id number] H Impressions: Chest/Abdomen CTA 04/23/20 18:31 IMPRESSION: 1. No pulmonary artery embolization. 2. Groundglass opacification seen throughout the lung parenchyma but most pronounced in dependent fashion. There is associated bilateral pleural effusion and evidence of elevated right heart pressures. Overall findings are suggestive of pulmonary edema. Chest X-Ray 04/30/20 00:01 IMPRESSION: 1. Basal predominant pleural and parenchymal opacities in the right hemithorax that could represent a combination of pleural fluid, atelectasis and or in the proper clinical setting pneumonia. 2. Cardiomegaly and diffuse prominence of the interstitium - correlation with clinical findings is recommended to exclude mild CHF/interstitial edema. 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 -Blood culture 04/23/20 bottle 1 staph capitis, bottle 2 corynebacterium species -Blood culture 04/25/20 bottle 1 staph epidermidis in clusters - blood culture 04/28/20 bottle negative - Spoke to [facility] surgeon (?) and discussed the SOLO findings and he graciously accepted the patient for transfer under cardiology service. Per Iva from transfer center he is accepted pending bed availability and a farmworker will soon get in touch with me. I have left them my personal number as well as the hospitalist lead cell number so they can be directed to the right provider. - ID recs followed and I have ordered the appropriate labs -Cefazolin stopped 04/30/20 (2) CHF (congestive heart failure) Qualifiers: Heart failure type: right-sided Heart failure chronicity: acute on chronic Qualified Code(s): I50.813 - Acute on chronic right heart failure Is this a current diagnosis for this admission?: Yes Plan: -chronic or acute decompensation on top of chronic - BNP 63327 - hypotensive, no prior pulmonary embolism, no previous ID, no COPD - repeat echo showed normal LV systolic function EF 55 to 60%, RV mild to moderately dilated, RV systolic function is moderate to severely reduced. A ve getation on the mitral valve cannot be excluded. - BP improved, IV fluids stopped. - spoke to Dr. wall who recommended to stop coreg for now and start lasix 20 mg IV for diuresis - daily weights - strict IO -Cardiology following (3) Hypotension Qualifiers: Hypotension type: other hypotension type Qualified Code(s): I95.89 - Other hypotension Is this a current diagnosis for this admission?: Yes Plan: -Improved -Patient's blood pressure has been ranging lower 90s by lower 60s -Repeat echo normal LV systolic function, EF 55 to 60%, RV mild to moderately dilated, right ventricular systolic function moderately to severely reduced. -According to the patient his blood pressure usually runs low so I suspect he is at his baseline. (4) Atrial flutter Qualifiers: Atrial flutter type: atypical Qualified Code(s): I48.4 - Atypical atrial flutter Is this a current diagnosis for this admission?: Yes Plan: -currently sinus - eliquis resumed - (5) Status post cholecystectomy Is this a current diagnosis for this admission?: Yes (6) Physical deconditioning Is this a current diagnosis for this admission?: Yes Plan: - PT for therapy -According to the nurse he requires a two-person assistance. He wishes to go to [facility] for rehab. - Time Time Spent with patient: 35 or more minutes Anticipated Discharge Disposition: Tertiary Anticipated Discharge Timeframe: within 48 hours
[2020-05-02] MEDS: PANTOPRAZOLE SODIUM 20 MG TABLET.DR PO SCH (05:53)
--- NOTE | 2020-05-02 07:29 | PDOC PROGRESS REPORT ---
Subjective Date:: 05/02/20 Subjective:: PAULETTE SCALES is a 74 year old male with the following medical history: 1. Paroxysmal atrial flutter 2. Congestive heart failure with preserved ejection fraction 3. Long-term systemic anticoagulation 4. Dyslipidemia 5. Systemic hypertension He had been followed by my partner, Dr. Roberts and I'm taking over his care today. Please see Dr. Roberts's notes for details of his clinical course. In summary, he was admitted on 04/23/20 with a syncopal event in the setting of hyp otension. He was eventually diagnosed with HFpEF and moderate RV dysfunction and PHTN. His troponin was slightly elevated. On TTE he was found to have a suspected lesion on the MV and a subsequent SOLO confirmed the presence of the lesion which was categorized as a vegetation and the patient was diagnosed with MV endocarditis however he has remained afebrile and with only one bottle of blood culture positive. He was consulted to ID who was suspicious of the diagnosis, the patient was begun on antibiotics. A repeat blood culture on 04/28/20 was negative. He had an uneventful night and denies new cardiac complaints. His blood pressure is slightly improved. His telemetry shows NSR with episodes of paroxysmal atrial fibrillation. 05/02/2020: The patient had an uneventful night. He continues to have a positive fluid balance with a blood pressure that is now again on the low side. He has no complaints this morning. Review of the chart demonstrates that the patient had been discussed with CT surgery and will eventually be transferred to [facility] for further assessment of his mitral valve vegetation. Physical exam on 05/02/20: GENERAL: Pleasant and conversational. Oriented x3 with normal mood. Not in acute distress. Well groomed and well developed. HEENT: Normocephalic, atraumatic. Pupils equal. Sclerae anicteric. Oropharynx moist. NECK: No JVD. No carotid bruits. LUNGS: Clear to auscultation bilaterally. Normal respiratory effort without the use of accessory muscles or intercostal retractions. CARDIOVASCULAR: Regular rate and rhythm, normal S1 and S2 without murmurs, rubs, or gallops. PMI not displaced. ABDOMEN: No masses or tenderness to palpation. No bruit. No splenomegaly or hepatomegaly. No abdominal aorta bruit noted. EXTREMITIES: 1-2+ pitting edema bilaterally, ulcers bilaterally. SKIN: No lesions or rashes. MUSCULOSKELETAL: No chest tenderness to palpation. NEUROLOGIC: Nonfocal. No gross sensory or motor deficits bilateral upper or lower extremities. Reason For Visit: NON-STEMI(non-ST ELEVATED MYOCARDIAL INFARCTION) Physical Exam Vital Signs: Temp Pulse Resp BP Pulse Ox 97.4 F 79 17 81/55 L 100 05/02/20 03:24 05/02/20 03:24 05/02/20 03:24 05/02/20 03:24 05/02/20 03:24 Intake & Output 05/01/20 05/02/20 05/03/20 06:59 06:59 06:59 Intake Total 789 120 Output Total 375 Balance 414 120 Weight 85.8 kg 88.7 kg Results Laboratory Results: 05/01/20 10:30 05/01/20 10:30 05/01/20 05/01/20 10:30 10:30 WBC 6.0 RBC 3.76 L Hgb 11.6 L Hct 35.1 L MCV 94 MCH 30.8 MCHC 33.0 RDW 21.4 H Plt Count 106 L Seg Neutrophils % 82.0 H Sodium 131.1 L Potassium 4.0 Chloride 101 Carbon Dioxide 24 Anion Gap 6 BUN 18 Creatinine 0.78 Est GFR ( Amer) > 60 Glucose 99 Calcium 9.0 Total Bilirubin 2.3 H AST 26 Alkaline Phosphatase 105 Total Protein 4.9 L Albumin 2.5 L 04/23/20 04/23/20 04/23/20 17:30 17:30 22:53 Troponin I 0.112 0.100 NT-Pro-B Natriuret Pep 38074 H 04/24/20 04/24/20 04/29/20 05:10 11:45 04:50 Troponin I 0.106 0.094 NT-Pro-B Natriuret Pep 53312 H Impressions: Chest/Abdomen CTA 04/23/20 18:31 IMPRESSION: 1. No pulmonary artery embolization. 2. Groundglass opacification seen throughout the lung parenchyma but most pronounced in dependent fashion. There is associated bilateral pleural effusion and evidence of elevated right heart pressures. Overall findings are suggestive of pulmonary edema. Chest X-Ray 04/30/20 00:01 IMPRESSION: 1. Basal predominant pleural and parenchymal opacities in the right hemithorax that could represent a combination of pleural fluid, atelectasis and or in the proper clinical setting pneumonia. 2. Cardiomegaly and diffuse prominence of the interstitium - correlation with clinical findings is recommended to exclude mild CHF/interstitial edema. 05/01/20 10:30 05/01/20 10:30 MCV 94 fl (80-97) 05/01/20 10:30 MCH 30.8 pg (27.0-33.4) 05/01/20 10:30 MCHC 33.0 g/dL (32.0-36.0) 05/01/20 10:30 RDW 21.4 % (11.5-14.0) H 05/01/20 10:30 Seg Neutrophils % 82.0 % (42-78) H 05/01/20 10:30 VBG pH 7.37 (7.30-7.42) 04/23/20 17:30 VBG pCO2 37.9 mmHg (35-63) 04/23/20 17:30 VBG HCO3 21.6 mmol/L (20-32) 04/23/20 17:30 VBG Base Excess -3.2 mmol/L 04/23/20 17:30 Chloride 101 mmol/L (98-107) 05/01/20 10:30 Carbon Dioxide 24 mmol/L (22-30) 05/01/20 10:30 Anion Gap 6 (5-19) 05/01/20 10:30 Est GFR ( Amer) > 60 (>60) 05/01/20 10:30 Glucose 99 mg/dL (75-110) 05/01/20 10:30 Lactic Acid 2.1 mmol/L (0.7-2.1) 04/23/20 22:53 Calcium 9.0 mg/dL (8.4-10.2) 05/01/20 10:30 Magnesium 2.1 mg/dL (1.6-2.3) 04/24/20 05:10 Total Bilirubin 2.3 mg/dL (0.2-1.3) H 05/01/20 10:30 AST 26 U/L (17-59) 05/01/20 10:30 Alkaline Phosphatase 105 U/L (38-126) 05/01/20 10:30 Total Protein 4.9 g/dL (6.3-8.2) L 05/01/20 10:30 Albumin 2.5 g/dL (3.5-5.0) L 05/01/20 10:30 Urine Color EYAD 04/23/20 17:05 Urine Appearance SLIGHTLY-CLOUDY 04/23/20 17:05 Urine pH 5.0 (5.0-9.0) 04/23/20 17:05 Ur Specific [place] 1.016 04/23/20 17:05 Urine Protein 30 mg/dL (NEGATIVE) H 04/23/20 17:05 Urine Glucose (UA) NEGATIVE mg/dL (NEGATIVE) 04/23/20 17:05 Urine Ketones NEGATIVE mg/dL (NEGATIVE) 04/23/20 17:05 Urine Blood NEGATIVE (NEGATIVE) 04/23/20 17:05 Urine RBC (Auto) 3 /HPF 04/23/20 17:05 04/23/20 04/23/20 04/23/20 17:30 17:30 22:53 Troponin I 0.112 0.100 NT-Pro-B Natriuret Pep 03347 H 04/24/20 04/24/20 04/29/20 05:10 11:45 04:50 Troponin I 0.106 0.094 NT-Pro-B Natriuret Pep 04628 H Current Medication List Generic Name Dose Route Start Last Admin Trade Name Freq PRN Reason Stop Dose Admin Acetaminophen 650 mg 04/23/20 22:23 Tylenol 325 Mg Tablet PO 05/23/20 22:22 Q6HP PRN FOR HEADACHE OR PAIN Apixaban 5 mg 04/23/20 22:45 05/01/20 21:30 Eliquis 5 Mg Tablet PO 05/23/20 22:44 5 mg Q12 KARIME Administration Aspirin 81 mg 04/24/20 10:00 05/01/20 09:33 Aspirin 81 Mg Chewable Tablet PO 05/24/20 09:59 81 mg DAILY KARIME Administration Atorvastatin Calcium 40 mg 04/23/20 22:45 05/01/20 21:30 Lipitor 40 Mg Tablet PO 05/23/20 22:44 40 mg QHS KARIME Administration Dextrose 12.5 gm 04/25/20 12:35 Dextrose Inj 50% Syringe (25 Gm/50 Ml) IV 05/25/20 12:34 PRN PRN FOR BG 50-69 IN ALERT PATIENT Protocol Dextrose 25 gm 04/25/20 12:35 Dextrose Inj 50% Syringe (25 Gm/50 Ml) IV 05/25/20 12:34 PRN PRN See Label Comments Protocol Docusate Sodium 200 mg 04/28/20 10:52 05/01/20 10:09 Colace Udc 100 Mg/10 Ml Oral Soln PO 05/28/20 10:51 200 mg QPMP PRN Administration FOR CONSTIPATION Dronabinol 2.5 mg 04/28/20 18:00 05/01/20 17:53 Marinol 2.5 Mg Capsule PO 05/05/20 17:59 2.5 mg BID KARIME Administration Famotidine 20 mg 04/23/20 22:30 05/01/20 21:30 Pepcid 20 Mg Tablet PO 05/23/20 22:29 20 mg Q12 KARIME Administration Furosemide 20 mg 05/01/20 14:30 05/01/20 15:09 Furosemide Inj/Pf 20 Mg/2 Ml Sdv IV 05/31/20 14:29 20 mg DAILY KARIME Administration Glucagon 1 mg 04/25/20 12:35 Glucagen Inj 1 Mg Vial SUBCUT 05/25/20 12:34 PRN PRN Evaluate for BG < 70 Protocol Glucose 15 gm 04/25/20 12:35 Glutose 40% Gel 15 Gm Tube PO 05/25/20 12:34 PRN PRN For BG 50-69 in Alert Patient Protocol Glucose 30 gm 04/25/20 12:35 Glutose 40% Gel 15 Gm Tube PO 05/25/20 12:34 PRN PRN FOR BG < 50 IN ALERT PATIENT Protocol Magnesium Oxide 400 mg 04/28/20 22:00 05/01/20 21:29 Mag-Ox 400 Mg Tablet PO 05/28/20 21:59 400 mg QHS KARIME Administration Multivitamins 1 tab 04/24/20 10:00 05/01/20 09:34 Tab-A-Cipriano (Multiple Vitamin) Tablet PO 05/24/20 09:59 1 tab DAILY KARIME Administration Pantoprazole Sodium 20 mg 04/25/20 06:00 05/02/20 05:[address] Tablet PO 05/25/20 05:59 20 mg Q6AM KARIME Administration Discontinued Medications Generic Name Dose Route Start Last Admin Trade Name Freq PRN Reason Stop Dose Admin Amiodarone HCl 200 mg 04/24/20 10:00 04/24/20 09:20 Cordarone 200 Mg Tablet PO 05/24/20 09:59 200 mg DAILY KARIME Administration Aspirin 162 mg 04/23/20 22:31 04/24/20 03:35 Aspirin 81 Mg Chewable Tablet PO 04/23/20 22:32 162 mg NOW ONE Administration Aspirin Confirm 04/24/20 03:31 04/24/20 06:21 Aspirin 81 Mg Chewable Tablet Administered 04/24/20 03:32 Not Given Dose 81 mg .ROUTE .STK-MED ONE Atorvastatin Calcium 20 mg 04/24/20 22:00 Lipitor 40 Mg Tablet PO 05/24/20 21:59 QHS KARIME Carvedilol 3.125 mg 04/30/20 22:00 05/01/20 09:33 Carvedilol 3.125 Mg Tablet PO 05/30/20 21:59 3.125 mg Q12 KARIME Administration Furosemide 20 mg 04/28/20 18:00 04/28/20 17:28 Lasix 40 Mg Tablet PO 05/28/20 17:59 Not Given PCSUPPER KARIME Furosemide 20 mg 04/29/20 13:49 04/29/20 14:16 Lasix 20 Mg Tablet PO 04/29/20 13:50 20 mg NOW ONE Administration Sodium Chloride 1,000 mls @ 0 mls/hr 04/23/20 16:09 04/23/20 17:10 Nacl 0.9% 1000 Ml Iv Soln IV 04/23/20 16:10 Infused BOLUS ONE Infusion Wide Open Sodium Chloride 1,000 mls @ 0 mls/hr 04/23/20 16:09 04/23/20 17:25 Nacl 0.9% 1000 Ml Iv Soln IV 04/23/20 16:10 999 mls/hr BOLUS ONE Administration Wide Open Lactated Ringer's 500 mls @ 0 mls/hr 04/24/20 14:12 04/24/20 19:00 Lactated Ringers 1000 Ml Iv Soln IV 04/24/20 14:13 Infused BOLUS ONE Infusion Wide Open Lactated Ringer's 1,000 mls @ 60 mls/hr 04/25/20 07:44 04/25/20 15:46 Lactated Ringers 1000 Ml Iv Soln IV 05/25/20 07:43 60 mls/hr CONTINUOUS PRN Administration THIS MED IS NOT "PRN" Vancomycin HCl 1,500 mg/ 250 mls @ 166.667 mls/hr 04/25/20 10:00 04/25/20 10:17 Dextrose IV 04/25/20 11:29 166.67 mls/hr NOW ONE 166.67 mls/hr Administration Vancomycin HCl 750 mg/ 250 mls @ 166.667 mls/hr 04/25/20 22:00 04/28/20 00:31 Dextrose IV 05/02/20 21:59 Infused Q12 KARIME Infusion Cefazolin Sodium 2 gm/ 100 mls @ 200 mls/hr 04/27/20 22:00 04/30/20 06:29 Dextrose IV 05/04/20 21:59 200 mls/hr Q8 KARIME Administration Lidocaine HCl Confirm 04/26/20 13:19 Xylocaine 2% Inj-Pf (20 Mg/Ml) 10 Ml Ampul Administered 04/26/20 13:20 Dose 10 ml .ROUTE .STK-MED ONE Melatonin Confirm 04/30/20 06:20 04/30/20 06:38 Melatonin 5 Mg Tablet Administered 04/30/20 06:21 5 mg Dose Administration 5 mg .ROUTE .STK-MED ONE Melatonin 6 mg 04/30/20 07:15 04/30/20 07:19 Melatonin 3 Mg Tablet PO 04/30/20 07:16 Not Given NOW ONE Pharmacy Profile Note 1 each 04/28/20 09:30 04/28/20 09:09 Medication Communication Order 04/28/20 09:31 Not Given .VANCTROUGH ONE Propofol Confirm 04/26/20 13:19 Diprivan Inj 200 Mg/20 Ml Vial Administered 04/26/20 13:20 Dose 200 mg IV .STK-MED ONE Assessment & Plan - Diagnosis (1) Heart failure with preserved ejection fraction Qualifiers: Heart failure chronicity: acute on chronic Qualified Code(s): I50.33 - Acute on chronic diastolic (congestive) heart failure Is this a current diagnosis for this admission?: Yes Plan: The patient continues to be mildly fluid overloaded but unfortunately his blood pressure is now again on the low side. Recommendations: -Discontinue Lasix for now. -Agree with transferring the patient to [facility]. -Consider initiation of dopamine in an attempt to achieve some diuresis. -Restrict fluid intake to 1500 cc daily. -Low sodium diet, less than 1500 mg daily. -Strict intake and output. -Daily weights. -Avoid unnecessary IV fluids. -Strict intake and output. -Low sodium diet. -Restrict fluid intake to 1500ml daily. -Daily BMP, magnesium and replace electrolytes as needed. (2) Endocarditis of mitral valve Is this a current diagnosis for this admission?: Yes Plan: The patient has been accepted to [facility] for further evaluation.
[2020-05-02] MEDS: MULTIVITAMIN TABLET PO SCH (09:24)
[2020-05-02] MEDS: DRONABINOL 2.5 MG CAPSULE PO SCH ×2 (09:24→17:23)
[2020-05-02] MEDS: FAMOTIDINE 20 MG TABLET PO SCH ×2 (09:24→22:28)
[2020-05-02] MEDS: APIXABAN 5 MG TABLET PO SCH ×2 (09:24→22:28)
[2020-05-02] MEDS: ASPIRIN 81 MG TABLET, CHEWABLE PO SCH (09:24)
[2020-05-02 11:03] LABS: ABSOLUTE LYMPHOCYTES (AUTO) 0.9 10^3/uL (0.5-4.7); ABSOLUTE MONOCYTES (AUTO) 0.4 10^3/uL (0.1-1.4); ABSOLUTE NEUT (AUTO) 4.8 10^3/uL (1.7-8.2); BASOPHILS % (AUTO) 0.2 % (0-2); EOSINOPHILS % (AUTO) 0.5 % (0-6); HEMATOCRIT 33.9 % (37.9-51.0); HEMOGLOBIN 10.9 g/dL (13.5-17.0); LYMPHOCYTES % (AUTO) 14.5 % (13-45); MEAN CORPUSCULAR HEMOGLOBIN 30.5 pg (27.0-33.4); MEAN CORPUSCULAR HGB CONC 32.2 g/dL (32.0-36.0); MEAN CORPUSCULAR VOLUME 95 fl (80-97); MONOCYTES % (AUTO) 6.4 % (3-13); PLATELET COUNT 105 10^3/uL (150-450); RED BLOOD COUNT 3.58 10^6/uL (4.35-5.55); RED CELL DISTRIBUTION WIDTH 21.8 % (11.5-14.0); SEGMENTED NEUTROPHILS % (AUTO) 78.4 % (42-78); TOTAL CELLS COUNTED % (AUTO) 100 %; WHITE BLOOD COUNT 6.1 10^3/uL (4.0-10.5)
[2020-05-02 11:26] LABS: ALBUMIN 2.3 g/dL (3.5-5.0); ALKALINE PHOSPHATASE 99 U/L (38-126); ANION GAP 7 (5-19); ASPARTATE AMINO TRANSFERASE 24 U/L (17-59); BILIRUBIN,DIRECT 0.8 mg/dL (0.0-0.4); BILIRUBIN,TOTAL 2.1 mg/dL (0.2-1.3); BLOOD UREA NITROGEN 19 mg/dL (7-20); CALCIUM 8.9 mg/dL (8.4-10.2); CARBON DIOXIDE 24 mmol/L (22-30); CHLORIDE 102 mmol/L (98-107); GLUCOSE 77 mg/dL (75-110); TOTAL PROTEIN 4.7 g/dL (6.3-8.2)
[2020-05-02 14:37] LABS: BARTONELLA HENSELAE IGG Negative titer (Neg:<1:320); BARTONELLA HENSELAE IGM Negative titer (Neg:<1:100); BARTONELLA QUINTANA IGG Negative titer (Neg:<1:320)
[2020-05-02 15:04] LABS: BARTONELLA QUINTANA IGM Negative titer (Neg:<1:100)
--- NOTE | 2020-05-02 17:26 | PDOC PROGRESS REPORT ---
Subjective Date:: 05/02/20 Subjective:: 74 year old male with a history of paroxysmal A. fib on anticoagulation, hyperte nsion, hyperlipidemia, who was discharged recently from hospital after having cholecystectomy now presents after he had an episode of passing out this morning. Patient reports that he went for a physical therapy session this morning and when he tried to get out chair and started to walk he felt lig htheaded and passed out. He was told that he passed out for less than 30 seconds after which she immediately regained consciousness and denies any confusion after the episode. He also denies any history of abnormal body movement, weakness of extremities, change in his speech, or confusion. Patient has no chest pain, palpitation, shortness of breath, orthopnea. He also denies any fever, chills, cough, nausea, vomiting or diarrhea. He did not take any of his morning medications today. He states that he usually runs a low blood pressure with a systolic in the 90s when he monitors his BP at home. 04/24/20 D2 hospital stay. Patient was seen and examined at bedside. He denied any chest pain or SOB but does complain of weakness generalized. He was about to have an echo. He has grade 2 pitting edema both lower extremities. BP still low at 80s/40s and we continue to hold his lasix. IV fluids stopped. 04/25/20 D3 Hospital stay. Patient was seen and examined at bedside. He denied any SOB, orthopnea, chest pain. No dizziness or weakness. Blood pressure still borderline low at 90s over 50s. 1 blood culture bottle growing MSSA. In light of his echo result I have started him on vancomycin for empiric treatment for endocarditis. SOLO ordered. He was started on IV fluids as well for his blood pressure. Ultimately he would still need RHC for his right sided heart failure. 04/26/20 D4 Hospital stay. He was seen and examined at bedside. denies any chest pain, orthopnea or SOB. SOLO that was done showed small vegetation on the mitral valve. Blood culture growing staph species NOT MRSA. He is currently on Vancomycin. ID was consulted. He remains afebrile. BP still borderline low. 04/27/20 D5 hospital stay. He was seen and examined at bedside. Feels ok overall, denies any chest pain, SOB, palpitations. Blood pressure still at about 90s over 50s.ID recommendation noted,not convinced that vegetation seen in SOLO and what is growing in her blood culture are related. Awaiting clarification from micro lab as to what species is growing in her blood culture. 04/28/20 D6 hospital stay. He was seen and examined at bedside. He's resting comfortably on the chair denies any chest pain, SOB, palpitations. On cefazolin for endocarditis. Awaiting repeat blood culture. 04/29/20 D7 hospital stay. He was seen and examined at bedside. Denies any new complains. Eating and drinking ok. Repeat blood culture 04/28/20 was negative. On cefazolin. 04/30/20 D8 hospital stay. He was seen and examined at bedside. He denied any new complains, no chest pain, no SOB. According to his nurse he requires a 2 person assists. I also touched base with ID regarding his positive blood culture s and according to Dr. Young she is doubtful that his blood cultures are causing his mitral valve findings. She suggested to stop the abx and repeat blood cultures in addition to testing for other causes of endocarditis that can be culture negative. 05/01/20 D9 hospital stay. he was seen and examined at bedside. he was sitting up in the chair. Denied any chest pain or SOB. Dr. Young's recommendation followed and I have ordered Bartonella, Coxiella, brucellosis IgG and IgM. His last blood cord culture on 04/28/2020 was negative. Cefazolin was stopped 04/30/2020. I discussed with him possible transfer to a tertiary care hospital for continued work-up of suspected infective endocarditis as well as right-sided heart failure versus a possible discharge to home or rehab. The patient exp ressed that he does not feel safe going home and would like to go to [facility]. I have explained to him that currently we have places her fall and this may take days. I called the [facility] and spoke to Iva who kindly connected me to a CT surgeon. SOLO was [facility]hare to [facility] as well for review. I discussed the case with the CT surgeon, according to him he would need further work-up to determine the cause of his mitral valve vegetation and moderate mitral valve regurgitation. He graciously accepted the patient for transfer under cardiology service. Iva from [facility] informed me at around 5:30 PM that they have him on a waiting list for cardiology bed at [facility] and that a Dr. Teixeira(?) Will be calling me for a doctor to Dr. Gonzalez. I left my personal number to Iva however by the time I have go off service I have not received a call from the ux information architect. I followed up with them before going off service and I left him to hospitalist lead number just in case they want to sign out from the current provider. 05/02/2020-no acute events in the last 24 hours. Comfortably in the bed communicating well. Waiting for bed availability at [facility]. He is going there for mitral valve vegetation and moderate mitral valve regurgi tation. Plan is to get in touch with [facility] transfer center for follow-up am. Reason For Visit: NON-STEMI(non-ST ELEVATED MYOCARDIAL INFARCTION) Physical Exam Vital Signs: Temp Pulse Resp BP Pulse Ox 98.2 F 53 L 19 109/65 95 05/02/20 15:44 05/02/20 15:44 05/02/20 15:44 05/02/20 15:44 05/02/20 15:44 Intake & Output 05/01/20 05/02/20 05/03/20 06:59 06:59 06:59 Intake Total 789 120 480 Output Total 375 150 Balance 414 120 330 Weight 85.8 kg 88.7 kg General appearance: PRESENT: no acute distress, cooperative, well-developed Head exam: PRESENT: atraumatic Eye exam: PRESENT: PERRLA Ear exam: PRESENT: normal external ear exam Mouth exam: PRESENT: moist, tongue midline Neck exam: ABSENT: carotid bruit, JVD, lymphadenopathy, thyromegaly Respiratory exam: PRESENT: decreased breath sounds Cardiovascular exam: PRESENT: +S1, +S2, systolic murmur GI/Abdominal exam: PRESENT: normal bowel sounds, soft. ABSENT: distended, guarding, mass, organolmegaly, rebound, tenderness Rectal exam: PRESENT: deferred Extremities exam: PRESENT: full ROM. ABSENT: calf tenderness, clubbing, pedal edema Neurological exam: PRESENT: alert, awake, oriented to person, oriented to place, oriented to time, oriented to situation, CN II-XII grossly intact. ABSENT: motor sensory deficit Psychiatric exam: PRESENT: appropriate affect, normal mood. ABSENT: homicidal ideation, suicidal ideation Results Laboratory Results: 05/02/20 10:00 05/02/20 10:00 05/02/20 05/02/20 10:00 10:00 WBC 6.1 RBC 3.58 L Hgb 10.9 L Hct 33.9 L MCV 95 MCH 30.5 MCHC 32.2 RDW 21.8 H Plt Count 105 L Seg Neutrophils % 78.4 H Sodium 133.0 L Potassium 4.0 Chloride 102 Carbon Dioxide 24 Anion Gap 7 BUN 19 Creatinine 0.81 Est GFR ( Amer) > 60 Glucose 77 Calcium 8.9 Total Bilirubin 2.1 H AST 24 Alkaline Phosphatase 99 Total Protein 4.7 L Albumin 2.3 L 04/23/20 04/23/20 04/23/20 17:30 17:30 22:53 Troponin I 0.112 0.100 NT-Pro-B Natriuret Pep 16634 H 04/24/20 04/24/20 04/29/20 05:10 11:45 04:50 Troponin I 0.106 0.094 NT-Pro-B Natriuret Pep 76833 H Impressions: Chest/Abdomen CTA 04/23/20 18:31 IMPRESSION: 1. No pulmonary artery embolization. 2. Groundglass opacification seen throughout the lung parenchyma but most pronounced in dependent fashion. There is associated bilateral pleural effusion and evidence of elevated right heart pressures. Overall findings are suggestive of pulmonary edema. Chest X-Ray 04/30/20 00:01 IMPRESSION: 1. Basal predominant pleural and parenchymal opacities in the right hemithorax that could represent a combination of pleural fluid, atelectasis and or in the proper clinical setting pneumonia. 2. Cardiomegaly and diffuse prominence of the interstitium - correlation with clinical findings is recommended to exclude mild CHF/interstitial edema. 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 -Blood culture 04/23/20 bottle 1 staph capitis, bottle 2 corynebacterium species -Blood culture 04/25/20 bottle 1 staph epidermidis in clusters - blood culture 04/28/20 bottle negative - Spoke to [facility] surgeon (?) and discussed the SOLO findings and he graciously accepted the patient for transfer under cardiology service. Per Iva from transfer center he is accepted pending bed availability and a ux information architect will soon get in touch with me. I have left them my personal number as well as the hospitalist lead cell number so they can be directed to the right provider. - ID recs followed and I have ordered the appropriate labs -Cefazolin stopped 04/30/20 05/02/2020-patient is afebrile. Vital signs are stable. Cefazolin is discontinued on 04/30/2020. Patient waiting to be transferred to [facility]. (2) CHF (congestive heart failure) Qualifiers: Heart failure type: right-sided Heart failure chronicity: acute on chronic Qualified Code(s): I50.813 - Acute on chronic right heart failure Is this a current diagnosis for this admission?: No Plan: -chronic or acute decompensation on top of chronic - BNP 93483 - hypotensive, no prior pulmonary embolism, no previous [place], no COPD - repeat echo showed normal LV systolic function EF 55 to 60%, RV mild to moderately dilated, RV systolic function is moderate to severely reduced. A vegetation on the mitral valve cannot be excluded. - BP improved, IV fluids stopped. - spoke to Dr. wall who recommended to stop coreg for now and start lasix 20 mg IV for diuresis - daily weights - strict IO -Cardiology following 05/02/20-cardiology is following the patient. The recommendation is fluid restriction at 1500 cc/day and to avoid IV fluids. Lasix on hold as per cardiology team. (3) Hypotension Qualifiers: Hypotension type: other hypotension type Qualified Code(s): I95.89 - Other hypotension Is this a current diagnosis for this admission?: Yes Plan: -Improved -Patient's blood pressure has been ranging lower 90s by lower 60s -Repeat echo normal LV systolic function, EF 55 to 60%, RV mild to moderately dilated, right ventricular systolic function moderately to severely reduced. -According to the patient his blood pressure usually runs low so I suspect he is at his baseline. 05/02/2020-latest blood pressure is 109/65. Stable. Patient is on fluid restriction, Lasix on hold at this time. (4) Atrial flutter Qualifiers: Atrial flutter type: atypical Qualified Code(s): I48.4 - Atypical atrial flutter Is this a current diagnosis for this admission?: Yes Plan: -currently sinus - eliquis resumed - 05/02/2020-heart rate today is 55. To continue Eliquis at this time. (5) Physical deconditioning Is this a current diagnosis for this admission?: Yes Plan: - PT for therapy -According to the nurse he requires a two-person assistance. He wishes to go to [place] for rehab. - Time Anticipated Discharge Disposition: Tertiary Anticipated Discharge Timeframe: within 24 hours
[2020-05-02 17:36] LABS: Q FEVER PHASE I AB Negative (Neg:<1:16)
[2020-05-02] MEDS: ATORVASTATIN CALCIUM 40 MG TABLET PO SCH (22:28)
[2020-05-02] MEDS: MAGNESIUM OXIDE 400 MG TABLET PO SCH (22:28)
[2020-05-03 00:25] VITALS: BP 88/59
--- NOTE | 2020-05-03 01:37 | PDOC TRANSFER SUMMARY ---
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 -Blood culture 04/23/20 bottle 1 staph capitis, bottle 2 corynebacterium species -Blood culture 04/25/20 bottle 1 staph epidermidis in clusters -blood culture 04/28/20 bottle negative -Bartonella, Coxiella, brucellosis IgG and IgM pending -Cefazolin stopped on 04/30/20 -Patient to be transferred to [facility] for further evaluation (2) Heart failure with preserved ejection fraction Is this a current diagnosis for this admission?: Yes Diagnosis Summary: - BNP 32685 - hypotensive, no prior pulmonary embolism, no previous NV, no COPD - repeat echo showed normal LV systolic function EF 55 to 60%, RV mild to moderately dilated, RV systolic function is moderate to severely reduced. - BP improved, IV fluids stopped. - Lasix on hold as per cardiology recommendation - daily weights - strict IO, fluid restriction (3) Hypotension Is this a current diagnosis for this admission?: Yes Diagnosis Summary: -Improved -Patient's blood pressure has been ranging lower 90s by lower 60s -Repeat echo normal LV systolic function, EF 55 to 60%, RV mild to moderately dilated, right ventricular systolic function moderately to severely reduced. -According to the patient his blood pressure usually runs low so I suspect he is at his baseline. -latest blood pressure is 109/65. Stable. Patient is on fluid restriction, Lasix on hold at this time. (4) Physical deconditioning Is this a current diagnosis for this admission?: Yes Diagnosis Summary: Continue physical therapy (5) Atrial flutter Is this a current diagnosis for this admission?: Yes Diagnosis Summary: -currently sinus - eliquis resumed - Transfer Medications Home Medications: Ferrous Sulfate 324 mg PO QAM 09/08/16 Acetaminophen [Acetaminophen Extra Strength] 500 mg PO Q6HP PRN 03/04/20 Amiodarone HCl [Cordarone 200 mg Tablet] 200 mg PO QAM 03/04/20 Atorvastatin Calcium [Lipitor 40 mg Tablet] 20 mg PO QHS 03/04/20 Carvedilol [Coreg 3.125 mg Tablet] 3.125 mg PO Q12 03/04/20 Cetirizine HCl [Zyrtec 10 mg Tablet] 10 mg PO DAILYP PRN 03/04/20 Cholecalciferol (Vitamin D3) [Vitamin D3 1000 Unit Tablet] 1,000 unit PO DAILY 03/04/20 Docusate Calcium 240 mg PO QPMP PRN 03/04/20 Apixaban [Eliquis 5 mg Tablet] 5 mg PO BID 04/24/20 Ascorbic Acid [Vitamin C 500 mg Tablet] 500 mg PO DAILY 04/24/20 Furosemide [Lasix 40 mg Tablet] 80 mg PO QAMP PRN 04/24/20 Furosemide [Lasix] 40 mg PO PCSUPPER 04/24/20 Magnesium Oxide 400 mg PO QHS 04/24/20 Metoclopramide HCl [Reglan 10 mg Tablet] 10 mg PO QIDP PRN 04/24/20 Multivitamin/Iron/Folic Acid [Cerovite Advanced Form Tab] 1 tab PO DAILY 04/24/20 Omeprazole 20 mg PO DAILY 04/24/20 Transfer Medications: Current Medications Acetaminophen (Tylenol 325 Mg Tablet) 650 mg PO Q6HP PRN PRN Reason: FOR HEADACHE OR PAIN Stop: 05/23/20 22:22 Apixaban (Eliquis 5 Mg Tablet) 5 mg PO Q12 [facility] Stop: 05/23/20 22:44 Last Admin: 05/02/20 22:28 Dose: 5 mg Documented by: Aspirin (Aspirin 81 Mg Chewable Tablet) 81 mg PO DAILY [facility] Stop: 05/24/20 09:59 Last Admin: 05/02/20 09:24 Dose: 81 mg Documented by: Atorvastatin Calcium (Lipitor 40 Mg Tablet) 40 mg PO QHS KARIME Stop: 05/23/20 22:44 Last Admin: 05/02/20 22:28 Dose: 40 mg Documented by: Dextrose (Dextrose Inj 50% Syringe (25 Gm/50 Ml)) 12.5 gm IV PRN PRN; Protocol PRN Reason: FOR BG 50-69 IN ALERT PATIENT Stop: 05/25/20 12:34 Dextrose (Dextrose Inj 50% Syringe (25 Gm/50 Ml)) 25 gm IV PRN PRN; Protocol PRN Reason: See Label Comments Stop: 05/25/20 12:34 Docusate Sodium (Colace Udc 100 Mg/10 Ml Oral Soln) 200 mg PO QPMP PRN PRN Reason: FOR CONSTIPATION Stop: 05/28/20 10:51 Last Admin: 05/01/20 10:09 Dose: 200 mg Documented by: Dronabinol (Marinol 2.5 Mg Capsule) 2.5 mg PO BID KARIME Stop: 05/05/20 17:59 Last Admin: 05/02/20 17:23 Dose: 2.5 mg Documented by: Famotidine (Pepcid 20 Mg Tablet) 20 mg PO Q12 KARIME Stop: 05/23/20 22:29 Last Admin: 05/02/20 22:28 Dose: 20 mg Documented by: Glucagon (Glucagen Inj 1 Mg Vial) 1 mg SUBCUT PRN PRN; Protocol PRN Reason: Evaluate for BG < 70 Stop: 05/25/20 12:34 Glucose (Glutose 40% Gel 15 Gm Tube) 15 gm PO PRN PRN; Protocol PRN Reason: For BG 50-69 in Alert Patient Stop: 05/25/20 12:34 Glucose (Glutose 40% Gel 15 Gm Tube) 30 gm PO PRN PRN; Protocol PRN Reason: FOR BG < 50 IN ALERT PATIENT Stop: 05/25/20 12:34 Magnesium Oxide (Mag-Ox 400 Mg Tablet) 400 mg PO QHS KARIME Stop: 05/28/20 21:59 Last Admin: 05/02/20 22:28 Dose: 400 mg Documented by: Multivitamins (Tab-A-Cipriano (Multiple Vitamin) Tablet) 1 tab PO DAILY KARIME Stop: 05/24/20 09:59 Last Admin: 05/02/20 09:24 Dose: 1 tab Documented by: Pantoprazole Sodium (Protonix [address] Tablet) 20 mg PO Q6AM KARIME Stop: 05/25/20 05:59 Last Admin: 05/02/20 05:53 Dose: 20 mg Documented by: - Allergies Allergies/Adverse Reactions: No Known Allergies Allergy (Verified 02/24/17 23:15) - Diet/Activity Discharge Diet: Cardiac Hospital Course Hospital Course: 74 year old male with a history of paroxysmal A. fib on anticoagulation, hypertension, hyperlipidemia, who was discharged recently from hospital after having cholecystectomy now presents after he had an episode of passing out this morning. Patient reports that he went for a physical therapy session this morning and when he tried to get out chair and started to walk he felt lightheaded and passed out. He was told that he passed out for less than 30 seconds after which she immediately regained consciousness and denies any confusion after the episode. He also denies any history of abnormal body movement, weakness of extremities, change in his speech, or confusion. Patient has no chest pain, palpitation, shortness of breath, orthopnea. He also denies any fever, chills, cough, nausea, vomiting or diarrhea. He did not take any of his morning medications today. He states that he usually runs a low blood pressure with a systolic in the 90s when he monitors his BP at home. 04/24/20 D2 hospital stay. Patient was seen and examined at bedside. He denied any chest pain or SOB but does complain of weakness generalized. He was about to have an echo. He has grade 2 pitting edema both lower extremities. BP still low at 80s/40s and we continue to hold his lasix. IV fluids stopped. 04/25/20 D3 Hospital stay. Patient was seen and examined at bedside. He denied any SOB, orthopnea, chest pain. No dizziness or weakness. Blood pressure still borderline low at 90s over 50s. 1 blood culture bottle growing MSSA. In light of his echo result I have started him on vancomycin for empiric treatment for endocarditis. SOLO ordered. He was started on IV fluids as well for his blood pressure. Ultimately he would still need RHC for his right sided heart failure. 04/26/20 D4 Hospital stay. He was seen and examined at bedside. denies any chest pain, orthopnea or SOB. SOLO that was done showed small vegetation on the mitral valve. Blood culture growing staph species NOT MRSA. He is currently on Vancomycin. ID was consulted. He remains afebrile. BP still borderline low. 04/27/20 D5 hospital stay. He was seen and examined at bedside. Feels ok overall, denies any chest pain, SOB, palpitations. Blood pressure still at about 90s over 50s.ID recommendation noted,not convinced that vegetation seen in SOLO and what is growing in her blood culture are related. Awaiting clarification from micro lab as to what species is growing in her blood culture. 04/28/20 D6 hospital stay. He was seen and examined at bedside. He's resting comfortably on the chair denies any chest pain, SOB, palpitations. On cefazolin for endocarditis. Awaiting repeat blood culture. 04/29/20 D7 hospital stay. He was seen and examined at bedside. Denies any new complains. Eating and drinking ok. Repeat blood culture 04/28/20 was negative. On cefazolin. 04/30/20 D8 hospital stay. He was seen and examined at bedside. He denied any new complains, no chest pain, no SOB. According to his nurse he requires a 2 person assists. I also touched base with ID regarding his positive blood cultures and according to Dr. Young she is doubtful that his blood cultures are causing his mitral valve findings. She suggested to stop the abx and repeat blood cultures in addition to testing for other causes of endocarditis that can be culture negative. 05/01/20 D9 hospital stay. he was seen and examined at bedside. he was sitting up in the chair. Denied any chest pain or SOB. Dr. Young's recommendation followed and I have ordered Bartonella, Coxiella, brucellosis IgG and IgM. His last blood cord culture on 04/28/2020 was negative. Cefazolin was stopped 04/30/2020. I discussed with him possible transfer to a tertiary care hospital for continued work-up of suspected infective endocarditis as well as right-sided heart failure versus a possible discharge to home or rehab. The patient expressed that he does not feel safe going home and would like to go to [facility]. I have explained to him that currently we have places her fall and this may take days. I called the [facility] transfer [place] and spoke to Iva who kindly connected me to a CT surgeon. SOLO was [facility]are to [facility] as well for review. I discussed the case with the CT surgeon, according to him he would need further work-up to determine the cause of his mitral valve vegetation and moderate mitral valve regurgitation. He graciously accepted the patient for transfer under cardiology service. Iva from [facility] informed me at around 5:30 PM that they have him on a waiting list for cardiology bed at [facility] and that a Dr. Teixeira(?) Will be calling me for a doctor to Dr. Gonzalez. I left my personal number to Iva however by the time I have go off service I have not received a call from the case aide. I followed up with them before going off service and I left him to hospitalist lead number just in case they want to sign out from the current provider. 05/02/2020-no acute events in the last 24 hours. Comfortably in the bed communicating well. He has been accepted to [facility]. He is going there for mitral valve vegetation and moderate mitral valve regurgitation for further evaluation and management. Physical Exam Vital Signs: Temp Pulse Resp BP Pulse Ox 97.4 F 91 18 88/59 L 93 05/02/20 23:33 05/02/20 23:33 05/02/20 23:33 05/02/20 23:33 05/02/20 23:33 Intake & Output 05/01/20 05/02/20 05/03/20 06:59 06:59 06:59 Intake Total 789 120 480 Output Total 375 450 Balance 414 120 30 Weight 85.8 kg 88.7 kg Additional comments: GENERAL APPEARANCE: Alert and oriented x4, in no acute distress HEENT: Normocephalic and atraumatic. EOMI, PERRLA. Moist oral mucosa NECK: Supple. No lymphadenopathy or tenderness. No carotid bruit. No JVD CHEST: Symmetric. Nontender to palpation. LUNGS: Clear with good air entry bilaterally. No wheezing or crackles HEART: Regular rate and rhythm with normal S1 and S2. ABDOMEN: soft, active bowel sounds, no direct or rebound tenderness. No organomegaly detected. EXTREMITIES: No cyanosis, clubbing, or edema. MUSCULOSKELETAL: Full range of motion PSYCHIATRIC: Appropriate mood and affect. SKIN: Warm, dry, and well perfused. No lesions or rashes are noted. NEUROLOGIC: No focal sensory or motor deficits are noted. Results Laboratory Results: 05/02/20 10:00 05/02/20 10:00 05/02/20 05/02/20 10:00 10:00 WBC 6.1 RBC 3.58 L Hgb 10.9 L Hct 33.9 L MCV 95 MCH 30.5 MCHC 32.2 RDW 21.8 H Plt Count 105 L Seg Neutrophils % 78.4 H Sodium 133.0 L Potassium 4.0 Chloride 102 Carbon Dioxide 24 Anion Gap 7 BUN 19 Creatinine 0.81 Est GFR ( Amer) > 60 Glucose 77 Calcium 8.9 Total Bilirubin 2.1 H AST 24 Alkaline Phosphatase 99 Total Protein 4.7 L Albumin 2.3 L 04/23/20 04/23/20 04/23/20 17:30 17:30 22:53 Troponin I 0.112 0.100 NT-Pro-B Natriuret Pep 44276 H 04/24/20 04/24/20 04/29/20 05:10 11:45 04:50 Troponin I 0.106 0.094 NT-Pro-B Natriuret Pep 63079 H Impressions: Chest/Abdomen CTA 04/23/20 18:31 IMPRESSION: 1. No pulmonary artery embolization. 2. Groundglass opacification seen throughout the lung parenchyma but most pronounced in dependent fashion. There is associated bilateral pleural effusion and evidence of elevated right heart pressures. Overall findings are suggestive of pulmonary edema. Chest X-Ray 04/30/20 00:01 IMPRESSION: 1. Basal predominant pleural and parenchymal opacities in the right hemithorax that could represent a combination of pleural fluid, atelectasis and or in the proper clinical setting pneumonia. 2. Cardiomegaly and diffuse prominence of the interstitium - correlation with clinical findings is recommended to exclude mild CHF/interstitial edema. Plan Discharge Plan: Patient being transferred to [facility] for further evaluation and management of mitral valve vegetation with regurgitation Time Spent: Greater than 30 Minutes
[2020-05-03 07:53] LABS: Q FEVER PHASE II AB Negative (Neg:<1:16)
[2020-05-03 13:51] LABS: BRUCELLA IGG AB Negative (Negative)
== END 2020-05-03 03:00 | disposition short-term general hospital (02) | DRG 280 ==
LOC: ER 15:02 → EH 23:22 → 3W 04-24 02:26
PROVIDERS: ADMIT Student in an Organized Health Care Education/Training Program; ATTEND Internal Medicine
DX: I33.0 Acute and subacute infective endocarditis (principal); I21.4 Non-ST elevation (NSTEMI) myocardial infarction; I50.33 Acute on chronic diastolic (congestive) heart failure; L97.828 Non-pressure chronic ulcer of other part of left lower leg with other specified severity; L97.819 Non-pressure chronic ulcer of other part of right lower leg with unspecified severity; I48.3 Typical atrial flutter; I27.20 Pulmonary hypertension, unspecified; D63.1 Anemia in chronic kidney disease; I95.89 Other hypotension; B95.8 Unspecified staphylococcus as the cause of diseases classified elsewhere; I48.0 Paroxysmal atrial fibrillation; E78.5 Hyperlipidemia, unspecified; I34.0 Nonrheumatic mitral (valve) insufficiency; K21.9 Gastro-esophageal reflux disease without esophagitis; M19.90 Unspecified osteoarthritis, unspecified site; F43.10 Post-traumatic stress disorder, unspecified; Z96.642 Presence of left artificial hip joint; E66.9 Obesity, unspecified; Z87.891 Personal history of nicotine dependence; Z79.02 Long term (current) use of antithrombotics/antiplatelets; Z79.899 Other long term (current) drug therapy; Z79.82 Long term (current) use of aspirin; Z68.28 Body mass index [BMI] 28.0-28.9, adult; Z11.59 Encounter for screening for other viral diseases
CPT/HCPCS: 01922; 36415; 71046; 71275; 80053; 81001; 82803; 82962; 83605; 83735; 83880; 84484; 85025; 85610; 86317; 86622; 86638; 87040; 87077; 87150; 87186; 87635; 93005; 93010; 93306; 93312; 93325; 99281; A9270-GY; C9803; G0378; J0690; J1940; J2704; J3370; J3490; J7030; J7060; J7120